=== PATIENT | male | born 1940 | race Caucasian/White ===

== ENCOUNTER 2020-12-03 12:52 | Emergency (ER) | payer MEDICARE, SELFPAY ==
[2020-12-03] VITALS (10 sets, daily range): BP systolic 167–194; BP diastolic 66–89; PULSE 66–81; RESP 16; TEMP 36.7; O2SAT 94–99; BMI 24.4
--- NOTE | 2020-12-03 13:43 | ED.LOWEXIN ---
HPI - Extremity Injury (Lower) General Chief Complaint: Extremity Injury, Lower Stated Complaint: left knee pain Time Seen by Provider: 12/03/20 13:43 Source: patient and family (son) Mode of arrival: Wheelchair Limitations: no limitations History of Present Illness HPI Narrative: This is an 80-year-old male who comes to the emergency department with complaint of left knee pain. Patient states he was skiing yesterday just outside [place], [place]. Patient states that he fell and had pain immediately in the area just below his knee and radiating down. Patient states if he tries to weight bear very uncomfortable from below the knee down towards his ankle. He crawls on his hands and knees that does not cause him pain. Patient has had swelling. He does not have any numbness, tingling or loss of sensation. Patient denies any other injuries, states that he had his helmet on. He denies any headache, back pain, chest pain or shortness of breath. Patient states he takes ibuprofen as needed for pain, otherwise he does not take any medications regularly. His primary care is on [facility] and he lives in [place]. Patient denies any allergies to medications. Related Data Previous Rx's Medication Instructions Recorded hydrocodone-acetaminophen [Fork] 1 tab PO Q6H PRN #14 tab 12/03/20 Review of Systems Review of Systems ROS Unobtainable: All systems reviewed & are unremarkable except as noted in HPI and below Patient History Social History Smoking Status: Never smoker Smoking Status: Never smoker Substance Use Type: does not use Exam Narrative Exam Narrative: GEN: well nourished, well appearing elderly male, alert and oriented x 3, patient appears to be in mild distress. HEENT: Atraumatic, pupils are equal round reactive to light, extraocular movements are intact, nares are clear. No cervical vertebral tenderness, full range of motion. HEART: Regular rate and rhythm without murmur, clicks, rubs. Pulses are equal in upper and lower extremities LUNGS:Lungs clear to auscultation, no wheezes, rales, crackles, chest moves symmetrically ABD:bowel sounds normal, soft, non-tender, no guarding, rebound, rigidity, no masses noted, no hepatosplenomegaly :No CVA tenderness MSCL: Patient has mild to moderate tenderness over the lateral tibia on the left leg, patient does have swelling of the knee and just below in comparison to the right, there is some mild ecchymosis, no hematoma is appreciated. No lacerations or open wounds, no muscle atrophy, patient has 5/5 strength with dorsi and plantar flexion. Normal sensation throughout bilateral lower extremities. 2+ dorsalis pedis and tibial pulse on the left NEURO:CN 2-12 intact, sensation normal SKIN: see above. Initial Vital Signs Initial Vital Signs: Vital Signs Pulse Rate 81 12/03/20 12:55 Respiratory Rate 16 12/03/20 12:55 Blood Pressure 175/72 H 12/03/20 12:55 Pulse Oximetry 96 12/03/20 12:55 Course Orders Ordered: ED Orders 12/03/20 13:43 XR knee LT 1to2V Stat 12/03/20 14:44 CT LE LT wo con Stat 12/03/20 15:47 COVID19 Stat Consultations Consultation #1: Dr. Dunaway, recommends CT imaging and consultation with [facility] orthopedics. Patient may need to followup for surgical intervention with their orthopedic trauma team. Can likely be outpatient. If any difficulties setting up follow up he hasks for call back and they will follow up on Friday morning. Time: 14:48 Consultation #2: spoke with Dr. Jose Godoy with orthopedic surgery. [facility] and plan to follow up on Friday or . Dr. Godoy does not request any additional labs. Recommends knee immobilizer and walker with non-weight bearing. If patient unable to ambulate safely they are happy to have patient transfer tonight. Time: 15:55 Vital Signs Vital signs: Vital Signs - 8 hr 12/03/20 12:55 12/03/20 13:58 12/03/20 14:00 Temperature Pulse Rate 81 67 67 Respiratory Rate 16 Blood Pressure 175/72 H Pulse Oximetry 96 95 94 12/03/20 14:30 12/03/20 14:33 12/03/20 15:09 Temperature Pulse Rate 68 70 72 Respiratory Rate Blood Pressure 194/89 H Pulse Oximetry 95 95 98 12/03/20 15:30 12/03/20 16:00 12/03/20 16:04 Temperature Pulse Rate 69 66 71 Respiratory Rate Blood Pressure 167/66 H Pulse Oximetry 97 95 94 12/03/20 16:30 Temperature 98.0 F Pulse Rate 72 Respiratory Rate 16 Blood Pressure 167/66 H Pulse Oximetry 99 MDM - Extremity Injury (Lower) Lab Data Labs: Lab Results 12/03/20 Range/Units 15:47 SARS-CoV-2 (PCR) Negative (Negative) Imaging Data Extremity x-ray #1: Radiologist's Impression: [address] [id number] ReportSigned Patient: Garrett Torres BMR#: [id number]: 1940Acct:[id number]/Sex: 80 / MDate of Service: 12/03/20Loc: EDAccession Number: [id number] Procedure: XR knee LT 1to2V Ordering Provider: Sri Basurto D.O. PROCEDURE: XR KNEE LT 3V INDICATIONS: fall, ? hyperextended knee TECHNIQUE: 2 views of the knee were acquired. COMPARISON: None. FINDINGS: Bones: There is a displaced and mildly comminuted and depressed tibial plateau fracture of the lateral tibial plateau. This demonstrates approximately 7 mm of lateral displacement. There is up to 13 mm of depression at the greatest aspect. No additional fractures. Heterogeneous sclerotic lesion within the proximal tibia measuring up to 2.6 cm in greatest diameter. Soft tissues: Large dense joint effusion and diffuse soft tissue swelling. IMPRESSION: Comminuted comminuted, displaced, and depressed lateral tibial plateau fracture with large dense effusion. 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 Dictated by: Oswaldo Way D.O. on 12/03/2020 at 13:15 Approved by: Oswaldo Way D.O. on 12/03/2020 at 13:19 [facility] Narrative Medical decision making narrative: This is a pleasant 80-year-old male who has a tibial plateau fracture requiring specialized orthopedic evaluation and treatment that occurred while skiing yesterday. Patient does not have any other complaints and examination does not produce any other injuries. Patient's case was reviewed with Orthopedic surgery locally who referred patient to [facility]. Case was discussed with Dr. Morejon from [facility] and plan have patient follow in the office on Friday this week with plan for surgical fixation on Friday or . Patient and son are both comfortable with plan. Patient was able to ambulate with crutches which he states he prefers and feels more comfortable than with a walker. Placed in knee immobilizer. Given a short-term prescription of Fork although patient states he will likely not take this. Phone numbers from and the son were given to the coordinator at [facility] and they should expect a phone call tomorrow afternoon. Discharge Plan Departure Patient Disposition: Home Clinical Impression: Closed fracture of tibial plateau Instructions: DI for Tibial Plateau Fracture Activity Restrictions/Additional Instructions: Follow-up with Orthopedic surgery at [facility]. They planned to have you seen at clinic on Friday, with plan for surgical repair on Friday or . You should expect a phone call sometime by tomorrow afternoon. If you have not heard back by late afternoon you may call [phone]. You are supposed to be [facility] by [facility]. I spoke with Dr. 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 Take your hard copy of your COVID test today with you. You should be nonweightbearing. You may take pain medication as needed, 1 tablet every 6 hours as needed. This medication has narcotic, do not drive, perform hazardous activities or make any major decisions while taking it. It will also make you constipated so make sure to take a stool softener such as Colace 1-2 times daily until stools are soft and regular. If you prefer you may take Tylenol instead up to a 1000 mg every 8 hours. Your maximum amount of acetaminophen is 3000 mg in 24 hours. Splint Care: Keep splint clean and dry. Elevated affected body part to decrease swelling. OK to use ice pack on the affected body part. Use for 15-20 minutes each time, for 5-6x per day. If you develop worsening pain, numbness, tingling, discoloration of the affected body part, loosen the splint by loosening the CHANTAL wrap, and either see your doctor for an urgent re-assessment, or return to the Emergency Department. Return to the Emergency Department for any new or worsening symptoms. Prescriptions: New hydrocodone-acetaminophen [Fork] 5-325 mg tablet 1 tab PO Q6H PRN (Reason: pain) Qty: 14 RF: 0 Referrals: Anita Mart MD [Primary Care Provider] - Ronaldo Dunaway MD [Physician] -
--- NOTE | 2020-12-03 14:44 | DI.CT.S_ITS ---
PROCEDURE: CT LE LT W CON INDICATIONS: left tibial plateau fracture TECHNIQUE: Noncontrast 1-1.5 mm axial sections acquired from the mid-patella to the proximal tibia, with coronal and sagittal reformats. COMPARISON: [facility], CR, XR KNEE LT 3V, 12/03/2020, 13:44. FINDINGS: Image quality: Excellent. Bones: There is a vertical fracture through the lateral tibial plateau extending to the metaphysis. This demonstrates approximately 7 mm of lateral displacement proximally. There are comminuted fracture fragments with depression of the central portion of the lateral tibial plateau. This demonstrates approximately 1.5 cm of depression at the deepest point. No additional fractures are identified. Mild degenerative changes of the patellofemoral compartment. Mild lateral patellar deviation and tilt. Heterogeneous sclerotic lesion within the proximal tibia with appearance favoring enchondroma. Soft tissues: Enthesophyte is noted at the patella. Mild vascular calcifications within the leg. Large dense effusion. Diffuse soft tissue inflammation. IMPRESSION: Comminuted split and depressed fracture of the lateral tibial plateau (Schatzker 2) with approximately 7 mm of lateral displacement and approximately 1.5 cm of depression at the greatest depth within the mid portion of the tibial plateau. Large joint effusion. Mild degenerative changes of the patellofemoral compartment. Mild lateral patellar deviation and tilt. Dictated by: Oswaldo Way D.O. on 12/03/2020 at 14:24 Approved by: Oswaldo Way D.O. on 12/03/2020 at 14:31
[2020-12-03 16:14] LABS: COVID19 -Nasal RAPID Negative (Negative)
== END 2020-12-03 16:30 | disposition home or self-care (01) ==
PROVIDERS: Emergency Provider Emergency Medicine; Family Provider Family Medicine Geriatric Medicine; PCP Family Medicine Geriatric Medicine
DX: S82.143A Displaced bicondylar fracture of unspecified tibia, initial encounter for closed fracture (principal); V00.321A Fall from snow-skis, initial encounter; Z20.822 Contact with and (suspected) exposure to COVID-19
CPT/HCPCS: 73560; 73700; 87635; 99284; C9803

== ENCOUNTER → 2021-05-16 07:38 | Outpatient (CLI) | payer MEDICARE, SELFPAY ==
--- NOTE | 2021-05-16 | DI.ECHO.S_ITS ---
[facility] +---------+ : : [address] : : : : [id number] : : : : Phone: [phone]+ Echocardiogram Report + + :Name: SREE SANTANA Study Date: 05/16/2021 Height: 71 in : :[facility] ReadingLocation: Weight: 175 lb : : Gender: Male BSA: 2.0 m2 : :: 1940 Age: 81 yrs BP: 165/85 mmHg: :Reason For Study: FATIGUE : :Ordering Physician: MACIEJ, : :IVONNE Performed By: Jacy Garcia : :Referring: IVONNE WING : + + Interpretation Summary The left ventricle is normal in size and wall thickness. Left ventricular systolic function appears normal without focal wall motion abnormalities. The ejection fraction is estimated to be 60-65%. Diastolic parameters suggest probable normal left ventricular diastolic function and normal filling pressures. The right ventricle is normal in size and function. The right ventricular systolic pressure is estimated to be at least 20 mmHg based on an estimated right atrial pressure of 3 mm Hg. The left atrium is mildly dilated. Right atrial size is normal. There is mild mitral regurgitation. There is mild aortic regurgitation. The ascending aorta is mildly enlarged. Procedure: A two-dimensional transthoracic echocardiogram with color flow and Doppler was performed. The study quality was technically adequate. There is no prior echocardiogram noted for this patient. The patient was in sinus rhythm with heart rates between 58-64 bpm during the exam. Left Ventricle: The left ventricle is normal in size and wall thickness. Left ventricular systolic function appears normal without focal wall motion abnormalities. The ejection fraction is estimated to be 60-65%. Diastolic parameters suggest probable normal left ventricular diastolic function and normal filling pressures. Right Ventricle: The right ventricle is normal in size and function. Atria: The left atrium is mildly dilated. Right atrial size is normal. There is no Doppler evidence for an interatrial shunt. Mitral Valve: The mitral valve is normal in structure and function. There is mild mitral regurgitation. Aortic Valve: The aortic valve is trileaflet. The aortic valve opens well. There is no aortic valve stenosis. There is mild aortic regurgitation. Tricuspid Valve: The tricuspid valve is normal in structure and function. The right ventricular systolic pressure is estimated to be at least 20 mmHg based on an estimated right atrial pressure of 3 mm Hg. There is trace tricuspid regurgitation. Pulmonic Valve: The pulmonic valve is not well seen, but is grossly normal. There is mild pulmonic regurgitation. Great Vessels: The aortic root is normal size. The ascending aorta is mildly enlarged. The IVC is of normal diameter and collapses greater than 50% with a sniff. This suggests a low right atrial pressure of 3 mm Hg. Pericardium/ Pleura There is no pericardial effusion. There is no pleural effusion. MMode/2D Measurements & Calculations LVIDd: 5.4 cm LVOT diam: 2.1 cm LVIDs: 3.8 cm Ao root diam: 3.5 cm FS: 29.4 % asc Aorta Diam: 3.5 cm IVSd: 0.86 cm LVPWd: 0.93 cm LV flowers. diameter/BSA (cm/m^2): 2.7 LV sys. diameter/BSA (cm/m^2): 1.9 LA A2 area: 23.2 cm2 RA long axis: 5.3 cm LA A4 area: 19.2 cm2 RA area: 16.5 cm2 LA length (vol): 5.1 cm RA vol: 43.6 ml LA vol: 74.2 ml RA : 21.9 ml/m2 LA vol index: 37.2 ml/m2 IVC diam: 0.76 cm RVD1 (basal): 3.9 cm TAPSE: 2.7 cm Doppler Measurements & Calculations Ao V2 max: 113.3 cm/sec LVOT Max Iam: 102.1 cm/sec Ao V2 mean: 78.2 cm/sec LV V1 max P.2 mmHg Ao max P.1 mmHg LV V1 VTI: 25.2 cm Ao mean P.8 mmHg ALENA(I,D): 3.3 cm2 Ao V2 VTI: 27.4 cm ALENA(V,D): 3.2 cm2 sev ratio: 0.92 ALENA indexed to BSA (cm^2/m^2): 1.6 MV E max iam: 51.1 cm/sec TR max iam: 210.2 cm/sec MV A max iam: 49.8 cm/sec TR max P.7 mmHg MV E/A: 1.0 PA V2 max: 109.8 cm/sec Med Peak E' Iam: 7.7 cm/sec PA V2 mean: 74.9 cm/sec E/E' med: 6.6 PA mean P.5 mmHg Lat Peak E' Iam: 5.8 cm/sec PA pr(Accel): 41.3 mmHg E/E' lat: 8.8 E/e' average: 7.7 MV dec time: 0.27 sec SV(OT): 89.6 ml Reading Physician:06:47 PM
== END ==
PROVIDERS: Family Provider Family Medicine Geriatric Medicine; PCP Physician Assistant; Referring Provider Physician Assistant; Visit Provider Physician Assistant
DX: I08.0 Rheumatic disorders of both mitral and aortic valves (principal); I77.89 Other specified disorders of arteries and arterioles; R53.83 Other fatigue
CPT/HCPCS: 93306

== ENCOUNTER 2023-07-23 08:07 | Emergency (ER) | payer MEDICARE, SELFPAY ==
[2023-07-23] VITALS (19 sets, daily range): BP systolic 152–206; BP diastolic 63–95; PULSE 56–157; RESP 17–27; TEMP 36.8; O2SAT 96–99; BMI 25.1
--- NOTE | 2023-07-23 08:15 | DI.CT.S_ITS ---
PROCEDURE: CT STROKE INDICATIONS: Dysarthria TECHNIQUE: Noncontrast 4.5 mm thick angled axial sections acquired from the foramen magnum to the vertex, with coronal reformats. For radiation dose reduction, the following was used: automated exposure control, adjustment of mA and/or kV according to patient size. COMPARISON: None. FINDINGS: Image quality: Excellent. CSF spaces: Basal cisterns are patent. No extra-axial fluid collections. The ventricles are symmetric in size and shape. Brain: No intracranial bleeds or masses. There is cerebral volume loss for age, with resultant ventricular and sulcal prominence. There are periventricular and deep white matter chronic small vessel ischemic changes more prominent in the left frontal lobe. There is intracranial internal carotid artery atherosclerosis. Skull and face: Calvarium and visualized facial bones appear intact, without suspicious lesions. Sinuses: Visualized sinuses and mastoids are clear. IMPRESSION: 1. No acute intracranial abnormality. 2. Cerebral volume loss and small vessel ischemic changes. This study fulfills neurological imaging criteria for inclusion or exclusion of acute stroke therapies based on available published neurological guidelines. Dictated by: Malachi Penn M.D. on 07/23/2023 at 8:30 Approved by: Malachi Penn M.D. on 07/23/2023 at 8:33
--- NOTE | 2023-07-23 08:16 | DI.CT.S_ITS ---
PROCEDURE: CT ANGIO HEAD AND NECK INDICATIONS: Dysarthria TECHNIQUE: After the administration of intravenous contrast, 1 mm thick sections acquired from the aortic arch through the [place] of [place]. 3-dimensional scnxlcy-luubmldlk-ccfuhebrhk (MIP) and/or volume rendering reformats were acquired of the central intracranial vasculature and neck separately. For radiation dose reduction, the following was used: automated exposure control, adjustment of mA and/or kV according to patient size. COMPARISON: None. FINDINGS: Image quality: Diagnostic. BRAIN: CSF spaces: Ventricles are normal in size and shape. Basal cisterns are patent. No extra-axial fluid collections. Brain: No significant abnormality of the brain can be seen. Skull and face: Calvarium and facial bones appear intact, without suspicious lesions. Orbits appear normal. Sinuses: Sinuses and mastoids are clear. HEAD CT ANGIOGRAPHY: Anterior circulation: Intracranial internal carotid arteries are normal in size and flow. Atherosclerotic vascular calcifications. Tiny inferiorly directed outpouching from the left terminal ICA measuring 1 x 1 mm, favored to represent a small infundibulum. The flow within the paired anterior cerebral arteries is normal and symmetric. The flow within the middle cerebral arteries is normal and symmetric. The anterior communicating artery is seen. No aneurysms are seen. Posterior circulation: Visualized portions of the vertebral arteries demonstrate normal caliber, and join to form a normal appearing basilar artery. Flow within the posterior cerebral arteries is normal and symmetric. No aneurysms are seen. NECK CT ANGIOGRAPHY: Carotid system: The great vessels demonstrate a conventional anatomy as they arise from the aortic arch. Atherosclerotic vascular calcifications are present. Mild narrowing of the bilateral proximal subclavian arteries. The origins of the common carotid arteries appear patent. The common carotid arteries demonstrate normal caliber and courses. Atherosclerotic vascular calcifications at the carotid bifurcations, left greater than right. No hemodynamically significant stenosis of the right proximal ICA. There is severe narrowing of the left proximal ICA with near complete occlusion. Normal caliber and contrast opacification distally. The internal carotid arteries demonstrate normal calibers and courses. Posterior circulation: Moderate narrowing of the right vertebral artery origin. The left vertebral artery origin is widely patent. The more superior extracranial portions of both vertebral arteries also demonstrate normal courses and calibers. They join to form a normal appearing basilar artery. Soft tissues: Visualized neck soft tissues demonstrate no suspicious abnormalities. Bones: No suspicious bony lesions. Degenerative changes of the cervical spine with focal reversal of the normal cervical lordosis at C3-C4. Grade 1 retrolisthesis of C4 on C5. Decreased osseous mineralization. Deformity of the superior aspect of the sternum, may represent prior fracture deformity. IMPRESSION: CT angiography head: 1. No large vessel occlusion or hemodynamically significant stenosis. 2. Tiny 1 mm inferiorly directed outpouching from the left terminal ICA, favored to represent an infundibulum over tiny aneurysm. CT angiography neck: 1. 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 2. Moderate narrowing of the right vertebral artery origin. Any quantitative measurements of stenosis were performed using NASCET criteria. Dictated by: Arsenio Saleh M.D. on 07/23/2023 at 8:41 Approved by: Arsenio Saleh M.D. on 07/23/2023 at 8:56
--- NOTE | 2023-07-23 08:17 | ED_ITS ---
HPI - Neuro Symptoms/Deficit General Chief Complaint: Neuro Symptoms/Deficit Stated Complaint: can't form sentence has thoughts Time Seen by Provider: 07/23/23 08:15 History of Present Illness HPI Narrative: Code stroke called. Last well known 7:15 a.m. today. Patient states he awoke before this and was fine. He was eating breakfast, he lives alone but next door to his son. He felt something was not right that he can form words correctly. He could not focused very well. Denies any weakness. No headache. He walked over to his son's house next door. Son states that he was making nonsensical words. There was no slurred speech or facial droop or limb weakness. He brought patient here directly. Blood sugar 106. Son states that patient is improving with responding to questions. He is answering more appropriately. However at this time unable to get the date correctly. He usually is able to. Patient going to CAT scan and angiogram now. Son states he has no history of heart attack strokes or diabetes. No recent illness. Denies any chest pain. No dyspnea. Triage nurse, Neli, states that he has improved a lot since the waiting room entry. Related Data Previous Rx's Medication Instructions Recorded hydrocodone 5 mg-acetaminophen 325 1 tab PO Q6H PRN pain #14 tabs 12/03/ mg tablet (Goodman) Allergies Allergy/AdvReac Type Severity Reaction Status Date / Time No Known Drug Allergies Allergy Verified 07/23/23 08:46 Review of Systems Review of Systems Narrative: GENERAL: negative chills, fatigue, malaise, fever, sweats. HEENT: negative sinus pain, ear pain, sore throat RESPIRATORY: negative dyspnea, cough CARDIOVASCULAR: negative chest pain, palpitations GASTROINTESTINAL: negative nausea, vomiting, abdominal pain : negative dysuria, frequency, hematuria MUSCULOSKELETAL: negative muscle or bony pain SKIN: negative rash, skin lesions NEUROLOGIC: negative weakness, numbness, positive dysarthria negative headache ROS Unobtainable: All systems reviewed & are unremarkable except as noted in HPI and below Patient History Social History Smoking Status: Never smoker Smoking Status: Never smoker Substance Use Type: does not use Exam Narrative Exam Narrative: GENERAL: in no distress, not toxic not dyspneic HEAD: Normocephalic. EYES: Pupils equal round ENT: Mucous membranes moist. NECK: Trachea midline. CARDIOVASCULAR: Regular rate and rhythm RESPIRATORY: Clear to auscultation. Breath sounds equal bilaterally. No wheezes, rales, or rhonchi. GASTROINTESTINAL: Abdomen soft, non-tender EXTREMITIES: No gross deformities. BACK: No flank tenderness. NEURO: AOx3. Clear speech no facial droop light touch intact bilateral face hands and legs. Negative pronator drift. Tclobf-in-nxsl intact. Patient unable to give me correct day/months/year SKIN: Warm and dry PSYCH: Not anxious, is cooperative Initial Vital Signs Initial Vital Signs: Vital Signs Temperature 98.3 F 07/23/23 08:08 Pulse Rate 68 07/23/23 08:08 Respiratory Rate 17 07/23/23 08:08 Blood Pressure 206/94 H 07/23/23 08:08 Pulse Oximetry 97 07/23/23 08:08 Oxygen Delivery Method Room Air 07/23/23 08:08 Scores NIH Stroke Scale Level of Conciousness: Alert, keenly responsive Ask month/age: Answers both questions correctly. Open/close eyes, close hand: Performs both tasks correctly Best gaze horizontal: Normal Visual cabrera: No visual loss Facial palsy: Normal symetrical movement Left arm drift: No drift for full 10 sec Right arm drift: No drift for full 10 sec Left leg drift: No drift for full 5 sec Right leg drift: No drift for full 5 sec Limb ataxia: Absent Sensory on face/arms/legs: Normal, no sensory loss Best language: No aphasia, normal Dysarthria: Normal Extinction or inattention: No abnormality Total NIH Stroke scale score: 0 Course Orders Ordered: Discontinued Medications Sodium Chloride (Normal Saline 0.9%) 1,000 mls @ 1,000 mls/hr IV BOLUS ONE Stop: 07/23/23 09:14 Last Admin: 07/23/23 08:35 Dose: 1,000 mls/hr Documented By: PAULINA Alteplase, Recombinant (Activase) 7.3 mg in 7.3 mls @ 438 mls/hr 0.09 mg/kg (7.3 mg) IV NOW ONE Stop: 07/23/23 08:55 Last Infusion: 07/23/23 09:20 Dose: 0 mls/hr Documented By: Admin: 07/23/23 09:19 Dose: 438 mls/hr Documented By: PAULINA Alteplase, Recombinant (Activase) 66.1 mg in 66.1 mls @ 66.1 mls/hr 0.81 mg/kg (66.1 mg) IV NOW ONE Stop: 07/23/23 09:53 Last Infusion: 07/23/23 09:58 Dose: 66.1 mls/hr Documented By: Admin: 07/23/23 09:20 Dose: 66.1 mls/hr Documented By: PAULINA Nicardipine HCl 25 mg/ Sodium (Chloride) 250 mls @ 50 mls/hr IV TITRATE JOSÉ MIGUEL; Protocol Last Titration: 07/23/23 09:38 Dose: 2.5 mg/hr, 25 mls/hr Documented By: Titration: 07/23/23 09:29 Dose: 2 mg/hr, 20 mls/hr Documented By: Admin: 07/23/23 09:20 Dose: 5 mg/hr, 50 mls/hr Documented By: PAULINA Labetalol HCl (Labetalol 20 Mg/4 Ml Syringe) 5 mg IV NOW ONE Stop: 07/23/23 08:43 Last Admin: 07/23/23 08:44 Dose: 5 mg Documented By: PAULINA Vital Signs Vital signs: Vital Signs - 8 hr 07/23/23 08:16 07/23/23 08:08 07/23/23 08:44 Temperature 98.3 F Pulse Rate 64 68 60 Respiratory Rate 22 17 Blood Pressure 206/94 H 183/81 H Pulse Oximetry 96 97 Oxygen Delivery Method Room Air MDM - Neuro Symptoms/Deficit Lab Data 07/23/23 08:15 07/23/23 08:15 Labs: Lab Results 07/23/23 07/23/23 07/23/23 Range/Units 08:15 08:15 08:15 WBC 7.0 (4.5-11.0) X10^3/uL RBC 4.63 (4.5-5.9) X10^6/uL Hgb 15.3 (13.5-17.5) g/dL Hct 44.8 (41-53) % MCV 96.7 (80-100) fL MCH 33.1 (26-34) PG MCHC 34.2 (30-36) % RDW 12.6 (11.6-14.8) % Plt Count 233 (150-400) X10^3/uL Neut % (Auto) 67.1 (50-75) % Lymph % (Auto) 21.8 L (25-40) % Jasper % (Auto) 10.0 (3-14) % Eos % (Auto) 0.8 L (2-4) % Baso % (Auto) 0.3 (0-2) % Neut # (Auto) 4700 (8210-3728) /uL Lymph # (Auto) 1500 (4213-2313) /uL Jasper # (Auto) 700 (0-900) /uL Eos # (Auto) 100 (0-450) /uL Baso # (Auto) 0 (0-100) /uL PT 11.9 (10.1-12.7) SECONDS INR 1.0 (0.9-1.3) APTT 29 (26-36) SECONDS Sodium 138 (137-145) mmol/L Potassium 4.2 (3.4-5.1) mmol/L Chloride 105 (98-107) mmol/L Carbon Dioxide 26 (22-32) mmol/L BUN 14 (9-20) mg/dL Creatinine 1.22 (0.66-1.25) mg/dL Estimated GFR 59 L (>60) mL/min BUN/Creatinine Ratio 11.5 (6-22) Glucose 106 (80-110) mg/dL Calcium 9.2 (8.4-10.2) mg/dL Total Bilirubin 0.9 (0.2-1.3) mg/dL AST 23 (17-59) IU/L ALT 18 (<50) IU/L Alkaline Phosphatase 71 (38-126) U/L Total Creatine Kinase 43 L (55-170) U/L Troponin I 0.045 H (0.01-0.034) ng/mL Total Protein 7.3 (6.3-8.2) g/dL Albumin 4.2 (3.5-5.0) g/dL Globulin 3.1 (1.7-4.1) g/dL Albumin/Globulin Ratio 1.4 (1.0-2.8) Point of Care Testing Glucose POC [address] scan - head: Radiologist's Impression: [address] [address] [address] Scan Report Addendum Patient: Garrett Torres MR#: [id number] : 1940 Acct:[id number] Age/Sex: 83 / M Date of Service: 07/23/23 Loc: ED Accession Number: [id number] ?? Procedure: CT Stroke Ordering Provider: Edmond Marie MD ADDENDUMThis report includes an Addendum and supersedes previous reports for this exam. ? ? ? PROCEDURE:? CT STROKE ? INDICATIONS:? Dysarthria ? TECHNIQUE:? Noncontrast 4.5 mm thick angled axial sections acquired from the foramen magnum to the vertex, with coronal reformats.? For radiation dose reduction, the following was used:? automated exposure control, adjustment of mA and/or kV according to patient size.? ? COMPARISON:? None. ? FINDINGS:? Image quality:? Excellent.? ? CSF spaces:? Basal cisterns are patent.? No extra-axial fluid collections.? The ventricles are symmetric in size and shape.? ? Brain:? No intracranial bleeds or masses.? There is cerebral volume loss for age, with resultant ventricular and sulcal prominence.? There are periventricular and deep white matter chronic small vessel ischemic changes more prominent in the left frontal lobe.? There is intracranial internal carotid artery atherosclerosis.? ? Skull and face:? Calvarium and visualized facial bones appear intact, without suspicious lesions.? ? Sinuses:? Visualized sinuses and mastoids are clear.? ? IMPRESSION:? 1. No acute intracranial abnormality. 2. Cerebral volume loss and small vessel ischemic changes.? ? ? This study fulfills neurological imaging criteria for inclusion or exclusion of acute stroke therapies based on available published neurological guidelines.? ? ? Dictated by: Malachi Penn M.D. on 07/23/2023 at 8:30 ? ? Approved by: Malachi Penn M.D. on 07/23/2023 at 8:33 ? ? ? ADDENDUM: ? Findings were discussed with Dr. Marie at the time of dictation 08:33. ? Dictated by: Malachi Penn M.D. on 07/23/2023 at 8:37 ? ? Approved by: Malachi Penn M.D. on 07/23/2023 at 8:38 ? Addendum Dictated By: Malachi Penn MD Addendum Signed By: Addendum Cosigned By: DD/ TD/TT: 07/23/23 PROCEDURE:? CT STROKE ? INDICATIONS:? Dysarthria ? TECHNIQUE:? Noncontrast 4.5 mm thick angled axial sections acquired from the foramen magnum to the vertex, with coronal reformats.? For radiation dose reduction, the following was used:? automated exposure control, adjustment of mA and/or kV according to patient size.? ? COMPARISON:? None. ? FINDINGS:? Image quality:? Excellent.? ? CSF spaces:? Basal cisterns are patent.? No extra-axial fluid collections.? The ventricles are symmetric in size and shape.? ? Brain:? No intracranial bleeds or masses.? There is cerebral volume loss for age, with resultant ventricular and sulcal prominence.? There are periventricular and deep white matter chronic small vessel ischemic changes more prominent in the left frontal lobe.? There is intracranial internal carotid artery atherosclerosis.? ? Skull and face:? Calvarium and visualized facial bones appear intact, without suspicious lesions.? ? Sinuses:? Visualized sinuses and mastoids are clear.? ? IMPRESSION:? 1. No acute intracranial abnormality. 2. Cerebral volume loss and small vessel ischemic changes.? ? ? This study fulfills neurological imaging criteria for inclusion or exclusion of acute stroke therapies based on available published neurological guidelines.? ? ? Dictated by: Malachi Penn M.D. on 07/23/2023 at 8:30 ? ? Approved by: Malachi Penn M.D. on 07/23/2023 at 8:33 ? CTA - brain/neck: Radiologist's Impression: [place] [address] CT Scan Report Signed Patient: Garrett Torres MR#: [id number] : 1940 Acct:[id number] Age/Sex: 83 / M Date of Service: 07/23/23 Loc: ED Accession Number: [id number] ?? Procedure: CT angio head and neck Ordering Provider: Edmond Marie MD PROCEDURE:? CT ANGIO HEAD AND NECK ? INDICATIONS:? Dysarthria ? TECHNIQUE:? After the administration of intravenous contrast, 1 mm thick sections acquired from the aortic arch through the [place] of [place].? 3-dimensional zuxvkjs-hzaexnjrv-lbrsmylzbh (MIP) and/or volume rendering reformats were acquired of the central intracranial vasculature and neck separately. For radiation dose reduction, the following was used:? automated exposure control, adjustment of mA and/or kV according to patient size.? ? COMPARISON:? None. ? FINDINGS:? Image quality:? Diagnostic.? ? BRAIN:? CSF spaces:? Ventricles are normal in size and shape.? Basal cisterns are patent.? No extra-axial fluid collections.? ? Brain:? No significant abnormality of the brain can be seen. ? ? ? Skull and face:? Calvarium and facial bones appear intact, without suspicious lesions.? Orbits appear normal.? ? Sinuses:? Sinuses and mastoids are clear.? ? HEAD CT ANGIOGRAPHY:? Anterior circulation:? Intracranial internal carotid arteries are normal in size and flow.? Atherosclerotic vascular calcifications.? Tiny inferiorly directed outpouching from the left terminal ICA measuring 1 x 1 mm, favored to represent a small infundibulum. ?The flow within the paired anterior cerebral arteries is normal and symmetric.? The flow within the middle cerebral arteries is normal and symmetric.? The anterior communicating artery is seen.? No aneurysms are seen.? ? Posterior circulation:? Visualized portions of the vertebral arteries demons trate normal caliber, and join to form a normal appearing basilar artery.? Flow within the posterior cerebral arteries is normal and symmetric.? No aneurysms are seen.? ? NECK CT ANGIOGRAPHY:? Carotid system:? The great vessels demonstrate a conventional anatomy as they arise from the aortic arch.? Atherosclerotic vascular calcifications are present.? Mild narrowing of the bilateral proximal subclavian arteries.? The origins of the common carotid arteries appear patent.? The common carotid arteries demonstrate normal caliber and courses.? Atherosclerotic vascular calcifications at the carotid bifurcations, left greater than right.? No hemodynamically significant stenosis of the right proximal ICA.? There is severe narrowing of the left proximal ICA with near complete occlusion.? Normal caliber and contrast opacification distally.? The internal carotid arteries demonstrate normal calibers and courses.? ? Posterior circulation:? Moderate narrowing of the right vertebral artery origin.? The left vertebral artery origin is widely patent.? The more superior extracranial portions of both vertebral arteries also demonstrate normal courses and calibers.? They join to form a normal appearing basilar artery.? ? Soft tissues:? Visualized neck soft tissues demonstrate no suspicious abnormali ties.? ? Bones:? No suspicious bony lesions.? Degenerative changes of the cervical spine with focal reversal of the normal cervical lordosis at C3-C4.? Grade 1 retrolisthesis of C4 on C5.? Decreased osseous mineralization.? Deformity of the superior aspect of the sternum, may represent prior fracture deformity.? ? ? IMPRESSION:? ? CT angiography head:? 1. No large vessel occlusion or hemodynamically significant stenosis. 2. Tiny 1 mm inferiorly directed outpouching from the left terminal ICA, favored to represent an infundibulum over tiny aneurysm. ? CT angiography neck: 1. 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 2. Moderate narrowing of the right vertebral artery origin. ? Any quantitative measurements of stenosis were performed using NASCET criteria.? ? ? Dictated by: Arsenio Saleh M.D. on 07/23/2023 at 8:41 ? ? Approved by: Arsenio Saleh M.D. on 07/23/2023 at 8:56 ? [facility] Narrative Medical decision making narrative: Last well known 7:15 a.m. today. Patient states he awoke before this and was fine. He was eating breakfast, he lives alone but next door to his son. He fe lt something was not right that he can form words correctly. He could not focused very well. Denies any weakness. No headache. He walked over to his son's house next door. Son states that he was making nonsensical words. There was no slurred speech or facial droop or limb weakness. He brought patient here directly. Blood sugar 106. Son states that patient is improving with responding to questions. He is answering more appropriately. However at this time unable to get the date correctly. He usually is able to. Patient going to CAT scan and angiogram now. Son states he has no history of heart attack strokes or diabetes. No recent illness. Denies any chest pain. No dyspnea. Triage nurse, Neli, states that he has improved a lot since the waiting room entry. After history and exam CT stroke CT angiogram head and neck EKG troponin CBC CMP normal saline neurology consult [facility] CC: Expressive aphasia Complicating co-morbidities: None Data collected from: Patient and son Medical records reviewed: No recent visit for this complaint Differential considered: Includes but not limited to stroke TIA hypoglycemia UTI Exam documented above, pertinent findings include: Disorientation to date Lab Test results independently reviewed as above. Pertinent findings: WBC 7.0 hemoglobin 15.3 INR 1.0 sodium 138 potassium 4.2 glucose 106 GFR 59 creatinine 1.22 BUN 14, troponin 0.045 likely related to hypertension, patient has no chest pain Independently reviewed EKG normal sinus rhythm rate [address] elevation or depression. Imaging studies independently reviewed: CT head without contrast no acute process CT angiogram head and neck no large vessel occlusion. 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 Moderate narrowing of the right vertebral artery origin. Consultations: 8:32 a.m.. Spoke with radiologist, CT brain without contrast no acute finding 8:40 a.m.. Spoke with tele stroke, neurology, with [facility], he will interview patient through tele video, Dr Blakely 8:50 a.m.. Neurologist has recommended tPA due to moderate expressive aphasia. Patient and son have been given risks and benefits by this neurologist. Patient will be transferred to [facility] Emergency Department, accepted by him 9:[address] a[address] Updated [address] angiogram head and neck results Treatments: Normal saline, tPA Re-evaluations: 8:35 a.m.. Patient still having a few sentences and events of expressive aphasia, no motor sensory deficits. 8:50 a.m.. Patient and son have been interviewed and examined by Neurology, they do understand need for tPA and risks and benefits have been reviewed with them. They do understand. And they also understand need for transfer to [facility] Discussion: Appropriate for tPA as well as transfer. This is protocol for tPA, [facility] helps for transfer and admission to their facility. Blood pressure is controlled. Diagnosis: Stroke Critical Care Time Critical Care Time Attestation: Critical Care Time 35 minutes: Critical care time is separate from other billable procedures. This critical care time includes consultation with family and other consulting doctors, review of records, and interpretation of data from labs, EKGs, imaging, etc. Discharge Plan Departure Patient Disposition: [facility] Clinical Impression: Cerebrovascular accident Prescriptions: No Action hydrocodone-acetaminophen [Goodman] 5-325 mg tablet 1 tab PO Q6H PRN (Reason: pain) Qty: 14 0RF Referrals: Charley Kimble PA-C [Non-Staff] -
[2023-07-23 08:26] LABS: Add Manual Diff / Slide Review NO; Basophils Absolute Auto 0 /uL (0-100); Basophils Percent Auto 0.3 % (0-2); Eosinophils Absolute Auto 100 /uL (0-450); Eosinophils Percent Auto 0.8 % (2-4); Hematocrit 44.8 % (41-53); Hemoglobin 15.3 g/dL (13.5-17.5); Lymphocytes Absolute Auto 1500 /uL (1100-4500); Lymphocytes Percent Auto 21.8 % (25-40); Mean Corpuscular HGB Conc 34.2 % (30-36); Mean Corpuscular Hemoglobin 33.1 PG (26-34); Mean Corpuscular Volume 96.7 fL (80-100); Monocytes Absolute Auto 700 /uL (0-900); Neutrophils Absolute Auto 4700 /uL (1500-7000); Neutrophils Percent Auto 67.1 % (50-75); Platelet Count 233 X10^3/uL (150-400); Red Blood Cell Count 4.63 X10^6/uL (4.5-5.9); Red Cell Distribution Width 12.6 % (11.6-14.8)
[2023-07-23 08:32] LABS: Prothrombin Time 11.9 SECONDS (10.1-12.7)
[2023-07-23 08:35] LABS: PTT Partial Thromboplastin Tim 29 SECONDS (26-36)
[2023-07-23] MEDS: SODIUM CHLORIDE 0.9% 1,000 ML 1000 ML IV (08:35)
[2023-07-23 08:37] LABS: Alanine Aminotransferase 18 IU/L (<50); Albumin 4.2 g/dL (3.5-5.0); Albumin Globulin Ratio 1.4 (1.0-2.8); Alkaline Phosphatase 71 U/L (38-126); Aspartate Aminotransferase 23 IU/L (17-59); BUN Creatinine Ratio 11.5 (6-22); Bilirubin Total 0.9 mg/dL (0.2-1.3); Blood Urea Nitrogen 14 mg/dL (9-20); Calcium 9.2 mg/dL (8.4-10.2); Carbon Dioxide 26 mmol/L (22-32); Chloride 105 mmol/L (98-107); Creatine Kinase 43 U/L (55-170); Estimated Glomerular Filt Rate 59 mL/min (>60); Globulin 3.1 g/dL (1.7-4.1); Glucose 106 mg/dL (80-110); HEMOLYSIS < 15 (0-50); Potassium 4.2 mmol/L (3.4-5.1); Sodium 138 mmol/L (137-145); Total Protein 7.3 g/dL (6.3-8.2)
[2023-07-23] MEDS: LABETALOL 20 MG/4 ML SYRINGE 5 MG IV (08:44)
[2023-07-23 08:48] LABS: Troponin I 0.045 ng/mL (0.01-0.034)
[2023-07-23] MEDS: ALTEPLASE 438 MG IV (09:19)
[2023-07-23] MEDS: NICARDIPINE 25 MG in SODIUM CHLORIDE 0.9% 240 ML 50 MG IV (09:20)
[2023-07-23] MEDS: ALTEPLASE IV (09:20)
--- NOTE | 2023-07-23 09:42 | PC.NURSE ---
Patient displaying some dysarthria and aphasia when talking. NIH stroke scale picture of washing dishes he states he sees a dog.
--- NOTE | 2023-07-23 10:00 | PC.NURSE ---
Ambulance team taking over TPA administration with 12cc left running and nicardipine drip infusing. Patients NIH score increased to [address] Marie was made aware.
== END 2023-07-23 10:01 | disposition short-term general hospital (02) ==
PROVIDERS: Emergency Provider Emergency Medicine; Family Provider Family Medicine Geriatric Medicine
DX: I63.9 Cerebral infarction, unspecified (principal)
CPT/HCPCS: 36415; 70450; 70496; 70498; 80053; 82550; 82962; 84484; 85025; 85610; 85730; 93005; 93010; 96365; 96368; 96375; 99284; 99285; 99291; 99292; J2997; Q9967

== ENCOUNTER → 2023-08-22 10:57 | Outpatient (CLI) | payer MEDICARE, SELFPAY ==
--- NOTE | 2023-08-22 | DI.US.S_ITS ---
PROCEDURE: US CAROTID DOPPLER BI INDICATIONS: Occlusion and stenosis of left carotid artery TECHNIQUE: Color and pulse Doppler interrogation was performed of both carotid systems, with image documentation and velocity measurements. COMPARISON: None. FINDINGS: Stenosis calculations are based on SRU (Society of Radiologists in Ultrasound) criteria. Right side: Brachial blood pressure: 129/69 mm Hg. Common carotid artery peak systolic velocity: 92 cm/sec. Internal carotid artery peak systolic velocity: 128 cm/sec. Internal carotid artery end diastolic velocity: 21 cm/sec. External carotid artery peak systolic velocity: 163 cm/sec. ICA/CCA peak systolic ratio: 1.4 . Silav scale imaging description: Atherosclerotic plaque Percent internal carotid artery stenosis: Approximately 50. Vertebral artery: Flow direction is antegrade. Left side: Brachial blood pressure: 126/65 mm Hg. Common carotid artery peak systolic velocity: 91 cm/sec. Internal carotid artery peak systolic velocity: 97 cm/sec. Internal carotid artery end diastolic velocity: 23 cm/sec. External carotid artery peak systolic velocity: 113 cm/sec. ICA/CCA peak systolic ratio: 1.1 . Silva scale imaging description: Atherosclerotic plaque Percent internal carotid artery stenosis: Less than 50 . Vertebral artery: Flow direction is antegrade. 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 Peak systolic velocities consistent with a 50-69% stenosis. On the left, no hemodynamically significant stenosis noted Approved by: Thierry Cruz M.D. on 08/22/2023 at 15:37
== END ==
PROVIDERS: Family Provider Family Medicine Geriatric Medicine; Referring Provider Physician Assistant Surgical; Visit Provider Physician Assistant Surgical
DX: I65.22 Occlusion and stenosis of left carotid artery (principal); Z98.890 Other specified postprocedural states
CPT/HCPCS: 93880

== ENCOUNTER 2023-10-01 04:57 | Emergency (ER) | payer MEDICARE, SELFPAY ==
--- NOTE | 2023-10-01 05:11 | ED.GENADULT ---
HPI - General Adult General Chief complaint: Urogenital-Male Stated complaint: possible kidney stone, shivering, cant urinate Time Seen by Provider: 10/01/23 05:10 History of Present Illness HPI narrative: 83-year-old gentleman with a history of stroke in July of this year with tPA given an eventual transfer to [facility] and had complete resolution of his symptoms. He currently is on Plavix as well as statin. At 9:00 p.m. last night he began having left lower quadrant/flank pain, it is radiating into his testicles. He is had nausea with 2 episodes of vomiting. Notes that he has not been able to void since 9:00 p.m. last night. He reports no constipation or diarrhea. No fevers. He is never had similar pain. No upper abdominal pain, chest pain, palpitations, headaches. He is quite literally, quivering secondary to pain Related Data Previous Rx's Medication Instructions Recorded hydrocodone 5 mg-acetaminophen 325 1 tab PO Q6H PRN pain #14 tabs 12/03/20 mg tablet (Bluemont) hydrocodone 5 mg-acetaminophen 325 1 tab PO Q6H PRN pain #10 tabs 10/01/23 mg tablet tamsulosin 0.4 mg capsule 0.4 mg PO DAILY #14 caps 10/01/23 Allergies Allergy/AdvReac Type Severity Reaction Status Date / Time No Known Drug Allergies Allergy Verified 07/23/23 08:46 Review of Systems Review of Systems Narrative: Pertinent positive and negative findings as per HPI Patient History Medical History (Updated 10/01/23 @ 06:39 by Cassia Carnes MD) Stroke Social History Smoking Status: Never smoker Smoking Status: Never smoker Substance Use Type: does not use Exam Initial Vital Signs Initial Vital Signs: Vital Signs Temperature 97.9 F 10/01/23 05:16 Pulse Rate 98 H 10/01/23 05:16 Respiratory Rate 24 10/01/23 05:16 Blood Pressure 167/83 H 10/01/23 05:16 Pulse Oximetry 98 10/01/23 05:16 Oxygen Delivery Method Room Air 10/01/23 05:16 General: Healthy appearing, in significant pain but Able to give a complete and coherent history. Well-nourished well-developed HEENT: Moist mucous membranes, normal sclera with reactive pupils, Respiratory: Lungs are clear to auscultation, no wheezing no rales no rhonchi. Full and symmetrical air movement Cardiac: Regular rate and rhythm no murmurs no bruits Abdomen: Soft, minor tenderness in the left lower quadrant, significant left flank pain, no tenderness along the inguinal canal on the left side. No tenderness in the upper abdomen Skin: Warm and dry, no rashes Neurologic: Grossly neurologically intact with no obvious asymmetries or abnormalities Extremities: No trauma, well perfused Psych: Cooperative, appropriate insight and affect Course Orders Ordered: ED Orders 10/01/23 05:10 Complete Blood Count AUTO DIFF Stat Comprehensive Metabolic Panel Stat 10/01/23 05:18 CT kidney ureter bladder (KUB) Stat Urinalysis and Microscopic Stat Hydromorphone HCl (Hydromorphone 0.5 Mg Inj) 0.5 mg IV Q15MIN PRN PRN Reason: Pain, Last Admin: 10/01/23 05:28 Dose: 0.5 mg Documented By: BARB Discontinued Medications Sodium Chloride (Normal Saline 0.9%) 1,000 mls @ 1,000 mls/hr IV BOLUS ONE Stop: 10/01/23 06:16 Last Admin: 10/01/23 05:29 Dose: 1,000 mls/hr Documented By: BARB Ondansetron HCl (Ondansetron 4 Mg/2 Ml Inj) 4 mg IV NOW ONE Stop: 10/01/23 05:18 Last Admin: 10/01/23 05:29 Dose: 4 mg Documented By: BARB Vital Signs Vital signs: Vital Signs - 8 hr 10/01/23 05:16 10/01/23 05:41 Temperature 97.9 F Pulse Rate 98 H 93 H Respiratory Rate 24 Blood Pressure 167/83 H Pulse Oximetry 98 99 Oxygen Delivery Method Room Air Medical Decision Making Lab Data 10/01/23 05:10 10/01/23 05:10 Labs: Lab Results 10/01/23 Range/Units 05:10 WBC 13.6 H (4.5-11.0) X10^3/uL RBC 4.30 L (4.5-5.9) X10^6/uL Hgb 14.0 (13.5-17.5) g/dL Hct 41.3 (41-53) % MCV 96.0 (80-100) fL MCH 32.5 (26-34) PG MCHC 33.8 (30-36) % RDW 13.2 (11.6-14.8) % Plt Count 277 (150-400) X10^3/uL Neut % (Auto) 89.4 H (50-75) % Lymph % (Auto) 4.7 L (25-40) % Lynn % (Auto) 5.8 (3-14) % Eos % (Auto) 0.1 L (2-4) % Baso % (Auto) 0.0 (0-2) % Neut # (Auto) 12772 H (9806-4474) /uL Lymph # (Auto) 600 L (5202-9873) /uL Lynn # (Auto) 800 (0-900) /uL Eos # (Auto) 0 (0-450) /uL Baso # (Auto) 0 (0-100) /uL Sodium 137 (137-145) mmol/L Potassium 4.2 (3.4-5.1) mmol/L Chloride 105 (98-107) mmol/L Carbon Dioxide 16 L (22-32) mmol/L BUN 25 H (9-20) mg/dL Creatinine 1.30 H (0.66-1.25) mg/dL Estimated GFR 55 L (>60) mL/min BUN/Creatinine Ratio 19.2 (6-22) Glucose 169 H (80-110) mg/dL Calcium 9.7 (8.4-10.2) mg/dL Total Bilirubin 1.1 (0.2-1.3) mg/dL AST 30 (17-59) IU/L ALT 24 (<50) IU/L Alkaline Phosphatase 81 (38-126) U/L Total Protein 7.5 (6.3-8.2) g/dL Albumin 4.4 (3.5-5.0) g/dL Globulin 3.1 (1.7-4.1) g/dL Albumin/Globulin Ratio 1.4 (1.0-2.8) MDM Narrative Medical decision making narrative: CC: Acute onset left flank and left lower quadrant pain 9:00 p.m. Complicating co-morbidities: Recent stroke, no residual side effects Data collected from: patient Medical records reviewed: ER notes from his recent stroke with transfer to [facility] are reviewed Differential considered: Kidney stone, pyelonephritis, inguinal hernia, AAA, retroperitoneal bleeding Exam documented above, pertinent findings include: In obvious pain that is still quite cooperative. Left flank and left lower quadrant tenderness. Does not have an acute surgical abdomen. Remainder of exam is benign Lab Test results independently reviewed as above. Pertinent findings: CBC shows leukocytosis at 13.6 with left shift at 89.4. Metabolic panel shows slight dehydration be with BUN at 25 and slight bump to creatinine at 1.3. Liver studies are unremarkable Urine dip shows blood glucose and ketones but does not suggest infection Imaging studies independently reviewed: 4 mm obstructing stone at the left UVJ with renal edema perinephric stranding and mild to moderate hydroureteronephrosis on the left. Treatments: Fluids, Zofran, Dilaudid. Because of his Plavix will hold on Toradol. Bladder scan Re-evaluations: Reviewed CT findings with the patient. Pain is doing much better. Bladder scan only showed will over a little over 225 cc after no void all night long. Likely needs to be drinking a bit more fluid and that may be contributing to why he developed the stone in the 1st place. Pain has been adequately controlled. He still does not feel like he would can void. Would like to confirm the absence of a urinary tract infection given the presence of stone and slight leukocytosis with no alternate explanation. Discussion: Patient is feeling significantly better. Pain is controlled, he has been able to void, he is able to walk around the department without any instability. The go home with his son. We talked about pain control, signs of infection and reasons to return. Prescriptions for Blu[place] and tamsulosin were sent to his pharmacy. Questions were answered and he is safe for discharge Discharge Plan Departure Patient Disposition: Home Clinical Impression: Kidney stone on left side Instructions: DI for Kidney Stones Activity Restrictions/Additional Instructions: Thank you for coming in today You do in fact have a 4 mm kidney stone on the left side that is almost ready to drop into your bladder. We are going to give you a prescription for hydrocodone-acetaminophen to use every 4 hours for pain control. This is a narcotic and will cause constipation. Please make sure you takes stool softener with this. You can also use Tylenol, please remember that each pain pill has the equivalent of 1 Tylenol in it as well. I am also going to give you a short prescription of tamsulosin/Flomax. This can help the ureter relax slightly and encouraged the stone to pass. Once the stone has passed, you do not need to continue this medication Please schedule an appointment with your primary care physician in about a week to follow-up on today's visit and make sure that the stone has passed, you are feeling well and all of your blood work is back to normal. If you find that you are getting worse or develop any new symptoms, please feel free to return to the emergency department for further evaluation. Prescriptions: New hydrocodone-acetaminophen 5-325 mg tablet 1 tab PO Q6H PRN (Reason: pain) Qty: 10 0RF tamsulosin 0.4 mg capsule 0.4 mg PO DAILY Qty: 14 0RF Rx Instructions: one daily until the kidney stone has passed then discontinue No Action hydrocodone-acetaminophen [Blu[place]] 5-325 mg tablet 1 tab PO Q6H PRN (Reason: pain) Qty: 14 0RF Referrals: Miscellaneous,Doctor, [Primary Care Provider] - Stand Alone Forms: Patient Portal/API
[2023-10-01 05:16] VITALS: BP 167/83; PULSE 98; RESP 24; TEMP 36.6; O2SAT 98; BMI 25.8
--- NOTE | 2023-10-01 05:18 | DI.CT.S_ITS ---
PROCEDURE: CT KIDNEY URETER BLADDER (KUB) INDICATIONS: left flank pain TECHNIQUE: Axial sections were acquired from the lung bases to the pubic symphysis. Coronal and sagittal reformats were performed. For radiation dose reduction, the following was used: automated exposure control, adjustment of mA and/or kV according to patient size. COMPARISON: None. FINDINGS: Image quality: Excellent. Evaluation of the visceral organs is limited due to the lack of intravenous contrast. Lung bases: No suspicious pulmonary nodule or consolidation. No basilar effusion. Small hiatal hernia. Heart: No significant findings. URINARY: Right Kidney: No stones or hydronephrosis. Right lower pole exophytic simple cyst. Right Ureter: No hydroureter. Left Kidney: Stone at the left ureterovesical junction measuring 5 x 4 mm (2/69) with upstream moderate hydronephrosis and perinephric fat stranding. Left Ureter: Mild hydroureter. Bladder: Normal wall thickness. No stones. ABDOMEN: Liver: No contour-deforming solid mass. Hypoattenuating lesion in the left hepatic lobe measuring 12 mm with Hounsfield unit of 10 compatible with a simple cyst (2/18). Gallbladder: No stones or wall thickening. No pericholecystic fluid. Query tiny amount of sludge (2/27). Biliary ducts: No biliary dilation. Pancreas: No ductal dilation. Spleen: Size is within normal limits. Adrenal Glands: No adrenal nodules. Stomach and Bowel: Stomach is decompressed and appears grossly normal. Small and large bowel is normal in caliber, without obstruction. Extensive sigmoid and scattered colonic diverticulosis, without diverticulitis. No pneumatosis, pneumoperitoneum or portal venous gas. Peritoneum: No abnormal intraperitoneal fluid. Ventral Wall: No hernia. Abdominal Nodes: No enlarged retroperitoneal or mesenteric lymph nodes. Vessels: Aorta and inferior vena cava are normal in size. Moderate calcification of the abdominal aorta and branch vessels, without aneurysm. PELVIS: Pelvic Organs: Mild prostatomegaly with dystrophic calcifications. Pelvic Nodes: Unremarkable. Miscellaneous: Small right fat containing inguinal hernia. Bones: No acute fracture. No aggressive appearing lytic or blastic osseous lesion. Healed left lateral 6th and 7th rib fractures. IMPRESSION: 1. Obstructing nephrolith at the left ureterovesical junction measuring 5 x 4 mm with upstream [id number] hydroureteronephrosis and fat stranding. 2. No right-sided hydronephrosis or nephrolithiasis. I agree with the preliminary report. Dictated by: Rachel Jacobson M.D. on 10/01/2023 at 8:24 Approved by: Rachel Jacobson M.D. on 10/01/2023 at 8:54
[2023-10-01] MEDS: HYDROMORPHONE 0.5 MG INJ IV (05:28)
[2023-10-01] MEDS: ONDANSETRON 4 MG/2 ML INJ IV (05:29)
[2023-10-01] MEDS: SODIUM CHLORIDE 0.9% 1,000 ML 1000 ML IV (05:29)
[2023-10-01 05:39] LABS: Alanine Aminotransferase 24 IU/L (<50); Albumin 4.4 g/dL (3.5-5.0); Albumin Globulin Ratio 1.4 (1.0-2.8); Alkaline Phosphatase 81 U/L (38-126); Aspartate Aminotransferase 30 IU/L (17-59); BUN Creatinine Ratio 19.2 (6-22); Bilirubin Total 1.1 mg/dL (0.2-1.3); Blood Urea Nitrogen 25 mg/dL (9-20); Calcium 9.7 mg/dL (8.4-10.2); Carbon Dioxide 16 mmol/L (22-32); Chloride 105 mmol/L (98-107); Estimated Glomerular Filt Rate 55 mL/min (>60); Globulin 3.1 g/dL (1.7-4.1); Glucose 169 mg/dL (80-110); HEMOLYSIS < 15 (0-50); Potassium 4.2 mmol/L (3.4-5.1); Sodium 137 mmol/L (137-145); Total Protein 7.5 g/dL (6.3-8.2)
[2023-10-01 05:41] VITALS: PULSE 93; O2SAT 99
[2023-10-01 05:50] LABS: Add Manual Diff / Slide Review NO; Basophils Absolute Auto 0 /uL (0-100); Eosinophils Absolute Auto 0 /uL (0-450); Eosinophils Percent Auto 0.1 % (2-4); Hematocrit 41.3 % (41-53); Lymphocytes Absolute Auto 600 /uL (1100-4500); Lymphocytes Percent Auto 4.7 % (25-40); Mean Corpuscular HGB Conc 33.8 % (30-36); Mean Corpuscular Hemoglobin 32.5 PG (26-34); Monocytes Absolute Auto 800 /uL (0-900); Monocytes Percent Auto 5.8 % (3-14); Neutrophils Absolute Auto 12200 /uL (1500-7000); Neutrophils Percent Auto 89.4 % (50-75); Platelet Count 277 X10^3/uL (150-400); Red Cell Distribution Width 13.2 % (11.6-14.8); White Blood Cell Count 13.6 X10^3/uL (4.5-11.0)
[2023-10-01 06:00] VITALS: BP 185/88; PULSE 99; O2SAT 99
[2023-10-01 06:30] VITALS: BP 166/78; PULSE 99; O2SAT 96
[2023-10-01] MEDS: TAMSULOSIN 0.4 MG CAPSULE PO (06:41)
[2023-10-01] MEDS: ACETAMINOPHEN 325 MG TABLET 650 MG PO (06:42)
[2023-10-01 06:59] LABS: Appearance Urine UA CLEAR; Bilirubin Urine UA NEGATIVE (NEGATIVE); Color Urine UA YELLOW; Glucose Urine UA TRACE g/dL (Negative); Ketones Urine UA 1+ (NEGATIVE); Leukocyte Esterase Urine UA NEGATIVE (NEGATIVE); Nitrite Urine UA NEGATIVE (Negative); Occult Blood Urine UA 2+ (Negative); Protein Urine UA NEGATIVE (Negative); Specific Gravity Urine UA >=1.030 (1.000-1.035); Urobilinogen Urine UA 0.2 E.U./dL (0.2)
[2023-10-01 07:06] LABS: Bacteria Urine None Seen; Culture Indicated Urine Cult Not Indicated; RBC Urine 5-10/HPF (0-5/HPF); Squamous Epithelial Cell Urine None Seen (0-5/HPF); WBC Urine None Seen (0-5/HPF)
[2023-10-01 07:10] VITALS: TEMP 36.6
== END 2023-10-01 07:12 | disposition home or self-care (01) ==
PROVIDERS: Emergency Provider Emergency Medicine; Family Provider Family Medicine Geriatric Medicine
DX: N20.0 Calculus of kidney (principal)
CPT/HCPCS: 36415; 51798; 74176; 80053; 81001; 81003; 85025; 96374; 96375; 99284; J1170; J2405

== ENCOUNTER 2024-08-12 04:55 | Observation (INO) | payer MEDICARE, SELFPAY ==
[2024-08-12] VITALS (20 sets, daily range): BP systolic 95–144; BP diastolic 56–71; PULSE 65–104; RESP 15–26; TEMP 36.3–37.6; O2SAT 93–99; BMI 24.7
--- NOTE | 2024-08-12 05:19 | DI.RAD.S_ITS ---
PROCEDURE: XR CHEST 1V INDICATIONS: WEAKNESS, VOMITING TECHNIQUE: One view of the chest was acquired. COMPARISON: [facility], CT, CT ABDOMEN PELVIS WO CON, 08/12/2024, 8:56. FINDINGS: Surgical changes and devices: None. Lungs and pleura: Lungs are clear. No pleural effusions or pneumothorax. Mediastinum: Mediastinal contours appear normal. Heart size is normal. Bones and chest wall: No suspicious bony lesions. Overlying soft tissues appear unremarkable. IMPRESSION: No acute cardiopulmonary abnormality is seen. Dictated by: Mu Heredia M.D. on 08/12/2024 at 9:05 Approved by: Mu Heredia M.D. on 08/12/2024 at 9:07
--- NOTE | 2024-08-12 05:20 | DI.CT.S_ITS ---
PROCEDURE: CT SOFT TISSUE NECK WO CON INDICATIONS: sudden hoarseness x 4 days TECHNIQUE: Non-contrast 3.0 mm axial sections acquired from the sella to the aortic arch. Additional oblique axial 3.0 mm sections acquired through the pharynx. 3 mm thick coronal and sagittal reformats were generated. For radiation dose reduction, the following was used: automated exposure control. COMPARISON: None. FINDINGS: Image quality: Excellent. Lymph nodes: No enlarged lymph nodes seen throughout the neck. Vessels: Non-opacified vessels appear normal in caliber. Neck spaces: The oropharynx, nasopharynx, and pharynx demonstrate no mucosal lesions. The vocal cords, false vocal cords, pyriform sinuses, epiglottis, vallecula, and tongue base all appear normal. Extramucosal spaces appear unremarkable. Glands: The parotid and submandibular glands appear normal, without stones. Thyroid gland is normal. Bones: No aggressive osseous abnormality. No displaced fractures. Spine degenerative disc disease and facet arthropathy. Miscellaneous: Visualized brain and orbits appear normal. Lung apices appear clear of acute opacities. 3 millimeter nodule in the right lung apex. Superficial soft tissues appear normal. IMPRESSION: No acute disease process. 3 millimeter right upper lobe lung nodule. Consider optional follow-up CT scan in 12 months if clinically indicated based on criteria outlined below. Fleischner Society criteria for SOLID lung nodule followup. Nodule size (mm)Low-risk patientHigh-risk patient<6 (single or multiple)No routine followup.Optional CT at 12 months. 6-8 (single or multiple)CT at 6-12 months, then optional CT at 18-24 mo.CT at 6-12 months, then CT at 18-24 months. >8 (single)CT at 3 months, PET-CT, or biopsy. Same as for low-risk pts. >8 (multiple)CT at 3-6 months, then optional CT at 18-24 mo.CT at 3-6 months, then CT at 18-24 months. Fleischner Society criteria for SUB-SOLID lung nodule followup. Solitary pure ground-glass nodules<6 mm (ground glass or part solid)No followup needed. 6 mm or larger (ground glass)CT at 6-12 months to confirm persistence, then CT every 2 years until 5 years.6 mm or larger (part solid)CT at 3-6 months to confirm persistence, then annual CT until 5 years if unchanged and solid component remains <6 mm. Multiple sub-solid nodules<6 mmCT at 3-6 months, then CT consider at 2 & 4 years for high risk patients. [address] at 3-6 months. Subsequent management based on most suspicious lesions. Recommendations do not apply to lung cancer screening, patients with immunosuppression, or patients with known primary cancer. Dictated by: Liana King MD, PhD on 08/12/2024 at 9:16 Approved by: Liana King MD, PhD on 08/12/2024 at 9:19
--- NOTE | 2024-08-12 05:20 | ED.WEAKNESS ---
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 Patient reports innumerable episodes of watery diarrhea over the last 2 weeks. He states that the stools seem black, denies afua blood in emesis or stool. He states that up until this morning he has been performing his normal ADLs, even mowing the grass, but this morning he woke up and had 3-4 episodes of nonbloody nonbilious emesis and told his son, who brought him in for evaluation. Son at bedside states that this is the 1st time he has heard of his father's symptoms. Related Data Home Medications Medication Instructions Recorded Confirmed amlodipine 10 mg tablet 10 mg PO DAILY 08/12/24 08/12/24 aspirin 81 mg capsule 81 mg PO DAILY 08/12/24 08/12/24 atorvastatin 80 mg tablet 80 mg PO ONCE PM 08/12/24 08/12/24 olmesartan 40 mg tablet 40 mg PO DAILY 08/12/24 08/12/24 Allergies Allergy/AdvReac Type Severity Reaction Status Date / Time No Known Drug Allergies Allergy Verified 07/23/23 08:46 Patient History <Sri Khan MD - Last Filed: 08/12/24 21:19> Medical History Stroke Social History household members: none Smoking Status: Never smoker alcohol intake: current Smoking Status: Never smoker Substance Use Type: does not use Exam <Sri Khan MD - Last Filed: 08/12/24 21:19> Initial Vital Signs Initial Vital Signs: Vital Signs Pulse Rate 104 H 08/12/24 05:12 Blood Pressure 124/68 08/12/24 05:12 Pulse Oximetry 96 08/12/24 05:12 Const: Awake, alert, no acute distress, nontoxic appearing Cardiac: regular rate, regular rhythm RESP: unlabored, clear bilaterally, no wheezing GI: Soft, nontender, nondistended, no rebound, no guarding Rectal: lock technician present, tone intact, no gross blood, no melena MSK: Atraumatic, full range of motion, pulses equal Skin: Warm, Dry, intact, no rashes Neuro: AO x3, CN II-XII grossly intact, moves all extremities <Aydin Gonzalez DO - Last Filed: 08/12/24 09:29> Initial Vital Signs Initial Vital Signs: Vital Signs Pulse Rate 104 H 08/12/24 05:12 Blood Pressure 124/68 08/12/24 05:12 Pulse Oximetry 96 08/12/24 05:12 Course <Sri Khan MD - Last Filed: 08/12/24 21:19> Orders Ordered: Acetaminophen (Acetaminophen 325 Mg Tablet) 650 mg PO Q6H PRN PRN Reason: Fever/Mild Pain (1-3) Last Admin: 08/12/24 13:20 Dose: 650 mg Documented By: BOOKER Enoxaparin Sodium (Enoxaparin 30 Mg/0.3 Ml Syringe) 30 mg SUBCUT DAILY JOSÉ MIGUEL Sodium Chloride (Normal Saline 0.9%) 1,000 mls @ 100 mls/hr IV CONT JOSÉ MIGUEL Last Admin: 08/12/24 11:00 Dose: 100 mls/hr Documented By: BOOKER Naloxone HCl (Naloxone 0.4 Mg/Ml Vial) 0.2 mg IV Q2MIN PRN PRN Reason: Opiate Reversal Oxycodone HCl (Oxycodone Ir 5 Mg Tablet) 5 mg PO Q3H PRN PRN Reason: Pain, Moderate (4-6) Discontinued Medications Enoxaparin Sodium (Enoxaparin 40 Mg/0.4 Ml Syringe) 40 mg SUBCUT DAILY JOSÉ MIGUEL Sodium Chloride (Normal Saline 0.9%) 1,000 mls @ 1,000 mls/hr IV BOLUS ONE Stop: 08/12/24 06:17 Last Infusion: 08/12/24 06:21 Dose: Infused Documented By: Admin: 08/12/24 05:28 Dose: 1,000 mls/hr Documented By: Sodium Chloride (Normal Saline 0.9%) 1,000 mls @ 1,000 mls/hr IV BOLUS ONE Stop: 08/12/24 06:59 Last Infusion: 08/12/24 07:40 Dose: Infused Documented By: Admin: 08/12/24 06:21 Dose: 1,000 mls/hr Documented By: BONNIE Ondansetron HCl (Ondansetron 4 Mg/2 Ml Inj) 4 mg IV NOW ONE Stop: 08/12/24 05:19 Last Admin: 08/12/24 05:29 Dose: 4 mg Documented By: Ondansetron HCl (Ondansetron 4 Mg/2 Ml Inj) 4 mg IV NOW ONE Stop: 08/12/24 08:41 Last Admin: 08/12/24 09:13 Dose: 4 mg Documented By: YONI Vital Signs Vital signs: Vital Signs - 8 hr 08/12/24 05:12 08/12/24 05:12 08/12/24 05:15 Temperature 97.3 F L Pulse Rate 104 H 99 H Respiratory Rate 19 Blood Pressure 124/68 124/68 Pulse Oximetry 96 99 Oxygen Delivery Method Room Air 08/12/24 05:30 08/12/24 05:30 08/12/24 06:00 Temperature Pulse Rate 79 65 Respiratory Rate 23 26 H Blood Pressure 95/56 L Pulse Oximetry 96 98 Oxygen Delivery Method Room Air 08/12/24 06:00 08/12/24 06:30 08/12/24 07:30 Temperature Pulse Rate 66 81 Respiratory Rate 18 21 Blood Pressure 138/60 143/57 H Pulse Oximetry 98 98 Oxygen Delivery Method 08/12/24 07:31 08/12/24 07:31 08/12/24 08:00 Temperature Pulse Rate 85 75 Respiratory Rate 17 22 Blood Pressure 143/57 H Pulse Oximetry 98 98 Oxygen Delivery Method 08/12/24 08:00 Temperature Pulse Rate Respiratory Rate Blood Pressure 138/63 Pulse Oximetry Oxygen Delivery Method <Aydin Gonzalez DO - Last Filed: 08/12/24 09:29> Orders Ordered: Acetaminophen (Acetaminophen 325 Mg Tablet) 650 mg PO Q6H PRN PRN Reason: Fever/Mild Pain (1-3) Last Admin: 08/12/24 13:20 Dose: 650 mg Documented By: BOOKER Enoxaparin Sodium (Enoxaparin 30 Mg/0.3 Ml Syringe) 30 mg SUBCUT DAILY JOSÉ MIGUEL Sodium Chloride (Normal Saline 0.9%) 1,000 mls @ 100 mls/hr IV CONT JOSÉ MIGUEL Last Admin: 08/12/24 11:00 Dose: 100 mls/hr Documented By: BOOKER Naloxone HCl (Naloxone 0.4 Mg/Ml Vial) 0.2 mg IV Q2MIN PRN PRN Reason: Opiate Reversal Oxycodone HCl (Oxycodone Ir 5 Mg Tablet) 5 mg PO Q3H PRN PRN Reason: Pain, Moderate (4-6) Discontinued Medications Enoxaparin Sodium (Enoxaparin 40 Mg/0.4 Ml Syringe) 40 mg SUBCUT DAILY [facility] Sodium Chloride (Normal Saline 0.9%) 1,000 mls @ 1,000 mls/hr IV BOLUS ONE Stop: 08/12/24 06:17 Last Infusion: 08/12/24 06:21 Dose: Infused Documented By: Admin: 08/12/24 05:28 Dose: 1,000 mls/hr Documented By: Sodium Chloride (Normal Saline 0.9%) 1,000 mls @ 1,000 mls/hr IV BOLUS ONE Stop: 08/12/24 06:59 Last Infusion: 08/12/24 07:40 Dose: Infused Documented By: Admin: 08/12/24 06:21 Dose: 1,000 mls/hr Documented By: BONNIE Ondansetron HCl (Ondansetron 4 Mg/2 Ml Inj) 4 mg IV NOW ONE Stop: 08/12/24 05:19 Last Admin: 08/12/24 05:29 Dose: 4 mg Documented By: Ondansetron HCl (Ondansetron 4 Mg/2 Ml Inj) 4 mg IV NOW ONE Stop: 08/12/24 08:41 Last Admin: 08/12/24 09:13 Dose: 4 mg Documented By: YONI Vital Signs Vital signs: Vital Signs - 8 hr 08/12/24 05:12 08/12/24 05:12 08/12/24 05:15 Temperature 97.3 F L Pulse Rate 104 H 99 H Respiratory Rate 19 Blood Pressure 124/68 124/68 Pulse Oximetry 96 99 Oxygen Delivery Method Room Air 08/12/24 05:30 08/12/24 05:30 08/12/24 06:00 Temperature Pulse Rate 79 65 Respiratory Rate 23 26 H Blood Pressure 95/56 L Pulse Oximetry 96 98 Oxygen Delivery Method Room Air 08/12/24 06:00 08/12/24 06:30 08/12/24 07:30 Temperature Pulse Rate 66 81 Respiratory Rate 18 21 Blood Pressure 138/60 143/57 H Pulse Oximetry 98 98 Oxygen Delivery Method 08/12/24 07:31 08/12/24 07:31 08/12/24 08:00 Temperature Pulse Rate 85 75 Respiratory Rate 17 22 Blood Pressure 143/57 H Pulse Oximetry 98 98 Oxygen Delivery Method 08/12/24 08:00 Temperature Pulse Rate Respiratory Rate Blood Pressure 138/63 Pulse Oximetry Oxygen Delivery Method MDM - Weakness <Sri Khan MD - Last Filed: 08/12/24 21:19> Lab Data 08/12/24 05:30 08/12/24 07:45 Labs: Lab Results 08/12/24 08/12/24 08/12/24 Range/Units 05:30 06:10 07:45 WBC 7.1 (4.5-11.0) X10^3/uL RBC 4.39 L (4.5-5.9) X10^6/uL Hgb 14.7 (13.5-17.5) g/dL Hct 42.7 (41-53) % MCV 97.3 (80-100) fL MCH 33.5 (26-34) PG MCHC 34.4 (30-36) % RDW 12.9 (11.6-14.8) % Plt Count 252 (150-400) X10^3/uL Neut % (Auto) 85.5 H (50-75) % Lymph % (Auto) 8.6 L (25-40) % [place] % (Auto) 5.5 (3-14) % Eos % (Auto) 0.0 L (2-4) % Baso % (Auto) 0.4 (0-2) % Neut # (Auto) 6100 (2360-2754) /uL Lymph # (Auto) 600 L (8380-2199) /uL [place] # (Auto) 400 (0-900) /uL Eos # (Auto) 0 (0-450) /uL Baso # (Auto) 0 (0-100) /uL PT 12.7 H (9.4-12.5) SECONDS INR 1.1 (0.9-1.3) VBG pH 7.37 (7.33-7.43) VBG Total CO2 17 L (24-29) mmol/L Sodium 136 L 138 (137-145) mmol/L Potassium 4.0 4.1 (3.4-5.1) mmol/L Chloride 108 H 113 H (98-107) mmol/L Carbon Dioxide 12 L 12 L (22-32) mmol/L BUN 67 H 59 H (9-20) mg/dL Creatinine 2.71 H 2.31 H (0.66-1.25) mg/dL Estimated GFR 22 L 27 L (>60) mL/min BUN/Creatinine Ratio 24.7 H 25.5 H (6-22) Glucose 155 H 123 H (80-110) mg/dL Calcium 9.5 8.6 (8.4-10.2) mg/dL Magnesium 2.3 2.3 (1.6-2.3) mg/dL Total Bilirubin 0.8 (0.2-1.3) mg/dL AST 29 (17-59) IU/L ALT 30 (<50) IU/L Alkaline Phosphatase 88 (38-126) U/L Total Protein 7.3 (6.3-8.2) g/dL Albumin 4.1 (3.5-5.0) g/dL Globulin 3.2 (1.7-4.1) g/dL Albumin/Globulin Ratio 1.3 (1.0-2.8) Lipase 136 (23-300) U/L Chlamy pneumoniae PCR Not detected (Not Detect) Adenovirus (PCR) Not detected (Not Detect) B. pertussis DNA (PCR) Not detected (Not Detect) B.parapertussis DNA PCR Not detected (Not Detecte) Coronavirus OC43 (PCR) Not detected (Not Detect) Coronavirus HKU1 (PCR) Not detected (Not Detect) Coronavirus 229E (PCR) Not detected (Not Detect) SARS-CoV-2 (PCR) Not detected (Not Detecte) Coronavirus NL63 (PCR) Not detected (Not Detect) Human Metapneumovir PCR Not detected (Not Detect) Influenza Type A (PCR) Not detected (Not Detect) Influenza Type B (PCR) Not detected (Not Detect) M. pneumoniae (PCR) Not detected (Not Detect) Parainfluenza 1 (PCR) Not detected (Not Detect) Parainfluenza 2 (PCR) Not detected (Not Detect) Parainfluenza 3 (PCR) Not detected (Not Detect) Parainfluenza 4 (PCR) Not detected (Not Detect) RSV (PCR) Not detected (Not Detect) Entero/Rhino (PCR) Not detected (Not Detect) Urine Dip Bedside Urine Glucose Negative Bedside Urine Bilirubin + 1 Bedside Urine Ketone +/- 5 Urine Specific [place] 1.03 Bedside Urine Occult Blood - Negative Bedside Urine pH 5 Bedside Urine Protein +/- 15 Bedside Urine Urobilinogen - Negative Bedside Urine Nitrite - Negative Bedside Urine Leukocytes - Negative Esterase MDM Narrative Medical decision making narrative: Patient with 2 weeks of diarrhea and 1 day of nausea vomiting. Abdomen is soft, absolutely no reproducible tenderness to light or deep palpation. Vital signs reviewed. Laboratory work ordered. Since patient was also reporting abrupt onset of hoarseness without any URI symptoms a CT will be ordered. Laboratory work reviewed, patient has a marked change in his creatinine compared to 1 year prior. No interval labs since September of 2023. CO2 12. VBG shows no signs of acidosis. Patient was already received a L of IV fluids, and additional L will be ordered. After 2 L of fluids a repeat BMP will be ordered. Patient does still make urine. Care of patient to be signed out to daytime physician at 7:00 a.m. Received sign-out by incoming doctor, Patient is a 84-year-old male history of hypertension CVA without residual deficits presents from home for evaluation of 2 weeks of intermittent diarrhea, has also been complaining of 4 days of hoarseness with nausea vomiting today. He states that he had some concern that it may have been black but Hemoccult negative. Lab work without leukocytosis however patient with mild TISHA, creatinine 2.71 with GFR 22, baseline around 1.2, this is most likely secondary to dehydration given excessive amount of diarrhea nausea vomiting, patient has been given 2 L normal saline and is pending repeat CMP, if improving patient can be sent home with oral hydration otherwise will require admission for TISHA and IV hydration. 0840: Patient was re-evaluated, failed p.o. challenge here in the emergency department, will require additional IV antiemetics, repeat BMP slightly improved creatinine 2.31, however still with significant TISHA and unable to tolerate anything p.o. therefore will require admission to the hospital for TISHA/fluid hydration. 0845: discussed case with Dr. Holland, recommending abd imaging given patients history of obstructing stones in the past, CT abd w/o contrast ordered 927: CT scan without any acute findings The patient's management plan was discussed Dr. Holland, who agrees to admit the patient to their service and assumes care of this patient at this time. Full admission orders will be placed by the primary team. <Aydin Gonzalez, DO - Last Filed: 08/12/24 09:29> Lab Data Labs: Lab Results 08/12/24 08/12/24 08/12/24 Range/Units 05:30 06:10 07:45 WBC 7.1 (4.5-11.0) X10^3/uL RBC 4.39 L (4.5-5.9) X10^6/uL Hgb 14.7 (13.5-17.5) g/dL Hct 42.7 (41-53) % MCV 97.3 (80-100) fL MCH 33.5 (26-34) PG MCHC 34.4 (30-36) % RDW 12.9 (11.6-14.8) % Plt Count 252 (150-400) X10^3/uL Neut % (Auto) 85.5 H (50-75) % Lymph % (Auto) 8.6 L (25-40) % M[place] % (Auto) 5.5 (3-14) % Eos % (Auto) 0.0 L (2-4) % Baso % (Auto) 0.4 (0-2) % Neut # (Auto) 6100 (2057-1867) /uL Lymph # (Auto) 600 L (3323-9667) /uL [place]ingo # (Auto) 400 (0-900) /uL Eos # (Auto) 0 (0-450) /uL Baso # (Auto) 0 (0-100) /uL PT 12.7 H (9.4-12.5) SECONDS INR 1.1 (0.9-1.3) VBG pH 7.37 (7.33-7.43) VBG Total CO2 17 L (24-29) mmol/L Sodium 136 L 138 (137-145) mmol/L Potassium 4.0 4.1 (3.4-5.1) mmol/L Chloride 108 H 113 H (98-107) mmol/L Carbon Dioxide 12 L 12 L (22-32) mmol/L BUN 67 H 59 H (9-20) mg/dL Creatinine 2.71 H 2.31 H (0.66-1.25) mg/dL Estimated GFR 22 L 27 L (>60) mL/min BUN/Creatinine Ratio 24.7 H 25.5 H (6-22) Glucose 155 H 123 H (80-110) mg/dL Calcium 9.5 8.6 (8.4-10.2) mg/dL Magnesium 2.3 2.3 (1.6-2.3) mg/dL Total Bilirubin 0.8 (0.2-1.3) mg/dL AST 29 (17-59) IU/L ALT 30 (<50) IU/L Alkaline Phosphatase 88 (38-126) U/L Total Protein 7.3 (6.3-8.2) g/dL Albumin 4.1 (3.5-5.0) g/dL Globulin 3.2 (1.7-4.1) g/dL Albumin/Globulin Ratio 1.3 (1.0-2.8) Lipase 136 (23-300) U/L Chlamy pneumoniae PCR Not detected (Not Detect) Adenovirus (PCR) Not detected (Not Detect) B. pertussis DNA (PCR) Not detected (Not Detect) B.parapertussis DNA PCR Not detected (Not Detecte) Coronavirus OC43 (PCR) Not detected (Not Detect) Coronavirus HKU1 (PCR) Not detected (Not Detect) Coronavirus 229E (PCR) Not detected (Not Detect) SARS-CoV-2 (PCR) Not detected (Not Detecte) Coronavirus NL63 (PCR) Not detected (Not Detect) Human Metapneumovir PCR Not detected (Not Detect) Influenza Type A (PCR) Not detected (Not Detect) Influenza Type B (PCR) Not detected (Not Detect) M. pneumoniae (PCR) Not detected (Not Detect) Parainfluenza 1 (PCR) Not detected (Not Detect) Parainfluenza 2 (PCR) Not detected (Not Detect) Parainfluenza 3 (PCR) Not detected (Not Detect) Parainfluenza 4 (PCR) Not detected (Not Detect) RSV (PCR) Not detected (Not Detect) Entero/Rhino (PCR) Not detected (Not Detect) Urine Dip Bedside Urine Glucose Negative Bedside Urine Bilirubin + 1 Bedside Urine Ketone +/- 5 Urine Specific [place] 1.03 Bedside Urine Occult Blood - Negative Bedside Urine pH 5 Bedside Urine Protein +/- 15 Bedside Urine Urobilinogen - Negative Bedside Urine Nitrite - Negative Bedside Urine Leukocytes - Negative Esterase Imaging Data Chest x-ray: Radiologist Impression: PROCEDURE: XR CHEST 1V INDICATIONS: WEAKNESS, VOMITING TECHNIQUE: One view of the chest was acquired. COMPARISON: [facility], CT, CT ABDOMEN PELVIS WO CON, 08/12/2024, 8:56. FINDINGS: Surgical changes and devices: None. Lungs and pleura: Lungs are clear. No pleural effusions or pneumothorax. Mediastinum: Mediastinal contours appear normal. Heart size is normal. Bones and chest wall: No suspicious bony lesions. Overlying soft tissues appear unremarkable. IMPRESSION: No acute cardiopulmonary abnormality is seen. CT scan - abdomen/pelvis: Radiologist Impression: PROCEDURE: CT ABDOMEN PELVIS WO CON INDICATIONS: n/v/ abd pain TECHNIQUE: Axial sections were acquired from the lung bases to the pubic symphysis. Coronal and sagittal reformats were performed. For radiation dose reduction, the following was used: automated exposure control, adjustment of mA and/or kV according to patient size. COMPARISON: [facility], CT, CT KIDNEY URETER BLADDER (KUB), 10/01/2023, 5:25. FINDINGS: Image quality: Diagnostic. Lower Chest: No significant findings. URINARY: Right Kidney: No stones or hydronephrosis. Right Ureter: No hydroureter. Left Kidney: No stones or hydronephrosis. Left Ureter: No hydroureter. Bladder: Normal wall thickness. No stones. ABDOMEN: Liver: No contour-deforming solid mass. Gallbladder: Biliary sludge and small gallstones. No gallbladder wall thickening or pericholecystic edema. Biliary ducts: No biliary dilation. Pancreas: No ductal dilation. Spleen: Size is within normal limits. Adrenal Glands: No adrenal nodules. Stomach and Bowel: Small hiatal hernia. Normal colonic caliber, without significant wall thickening. Scattered colonic diverticuli without evidence of diverticulitis. Peritoneum: No abnormal intraperitoneal fluid. No free air. Ventral Wall: No hernia. Abdominal Nodes: No enlarged retroperitoneal or mesenteric lymph nodes. Vessels: Aorta and inferior vena cava are normal in size. PELVIS: Pelvic Organs: Prostate is enlarged. Pelvic Nodes: Unremarkable. Miscellaneous: No inguinal hernias are seen. Bones: Unremarkable. Spine degenerative disc disease and facet arthropathy. IMPRESSION: No obstructing stones or hydronephrosis. No acute disease process. CT soft tissue neck: Radiologist Impression: PROCEDURE: CT SOFT TISSUE NECK WO CON INDICATIONS: sudden hoarseness x 4 days TECHNIQUE: Non-contrast 3.0 mm axial sections acquired from the sella to the aortic arch. Additional oblique axial 3.0 mm sections acquired through the pharynx. 3 mm thick coronal and sagittal reformats were generated. For radiation dose reduction, the following was used: automated exposure control. COMPARISON: None. FINDINGS: Image quality: Excellent. Lymph nodes: No enlarged lymph nodes seen throughout the neck. Vessels: Non-opacified vessels appear normal in caliber. Neck spaces: The oropharynx, nasopharynx, and pharynx demonstrate no mucosal lesions. The vocal cords, false vocal cords, pyriform sinuses, epiglottis, vallecula, and tongue base all appear normal. Extramucosal spaces appear unremarkable. Glands: The parotid and submandibular glands appear normal, without stones. Thyroid gland is normal. Bones: No aggressive osseous abnormality. No displaced fractures. Spine degenerative disc disease and facet arthropathy. Miscellaneous: Visualized brain and orbits appear normal. Lung apices appear clear of acute opacities. 3 millimeter nodule in the right lung apex. Superficial soft tissues appear normal. IMPRESSION: No acute disease process. 3 millimeter right upper lobe lung nodule. Consider optional follow-up CT scan in 12 months if clinically indicated based on criteria outlined below. MDM Narrative Medical decision making narrative: Received sign-out by incoming doctor, Patient is a 84-year-old male history of hypertension CVA without residual deficits presents from home for evaluation of 2 weeks of intermittent diarrhea, has also been complaining of 4 days of hoarseness with nausea vomiting today. He states that he had some concern that it may have been black but Hemoccult negative. Lab work without leukocytosis however patient with mild TISHA, creatinine 2.71 with GFR 22, baseline around 1.2, this is most likely secondary to dehydration given excessive amount of diarrhea nausea vomiting, patient has been given 2 L normal saline and is pending repeat CMP, if improving patient can be sent home with oral hydration otherwise will require admission for TISHA and IV hydration. 0840: Patient was re-evaluated, failed p.o. challenge here in the emergency department, will require additional IV antiemetics, repeat BMP slightly improved creatinine 2.31, however still with significant TISHA and unable to tolerate anything p.o. therefore will require admission to the hospital for TISHA/fluid hydration. 0845: discussed case with Dr. Holland, recommending abd imaging given patients history of obstructing stones in the past, CT abd w/o contrast ordered 927: CT scan without any acute findings The patient's management plan was discussed Dr. Holland, who agrees to admit the patient to their service and assumes care of this patient at this time. Full admission orders will be placed by the primary team. Discharge Plan Departure Patient Disposition: Admitted as Observation Clinical Impression: TISHA (acute kidney injury), Nausea vomiting and diarrhea Admit Date/Time: 08/12/24 09:28 Admit Provider: Aydin Holland
[2024-08-12] MEDS: SODIUM CHLORIDE 0.9% 1,000 ML 1000 ML IV ×3 (05:28→21:55)
[2024-08-12] MEDS: ONDANSETRON 4 MG/2 ML INJ IV ×2 (05:29→09:13)
--- NOTE | 2024-08-12 05:44 | EKG_ITS ---
[facility] [address] [place] [address] Test Date: 2024-08-12 Pat Name: Garrett Torres Department: [facility] Room: Gender: Male [employer]: TRIPP : 1940 Requested By: Order Number: [id number] Reading MD: Michele Hurd MD Measurements Intervals [place] Rate: 67 P: 58 CA: 176 QRS: 20 QRSD: 116 T: -35 QT: 404 QTc: 426 Interpretive Statements Normal sinus rhythm ST & T wave abnormality, consider inferior ischemia Electronically Signed On 08-12-2024 7:58:34 PDT by Michele Hurd MD
[2024-08-12 05:49] LABS: Add Manual Diff / Slide Review NO; Basophils Absolute Auto 0 /uL (0-100); Basophils Percent Auto 0.4 % (0-2); Eosinophils Absolute Auto 0 /uL (0-450); Hematocrit 42.7 % (41-53); Hemoglobin 14.7 g/dL (13.5-17.5); Lymphocytes Absolute Auto 600 /uL (1100-4500); Lymphocytes Percent Auto 8.6 % (25-40); Mean Corpuscular HGB Conc 34.4 % (30-36); Mean Corpuscular Hemoglobin 33.5 PG (26-34); Mean Corpuscular Volume 97.3 fL (80-100); Monocytes Absolute Auto 400 /uL (0-900); Monocytes Percent Auto 5.5 % (3-14); Neutrophils Absolute Auto 6100 /uL (1500-7000); Neutrophils Percent Auto 85.5 % (50-75); Platelet Count 252 X10^3/uL (150-400); Red Blood Cell Count 4.39 X10^6/uL (4.5-5.9); Red Cell Distribution Width 12.9 % (11.6-14.8); White Blood Cell Count 7.1 X10^3/uL (4.5-11.0)
[2024-08-12 05:51] LABS: INR 1.1 (0.9-1.3); Prothrombin Time 12.7 SECONDS (9.4-12.5)
[2024-08-12 05:56] LABS: Alanine Aminotransferase 30 IU/L (<50); Albumin 4.1 g/dL (3.5-5.0); Albumin Globulin Ratio 1.3 (1.0-2.8); Alkaline Phosphatase 88 U/L (38-126); Aspartate Aminotransferase 29 IU/L (17-59); BUN Creatinine Ratio 24.7 (6-22); Bilirubin Total 0.8 mg/dL (0.2-1.3); Blood Urea Nitrogen 67 mg/dL (9-20); Calcium 9.5 mg/dL (8.4-10.2); Carbon Dioxide 12 mmol/L (22-32); Chloride 108 mmol/L (98-107); Estimated Glomerular Filt Rate 22 mL/min (>60); Globulin 3.2 g/dL (1.7-4.1); Glucose 155 mg/dL (80-110); HEMOLYSIS < 15 (0-50); Lipase 136 U/L (23-300); Magnesium 2.3 mg/dL (1.6-2.3); Sodium 136 mmol/L (137-145); Total Protein 7.3 g/dL (6.3-8.2)
[2024-08-12 06:15] LABS: Total CO2 VBG 17 mmol/L (24-29); pH VBG 7.37 (7.33-7.43)
[2024-08-12 06:30] LABS: Adenovirus Not Detected (Not Detect); B. parapertussis Not Detected (Not Detecte); Bordetella pertussis Not Detected (Not Detect); Chlamydophila pneumoniae Not Detected (Not Detect); Coronavirus 229E Not Detected (Not Detect); Coronavirus HKU1 Not Detected (Not Detect); Coronavirus NL 63 Not Detected (Not Detect); Coronavirus OC43 Not Detected (Not Detect); Human Metapneumovirus Not Detected (Not Detect); Human Rhinovirus/Enterovirus Not Detected (Not Detect); Influenza A Not Detected (Not Detect); Influenza B Not Detected (Not Detect); Mycoplasma pneumoniae Not Detected (Not Detect); Parainfluenza Virus 1 Not Detected (Not Detect); Parainfluenza Virus 2 Not Detected (Not Detect); Parainfluenza Virus 3 Not Detected (Not Detect); Parainfluenza Virus 4 Not Detected (Not Detect); Respiratory Syncytial Virus Not Detected (Not Detect); SARS- CoV-2 Not Detected (Not Detecte)
--- NOTE | 2024-08-12 07:21 | PC.NURSE ---
Assumed care of pt at 0700. Pt c/o shivering and shaking. Temp 97.6. A&Ox4. States that he feels awful but denies pain at this time.
[2024-08-12 08:14] LABS: BUN Creatinine Ratio 25.5 (6-22); Blood Urea Nitrogen 59 mg/dL (9-20); Calcium 8.6 mg/dL (8.4-10.2); Carbon Dioxide 12 mmol/L (22-32); Chloride 113 mmol/L (98-107); Estimated Glomerular Filt Rate 27 mL/min (>60); Glucose 123 mg/dL (80-110); HEMOLYSIS < 15 (0-50); Potassium 4.1 mmol/L (3.4-5.1); Sodium 138 mmol/L (137-145)
--- NOTE | 2024-08-12 08:44 | DI.CT.S_ITS ---
PROCEDURE: CT ABDOMEN PELVIS WO CON INDICATIONS: n/v/ abd pain TECHNIQUE: Axial sections were acquired from the lung bases to the pubic symphysis. Coronal and sagittal reformats were performed. For radiation dose reduction, the following was used: automated exposure control, adjustment of mA and/or kV according to patient size. COMPARISON: [facility], CT, CT KIDNEY URETER BLADDER (KUB), 10/01/2023, 5:25. FINDINGS: Image quality: Diagnostic. Lower Chest: No significant findings. URINARY: Right Kidney: No stones or hydronephrosis. Right Ureter: No hydroureter. Left Kidney: No stones or hydronephrosis. Left Ureter: No hydroureter. Bladder: Normal wall thickness. No stones. ABDOMEN: Liver: No contour-deforming solid mass. Gallbladder: Biliary sludge and small gallstones. No gallbladder wall thickening or pericholecystic edema. Biliary ducts: No biliary dilation. Pancreas: No ductal dilation. Spleen: Size is within normal limits. Adrenal Glands: No adrenal nodules. Stomach and Bowel: Small hiatal hernia. Normal colonic caliber, without significant wall thickening. Scattered colonic diverticuli without evidence of diverticulitis. Peritoneum: No abnormal intraperitoneal fluid. No free air. Ventral Wall: No hernia. Abdominal Nodes: No enlarged retroperitoneal or mesenteric lymph nodes. Vessels: Aorta and inferior vena cava are normal in size. PELVIS: Pelvic Organs: Prostate is enlarged. Pelvic Nodes: Unremarkable. Miscellaneous: No inguinal hernias are seen. Bones: Unremarkable. Spine degenerative disc disease and facet arthropathy. IMPRESSION: No obstructing stones or hydronephrosis. No acute disease process. Dictated by: Liana King MD, PhD on 08/12/2024 at 9:19 Approved by: Liana King MD, PhD on 08/12/2024 at 9:23
--- NOTE | 2024-08-12 09:29 | PC.NURSE ---
Pt denies abd pain. C/o nausea. Unable to produce stool sample. Ambulated to bathroom with steady gait. A&Ox4.
[2024-08-12] MEDS: SODIUM CHLORIDE 0.9% 1,000 ML 100 ML IV (11:00)
[2024-08-12 11:43] LABS: Magnesium 2.3 mg/dL (1.6-2.3)
[2024-08-12] MEDS: ACETAMINOPHEN 325 MG TABLET 650 MG PO (13:20)
--- NOTE | 2024-08-12 13:26 | PM.HP.1 ---
History of Present Illness History of Present Illness Date Patient Seen: 08/12/24 Time Patient Seen: 13:27 Chief complaint: raspy voice 4 days, vomiting, weakness Narrative: This is an 84 year old male with PMH of CVA, HTN who presented with 1 week of nausea,vomiting and diarrhea. He reports inability to tolerate much oral intake for the past week, with NBNB emesis. He has had 3-4 loose, clear bowel movements per day approximately as well. He tried eating breakfast yesterday but vomited much if it yesterday afternoon. In the emergency room, vitals were unremarkable. Labs showed marked TISHA with Cr 2.7. He was given fluids, improved Cr to 2.31. Respiratory panel was negative. Blood cultures nor UA obtained. Patient was admitted for TISHA, developed rigors on the floor after arrival. Ordered blood cultures and UA, still pending. No antibiotics have been given to this point. [facility] Medical History Stroke Social History household members: none Smoking Status: Never smoker alcohol intake: current Meds Home Medications and Allergies Home Medications Medication Instructions Recorded Confirmed Type amlodipine 10 mg tablet 10 mg PO DAILY 08/12/24 08/12/24 History aspirin 81 mg capsule 81 mg PO DAILY 08/12/24 08/12/24 History atorvastatin 80 mg tablet 80 mg PO ONCE PM 08/12/24 08/12/24 History olmesartan 40 mg tablet 40 mg PO DAILY 08/12/24 08/12/24 History Allergies Allergy/AdvReac Type Severity Reaction Status Date / Time No Known Drug Allergies Allergy Verified 07/23/23 08:46 Review of Systems Review of Systems Narrative: All other systems reviewed with the patient and are negative unless otherwise stated. Exam Vital Signs (past 8 hours): - 08/12/24 05:30 08/12/24 05:30 08/12/24 06:00 Temperature Pulse Rate 79 65 Respiratory Rate 23 26 H Blood Pressure 95/56 L Pulse Oximetry 96 98 Oxygen Delivery Method Room Air Oxygen Flow Rate 08/12/24 06:00 08/12/24 06:30 08/12/24 07:30 Temperature Pulse Rate 66 81 Respiratory Rate 18 21 Blood Pressure 138/60 143/57 H Pulse Oximetry 98 98 Oxygen Delivery Method Oxygen Flow Rate 08/12/24 07:31 08/12/24 07:31 08/12/24 08:00 Temperature Pulse Rate 85 75 Respiratory Rate 17 22 Blood Pressure 143/57 H Pulse Oximetry 98 98 Oxygen Delivery Method Oxygen Flow Rate 08/12/24 08:00 08/12/24 08:30 08/12/24 08:30 Temperature Pulse Rate 79 Respiratory Rate 24 Blood Pressure 138/63 141/65 H Pulse Oximetry 97 Oxygen Delivery Method Oxygen Flow Rate 08/12/24 09:11 08/12/24 09:13 08/12/24 09:13 Temperature Pulse Rate 91 H 90 Respiratory Rate 18 Blood Pressure 136/71 Pulse Oximetry 97 Oxygen Delivery Method Oxygen Flow Rate 08/12/24 09:30 08/12/24 09:30 08/12/24 10:38 Temperature Pulse Rate 81 Respiratory Rate 22 Blood Pressure 136/64 Pulse Oximetry 93 97 Oxygen Delivery Method Room Air Oxygen Flow Rate 0 08/12/24 13:20 Temperature 99.6 F Pulse Rate Respiratory Rate Blood Pressure Pulse Oximetry Oxygen Delivery Method Oxygen Flow Rate Oxygen Delivery Method Room Air Oxygen Flow Rate 0 Narrative Exam Narrative: General:? Patient is well developed and well nourished, in no distress at this time. Mildly ill appearing and weak HEENT:? Normocephalic, atraumatic, extraocular muscles intact, oral pharynx is clear and mucous membranes are dry Neck: supple and symmetric, trachea is midline, no cervical adenopathy. Negative for JVD Chest:? Normal AP diameter and contour without kyphoscoliosis, no tachypnea, equal chest rise bilaterally. Lungs:? CTA b/l no wheezing rhonchi or rales. Cardio:?RRR no m/r/g. Abdomen: S NT ND. Musculoskeletal:? Muscle strength and tone are equal within normal limits, no deformity. Extremities: No edema or joint effusions. No cyanosis or clubbing. Skin:? Pale,? Warm to touch,dry and intact without rashes, ulcerations or petechiae.? Neuro:? Alert and orientated x3,? sensation to touch intact in all extremities, no gross deficits noted of cranial nerves. Psych:? Patient has a well-kept appearance, appropriate affect, mental status attitude thought context and judgment are appropriate for age. Objective ECG Impression: Normal sinus rhythm, no acute ischemia Labs 08/12/24 05:30 08/12/24 07:45 Labs: Laboratory Results - last 24 hr 08/12/24 08/12/24 08/12/24 05:30 06:10 07:45 WBC 7.1 RBC 4.39 L Hgb 14.7 Hct 42.7 MCV 97.3 MCH 33.5 MCHC 34.4 RDW 12.9 Plt Count 252 Neut % (Auto) 85.5 H Lymph % (Auto) 8.6 L [place] % (Auto) 5.5 Eos % (Auto) 0.0 L Baso % (Auto) 0.4 Neut # (Auto) 6100 Lymph # (Auto) 600 L [place] # (Auto) 400 Eos # (Auto) 0 Baso # (Auto) 0 PT 12.7 H INR 1.1 VBG pH 7.37 VBG Total CO2 17 L Sodium 136 L 138 Potassium 4.0 4.1 Chloride 108 H 113 H Carbon Dioxide 12 L 12 L BUN 67 H 59 H Creatinine 2.71 H 2.31 H Estimated GFR 22 L 27 L BUN/Creatinine Ratio 24.7 H 25.5 H Glucose 155 H 123 H Calcium 9.5 8.6 Magnesium 2.3 2.3 Total Bilirubin 0.8 AST 29 ALT 30 Alkaline Phosphatase 88 Total Protein 7.3 Albumin 4.1 Globulin 3.2 Albumin/Globulin Ratio 1.3 Lipase 136 Chlamy pneumoniae PCR Not detected Adenovirus (PCR) Not detected B. pertussis DNA (PCR) Not detected B.parapertussis DNA PCR Not detected Coronavirus OC43 (PCR) Not detected Coronavirus HKU1 (PCR) Not detected Coronavirus 229E (PCR) Not detected SARS-CoV-2 (PCR) Not detected Coronavirus NL63 (PCR) Not detected Human Metapneumovir PCR Not detected Influenza Type A (PCR) Not detected Influenza Type B (PCR) Not detected M. pneumoniae (PCR) Not detected Parainfluenza 1 (PCR) Not detected Parainfluenza 2 (PCR) Not detected Parainfluenza 3 (PCR) Not detected Parainfluenza 4 (PCR) Not detected RSV (PCR) Not detected Entero/Rhino (PCR) Not detected Assessment & Plan Assessment & Plan narrative: 1. TISHA secondary to #2 2. Dehydration, nausea/vomiting/diarrhea 3. prior CVA 4. HTN Plan - - blood cultures ordered, check UA as well. - CT abdomen unremarkable with no obstruction (recent history of obstructive nephrolithiasis) - GI panel ordered, respiratory panel negative. - continue IV fluids and supportive care with anti-emetics for now. imodium if GI panel negative. - continue home asa and statin therapy, hold amlodipine with dehydration for now. Hold olmesartan as well. - electrolytes are unremarkable except for a metabolic acidosis (non-anion gap). No leukocytosis. Code: Full, surrogate is patient's son Eliud DVT: Lovenox daily I have utilized all available immediate resources to obtain, update, or review the patient's current medications. Dispo: patient admitted under observation status. Possible discharge home tomorrow if improved, or possible longer duration of stay depending on above evaluation. Additional history obtained via discussions with the ER provider. These discussions contributed to the creation of the above assessment and plan. I have reviewed patient's presenting documentation, labs, and imaging personally. Time-Based Coding :: [TOTAL MINUTES] spent with patient and on the chart (including review of chart, obtaining history, exam, reviewing outside data, placing orders, documenting exam and treatment plan, and counseling patient) on [DATE]. Quality VTE Deep Vein Thrombosis/Pulmonary Embolism Present on Admission: No
[2024-08-12 17:13] LABS: Appearance Urine UA CLEAR; Bilirubin Urine UA 1+ (NEGATIVE); Color Urine UA YELLOW; Glucose Urine UA NEGATIVE (Negative); Ketones Urine UA 1+ (NEGATIVE); Leukocyte Esterase Urine UA NEGATIVE (NEGATIVE); Nitrite Urine UA NEGATIVE (Negative); Occult Blood Urine UA NEGATIVE (Negative); Protein Urine UA NEGATIVE (Negative); Specific Gravity Urine UA 1.025 (1.000-1.035); Urobilinogen Urine UA 0.2 E.U./dL (0.2); pH Urine UA 5.5 (4.5-8.0)
[2024-08-12 17:46] LABS: Bacteria Urine Occasional (0-1); Calcium Oxalate Crystals Urine Few; Hyaline Casts Urine 0-1/LPF; RBC Urine 0-1/HPF (0-5/HPF); Squamous Epithelial Cell Urine None Seen (0-5/HPF); Urine Volume 10mL (spun); WBC Urine 0-1/HPF (0-5/HPF)
[2024-08-12 17:47] LABS: Culture Indicated Urine Cult Not Indicated; Other Casts Urine 0-1/LPF
[2024-08-12 17:48] LABS: Ictotest Urine Negative (Negative)
[2024-08-13] VITALS (11 sets, daily range): BP systolic 111–149; BP diastolic 46–68; PULSE 57–78; RESP 18–19; TEMP 36.3–36.6; O2SAT 93–98
[2024-08-13] MEDS: SODIUM CHLORIDE 0.9% 1,000 ML 1000 ML IV (06:05)
[2024-08-13 07:45] LABS: Add Manual Diff / Slide Review NO; Basophils Absolute Auto 0 /uL (0-100); Basophils Percent Auto 0.4 % (0-2); Eosinophils Absolute Auto 0 /uL (0-450); Eosinophils Percent Auto 0.3 % (2-4); Hematocrit 35.4 % (41-53); Hemoglobin 12.2 g/dL (13.5-17.5); Lymphocytes Absolute Auto 1500 /uL (1100-4500); Lymphocytes Percent Auto 20.3 % (25-40); Mean Corpuscular HGB Conc 34.5 % (30-36); Mean Corpuscular Hemoglobin 33.5 PG (26-34); Mean Corpuscular Volume 97.3 fL (80-100); Monocytes Absolute Auto 900 /uL (0-900); Monocytes Percent Auto 11.4 % (3-14); Neutrophils Absolute Auto 5100 /uL (1500-7000); Neutrophils Percent Auto 67.6 % (50-75); Platelet Count 208 X10^3/uL (150-400); Red Blood Cell Count 3.64 X10^6/uL (4.5-5.9); Red Cell Distribution Width 12.8 % (11.6-14.8); White Blood Cell Count 7.5 X10^3/uL (4.5-11.0)
[2024-08-13 07:58] LABS: BUN Creatinine Ratio 27.8 (6-22); Blood Urea Nitrogen 37 mg/dL (9-20); Calcium 8.7 mg/dL (8.4-10.2); Carbon Dioxide 19 mmol/L (22-32); Chloride 117 mmol/L (98-107); Estimated Glomerular Filt Rate 53 mL/min (>60); Glucose 106 mg/dL (80-110); HEMOLYSIS < 15 (0-50); Magnesium 2.2 mg/dL (1.6-2.3); Potassium 3.8 mmol/L (3.4-5.1); Sodium 143 mmol/L (137-145)
[2024-08-13] MEDS: ENOXAPARIN 30 MG/0.3 ML SYRINGE SUBCUT (08:34)
--- NOTE | 2024-08-13 11:14 | CM.DANOTE ---
DCP Assessment Note: Pt is a 84yo male, resident of [place], is admitted for TISHA. Pt lives in a house alone with local son nearby. Pt's Primary Care Provider is Dr. Kenan Viera and insurance is Medicare. Reviewed chart and team rounds for pt's medical status and initial discharge needs. DCP met w/patient at bedside; introduced self and role. Patient was found in bed, alert and oriented, cooperative with assessment. Pt confirmed living situation and good support in son, Thierry, who lives nearby. Pt expressed preference in returning home when medically cleared, pending creatinine results. No discharge needs identified, pt declined any referral to home health or community services. Plan: Anticipating discharge home with son to transport when medically cleared. CM team will follow closely for coordination of discharge plans. MYRNA Hayes Discharge Planning/Care Management CM Discharge Assessment Start: 08/13/24 11:01 Freq: Status: Active Protocol: Document 08/13/24 11:12 MW (Rec: 08/13/24 11:14 MW [id number]) Discharge Planning Assessment Assigned Ranch Manager PRASANNA Turner DPOA/Assigned Designee Name Mark Pina Contact Information [phone] Advance Directives? Yes Advance Directives on File No History Provided By Patient,Medical Record Has Patient been admitted in last 30 No days? Prior Living Arrangements House Household Members none Type of transporation used prior to Drives own vehicle admit Independent with ADL's Yes Is patient alert and oriented? Yes Caregiver for Another No Barriers to Discharge No Discharge Plan Home Whiteboard Updated in Patient Room with Yes name and ext. # of Ranch Manager Comment [phone] Please Provide Date Initial DC 08/13/24 Assessment Was Performed Next Review Type Continued Stay Review
--- NOTE | 2024-08-13 13:23 | PM.DS.1 ---
History of Present Illness History of Present Illness Chief complaint: raspy voice 4 days, vomiting, weakness Narrative: From H&P: This is an 84 year old male with PMH of CVA, HTN who presented with 1 week of nausea,vomiting and diarrhea. He reports inability to tolerate much oral intake for the past week, with NBNB emesis. He has had 3-4 loose, clear bowel movements per day approximately as well. He tried eating breakfast yesterday but vomited much if it yesterday afternoon. In the emergency room, vitals were unremarkable. Labs showed marked TISHA with Cr 2.7. He was given fluids, improved Cr to 2.31. Respiratory panel was negative. Blood cultures nor UA obtained. Patient was admitted for TISHA, developed rigors on the floor after arrival. Ordered blood cultures and UA, still pending. No antibiotics have been given to this point. Discharge Providers Provider Date of admission: 08/12/24 09:28 Primary care physician: Doctor Kari MD Consults: None. Discharge provider: Dillon Hanley MD Summary Hospital Course Discharge Diagnosis: 1. TISHA secondary to #2 2. Dehydration, nausea/vomiting/diarrhea 3. prior CVA 4. HTN Hospital Course: He was admitted with nausea, vomiting, and diarrhea. He also had TISHA and was fluid resuscitated with improvement of renal function. His area a.m. moved and on the day of discharge he had a good appetite no residual nausea. He was felt to be stable for discharge with close follow up. He had no fevers and urine and blood cultures were negative. Status at Discharge Cognitive/behavioral status at discharge: oriented Functional status at discharge: independent ambulation Overall status at discharge: patient is back to baseline Time Spent with Patient Time spent: Greater than 30 minutes Exam Vital Signs (past 8 hours): - 08/13/24 06:00 08/13/24 09:16 08/13/24 10:00 Temperature 97.7 F Pulse Rate 62 Respiratory Rate 19 Blood Pressure 127/64 Pulse Oximetry 98 98 97 Oxygen Delivery Method Room Air Room Air Oxygen Flow Rate 0 0 Oxygen Delivery Method Room Air Oxygen Flow Rate 0 Narrative Exam Narrative: NAD, alert and oriented. Fluent speech. Lungs are clear, normal rate and effort. Heart is regular, no murmur gallop or rub. Abdomen is soft, non distended. Extremities are free of edema. Objective ECG Impression: Normal sinus rhythm ST & T wave abnormality, consider inferior ischemia Labs 08/13/24 06:50 08/13/24 06:50 Labs: Laboratory Results - last 24 hr 08/12/24 08/13/24 14:45 06:50 WBC 7.5 RBC 3.64 L Hgb 12.2 L Hct 35.4 L MCV 97.3 MCH 33.5 MCHC 34.5 RDW 12.8 Plt Count 208 Neut % (Auto) 67.6 Lymph % (Auto) 20.3 L [place] % (Auto) 11.4 Eos % (Auto) 0.3 L Baso % (Auto) 0.4 Neut # (Auto) 5100 Lymph # (Auto) 1500 [place] # (Auto) 900 Eos # (Auto) 0 Baso # (Auto) 0 Sodium 143 Potassium 3.8 Chloride 117 H Carbon Dioxide 19 L BUN 37 H Creatinine 1.33 H Estimated GFR 53 L BUN/Creatinine Ratio 27.8 H Glucose 106 Calcium 8.7 Magnesium 2.2 Urine Color Yellow Urine Appearance Clear Urine pH 5.5 Ur Specific [place] 1.025 Urine Protein Negative Urine Glucose (UA) Negative Urine Ketones 1+ H Urine Occult Blood Negative Urine Nitrate Negative Urine Bilirubin 1+ H Ur Bilirubin Confirm Negative Urine Urobilinogen 0.2 Ur Leukocyte Esterase Negative Urine RBC 0-1/hpf Urine WBC 0-1/hpf Ur Squamous Epith Cells None seen Calcium Oxalate Crystal Few H Urine Bacteria Occasional (0-1) Hyaline Casts 0-1/lpf Other Casts 0-1/lpf Ur Culture Indicated? Cult not indicated Vol Urine Centrifuged 10ml (spun) PFS Medical History Stroke Social History household members: none Smoking Status: Never smoker alcohol intake: current Discharge Plan Discharge Plan Provider Discharge Comment: Stable for discharge home with close follow up with PCP. Discharge orders & Medications Discharge Orders: Discharge (Order); Ordered 08/13/24 Ordered By: Dillon Hanley Prescriptions: Continued atorvastatin 80 mg tablet 80 mg PO ONCE PM amlodipine 10 mg tablet 10 mg PO DAILY olmesartan 40 mg tablet 40 mg PO DAILY aspirin 81 mg Capsule 81 mg PO DAILY Medication counseling provided by Pharmacist: No Follow up/Referrals: Miscellaneous,Doctor, [Primary Care Provider] - Discharge Health Status Multidrug resistant organism: No MDRO Diet/Activity/Treatments Diet: Regular Activity: As tolerated. Visit Report/Discharge Packet Instructions: DI for Diarrhea and Traveler's Diarrhea -- Adult Stand Alone Forms: Patient Portal/API Discharge Data Primary Care Provider: Kari,Doctor Attending Provider: Aydin Holland Admit Date/Time: 08/12/24 09:28 Quality VTE Deep Vein Thrombosis/Pulmonary Embolism Present on Admission: No
[2024-08-13 14:13] LABS: Troponin I 0.024 ng/mL (0.01-0.034)
[2024-08-13 15:11] LABS: Adenovirus F 40/41 Not Detected (Not Detect); Astrovirus Not Detected (Not Detect); Campylobacter Not Detected (Not Detect); Clostridium difficile toxin AB Not Detected (Not Detect); Cryptosporidium Not Detected (Not Detect); Cyclospora cayetanensis Not Detected (Not Detect); Entamoeba histolytica Not Detected (Not Detect); Enteroaggregative E.coli Not Detected (Not Detect); Enteropathogenic E.coli Not Detected (Not Detect); Enterotoxigenic E.coli It/st Not Detected (Not Detect); Giardia lamblia Not Detected (Not Detect); Norovirus GI/GII Not Detected (Not Detect); Plesiomonsa shigelloides Not Detected (Not Detect); Rotavirus A Not Detected (Not Detect); Salmonella Not Detected (Not Detect); Sapovirus Not Detected (Not Detect); Shiga-like toxin-prod E.coli Not Detected (Not Detect); Shigella/Enteroinvasive E.coli Not Detected (Not Detect); Vibrio Not Detected (Not Detect); Vibrio cholerae Not Detected (Not Detect); Yersinia enterocolitica Not Detected (Not Detect)
--- NOTE | 2024-08-13 15:41 | DI.ECHO.S_ITS ---
[facility] : : [id number] : : [place] : : [id number] : : Phone: [phone] Echocardiogram Report + + :Name: SREE SANTANA Study Date: 08/13/2024 Height: 71 in : :[facility] ReadingLocation: Weight: 177 lb : : Gender: Male BSA: 2.0 m2 : :: 1940 Age: 84 yrs BP: 115/56 mmHg: :Reason For Study: EVAL FOR EF : :Ordering Physician: ROLAND, : :JENNIFER Downey Performed By: Charli North : :Referring: JENNIFER WATKINS : + + Interpretation Summary The ejection fraction is estimated to be 60-65%. The right ventricle is mild to moderately dilated. The right ventricular systolic function is normal. There is mild aortic regurgitation. Procedure: A two-dimensional transthoracic echocardiogram with color flow and Doppler was performed in limited views only. The study quality was technically adequate. Comparison is made with the echocardiogram of 05/16/2021. The patient was in normal sinus rhythm during the exam. Left Ventricle: The left ventricle is normal in size and wall thickness. The ejection fraction is estimated to be 60-65%. Right Ventricle: The right ventricle is mild to moderately dilated. The right ventricular systolic function is normal. Mitral Valve: The mitral valve is normal in structure and function. There is trace mitral regurgitation. Aortic Valve: The aortic valve is trileaflet. The aortic valve opens well. There is mild aortic regurgitation. Tricuspid Valve: The tricuspid valve is normal in structure and function. There is mild tricuspid regurgitation. The right ventricular systolic pressure is estimated to be at least 27 mmHg based on an estimated right atrial pressure of 3 mm Hg. Great Vessels: The IVC is of normal diameter and collapses greater than 50% with a sniff. This suggests a low right atrial pressure of 3 mm Hg. MMode/2D Measurements & Calculations LVIDd: 5.2 cm LVIDs: 3.2 cm FS: 38.4 % IVSd: 0.93 cm LVPWd: 0.86 cm LV flowers. diameter/BSA (cm/m^2): 2.6 LV sys. diameter/BSA (cm/m^2): 1.6 Doppler Measurements & Calculations AI P1/2t: 652.3 msec TR max rodriguez: 246.5 cm/sec AI dec slope: 212.2 cm/sec2 TR max P.3 mmHg Reading Physician:05:29 PM
[2024-08-13] MEDS: LOPERAMIDE 2 MG CAPSULE PO (17:11)
--- NOTE | 2024-08-13 17:30 | PM.PN.1 ---
Subjective Subjective Interval history: Summary: This is an 84 year old male with PMH of CVA, HTN who presented with 1 week of nausea,vomiting and diarrhea. He reports inability to tolerate much oral intake for the past week, with NBNB emesis. He has had 3-4 loose, clear bowel movements per day approximately as well. He tried eating breakfast yesterday but vomited much if it yesterday afternoon. In the emergency room, vitals were unremarkable. Labs showed marked TISHA with Cr 2.7. He was given fluids, improved Cr to 2.31. Respiratory panel was negative. Blood cultures nor UA obtained. Patient was admitted for TISHA, developed rigors on the floor after arrival. Ordered blood cultures and UA, still pending. No antibiotics have been given to this point. Subjective: He feels mostly better today but continues to have frequent loose stools. He denies chest pain, or dyspnea. His initial electrocardiogram did have T-wave inversions in the inferior leads. This appears to be different from his previous electrocardiogram. He denies a cardiac history. Exam Vital Signs (past 8 hours): - 08/13/24 10:00 08/13/24 13:56 08/13/24 13:59 Temperature 97.4 F L Pulse Rate 57 L Respiratory Rate 18 Blood Pressure 115/56 L Pulse Oximetry 97 97 97 Oxygen Delivery Method Room Air Room Air Oxygen Flow Rate 0 0 0 Oxygen Delivery Method Room Air Oxygen Flow Rate 0 Narrative Exam Narrative: NAD, alert and oriented. Fluent speech. Lungs are clear, normal rate and effort. Heart is regular, no murmur gallop or rub. Abdomen is soft, non distended. Extremities are free of edema. Objective ECG Impression: NSR with T-wave inversions in inferior leads. Labs 08/13/24 06:50 08/13/24 06:50 Labs: Laboratory Results - last 24 hr 08/12/24 08/13/24 08/13/24 14:45 06:50 13:41 WBC 7.5 RBC 3.64 L Hgb 12.2 L Hct 35.4 L MCV 97.3 MCH 33.5 MCHC 34.5 RDW 12.8 Plt Count 208 Neut % (Auto) 67.6 Lymph % (Auto) 20.3 L [place] % (Auto) 11.4 Eos % (Auto) 0.3 L Baso % (Auto) 0.4 Neut # (Auto) 5100 Lymph # (Auto) 1500 [place] # (Auto) 900 Eos # (Auto) 0 Baso # (Auto) 0 Sodium 143 Potassium 3.8 Chloride 117 H Carbon Dioxide 19 L BUN 37 H Creatinine 1.33 H Estimated GFR 53 L BUN/Creatinine Ratio 27.8 H Glucose 106 Calcium 8.7 Magnesium 2.2 Troponin I 0.024 Urine Color Yellow Urine Appearance Clear Urine pH 5.5 Ur Specific [place] 1.025 Urine Protein Negative Urine Glucose (UA) Negative Urine Ketones 1+ H Urine Occult Blood Negative Urine Nitrate Negative Urine Bilirubin 1+ H Ur Bilirubin Confirm Negative Urine Urobilinogen 0.2 Ur Leukocyte Esterase Negative Urine RBC 0-1/hpf Urine WBC 0-1/hpf Ur Squamous Epith Cells None seen Calcium Oxalate Crystal Few H Urine Bacteria Occasional (0-1) Hyaline Casts 0-1/lpf Other Casts 0-1/lpf Ur Culture Indicated? Cult not indicated Vol Urine Centrifuged 10ml (spun) Stl C. cayetanensis PCR Stool Rotavirus (PCR) Stool Adenovirus (PCR) Stool Astrovirus (PCR) Stool Cryptosporidium PCR Stl E.coli Shiga Tox PCR St Sh/Enteroin Ecoli PCR Stl Enterotoxigenic E PCR Stool EPEC (PCR) Stl E. histolytica PCR Stool Giardia Lamblia PCR Stool Sapovirus (PCR) Stl P. shigelloides PCR St Y.enterocolitica PCR Stool Vibrio (PCR) Stl Vibrio cholerae PCR Stl Enteroaggr Ecoli PCR Stl Norovirus GI/GII PCR Campylobacter (PCR) C. difficile Tox (PCR) Salmonella (PCR) 08/13/24 13:45 WBC RBC Hgb Hct MCV MCH MCHC RDW Plt Count Neut % (Auto) Lymph % (Auto) [place] % (Auto) Eos % (Auto) Baso % (Auto) Neut # (Auto) Lymph # (Auto) [place] # (Auto) Eos # (Auto) Baso # (Auto) Sodium Potassium Chloride Carbon Dioxide BUN Creatinine Estimated GFR BUN/Creatinine Ratio Glucose Calcium Magnesium Troponin I Urine Color Urine Appearance Urine pH Ur Specific [place] Urine Protein Urine Glucose (UA) Urine Ketones Urine Occult Blood Urine Nitrate Urine Bilirubin Ur Bilirubin Confirm Urine Urobilinogen Ur Leukocyte Esterase Urine RBC Urine WBC Ur Squamous Epith Cells Calcium Oxalate Crystal Urine Bacteria Hyaline Casts Other Casts Ur Culture Indicated? Vol Urine Centrifuged Stl C. cayetanensis PCR Not detected Stool Rotavirus (PCR) Not detected Stool Adenovirus (PCR) Not detected Stool Astrovirus (PCR) Not detected Stool Cryptosporidium PCR Not detected Stl E.coli Shiga Tox PCR Not detected St Sh/Enteroin Ecoli PCR Not detected Stl Enterotoxigenic E PCR Not detected Stool EPEC (PCR) Not detected Stl E. histolytica PCR Not detected Stool Giardia Lamblia PCR Not detected Stool Sapovirus (PCR) Not detected Stl P. shigelloides PCR Not detected St Y.enterocolitica PCR Not detected Stool Vibrio (PCR) Not detected Stl Vibrio cholerae PCR Not detected Stl Enteroaggr Ecoli PCR Not detected Stl Norovirus GI/GII PCR Not detected Campylobacter (PCR) Not detected C. difficile Tox (PCR) Not detected Salmonella (PCR) Not detected PFSH Medical History Stroke Social History household members: none Smoking Status: Never smoker alcohol intake: current Assessment & Plan Assessment & Plan narrative: 1. TISHA secondary to #2 2. Dehydration, nausea/vomiting/diarrhea 3. prior CVA 4. HTN Plan -2D echo rule out wall motion abnormalities or evidence of inferior infarct. -loperamide after stool PCR was found to be negative. -stop IV fluids, creatinine has normalized. -continue blood pressure medications. He will require a 2nd midnight of care, anticipate discharge home on August 14 if diarrhea improves. Echo is pending. RADHA: 08/14. Time-Based Coding :: [TOTAL MINUTES] spent with patient and on the chart (including review of chart, obtaining history, exam, reviewing outside data, placing orders, documenting exam and treatment plan, and counseling patient) on [DATE]. Quality VTE Deep Vein Thrombosis/Pulmonary Embolism Present on Admission: No
[2024-08-13] MEDS: SODIUM CHLORIDE 0.9% 1,000 ML 100 ML IV (17:57)
[2024-08-13] MEDS: ONDANSETRON 4 MG/2 ML INJ IV (20:53)
[2024-08-14] MEDS: LOPERAMIDE 2 MG CAPSULE PO ×2 (00:55→08:06)
[2024-08-14 02:00] VITALS: O2SAT 93
[2024-08-14 04:00] VITALS: BP 136/61; PULSE 53; RESP 16; TEMP 36.4; O2SAT 97
[2024-08-14] MEDS: SODIUM CHLORIDE 0.9% 1,000 ML 100 ML IV (04:19)
[2024-08-14 06:00] VITALS: O2SAT 97
[2024-08-14 07:32] LABS: Add Manual Diff / Slide Review NO; Basophils Absolute Auto 0 /uL (0-100); Basophils Percent Auto 0.6 % (0-2); Eosinophils Absolute Auto 300 /uL (0-450); Hematocrit 34.1 % (41-53); Hemoglobin 11.8 g/dL (13.5-17.5); Lymphocytes Absolute Auto 1900 /uL (1100-4500); Lymphocytes Percent Auto 27.2 % (25-40); Mean Corpuscular HGB Conc 34.6 % (30-36); Mean Corpuscular Hemoglobin 33.5 PG (26-34); Monocytes Absolute Auto 700 /uL (0-900); Monocytes Percent Auto 10.5 % (3-14); Neutrophils Absolute Auto 4100 /uL (1500-7000); Neutrophils Percent Auto 57.7 % (50-75); Platelet Count 167 X10^3/uL (150-400); Red Blood Cell Count 3.51 X10^6/uL (4.5-5.9); Red Cell Distribution Width 13.1 % (11.6-14.8)
[2024-08-14 07:56] LABS: BUN Creatinine Ratio 24.5 (6-22); Blood Urea Nitrogen 23 mg/dL (9-20); Calcium 8.2 mg/dL (8.4-10.2); Carbon Dioxide 21 mmol/L (22-32); Chloride 113 mmol/L (98-107); Estimated Glomerular Filt Rate > 60 mL/min (>60); Glucose 94 mg/dL (80-110); HEMOLYSIS < 15 (0-50); Magnesium 1.9 mg/dL (1.6-2.3); Potassium 3.5 mmol/L (3.4-5.1); Sodium 137 mmol/L (137-145)
[2024-08-14 08:00] VITALS: BP 137/66; PULSE 51; RESP 17; TEMP 36.3; O2SAT 97
[2024-08-14 10:00] VITALS: O2SAT 97
[2024-08-14] MEDS: POTASSIUM CHLORIDE 20 MEQ TAB 40 MEQ PO (10:59)
[2024-08-14] MEDS: CALCIUM CARBONATE 500 MG TAB 1000 MG PO (10:59)
--- NOTE | 2024-08-14 12:03 | P.DS_ITS ---
History of Present Illness History of Present Illness Date Patient Seen: 08/14/24 Time Patient Seen: 09:50 Date of Onset of Symptoms: 08/12/24 Chief complaint: raspy voice 4 days, vomiting, weakness Narrative: This is an 84 year old male with PMH of CVA, HTN who presented with 1 week of nausea,vomiting and diarrhea. He reports inability to tolerate much oral intake for the past week, with NBNB emesis. He has had 3-4 loose, clear bowel movements per day approximately as well. He tried eating breakfast yesterday but vomited much if it yesterday afternoon. In the emergency room, vitals were unremarkable. Labs showed marked TISHA with Cr 2.7. He was given fluids, improved Cr to 2.31. Respiratory panel was negative. Blood cultures nor UA obtained. Patient was admitted for TISHA, developed rigors on the floor after arrival. Ordered blood cultures and UA, still pending. No antibiotics have been given to this point. Discharge Providers Provider Date of admission: 08/12/24 09:28 Discharge Date: 08/14/24 Primary care physician: Doctor Kari MD Discharge provider: Héctor Zuñiga MD Summary Hospital Course Discharge Diagnosis: 1. Acute kidney injury secondary to #2, resolved 2. Dehydration, nausea/vomiting/diarrhea 3. History of CVA 4. Hypertension Hospital Course: The patient was hydrated intravenously and administered antiemetics and antidiarrheals with improvement in symptoms over subsequent days, with creatinine improving from a peak of 2.71 mg/dL to 0.94 mg/dL at discharge. he continued to have small amount of diarrhea at the time of discharge that was able to tolerate a general diet and no longer required IV hydration. He was interested in discharge home. Arrangements were made as such. Status at Discharge Cognitive/behavioral status at discharge: oriented Functional status at discharge: independent ambulation Overall status at discharge: patient is back to baseline Time Spent with Patient Time spent: Greater than 30 minutes Exam Vital Signs (past 8 hours): - 08/14/24 06:00 08/14/24 08:00 08/14/24 08:00 Temperature 97.3 F L Pulse Rate 51 L Respiratory Rate 17 Blood Pressure 137/66 Pulse Oximetry 97 97 Oxygen Delivery Method Room Air Room Air Oxygen Delivery Method Room Air Oxygen Flow Rate 0 Narrative Exam Narrative: NAD, alert and oriented. Fluent speech. Lungs are clear, normal rate and effort. Heart is regular, no murmur gallop or rub. Abdomen is soft, non distended. Extremities are free of edema. Objective Labs 08/14/24 07:25 08/14/24 07:25 Labs: Laboratory Results - last 24 hr 08/13/24 08/13/24 08/14/24 13:41 13:45 07:25 WBC 7.0 RBC 3.51 L Hgb 11.8 L Hct 34.1 L MCV 97.0 MCH 33.5 MCHC 34.6 RDW 13.1 Plt Count 167 Neut % (Auto) 57.7 Lymph % (Auto) 27.2 [place] % (Auto) 10.5 Eos % (Auto) 4.0 Baso % (Auto) 0.6 Neut # (Auto) 4100 Lymph # (Auto) 1900 [place] # (Auto) 700 Eos # (Auto) 300 Baso # (Auto) 0 Sodium 137 Potassium 3.5 Chloride 113 H Carbon Dioxide 21 L BUN 23 H Creatinine 0.94 Estimated GFR > 60 BUN/Creatinine Ratio 24.5 H Glucose 94 Calcium 8.2 L Magnesium 1.9 Troponin I 0.024 Stl C. cayetanensis PCR Not detected Stool Rotavirus (PCR) Not detected Stool Adenovirus (PCR) Not detected Stool Astrovirus (PCR) Not detected Stool Cryptosporidium PCR Not detected Stl E.coli Shiga Tox PCR Not detected St Sh/Enteroin Ecoli PCR Not detected Stl Enterotoxigenic E PCR Not detected Stool EPEC (PCR) Not detected Stl E. histolytica PCR Not detected Stool Giardia Lamblia PCR Not detected Stool Sapovirus (PCR) Not detected Stl P. shigelloides PCR Not detected St Y.enterocolitica PCR Not detected Stool Vibrio (PCR) Not detected Stl Vibrio cholerae PCR Not detected Stl Enteroaggr Ecoli PCR Not detected Stl Norovirus GI/GII PCR Not detected Campylobacter (PCR) Not detected C. difficile Tox (PCR) Not detected Salmonella (PCR) Not detected PFSH Medical History Stroke Social History household members: none Smoking Status: Never smoker alcohol intake: current Discharge Plan Discharge Plan Patient Disposition: Home Provider Discharge Comment: Follow up with PCP 1 week Discharge orders & Medications Prescriptions: New loperamide 2 mg Capsule 2 mg PO Q6H PRN (Reason: Diarrhea) Qty: 1 0RF calcium carbonate 200 mg calcium (500 mg) Tablet,Chewable 1,000 mg PO Q4HR PRN (Reason: Dyspepsia) Qty: 1 0RF Continued atorvastatin 80 mg tablet 80 mg PO ONCE PM amlodipine 10 mg tablet 10 mg PO DAILY olmesartan 40 mg tablet 40 mg PO DAILY aspirin 81 mg Capsule 81 mg PO DAILY Medication counseling provided by Pharmacist: No Follow up/Referrals: Doctor Kari, [Primary Care Provider] - Discharge Health Status Multidrug resistant organism: No MDRO Diet/Activity/Treatments Diet: Regular Activity: As tolerated. Visit Report/Discharge Packet Instructions: DI for Diarrhea and Traveler's Diarrhea -- Adult Stand Alone Forms: Patient Portal/API Discharge Data Primary Care Provider: Doctor Kari Attending Provider: Aydin Holland Admit Date/Time: 08/12/24 09:28 Quality VTE Deep Vein Thrombosis/Pulmonary Embolism Present on Admission: No MIPS - Admit I confirm the patient?s Advance Care Plan is present, Code status is documented, Surrogate decision maker is in patient?s record [If Yes, STOP here]: Yes MIPS - Meds 'Current medications' to include all prescriptions, [id number] products, herbals, cannabis/cannabidiol products, and vitamin/mineral/dietary (nutritional) supplements. I have utilized all available resources to obtain, update, or review the patient?s current medications. [If Yes, STOP here]: Yes MIPS - DC The patient has a history of heart transplant or Left Ventricular Assist Device (LVAD). If yes, STOP here.: No The patient has current or prior documentation of left ventricular ejection fraction (LVEF) less than or equal to 40%, or moderate or severely depressed left ventricular systolic function.: No A. The patient was prescribed or already taking an Angiotensin-Converting Enzyme (CHANTAL) Inhibitor, or Angiotensin Receptor Emily (ARB).: Yes B. The patient was prescribed or already taking a beta-emily. [If Yes to Both A & B, STOP here]: No Patient not prescribed/taking CHANTAL or ARB, no reason given.: No Patient not prescribed/taking beta-emily, no reason given.: No PROFEE Charge Codes Discharge inpatient/observation: [id number]
--- NOTE | 2024-08-14 12:57 | PC.NURSE ---
Pt discharged home at 1255, escorted off floor in wheelchair accompanied by friend and hospital staff. IV removed, discharge teaching completed including new medications, follow up appointments, and worsening symptoms. Patient left the floor with all belongings.
== END 2024-08-14 12:59 | disposition home or self-care (01) ==
LOC: ED 06:56 → AC 09:28
PROVIDERS: Emergency Medicine; Hospitalist; Admitting Provider Internal Medicine; Emergency Provider Student in an Organized Health Care Education/Training Program; Family Provider Family Medicine Geriatric Medicine; Referring Provider Student in an Organized Health Care Education/Training Program; Visit Provider Internal Medicine
DX: R11.2 Nausea with vomiting, unspecified (principal); R19.7 Diarrhea, unspecified; E86.0 Dehydration; I10 Essential (primary) hypertension; Z86.73 Personal history of transient ischemic attack (TIA), and cerebral infarction without residual deficits; Z11.52 Encounter for screening for COVID-19
CPT/HCPCS: 36415; 70490; 71045; 74176; 80048; 80053; 81001; 81003; 82805; 83690; 83735; 84484; 85025; 85610; 87040; 87507; 87633; 93005; 93010; 93306; 93307; 96361; 96372; 96374; 96376; 99284; G0378; J1650; J2405

== ENCOUNTER 2024-08-19 14:07 | Inpatient (IN) | payer MEDICARE, SELFPAY ==
[2024-08-12 09:36] VITALS: BMI 24.7
[2024-08-19] VITALS (8 sets, daily range): BP systolic 88–126; BP diastolic 53–72; PULSE 66–84; RESP 14–24; TEMP 36.2; O2SAT 96–100; BMI 21.8; BMI 23.1
[2024-08-19 14:44] LABS: Add Manual Diff / Slide Review NO; Basophils Absolute Auto 0 /uL (0-100); Basophils Percent Auto 0.2 % (0-2); Eosinophils Absolute Auto 0 /uL (0-450); Eosinophils Percent Auto 0.3 % (2-4); Hematocrit 46.3 % (41-53); Hemoglobin 15.3 g/dL (13.5-17.5); Lymphocytes Absolute Auto 1400 /uL (1100-4500); Lymphocytes Percent Auto 12.7 % (25-40); Mean Corpuscular Hemoglobin 32.8 PG (26-34); Mean Corpuscular Volume 99.5 fL (80-100); Monocytes Absolute Auto 1500 /uL (0-900); Monocytes Percent Auto 13.4 % (3-14); Neutrophils Absolute Auto 8000 /uL (1500-7000); Neutrophils Percent Auto 73.4 % (50-75); Platelet Count 292 X10^3/uL (150-400); Red Blood Cell Count 4.65 X10^6/uL (4.5-5.9); Red Cell Distribution Width 12.8 % (11.6-14.8); White Blood Cell Count 10.9 X10^3/uL (4.5-11.0)
--- NOTE | 2024-08-19 14:47 | EKG_ITS ---
[address] [address] Test Date: 2024-08-19 Pat Name: Garrett Torres Department: Room: Gender: Male Platform Supervisor: RAQUEL : 1940 Requested By: Order Number: [id number] Reading MD: Michele Hurd MD Measurements Intervals [place] Rate: 79 P: 47 MA: 154 QRS: 23 QRSD: 108 T: -13 QT: 384 QTc: 440 Interpretive Statements Normal sinus rhythm Possible Inferior infarct , age undetermined Electronically Signed On 08-20-2024 7:31:54 PDT by Michele Hurd MD
--- NOTE | 2024-08-19 14:50 | PC.NURSE ---
PT REPORTS RECENT ADMISSION FOR VOMITING/DIARRHEA. PT STATES HE WAS GIVEN IMMODIUM PRIOR TO DISCHARGE WITH TEMPORARY RELIEF. PT FAMILY STATES THEY RAN EVERY TEST AND IT WAS ALL NEGATIVE. PT PRESCRIBED STRONG ANTIBIOTIC BY PCP TO KILL EVERYTHING YESTERDAY BUT STARTED HAVING VOMITING TODAY. PT STOOL SAMPLE NEGATIVE FOR BLOOD. PT FAMILY STATES HE DRANK A RED SMOOTHIE EARLIER; STOOL SAMPLE APPEARED TO LOOK LIKE UNDIGESTED RED SMOOTHIE. PT STATES HE IS VERY WEAK AND SOB W/ EXERTION OR TALKING. PT ABLE TO STAND W/O ASSISTANCE BUT DOES SEEM TO TIRE EASILY W/ CONVERSATION. PT STATES HE HAS BEEN UNABLE TO CONTROL HIS DIARRHEA.
[2024-08-19 14:57] LABS: Alanine Aminotransferase 47 IU/L (<50); Albumin 4.5 g/dL (3.5-5.0); Albumin Globulin Ratio 1.5 (1.0-2.8); Alkaline Phosphatase 86 U/L (38-126); Aspartate Aminotransferase 36 IU/L (17-59); BUN Creatinine Ratio 8.3 (6-22); Bilirubin Total 0.8 mg/dL (0.2-1.3); Blood Urea Nitrogen 31 mg/dL (9-20); Calcium 9.7 mg/dL (8.4-10.2); Carbon Dioxide 13 mmol/L (22-32); Chloride 107 mmol/L (98-107); Estimated Glomerular Filt Rate 15 mL/min (>60); Globulin 3.1 g/dL (1.7-4.1); Glucose 120 mg/dL (80-110); HEMOLYSIS < 15 (0-50); Lipase 108 U/L (23-300); Potassium 3.8 mmol/L (3.4-5.1); Sodium 137 mmol/L (137-145); Total Protein 7.6 g/dL (6.3-8.2)
[2024-08-19] MEDS: SODIUM CHLORIDE 0.9% 1,000 ML 1000 ML IV ×2 (15:13→17:26)
--- NOTE | 2024-08-19 15:14 | PC.NURSE ---
notified of pts kidney labs, and low bp (100 sys --> 80 sys). Verbal order for 1L NS. Pt used bedside commode w/ minimal assistance.
--- NOTE | 2024-08-19 15:29 | ED.NAVMDI ---
HPI - Nausea/Vomiting/Diarrhea General Chief complaint: Nausea/Vomiting/Diarrhea Stated complaint: diarrhea, vomiting Time Seen by Provider: 08/19/24 14:25 Source: patient and family Mode of arrival: Wheelchair History of Present Illness HPI Narrative: 84-year-old male with ongoing diarrhea for the last 3 weeks, was hospitalized here last week with the same problem, no specific diagnosis recalled by patient, he recalls having IV fluids, at discharge he was still having diarrhea, saw his regular provider at [facility] Dr. Viera yesterday and was started on oral levofloxacin antibiotic for empiric treatment apparently for ongoing diarrheal symptoms. He has not had a rash or intolerance to the medication. He is having ongoing diarrhea that is clear, smoothie like consistency, no black or red color. He does not feel feverish. He has not having shaking chills. He has not having particular abdominal discomfort. I have painful urination or frequency of urination. Related Data Home Medications Medication Instructions Recorded Confirmed amlodipine 10 mg tablet 10 mg PO DAILY 08/12/24 08/19/24 aspirin 81 mg capsule 81 mg PO DAILY 08/12/24 08/19/24 atorvastatin 80 mg tablet 80 mg PO ONCE PM 08/12/24 08/19/24 olmesartan 40 mg tablet 40 mg PO DAILY 08/12/24 08/19/24 Previous Rx's Medication Instructions Recorded calcium carbonate 1,000 mg (5 x 200 mg calcium (500 08/14/24 mg)) PO Q4HR PRN Dyspepsia #1 tab loperamide 2 mg capsule 2 mg PO Q6H PRN Diarrhea #1 cap 08/14/24 Allergies Allergy/AdvReac Type Severity Reaction Status Date / Time No Known Drug Allergies Allergy Verified 07/23/23 08:46 Review of Systems Review of Systems Narrative: See HPI Patient History Medical History Stroke Social History household members: none Smoking Status: Never smoker alcohol intake: current Smoking Status: Never smoker alcohol intake frequency: holidays/special occasions only Substance Use Type: does not use Exam Narrative Exam Narrative: GENERAL: Well-developed patient, in mild distress. HEAD: Atraumatic. Normocephalic. EYES: Pupils equal round and reactive. Extraocular motions intact. No scleral icterus. No injection or drainage. ENT: Nose without bleeding, purulent drainage. Throat without erythema, tonsillar hypertrophy or exudate. Airway patent. NECK: Trachea midline. Non tender CARDIOVASCULAR: Regular rate and rhythm without murmurs, gallops, or rubs. RESPIRATORY: Clear to auscultation. Breath sounds equal bilaterally. No wheezes, rales, or rhonchi. GASTROINTESTINAL: Abdomen soft, non-tender, nondistended. EXTREMITIES: No edema or joint tenderness. BACK: Nontender without deformity or crepitance. No flank tenderness. NEURO: AOx3. Motor functions grossly nonfocal SKIN: No rash or erythema of visible areas Initial Vital Signs Initial Vital Signs: Vital Signs Pulse Rate 84 08/19/24 14:10 Respiratory Rate 16 08/19/24 14:10 Blood Pressure 100/56 L 08/19/24 14:10 Pulse Oximetry 98 08/19/24 14:10 Oxygen Delivery Method Room Air 08/19/24 14:10 Course Orders Ordered: ED Orders 08/19/24 14:27 GI Panel (Film Array) Stat 08/19/24 14:35 Complete Blood Count AUTO DIFF Stat Comprehensive Metabolic Panel Stat Lactate (Lactic Acid) Stat Lipase Stat Procalcitonin Stat 08/19/24 14:47 EKG-12 Lead Routine 08/19/24 16:51 CT abdomen pelvis wo con Stat 08/19/24 17:23 BMP [Basic Metabolic Panel] Stat 08/19/24 17:47 Blood Culture Stat Acetaminophen (Acetaminophen 325 Mg Tablet) 650 mg PO Q6H PRN PRN Reason: Fever/Mild Pain (1-3) Al Hydrox/Mg Hydrox/Simethicone (Mag Hydrox/Alum/Simeth 30 Ml Udc) 30 ml PO Q6HR PRN PRN Reason: Dyspepsia Heparin Sodium (Porcine) (Heparin 5,000 Unit/Ml Vial) 5,000 unit SUBCUT BID [facility] Last Admin: 08/19/24 20:13 Dose: 5,000 unit Documented By: Sodium Chloride (Normal Saline 0.45%) 1,000 mls @ 100 mls/hr IV CONT JOSÉ MIGUEL Last Admin: 08/19/24 20:17 Dose: 100 mls/hr Documented By: Loperamide HCl (Loperamide 2 Mg Capsule) 2 mg PO QID PRN PRN Reason: Diarrhea Last Admin: 08/19/24 20:13 Dose: 2 mg Documented By: RAZ Naloxone HCl (Naloxone 0.4 Mg/Ml Vial) 0.2 mg IV Q2MIN PRN PRN Reason: Opiate Reversal Ondansetron HCl (Ondansetron 4 Mg/2 Ml Inj) 4 mg IV Q8HR PRN PRN Reason: Nausea And Vomiting Last Admin: 08/19/24 20:21 Dose: 4 mg Documented By: RAZ Discontinued Medications Sodium Chloride (Normal Saline 0.9%) 1,000 mls @ 1,000 mls/hr IV BOLUS ONE Stop: 08/19/24 16:11 Last Infusion: 08/19/24 16:05 Dose: Infused Documented By: Admin: 08/19/24 15:13 Dose: 1,000 mls/hr Documented By: PATRICK Sodium Chloride (Normal Saline 0.9%) 1,000 mls @ 1,000 mls/hr IV BOLUS ONE Stop: 08/19/24 18:25 Last Infusion: 08/19/24 18:28 Dose: Infused Documented By: Admin: 08/19/24 17:26 Dose: 1,000 mls/hr Documented By: PATRICK Vital Signs Vital signs: Vital Signs - 8 hr 08/19/24 14:10 08/19/24 15:00 08/19/24 15:30 Pulse Rate 84 75 66 Respiratory Rate 16 18 16 Blood Pressure 100/56 L 88/53 L 108/57 L Pulse Oximetry 98 98 100 Oxygen Delivery Method Room Air Room Air 08/19/24 16:30 08/19/24 17:00 08/19/24 17:30 Pulse Rate 67 71 71 Respiratory Rate 20 20 Blood Pressure 103/54 L 108/58 L 100/72 Pulse Oximetry 96 100 Oxygen Delivery Method Room Air MDM - Nausea/Vomiting/Diarrhea Lab Data Attestation: I reviewed the patient's lab results. Lab results narrative: White blood cell count 67186, hemoglobin 15, platelets adequate. BUN 31 elevated, with creatinine 3.74 elevated, serum CO2 13 decreased. Electrolytes unremarkable. Potassium 3.8 noted, glucose 120 noted. Liver functions normal, lipase normal. 08/19/24 14:35 08/19/24 17:23 Labs: Lab Results 08/19/24 08/19/24 08/19/24 Range/Units 14:27 14:35 17:23 WBC 10.9 (4.5-11.0) X10^3/uL RBC 4.65 (4.5-5.9) X10^6/uL Hgb 15.3 (13.5-17.5) g/dL Hct 46.3 (41-53) % MCV 99.5 (80-100) fL MCH 32.8 (26-34) PG MCHC 33.0 (30-36) % RDW 12.8 (11.6-14.8) % Plt Count 292 (150-400) X10^3/uL Neut % (Auto) 73.4 (50-75) % Lymph % (Auto) 12.7 L (25-40) % [place] % (Auto) 13.4 (3-14) % Eos % (Auto) 0.3 L (2-4) % Baso % (Auto) 0.2 (0-2) % Neut # (Auto) 8000 H (4446-9313) /uL Lymph # (Auto) 1400 (6440-1413) /uL [place] # (Auto) 1500 H (0-900) /uL Eos # (Auto) 0 (0-450) /uL Baso # (Auto) 0 (0-100) /uL Sodium 137 137 (137-145) mmol/L Potassium 3.8 3.9 (3.4-5.1) mmol/L Chloride 107 110 H (98-107) mmol/L Carbon Dioxide 13 L 13 L (22-32) mmol/L BUN 31 H 32 H (9-20) mg/dL Creatinine 3.74 H 3.24 H (0.66-1.25) mg/dL Estimated GFR 15 L 18 L (>60) mL/min BUN/Creatinine Ratio 8.3 9.9 (6-22) Glucose 120 H 104 (80-110) mg/dL Lactate 2.9 H (0.7-2.1) mmol/L Calcium 9.7 9.0 (8.4-10.2) mg/dL Total Bilirubin 0.8 (0.2-1.3) mg/dL AST 36 (17-59) IU/L ALT 47 (<50) IU/L Alkaline Phosphatase 86 (38-126) U/L Total Protein 7.6 (6.3-8.2) g/dL Albumin 4.5 (3.5-5.0) g/dL Globulin 3.1 (1.7-4.1) g/dL Albumin/Globulin Ratio 1.5 (1.0-2.8) Lipase 108 (23-300) U/L Procalcitonin 0.475 (<0.5) ng/mL Stl C. cayetanensis PCR Not detected (Not Detect) Stool Rotavirus (PCR) Not detected (Not Detect) Stool Adenovirus (PCR) Not detected (Not Detect) Stool Astrovirus (PCR) Not detected (Not Detect) Stool Cryptosporidium PCR Not detected (Not Detect) Stl E.coli Shiga Tox PCR Not detected (Not Detect) St Sh/Enteroin Ecoli PCR Not detected (Not Detect) Stl Enterotoxigenic E PCR Not detected (Not Detect) Stool EPEC (PCR) Not detected (Not Detect) Stl E. histolytica PCR Not detected (Not Detect) Stool Giardia Lamblia PCR Not detected (Not Detect) Stool Sapovirus (PCR) Not detected (Not Detect) Stl P. shigelloides PCR Not detected (Not Detect) St Y.enterocolitica PCR Not detected (Not Detect) Stool Vibrio (PCR) Not detected (Not Detect) Stl Vibrio cholerae PCR Not detected (Not Detect) Stl Enteroaggr Ecoli PCR Not detected (Not Detect) Stl Norovirus GI/GII PCR Not detected (Not Detect) Campylobacter (PCR) Not detected (Not Detect) C. difficile Tox (PCR) Not detected (Not Detect) Salmonella (PCR) Not detected (Not Detect) 08/19/24 Range/Units 17:47 WBC (4.5-11.0) X10^3/uL RBC (4.5-5.9) X10^6/uL Hgb (13.5-17.5) g/dL Hct (41-53) % MCV (80-100) fL MCH (26-34) PG MCHC (30-36) % RDW (11.6-14.8) % Plt Count (150-400) X10^3/uL Neut % (Auto) (50-75) % Lymph % (Auto) (25-40) % [place] % (Auto) (3-14) % Eos % (Auto) (2-4) % Baso % (Auto) (0-2) % Neut # (Auto) (6885-1092) /uL Lymph # (Auto) (5342-9685) /uL [place] # (Auto) (0-900) /uL Eos # (Auto) (0-450) /uL Baso # (Auto) (0-100) /uL Sodium (137-145) mmol/L Potassium (3.4-5.1) mmol/L Chloride (98-107) mmol/L Carbon Dioxide (22-32) mmol/L BUN (9-20) mg/dL Creatinine (0.66-1.25) mg/dL Estimated GFR (>60) mL/min BUN/Creatinine Ratio (6-22) Glucose (80-110) mg/dL Lactate 1.6 (0.7-2.1) mmol/L Calcium (8.4-10.2) mg/dL Total Bilirubin (0.2-1.3) mg/dL AST (17-59) IU/L ALT (<50) IU/L Alkaline Phosphatase (38-126) U/L Total Protein (6.3-8.2) g/dL Albumin (3.5-5.0) g/dL Globulin (1.7-4.1) g/dL Albumin/Globulin Ratio (1.0-2.8) Lipase (23-300) U/L Procalcitonin (<0.5) ng/mL Stl C. cayetanensis PCR (Not Detect) Stool Rotavirus (PCR) (Not Detect) Stool Adenovirus (PCR) (Not Detect) Stool Astrovirus (PCR) (Not Detect) Stool Cryptosporidium PCR (Not Detect) Stl E.coli Shiga Tox PCR (Not Detect) St Sh/Enteroin Ecoli PCR (Not Detect) Stl Enterotoxigenic E PCR (Not Detect) Stool EPEC (PCR) (Not Detect) Stl E. histolytica PCR (Not Detect) Stool Giardia Lamblia PCR (Not Detect) Stool Sapovirus (PCR) (Not Detect) Stl P. shigelloides PCR (Not Detect) St Y.enterocolitica PCR (Not Detect) Stool Vibrio (PCR) (Not Detect) Stl Vibrio cholerae PCR (Not Detect) Stl Enteroaggr Ecoli PCR (Not Detect) Stl Norovirus GI/GII PCR (Not Detect) Campylobacter (PCR) (Not Detect) C. difficile Tox (PCR) (Not Detect) Salmonella (PCR) (Not Detect) Point of Care Testing Stool Occult Blood Negative Glucose POC 111 ECG Data Attestation: I personally reviewed and interpreted this ECG as follows: Interpretation: Normal sinus rhythm with rate of 79, no obvious ST segment elevation or depression changes. AR 154, QRS 108, QTC 440 noted. MDM Narrative Medical decision making narrative: 84-year-old male with ongoing diarrhea of unclear cause, recent admission here for the same problem and was discharge, now day 2 of oral levofloxacin prescribed by his PCP at [facility], still having diarrhea. Afebrile, sirs screen negative. Labs pending. Consider C diff colitis, or other enteropathic cause, stool specimen requested including C diff toxin study. Lactate 2.9, procalcitonin not elevated, blood cultures were requested, IV fluids started. Stool specimen was sent to lab. Stool enteric pathogen panel negative including C diff study. Creatinine elevated compared to recent study, likely prerenal, IV fluid bolus. We will do noncontrast CT abdomen and pelvis imaging. CT abdomen and pelvis shows liquid stool colonic, no obstruction, no diverticulitis or colitis changes, no perforation or abscess formation. See radiology report. Repeat BNP shows creatinine 3.2, improved decreasing from 3.7 initial, still needs considerable hydration, will query hospitalist regarding admission. 1800, case discussed with hospitalist Dr. Munguia, accepts patient for admission to inpatient Discharge Plan Departure Patient Disposition: Admitted As Inpatient Clinical Impression: TISHA (acute kidney injury), Dehydration, Diarrhea Admit Date/Time: 08/19/24 18:17 Admit Provider: Dillon Hanley
[2024-08-19 16:03] LABS: Lactate (Lactic Acid) 2.9 mmol/L (0.7-2.1)
[2024-08-19 16:16] LABS: Adenovirus F 40/41 Not Detected (Not Detect); Astrovirus Not Detected (Not Detect); Campylobacter Not Detected (Not Detect); Clostridium difficile toxin AB Not Detected (Not Detect); Cryptosporidium Not Detected (Not Detect); Cyclospora cayetanensis Not Detected (Not Detect); Entamoeba histolytica Not Detected (Not Detect); Enteroaggregative E.coli Not Detected (Not Detect); Enteropathogenic E.coli Not Detected (Not Detect); Enterotoxigenic E.coli It/st Not Detected (Not Detect); Giardia lamblia Not Detected (Not Detect); Norovirus GI/GII Not Detected (Not Detect); Plesiomonsa shigelloides Not Detected (Not Detect); Rotavirus A Not Detected (Not Detect); Salmonella Not Detected (Not Detect); Sapovirus Not Detected (Not Detect); Shiga-like toxin-prod E.coli Not Detected (Not Detect); Shigella/Enteroinvasive E.coli Not Detected (Not Detect); Vibrio Not Detected (Not Detect); Vibrio cholerae Not Detected (Not Detect); Yersinia enterocolitica Not Detected (Not Detect)
[2024-08-19 16:39] LABS: Procalcitonin 0.475 ng/mL (<0.5)
--- NOTE | 2024-08-19 16:51 | DI.CT.S_ITS ---
PROCEDURE: CT ABDOMEN PELVIS WO CON INDICATIONS: abd pain, diarrhea, creat 3.7 TECHNIQUE: Axial sections were acquired from the lung bases to the pubic symphysis. Coronal and sagittal reformats were performed. For radiation dose reduction, the following was used: automated exposure control, adjustment of mA and/or kV according to patient size. COMPARISON: [facility], CT, CT ABDOMEN PELVIS WO CON, 08/12/2024, 8:56. FINDINGS: Image quality: Diagnostic. Lower Chest: Senescent fibrosis. Moderate hiatal hernia. URINARY: Right Kidney: No stones or hydronephrosis. Right Ureter: No hydroureter. Left Kidney: No stones or hydronephrosis. Left Ureter: No hydroureter. Bladder: Normal wall thickness. No stones. ABDOMEN: Liver: No contour-deforming solid mass. Scattered subcentimeter hypoattenuating lesions, too small to characterize by CT but probably small cysts. Gallbladder: Cholelithiasis without wall thickening or adjacent fat stranding to suggest acute cholecystitis. Biliary ducts: No biliary dilation. Pancreas: No ductal dilation. Spleen: Size is within normal limits. Adrenal Glands: No adrenal nodules. Stomach and Bowel: Liquid debris within the entire large bowel. Colonic diverticulosis without evidence of diverticulitis. No abnormal bowel wall thickening period Peritoneum: No abnormal intraperitoneal fluid. No free air. Ventral Wall: No hernia. Abdominal Nodes: No enlarged retroperitoneal or mesenteric lymph nodes. Vessels: Aorta and inferior vena cava are normal in size. PELVIS: Pelvic Organs: Unremarkable. Pelvic Nodes: Unremarkable. Miscellaneous: No inguinal hernias are seen. Bones: Mild anterior wedge compression the T12 vertebral body, without endplate retropulsion; this is chronic. Osteoporosis by Hounsfield units criteria. Degenerative disc disease of the lumbar spine. IMPRESSION: Liquid stool within the large bowel, consistent with diarrheal illness. No CT evidence of enterocolitis. Colonic diverticulosis without evidence of diverticulitis. Other chronic findings as above. Dictated by: Kehinde Murray M.D. on 08/19/2024 at 17:05 Approved by: Kehinde Murray M.D. on 08/19/2024 at 17:12
[2024-08-19 17:30] LABS: Reflexed Lactate in 2 Hours Y
[2024-08-19 17:53] LABS: BUN Creatinine Ratio 9.9 (6-22); Blood Urea Nitrogen 32 mg/dL (9-20); Carbon Dioxide 13 mmol/L (22-32); Chloride 110 mmol/L (98-107); Estimated Glomerular Filt Rate 18 mL/min (>60); Glucose 104 mg/dL (80-110); HEMOLYSIS 16 (0-50); Potassium 3.9 mmol/L (3.4-5.1); Sodium 137 mmol/L (137-145)
[2024-08-19 18:08] LABS: Lactate 2HR (Lactic Acid Rflx) 1.6 mmol/L (0.7-2.1)
--- NOTE | 2024-08-19 18:39 | CM.DANOTE ---
DCP Assessment Note: Pt is a 84yo male, resident of [place], is admitted for TISHA, dehydration, diarrhea. Pt lives in a house alone. Pt's Primary Care Provider is Dr. Kenan Viera and insurance is Medicare. Reviewed chart and team rounds for pt's medical status and initial discharge needs. DCP met w/patient at bedside; introduced self and role. Patient was found in bed, alert and oriented, cooperative with assessment. Pt confirmed living situation and good support in son, Thierry, who lives nearby. Pt expressed preference in returning home when medically cleared. No discharge needs identified, pt declined any referral to home health or community services at this time. Plan: Anticipating discharge home with son to transport when medically cleared. CM team will follow closely for coordination of discharge plans. MYRNA Hayes Discharge Planning/Care Management CM Discharge Assessment Start: 08/19/24 18:38 Freq: Status: Active Protocol: Document 08/19/24 18:38 MW (Rec: 08/19/24 18:39 MW [id number]) Discharge Planning Assessment Assigned Housekeeper/Custodian/Laundry Worker PRASANNA Turner DPOA/Assigned Designee Name Mark Pina Contact Information [phone] Advance Directives? No Advance Directives on File No History Provided By Patient,Medical Record Has Patient been admitted in last 30 Yes days? Comment Patient was admitted on 08/12- 08/14. Prior Living Arrangements House Household Members none Type of transporation used prior to Drives own vehicle admit Independent with ADL's Yes Is patient alert and oriented? Yes Caregiver for Another No Discharge Plan Home Review Status In Process Please Provide Date Initial DC 08/19/24 Assessment Was Performed Next Review Type Continued Stay Review
[2024-08-19] MEDS: HEPARIN 5,000 UNIT/ML VIAL 5000 UNIT SUBCUT (20:13)
[2024-08-19] MEDS: LOPERAMIDE 2 MG CAPSULE PO (20:13)
[2024-08-19] MEDS: SODIUM CHLORIDE 0.45% 1,000 ML 100 ML IV (20:17)
[2024-08-19] MEDS: ONDANSETRON 4 MG/2 ML INJ IV (20:21)
--- NOTE | 2024-08-19 22:57 | PM.HP.1 ---
History of Present Illness History of Present Illness Chief complaint: diarhea, vomiting Narrative: 84-year-old male with past medical history of hypertension and hyperlipidemia presents with ongoing nausea, vomiting, and diarrhea. Per the patient report, the patient has been having ongoing non bloody diarrhea for the last three weeks. The patient was hospitalized due to severe dehydration and TISHA and was discharged a week ago.? The patient was hydrated with IV fluid and sent home after improve some improvement of his diarrhea. The patient denies any blood in his stool but admit to have nausea and nonbloody vomiting. Patient denies any recent travels or sick contact. The patient was seen by his PCP doctor yesterday was started on oral levofloxacin as an empiric treatment. Otherwise the patient denies any abdominal pain, fever, chills, chest pain, or shortness of breath. In our emergency room, the patient was hemodynamically stable. Lab shows a Cr of 3.7 and lactate of 2.9. The patient otherwise was not septic with normal WBC.? IV fluid was given the patient lactate normalize as well as Cr improved to 3.2. [facility] Medical History Stroke Social History household members: none Smoking Status: Never smoker alcohol intake: current Meds Home Medications and Allergies Home Medications Medication Instructions Recorded Confirmed Type amlodipine 10 mg tablet 10 mg PO DAILY 08/12/24 08/19/24 History aspirin 81 mg capsule 81 mg PO DAILY 08/12/24 08/19/24 History atorvastatin 80 mg tablet 80 mg PO ONCE PM 08/12/24 08/19/24 History olmesartan 40 mg tablet 40 mg PO DAILY 08/12/24 08/19/24 History calcium carbonate 1,000 mg (5 x 200 mg calcium (500 08/14/24 08/19/24 Rx mg)) PO Q4HR PRN Dyspepsia #1 tab loperamide 2 mg capsule 2 mg PO Q6H PRN Diarrhea #1 cap 08/14/24 08/19/24 Rx Allergies Allergy/AdvReac Type Severity Reaction Status Date / Time No Known Drug Allergies Allergy Verified 07/23/23 08:46 Review of Systems Review of Systems ROS: Yes All systems reviewed with the patient and are negative except as otherwise documented Exam Vital Signs (past 8 hours): - 08/19/24 15:00 08/19/24 15:30 08/19/24 16:30 Temperature Pulse Rate 75 66 67 Respiratory Rate 18 16 20 Blood Pressure 88/53 L 108/57 L 103/54 L Pulse Oximetry 98 100 96 Oxygen Delivery Method Room Air Room Air Oxygen Flow Rate 08/19/24 17:00 08/19/24 17:30 08/19/24 18:30 Temperature Pulse Rate 71 71 74 Respiratory Rate 20 24 Blood Pressure 108/58 L 100/72 126/59 L Pulse Oximetry 100 99 Oxygen Delivery Method Room Air Oxygen Flow Rate 08/19/24 20:00 Temperature 97.1 F L Pulse Rate 77 Respiratory Rate 14 Blood Pressure 123/67 Pulse Oximetry 99 Oxygen Delivery Method Oxygen Flow Rate 0 Oxygen Delivery Method Room Air Oxygen Flow Rate 0 Narrative Exam Narrative: GENERAL: The patient is not in any acute distressed. Awake and alert. HEENT: Nonicteric sclerae, PERRLA, EOMI. Oropharynx clear. Moist mucous membranes. Conjunctivae appear well perfused. HEART: Regular rate and rhythm without murmurs. No lower extremities edema. LUNGS: Clear to auscultation bilaterally. No wheezing, crackles or rhonchi ABDOMEN: Soft, positive bowel sounds, nontender. SKIN: No rash, no excessive bruising, petechiae, or purpura. NEUROLOGIC: AxO x 3. Cranial nerves II-XII intact without motor/sensory deficit. Objective Labs 08/19/24 14:35 08/19/24 17:23 Labs: Laboratory Results - last 24 hr 08/19/24 08/19/24 08/19/24 14:27 14:35 17:23 WBC 10.9 RBC 4.65 Hgb 15.3 Hct 46.3 MCV 99.5 MCH 32.8 MCHC 33.0 RDW 12.8 Plt Count 292 Neut % (Auto) 73.4 Lymph % (Auto) 12.7 L [place] % (Auto) 13.4 Eos % (Auto) 0.3 L Baso % (Auto) 0.2 Neut # (Auto) 8000 H Lymph # (Auto) 1400 [place] # (Auto) 1500 H Eos # (Auto) 0 Baso # (Auto) 0 Sodium 137 137 Potassium 3.8 3.9 Chloride 107 110 H Carbon Dioxide 13 L 13 L BUN 31 H 32 H Creatinine 3.74 H 3.24 H Estimated GFR 15 L 18 L BUN/Creatinine Ratio 8.3 9.9 Glucose 120 H 104 Lactate 2.9 H Calcium 9.7 9.0 Total Bilirubin 0.8 AST 36 ALT 47 Alkaline Phosphatase 86 Total Protein 7.6 Albumin 4.5 Globulin 3.1 Albumin/Globulin Ratio 1.5 Lipase 108 Procalcitonin 0.475 Stl C. cayetanensis PCR Not detected Stool Rotavirus (PCR) Not detected Stool Adenovirus (PCR) Not detected Stool Astrovirus (PCR) Not detected Stool Cryptosporidium PCR Not detected Stl E.coli Shiga Tox PCR Not detected St Sh/Enteroin Ecoli PCR Not detected Stl Enterotoxigenic E PCR Not detected Stool EPEC (PCR) Not detected Stl E. histolytica PCR Not detected Stool Giardia Lamblia PCR Not detected Stool Sapovirus (PCR) Not detected Stl P. shigelloides PCR Not detected St Y.enterocolitica PCR Not detected Stool Vibrio (PCR) Not detected Stl Vibrio cholerae PCR Not detected Stl Enteroaggr Ecoli PCR Not detected Stl Norovirus GI/GII PCR Not detected Campylobacter (PCR) Not detected C. difficile Tox (PCR) Not detected Salmonella (PCR) Not detected 08/19/24 17:47 WBC RBC Hgb Hct MCV MCH MCHC RDW Plt Count Neut % (Auto) Lymph % (Auto) [place] % (Auto) Eos % (Auto) Baso % (Auto) Neut # (Auto) Lymph # (Auto) [place] # (Auto) Eos # (Auto) Baso # (Auto) Sodium Potassium Chloride Carbon Dioxide BUN Creatinine Estimated GFR BUN/Creatinine Ratio Glucose Lactate 1.6 Calcium Total Bilirubin AST ALT Alkaline Phosphatase Total Protein Albumin Globulin Albumin/Globulin Ratio Lipase Procalcitonin Stl C. cayetanensis PCR Stool Rotavirus (PCR) Stool Adenovirus (PCR) Stool Astrovirus (PCR) Stool Cryptosporidium PCR Stl E.coli Shiga Tox PCR St Sh/Enteroin Ecoli PCR Stl Enterotoxigenic E PCR Stool EPEC (PCR) Stl E. histolytica PCR Stool Giardia Lamblia PCR Stool Sapovirus (PCR) Stl P. shigelloides PCR St Y.enterocolitica PCR Stool Vibrio (PCR) Stl Vibrio cholerae PCR Stl Enteroaggr Ecoli PCR Stl Norovirus GI/GII PCR Campylobacter (PCR) C. difficile Tox (PCR) Salmonella (PCR) Assessment & Plan Assessment & Plan narrative: TISHA.? Admit the patient to medical floor as inpatient. Patients Cr at baseline is .9 but today 3.7 in our ER. After IV fluid the patient improved to 3.2. Continue IV fluid as underlying cause is likely dehydration from severe vomiting and diarrhea.? Continue to monitor renal function. Nausea, vomiting, and diarrhea. Could be from viral gasrroenteritis. Stool studies were negative, including CDif.? Will hold any antibiotic at this time as patient has no signs of sepsis and studies are negative. Imodium prn and IV fluid with IV antiemetics. Hypertension. Monitor blood pressure and resume home medication accordingly. Hyperlipidemia. Resume home statin DVT prophylaxis? Heparin. Code Status full code Disposition likely in two days. Time-Based Coding :: [TOTAL MINUTES] spent with patient and on the chart (including review of chart, obtaining history, exam, reviewing outside data, placing orders, documenting exam and treatment plan, and counseling patient) on [DATE]. Quality VTE Deep Vein Thrombosis/Pulmonary Embolism Present on Admission: No
[2024-08-20] VITALS (7 sets, daily range): BP systolic 102–150; BP diastolic 53–77; PULSE 64–83; RESP 15–18; TEMP 36.2–36.7; O2SAT 96–98
[2024-08-20 05:58] LABS: BUN Creatinine Ratio 10.6 (6-22); Blood Urea Nitrogen 32 mg/dL (9-20); Carbon Dioxide 15 mmol/L (22-32); Chloride 113 mmol/L (98-107); Estimated Glomerular Filt Rate 20 mL/min (>60); Glucose 101 mg/dL (80-110); HEMOLYSIS < 15 (0-50); Potassium 3.8 mmol/L (3.4-5.1); Sodium 138 mmol/L (137-145)
[2024-08-20 06:03] LABS: Add Manual Diff / Slide Review NO; Basophils Absolute Auto 0 /uL (0-100); Basophils Percent Auto 0.3 % (0-2); Eosinophils Absolute Auto 100 /uL (0-450); Eosinophils Percent Auto 0.9 % (2-4); Hematocrit 37.6 % (41-53); Hemoglobin 12.8 g/dL (13.5-17.5); Lymphocytes Absolute Auto 1700 /uL (1100-4500); Lymphocytes Percent Auto 20.2 % (25-40); Mean Corpuscular HGB Conc 34.2 % (30-36); Mean Corpuscular Hemoglobin 33.4 PG (26-34); Mean Corpuscular Volume 97.9 fL (80-100); Monocytes Absolute Auto 1400 /uL (0-900); Monocytes Percent Auto 17.4 % (3-14); Neutrophils Absolute Auto 5100 /uL (1500-7000); Neutrophils Percent Auto 61.2 % (50-75); Platelet Count 248 X10^3/uL (150-400); Red Blood Cell Count 3.84 X10^6/uL (4.5-5.9); Red Cell Distribution Width 12.9 % (11.6-14.8); White Blood Cell Count 8.3 X10^3/uL (4.5-11.0)
[2024-08-20] MEDS: SODIUM CHLORIDE 0.45% 1,000 ML 100 ML IV ×2 (06:19→16:24)
[2024-08-20] MEDS: LOPERAMIDE 2 MG CAPSULE PO ×3 (06:36→16:21)
--- NOTE | 2024-08-20 07:48 | PM.PN.1 ---
Subjective Subjective Interval history: From night doctor: 84-year-old male with past medical history of hypertension and hyperlipidemia presents with ongoing nausea, vomiting, and diarrhea. Per the patient report, the patient has been having ongoing non bloody diarrhea for the last three weeks. The patient was hospitalized due to severe dehydration and TISHA and was discharged a week ago.? The patient was hydrated with IV fluid and sent home after improve some improvement of his diarrhea. The patient denies any blood in his stool but admit to have nausea and nonbloody vomiting. Patient denies any recent travels or sick contact. The patient was seen by his PCP doctor yesterday was started on oral levofloxacin as an empiric treatment. Otherwise the patient denies any abdominal pain, fever, chills, chest pain, or shortness of breath. In our emergency room, the patient was hemodynamically stable. Lab shows a Cr of 3.7 and lactate of 2.9. The patient otherwise was not septic with normal WBC.? IV fluid was given the patient lactate normalize as well as Cr improved to 3.2. S: He feels little bit better. He did have 2 diarrheal stools this morning. He was taking loperamide twice a day at home. He did keep his breakfast down which is an improvement. No abdominal pain. His stool PCR was negative. Exam Vital Signs (past 8 hours): - 08/20/24 00:00 08/20/24 04:00 Temperature 97.3 F L 97.2 F L Pulse Rate 73 64 Respiratory Rate 16 16 Blood Pressure 124/62 102/53 L Pulse Oximetry 98 98 Oxygen Flow Rate 0 0 Oxygen Delivery Method Room Air Oxygen Flow Rate 0 Narrative Exam Narrative: NAD, alert and oriented. Fluent speech. Lungs are clear, normal rate and effort. Heart is regular, no murmur gallop or rub. Abdomen is soft, non distended. Abdomen is nontender. Extremities are free of edema. Objective Imaging CT scan - abdomen: Radiologist's impression: Liquid stool within the large bowel, consistent with diarrheal illness. No CT evidence of enterocolitis. Colonic diverticulosis without evidence of diverticulitis. Other chronic findings as above. Labs 08/20/24 04:25 08/20/24 04:25 Labs: Laboratory Results - last 24 hr 08/19/24 08/19/24 08/19/24 14:27 14:35 17:23 WBC 10.9 RBC 4.65 Hgb 15.3 Hct 46.3 MCV 99.5 MCH 32.8 MCHC 33.0 RDW 12.8 Plt Count 292 Neut % (Auto) 73.4 Lymph % (Auto) 12.7 L [place] % (Auto) 13.4 Eos % (Auto) 0.3 L Baso % (Auto) 0.2 Neut # (Auto) 8000 H Lymph # (Auto) 1400 [place] # (Auto) 1500 H Eos # (Auto) 0 Baso # (Auto) 0 Sodium 137 137 Potassium 3.8 3.9 Chloride 107 110 H Carbon Dioxide 13 L 13 L BUN 31 H 32 H Creatinine 3.74 H 3.24 H Estimated GFR 15 L 18 L BUN/Creatinine Ratio 8.3 9.9 Glucose 120 H 104 Lactate 2.9 H Calcium 9.7 9.0 Total Bilirubin 0.8 AST 36 ALT 47 Alkaline Phosphatase 86 Total Protein 7.6 Albumin 4.5 Globulin 3.1 Albumin/Globulin Ratio 1.5 Lipase 108 Procalcitonin 0.475 Stl C. cayetanensis PCR Not detected Stool Rotavirus (PCR) Not detected Stool Adenovirus (PCR) Not detected Stool Astrovirus (PCR) Not detected Stool Cryptosporidium PCR Not detected Stl E.coli Shiga Tox PCR Not detected St Sh/Enteroin Ecoli PCR Not detected Stl Enterotoxigenic E PCR Not detected Stool EPEC (PCR) Not detected Stl E. histolytica PCR Not detected Stool Giardia Lamblia PCR Not detected Stool Sapovirus (PCR) Not detected Stl P. shigelloides PCR Not detected St Y.enterocolitica PCR Not detected Stool Vibrio (PCR) Not detected Stl Vibrio cholerae PCR Not detected Stl Enteroaggr Ecoli PCR Not detected Stl Norovirus GI/GII PCR Not detected Campylobacter (PCR) Not detected C. difficile Tox (PCR) Not detected Salmonella (PCR) Not detected 08/19/24 08/20/24 17:47 04:25 WBC 8.3 RBC 3.84 L Hgb 12.8 L Hct 37.6 L MCV 97.9 MCH 33.4 MCHC 34.2 RDW 12.9 Plt Count 248 Neut % (Auto) 61.2 Lymph % (Auto) 20.2 L [place] % (Auto) 17.4 H Eos % (Auto) 0.9 L Baso % (Auto) 0.3 Neut # (Auto) 5100 Lymph # (Auto) 1700 [place] # (Auto) 1400 H Eos # (Auto) 100 Baso # (Auto) 0 Sodium 138 Potassium 3.8 Chloride 113 H Carbon Dioxide 15 L BUN 32 H Creatinine 3.01 H Estimated GFR 20 L BUN/Creatinine Ratio 10.6 Glucose 101 Lactate 1.6 Calcium 9.0 Total Bilirubin AST ALT Alkaline Phosphatase Total Protein Albumin Globulin Albumin/Globulin Ratio Lipase Procalcitonin Stl C. cayetanensis PCR Stool Rotavirus (PCR) Stool Adenovirus (PCR) Stool Astrovirus (PCR) Stool Cryptosporidium PCR Stl E.coli Shiga Tox PCR St Sh/Enteroin Ecoli PCR Stl Enterotoxigenic E PCR Stool EPEC (PCR) Stl E. histolytica PCR Stool Giardia Lamblia PCR Stool Sapovirus (PCR) Stl P. shigelloides PCR St Y.enterocolitica PCR Stool Vibrio (PCR) Stl Vibrio cholerae PCR Stl Enteroaggr Ecoli PCR Stl Norovirus GI/GII PCR Campylobacter (PCR) C. difficile Tox (PCR) Salmonella (PCR) [facility] Medical History Stroke Social History household members: none Smoking Status: Never smoker alcohol intake: current Assessment & Plan Assessment & Plan narrative: 1. TISHA.? Present on admission and active. 2. Nausea, vomiting, and diarrhea. Present on admission and active. 3. Hypertension. Stable. 4. Hyperlipidemia. Stable. PLAN: Continue IV fluids and monitor renal function. Loperamide scheduled for diarrhea control. Continue diet and follow up progress. DVT prophylaxis? Heparin. Code Status full code Inpatient status, anticipate 2 midnight stay. RADHA is August 22. Time-Based Coding :: [TOTAL MINUTES] spent with patient and on the chart (including review of chart, obtaining history, exam, reviewing outside data, placing orders, documenting exam and treatment plan, and counseling patient) on [DATE]. Quality VTE Deep Vein Thrombosis/Pulmonary Embolism Present on Admission: No
[2024-08-20] MEDS: HEPARIN 5,000 UNIT/ML VIAL 5000 UNIT SUBCUT ×2 (09:02→21:08)
--- NOTE | 2024-08-20 10:57 | DIET.CONS ---
Dietary Consultation Note Admission Date: 08/19/2024 18:17 Assessment: 84 y M admitted for diarrhea, nausea, vomiting and TISHA. Nutrition screened for low MNA. Met w/ pt at bedside. Reports improvement today, was able to eat breakfast. Before admission, reports last 3 weeks was unable to keep any food down, besides for a short period of time after he was d/c from hospital last week. Lost 15 lb in 3 weeks. Nutrition focused physical exam: -Moderate muscle loss temporalis, deltoid -Moderate subcutaneous fat loss buccal and orbital fat pads Open to having peach and cream smoothies that he had last admission as needed. Ht: 177.8 cm Wt: 73 kg BMI: 23.1 UBW: 80.286 kg on 08/12/24 (9% weight loss within 1 month, severe) Last BM: 08/20/24 (08/20/24 08:35) MNA: 8 Maximilian Score: 23 Diet: 08/20/24 Breakfast General (Regular) Diet Diet Modifications: Labs: RBC 3.84 X10^6/uL (4.5-5.9) L 08/20/24 04:25 Hgb 12.8 g/dL (13.5-17.5) L 08/20/24 04:25 Hct 37.6 % (41-53) L 08/20/24 04:25 Creatinine 3.01 mg/dL (0.66-1.25) H 08/20/24 04:25 Lactate 1.6 mmol/L (0.7-2.1) 08/19/24 17:47 Nutrition Diagnosis: Severe acute protein calorie malnutrition r/t nausea, vomiting, and diarrhea as evidenced by 9% weight loss within 1 month (severe), <50% estimated energy needs for 3 weeks per diet recall (severe), moderate muscle mass loss (temporalis, deltoid), moderate subcutaneous fat loss (buccal and orbital fat pads) Interventions: -Monitor po intakes - protein smoothie daily as needed to meet protein needs EER: 4920-5928 kcals (25 kcals/kg per BMI), 75 g protein (1 g/kg w/ TISHA; as kidney function improves -1.25-1.5 g/kg per PCM) Monitoring/Evaluations: po intakes Electronically Signed by: Anahi Hinson 08/20/24 10:[address] [id number]
--- NOTE | 2024-08-20 13:00 | CM.DPC ---
DCP Continued: Reviewed EMR and team rounds for pt?s medical status. No new discharge needs identified at this time. Plan: Anticipating discharge home with son to transport on 08/22 or when medically stable. CM Team will continue to follow for coordination of discharge plans. MYRNA Hayes
[2024-08-21] MEDS: LOPERAMIDE 2 MG CAPSULE PO ×4 (00:23→19:57)
[2024-08-21] MEDS: SODIUM CHLORIDE 0.45% 1,000 ML 100 ML IV ×3 (02:06→21:09)
[2024-08-21 06:34] LABS: Add Manual Diff / Slide Review NO; Basophils Absolute Auto 0 /uL (0-100); Basophils Percent Auto 0.4 % (0-2); Eosinophils Absolute Auto 200 /uL (0-450); Eosinophils Percent Auto 2.7 % (2-4); Hematocrit 37.1 % (41-53); Hemoglobin 12.6 g/dL (13.5-17.5); Lymphocytes Absolute Auto 1900 /uL (1100-4500); Lymphocytes Percent Auto 23.1 % (25-40); Mean Corpuscular HGB Conc 33.9 % (30-36); Mean Corpuscular Hemoglobin 33.2 PG (26-34); Monocytes Absolute Auto 1300 /uL (0-900); Monocytes Percent Auto 16.3 % (3-14); Neutrophils Absolute Auto 4700 /uL (1500-7000); Neutrophils Percent Auto 57.5 % (50-75); Platelet Count 262 X10^3/uL (150-400); Red Blood Cell Count 3.79 X10^6/uL (4.5-5.9); Red Cell Distribution Width 13.2 % (11.6-14.8); White Blood Cell Count 8.1 X10^3/uL (4.5-11.0)
[2024-08-21 06:42] LABS: BUN Creatinine Ratio 14.1 (6-22); Blood Urea Nitrogen 26 mg/dL (9-20); Calcium 9.2 mg/dL (8.4-10.2); Carbon Dioxide 14 mmol/L (22-32); Chloride 118 mmol/L (98-107); Estimated Glomerular Filt Rate 35 mL/min (>60); Glucose 101 mg/dL (80-110); HEMOLYSIS < 15 (0-50); Potassium 3.9 mmol/L (3.4-5.1); Sodium 140 mmol/L (137-145)
[2024-08-21 08:00] VITALS: BP 131/62; PULSE 63; RESP 17; TEMP 36.4; O2SAT 98
[2024-08-21] MEDS: HEPARIN 5,000 UNIT/ML VIAL 5000 UNIT SUBCUT ×2 (10:06→20:01)
--- NOTE | 2024-08-21 10:37 | PC.NURSE ---
Day shift: Pt reports stool still on softer/loose side but not having to go to bathroom as often. Also reports that he is feeling a little better today.
[2024-08-21 12:00] VITALS: BP 129/72; PULSE 63; RESP 14; TEMP 36.3; O2SAT 98
[2024-08-21] MEDS: FLORASTOR 2 EACH PO ×2 (15:18→20:01)
--- NOTE | 2024-08-21 15:47 | P.PN_ITS ---
Subjective Subjective Interval history: 84 yo male w/HTN and HLD admitted w/TISHA and Cr of 3.7 d/t nausea/vomiting/diarrhea. Creatinine down to 3.01 yesterday.? BL 0.74.? Pt ate 25% of one meal yesterday.? Multiple BMs yesterday. Bowel movements are improved today and he is having 1 diarrheal stool hourly. He denies any abdominal pain. No shortness of breath. Reports he is taking adequate fluids. He did have apple juice and applesauce earlier today which did not sit well in stomach. He was able to eat a fairly normal male yesterday. Exam Vital Signs (past 8 hours): - 08/21/24 08:00 08/21/24 12:00 Temperature 97.5 F L 97.3 F L Pulse Rate 63 63 Respiratory Rate 17 14 Blood Pressure 131/62 129/72 Pulse Oximetry 98 98 Oxygen Delivery Method Room Air Oxygen Flow Rate 0 Narrative Exam Narrative: GEN: Elderly male, Alert and oriented x 3, NAD HEENT:NC, Face symmetric CHEST: Respiratory excursions symmetric, CTAB, mildly dyspneic upon initial awakening, but then resolved CV: RRR, no M/R/G ABD: Soft, NT/ND, BT present in all 4 quadrants, no organomegaly or masses EXTR: warm, well perfused, no C/C/E SKIN: warm and dry, no rash NEURO: Alert and oriented x 3, nonfocal Objective Labs 08/21/24 05:15 08/21/24 05:15 Labs: Laboratory Results - last 24 hr 08/21/24 05:15 WBC 8.1 RBC 3.79 L Hgb 12.6 L Hct 37.1 L MCV 98.0 MCH 33.2 MCHC 33.9 RDW 13.2 Plt Count 262 Neut % (Auto) 57.5 Lymph % (Auto) 23.1 L [place] % (Auto) 16.3 H Eos % (Auto) 2.7 Baso % (Auto) 0.4 Neut # (Auto) 4700 Lymph # (Auto) 1900 [place] # (Auto) 1300 H Eos # (Auto) 200 Baso # (Auto) 0 Sodium 140 Potassium 3.9 Chloride 118 H Carbon Dioxide 14 L BUN 26 H Creatinine 1.85 H Estimated GFR 35 L BUN/Creatinine Ratio 14.1 Glucose 101 Calcium 9.2 [facility] Medical History Stroke Social History household members: none Smoking Status: Never smoker alcohol intake: current Assessment & Plan Assessment & Plan narrative: 1. Gastroenteritis Persistent. Will add Florastor twice daily. We will also add Lomotil to the Imodium. Encouraged him to avoid dairy products as this will likely exacerbate his diarrhea. Also encouraged him to eat a low residue diet for now. He reports his stools are mostly liquid and brown. No black or tarry stools. 2. TISHA Improving. Creatinine is down from a peak of 3.74 and 3.01 yesterday to 1.85 today. Will continue IV fluids for now. 3. Low CO2 Due to GI losses. Anticipate this will correct with decreased diarrhea 4. Anemia Hemoglobin is stable at 12.6. 5. Hypertension Blood pressure is normotensive. Continue amlodipine and losartan. 6. Hyperlipidemia Restart atorvastatin Code status Full Prophylaxis On heparin Disposition Discharge home once GI symptoms are better controlled Time-Based Coding :: [TOTAL MINUTES] spent with patient and on the chart (including review of chart, obtaining history, exam, reviewing outside data, placing orders, documenting exam and treatment plan, and counseling patient) on [DATE]. Quality VTE Deep Vein Thrombosis/Pulmonary Embolism Present on Admission: No
[2024-08-21] MEDS: DIPHENOXYLATE/ATROP 2.5/0.025 TABLET 1 EACH PO ×3 (15:53→18:02)
[2024-08-21 16:00] VITALS: BP 131/71; PULSE 65; RESP 16; TEMP 36.4; O2SAT 98
[2024-08-21 20:00] VITALS: BP 158/73; PULSE 73; RESP 18; TEMP 36.3; O2SAT 99
[2024-08-21] MEDS: ATORVASTATIN 20 MG TABLET 80 MG PO (20:03)
[2024-08-22] VITALS (7 sets, daily range): BP systolic 115–145; BP diastolic 65–81; PULSE 60–66; RESP 15–18; TEMP 36.2–37; O2SAT 97–100
[2024-08-22] MEDS: DIPHENOXYLATE/ATROP 2.5/0.025 TABLET 1 EACH PO ×5 (01:14→20:58)
[2024-08-22 06:22] LABS: Add Manual Diff / Slide Review NO; Basophils Absolute Auto 0 /uL (0-100); Basophils Percent Auto 0.4 % (0-2); Eosinophils Absolute Auto 200 /uL (0-450); Eosinophils Percent Auto 2.8 % (2-4); Hematocrit 33.4 % (41-53); Hemoglobin 11.3 g/dL (13.5-17.5); Lymphocytes Absolute Auto 1800 /uL (1100-4500); Lymphocytes Percent Auto 25.3 % (25-40); Mean Corpuscular Hemoglobin 33.1 PG (26-34); Mean Corpuscular Volume 97.5 fL (80-100); Monocytes Absolute Auto 900 /uL (0-900); Monocytes Percent Auto 12.4 % (3-14); Neutrophils Absolute Auto 4100 /uL (1500-7000); Neutrophils Percent Auto 59.1 % (50-75); Platelet Count 227 X10^3/uL (150-400); Red Blood Cell Count 3.43 X10^6/uL (4.5-5.9); Red Cell Distribution Width 13.1 % (11.6-14.8)
[2024-08-22 06:34] LABS: Phosphorous 2.7 mg/dL (2.3-3.7)
[2024-08-22 06:37] LABS: BUN Creatinine Ratio 16.3 (6-22); Blood Urea Nitrogen 20 mg/dL (9-20); Calcium 8.5 mg/dL (8.4-10.2); Carbon Dioxide 11 mmol/L (22-32); Chloride 116 mmol/L (98-107); Estimated Glomerular Filt Rate 58 mL/min (>60); Glucose 91 mg/dL (80-110); HEMOLYSIS < 15 (0-50); Potassium 3.4 mmol/L (3.4-5.1); Sodium 135 mmol/L (137-145)
[2024-08-22] MEDS: SODIUM CHLORIDE 0.45% 1,000 ML 100 ML IV (06:39)
[2024-08-22] MEDS: ASPIRIN EC 81 MG TABLET PO (08:39)
[2024-08-22] MEDS: HEPARIN 5,000 UNIT/ML VIAL 5000 UNIT SUBCUT ×2 (08:39→20:57)
[2024-08-22] MEDS: FLORASTOR 2 EACH PO ×2 (08:40→20:57)
[2024-08-22] MEDS: LOPERAMIDE 2 MG CAPSULE PO ×4 (08:40→20:58)
[2024-08-22] MEDS: AMLODIPINE 5 MG TABLET 10 MG PO (08:40)
[2024-08-22] MEDS: LOSARTAN 50 MG TABLET 100 MG PO (08:40)
[2024-08-22] MEDS: POTASSIUM CHLORIDE 20 MEQ TAB 40 MEQ PO (08:40)
--- NOTE | 2024-08-22 11:20 | CM.DPNOTE ---
DCP Note GAS ATTENDANT reviewed EMR. GAS ATTENDANT met with pt in room, gave copy of IMM. Pt reports he does not plan on going home today. Home with son when stable. Denies CM needs Per provider in rounds, continues to have diarrhea. will likely need OP colonoscopy at some point in future. Plan: Anticipating discharge home with son to transport when medically cleared. CM team will follow closely for coordination of discharge plans. PRASANNA Lanza
[2024-08-22] MEDS: LACTATED RINGERS 1,000 ML 100 ML IV ×2 (11:22→20:58)
--- NOTE | 2024-08-22 14:10 | PM.PN.1 ---
Subjective Subjective Interval history: 84 yo male w/HTN and HLD admitted w/TISHA and Cr of 3.7 d/t nausea/vomiting/diarrhea. Yesterday, patient was having improvement overall in his bowel movements but they were still happening hourly. He was taking adequate fluids. Was having some abdominal discomfort with intake of apple juice and applesauce. His creatinine had improved down to 1.85 from 3.01 the prior day. Lomotil and Florastor were added yesterday. This morning, he reports he is feeling dramatically improved. He is tolerating his diet. He did have some diarrhea at about 1:00 a.m. this morning. He went until about 8:00 a.m. before he had more diarrhea. He states he subsequently had some diarrhea at around 10:30 a.m.. He is having less discomfort overall. Exam Vital Signs (past 8 hours): - 08/22/24 08:00 08/22/24 08:40 08/22/24 12:00 Temperature 97.1 F L 97.4 F L Pulse Rate 65 62 66 Respiratory Rate 16 16 Blood Pressure 142/81 H 138/70 145/79 H Pulse Oximetry 97 97 Oxygen Flow Rate 0 Oxygen Delivery Method Room Air Oxygen Flow Rate 0 Narrative Exam Narrative: GEN: Elderly male, Alert and oriented x 3, NAD HEENT:NC, Face symmetric CHEST: Respiratory excursions symmetric, CTAB CV: RRR, no M/R/G ABD: Soft, NT/ND, BT present in all 4 quadrants, no organomegaly or masses EXTR: warm, well perfused, no C/C/E SKIN: warm and dry, no rash NEURO: Alert and oriented x 3, nonfocal Objective Labs 08/22/24 05:15 08/22/24 05:15 Labs: Laboratory Results - last 24 hr 08/22/24 05:15 WBC 7.0 RBC 3.43 L Hgb 11.3 L Hct 33.4 L MCV 97.5 MCH 33.1 MCHC 34.0 RDW 13.1 Plt Count 227 Neut % (Auto) 59.1 Lymph % (Auto) 25.3 [place] % (Auto) 12.4 Eos % (Auto) 2.8 Baso % (Auto) 0.4 Neut # (Auto) 4100 Lymph # (Auto) 1800 [place] # (Auto) 900 Eos # (Auto) 200 Baso # (Auto) 0 Sodium 135 L Potassium 3.4 Chloride 116 H Carbon Dioxide 11 L BUN 20 Creatinine 1.23 Estimated GFR 58 L BUN/Creatinine Ratio 16.3 Glucose 91 Calcium 8.5 Phosphorus 2.7 PFSH Medical History Stroke Social History household members: none Smoking Status: Never smoker alcohol intake: current Assessment & Plan Assessment & Plan narrative: 1. Gastroenteritis Improving today after adding Florastor twice daily and Lomotil. Will schedule Imodium q.i.d. as he has been receiving it 4 times daily but it is ordered as needed. I want to ensure he continues to receive it on a scheduled basis for now. Encouraged him to continue avoiding dairy products as this will likely exacerbate his diarrhea. Also encouraged him to continue to eat a low residue diet for now. He has not had any black or tarry stools. Advised he, his daughter and son-in-law who are visiting at bedside that it will likely be weeks before his stools returned to normal frequency and consistency. I did advise that he can discharge home when he is having 3-4 stools a day, he is able to maintain his hydration orally, and the electrolytes have normalized. 2. TISHA Creatinine is down from a peak of 3.74 and 1.85 yesterday to 1.23 today. 3. Metabolic acidosis secondary to GI losses Unfortunately, his bicarb continues to drop and is 11 today. Will switch his fluids from normal saline to LR to help support stabilization of his serum bicarb level. 4. Anemia Hemoglobin is down from 12 0.6-11.3 which is likely somewhat hemodilutional. 5. Hypertension Blood pressure is normotensive. Continue amlodipine and losartan. 6. Hyperlipidemia Continue atorvastatin Code status Full Prophylaxis On heparin Disposition Discharge home once GI symptoms are better controlled Time-Based Coding :: [TOTAL MINUTES] spent with patient and on the chart (including review of chart, obtaining history, exam, reviewing outside data, placing orders, documenting exam and treatment plan, and counseling patient) on [DATE]. Quality VTE Deep Vein Thrombosis/Pulmonary Embolism Present on Admission: No
[2024-08-22] MEDS: ATORVASTATIN 20 MG TABLET 80 MG PO (20:57)
[2024-08-23] MEDS: DIPHENOXYLATE/ATROP 2.5/0.025 TABLET 1 EACH PO ×2 (00:42→15:19)
[2024-08-23 04:00] VITALS: BP 117/67; PULSE 66; RESP 18; TEMP 36.3; O2SAT 98
[2024-08-23 05:37] LABS: Add Manual Diff / Slide Review NO; Basophils Absolute Auto 0 /uL (0-100); Basophils Percent Auto 0.3 % (0-2); Eosinophils Absolute Auto 100 /uL (0-450); Hematocrit 33.5 % (41-53); Hemoglobin 11.5 g/dL (13.5-17.5); Lymphocytes Absolute Auto 1400 /uL (1100-4500); Lymphocytes Percent Auto 21.3 % (25-40); Mean Corpuscular HGB Conc 34.4 % (30-36); Mean Corpuscular Hemoglobin 33.6 PG (26-34); Mean Corpuscular Volume 97.7 fL (80-100); Monocytes Absolute Auto 900 /uL (0-900); Monocytes Percent Auto 14.2 % (3-14); Neutrophils Absolute Auto 4100 /uL (1500-7000); Neutrophils Percent Auto 62.2 % (50-75); Platelet Count 223 X10^3/uL (150-400); Red Blood Cell Count 3.43 X10^6/uL (4.5-5.9); White Blood Cell Count 6.7 X10^3/uL (4.5-11.0)
[2024-08-23 05:49] LABS: BUN Creatinine Ratio 13.8 (6-22); Blood Urea Nitrogen 19 mg/dL (9-20); Calcium 8.7 mg/dL (8.4-10.2); Carbon Dioxide 12 mmol/L (22-32); Chloride 121 mmol/L (98-107); Estimated Glomerular Filt Rate 50 mL/min (>60); Glucose 89 mg/dL (80-110); HEMOLYSIS < 15 (0-50); Magnesium 1.7 mg/dL (1.6-2.3); Phosphorous 2.5 mg/dL (2.3-3.7); Potassium 3.6 mmol/L (3.4-5.1); Sodium 139 mmol/L (137-145)
[2024-08-23 08:00] VITALS: BP 128/75; PULSE 59; RESP 16; TEMP 36.4; O2SAT 97
[2024-08-23] MEDS: LACTATED RINGERS 1,000 ML 100 ML IV (08:00)
[2024-08-23] MEDS: FLORASTOR 2 EACH PO ×2 (09:04→21:08)
[2024-08-23 09:05] VITALS: BP 128/75; PULSE 59
[2024-08-23] MEDS: LOSARTAN 50 MG TABLET 100 MG PO (09:05)
[2024-08-23] MEDS: AMLODIPINE 5 MG TABLET 10 MG PO (09:05)
[2024-08-23] MEDS: HEPARIN 5,000 UNIT/ML VIAL 5000 UNIT SUBCUT ×2 (09:05→21:08)
[2024-08-23] MEDS: LOPERAMIDE 2 MG CAPSULE PO ×4 (09:05→21:08)
[2024-08-23] MEDS: ASPIRIN EC 81 MG TABLET PO (09:05)
--- NOTE | 2024-08-23 10:13 | DIET.PN1 ---
Dietary Progress Note Assessment: Met w/ pt at bedside. Reports improvement in appetite and bowel movements. Reports that doctor suggested and reviewed a low residue diet with him. Encouraged adequate intake as tolerated on diet as continues to improve. Pt had no further nutrition questions/concerns. Ht: 177.8 cm Wt: 73 kg BMI: 23.1 UBW: 80.286 kg on 08/12/24 (9% weight loss within 1 month, severe) Last BM: 08/23/24 (08/23/24 06:45) MNA: 8 Maximilian Score: 21 Diet: 08/20/24 Breakfast General (Regular) Diet Diet Modifications: Nutrition Percent Meal Consumed 75% 08/22/24 17:37 Percent Meal Consumed 25% 08/22/24 08:00 Percent Meal Consumed 50% 08/21/24 17:02 Percent Meal Consumed 50% 08/21/24 12:45 Labs: RBC 3.43 X10^6/uL (4.5-5.9) L 08/23/24 05:00 Hgb 11.5 g/dL (13.5-17.5) L 08/23/24 05:00 Hct 33.5 % (41-53) L 08/23/24 05:00 Creatinine 1.38 mg/dL (0.66-1.25) H 08/23/24 05:00 Lactate 1.6 mmol/L (0.7-2.1) 08/19/24 17:47 Electronically Signed by: Anahi Hinson 08/23/24 10:13 Clinical Dietitian [address] [id number]
[2024-08-23 12:00] VITALS: BP 124/56; PULSE 61; RESP 16; TEMP 36.4; O2SAT 98
[2024-08-23] MEDS: ACETAMINOPHEN 325 MG TABLET 650 MG PO ×2 (13:55→21:08)
--- NOTE | 2024-08-23 15:11 | P.PN_ITS ---
Subjective Subjective Interval history: 84 yo male w/HTN and HLD admitted w/TISHA and Cr of 3.7 d/t nausea/vomiting/diarrhea. Yesterday, patient was having improvement overall in his bowel movements but they were still happening hourly. He was taking adequate fluids. Cr is improved still and he is tolerating a diet. Feels reserved about going home at this time due to frequent diarrhea still. Exam Vital Signs (past 8 hours): - 08/23/24 08:00 08/23/24 09:05 08/23/24 12:00 Temperature 97.5 F L 97.5 F L Pulse Rate 59 L 59 L 61 Respiratory Rate 16 16 Blood Pressure 128/75 128/75 124/56 L Pulse Oximetry 97 98 Oxygen Flow Rate 0 Oxygen Delivery Method Room Air Oxygen Flow Rate 0 Narrative Exam Narrative: GEN: Elderly male, Alert and oriented x 3, NAD HEENT:NC, Face symmetric CHEST: Respiratory excursions symmetric, CTAB CV: RRR, no M/R/G ABD: Soft, NT/ND, BT present in all 4 quadrants, no organomegaly or masses EXTR: warm, well perfused, no C/C/E SKIN: warm and dry, no rash NEURO: Alert and oriented x 3, nonfocal Objective Labs 08/23/24 05:00 08/23/24 05:00 Labs: Laboratory Results - last 24 hr 08/23/24 05:00 WBC 6.7 RBC 3.43 L Hgb 11.5 L Hct 33.5 L MCV 97.7 MCH 33.6 MCHC 34.4 RDW 13.0 Plt Count 223 Neut % (Auto) 62.2 Lymph % (Auto) 21.3 L [place] % (Auto) 14.2 H Eos % (Auto) 2.0 Baso % (Auto) 0.3 Neut # (Auto) 4100 Lymph # (Auto) 1400 [place] # (Auto) 900 Eos # (Auto) 100 Baso # (Auto) 0 Sodium 139 Potassium 3.6 Chloride 121 H Carbon Dioxide 12 L BUN 19 Creatinine 1.38 H Estimated GFR 50 L BUN/Creatinine Ratio 13.8 Glucose 89 Calcium 8.7 Phosphorus 2.5 Magnesium 1.7 PFSH Medical History Stroke Social History household members: none Smoking Status: Never smoker alcohol intake: current Assessment & Plan Assessment & Plan narrative: 1. Gastroenteritis Improving today after adding Florastor twice daily and Lomotil. Continue scheduled Imodium q.i.d. as he has been receiving it 4 times daily but it is ordered as needed. I want to ensure he continues to receive it on a scheduled basis for now. if continued improvement in decreased bowel frequency (still happened hourly overnight) can discharge home. 2. TISHA Creatinine is down from a peak of 3.74, slightly up at 1.38 today. Will continue to monitor, stop IV fluids today. Baseline cr is not known but likely 0.9-1.2 based on prior labs. 3. Metabolic acidosis secondary to GI losses Stop IV fluids for now, continue to follow. Bicarb 12 today. Due to GI losses likely and fluid repletion. 4. Anemia Hemoglobin is stable, no further evaluation warranted unless signs or symptoms of bleeding. 5. Hypertension Blood pressure is normotensive. Continue amlodipine and losartan. 6. Hyperlipidemia Continue atorvastatin Code status Full Prophylaxis On heparin Disposition Discharge home once GI symptoms are better controlled, likely tomorrow. Time-Based Coding :: [TOTAL MINUTES] spent with patient and on the chart (including review of chart, obtaining history, exam, reviewing outside data, placing orders, documenting exam and treatment plan, and counseling patient) on [DATE]. Quality VTE Deep Vein Thrombosis/Pulmonary Embolism Present on Admission: No
[2024-08-23 16:00] VITALS: BP 123/72; PULSE 59; RESP 15; TEMP 36.3; O2SAT 98
[2024-08-23 20:00] VITALS: BP 137/74; PULSE 62; RESP 24; TEMP 36.4; O2SAT 99
[2024-08-23] MEDS: ATORVASTATIN 20 MG TABLET 80 MG PO (21:08)
[2024-08-24 04:00] VITALS: BP 140/77; PULSE 57; RESP 16; TEMP 36.4; O2SAT 98
[2024-08-24 07:07] LABS: BUN Creatinine Ratio 10.9 (6-22); Blood Urea Nitrogen 16 mg/dL (9-20); Calcium 8.9 mg/dL (8.4-10.2); Carbon Dioxide 13 mmol/L (22-32); Chloride 119 mmol/L (98-107); Estimated Glomerular Filt Rate 47 mL/min (>60); Glucose 99 mg/dL (80-110); HEMOLYSIS < 15 (0-50); Magnesium 1.7 mg/dL (1.6-2.3); Potassium 3.7 mmol/L (3.4-5.1); Sodium 141 mmol/L (137-145)
[2024-08-24 08:00] VITALS: BP 133/73; PULSE 56; RESP 16; TEMP 35.9; O2SAT 98
[2024-08-24 08:12] VITALS: BP 133/73
[2024-08-24] MEDS: ASPIRIN EC 81 MG TABLET PO (08:12)
[2024-08-24] MEDS: FLORASTOR 2 EACH PO (08:12)
[2024-08-24] MEDS: LOPERAMIDE 2 MG CAPSULE PO (08:12)
[2024-08-24] MEDS: AMLODIPINE 5 MG TABLET 10 MG PO (08:12)
[2024-08-24] MEDS: LOSARTAN 50 MG TABLET 100 MG PO (08:12)
[2024-08-24] MEDS: HEPARIN 5,000 UNIT/ML VIAL 5000 UNIT SUBCUT (08:13)
--- NOTE | 2024-08-24 10:47 | PM.DS.1 ---
History of Present Illness History of Present Illness Date Patient Seen: 08/24/24 Time Patient Seen: 10:47 Chief complaint: diarhea, vomiting Narrative: Per admitting provider, 84-year-old male with past medical history of hypertension and hyperlipidemia presents with ongoing nausea, vomiting, and diarrhea. Per the patient report, the patient has been having ongoing non bloody diarrhea for the last three weeks. The patient was hospitalized due to severe dehydration and TISHA and was discharged a week ago.? The patient was hydrated with IV fluid and sent home after improve some improvement of his diarrhea. The patient denies any blood in his stool but admit to have nausea and nonbloody vomiting. Patient denies any recent travels or sick contact. The patient was seen by his PCP doctor yesterday was started on oral levofloxacin as an empiric treatment. Otherwise the patient denies any abdominal pain, fever, chills, chest pain, or shortness of breath. In our emergency room, the patient was hemodynamically stable. Lab shows a Cr of 3.7 and lactate of 2.9. The patient otherwise was not septic with normal WBC.? IV fluid was given the patient lactate normalize as well as Cr improved to 3.2. Discharge Providers Provider Date of admission: 08/19/24 18:17 Discharge Date: 08/24/24 Primary care physician: Doctor Kari MD Discharge provider: Aydin Holland DO Summary Hospital Course Discharge Diagnosis: 1. Gastroenteritis 2. TISHA 3. Metabolic acidosis secondary to GI losses 4. Anemia 5. Hypertension 6. Hyperlipidemia Hospital Course: This is an 84-year-old male with a past medical history of hypertension and hyperlipidemia who was admitted with recurrence of diarrhea and TISHA after recent admission for the same. He was given IV hydration with improvement in his renal function, and with scheduled loperamide he was able to stay well hydrated and had improvement in his diarrhea to only a couple of times over the course of 24 hours. His creatinine on the day of discharge was slightly elevated at 1.47, though clinically he felt much improved and felt well enough to go home. Given the total duration of his ongoing diarrhea nearing 3 weeks at this time, I do recommend follow-up with a GI provider as an outpatient for possible endoscopy if symptoms do not resolve in the next week or so, or consider endoscopy should patient require readmission in the near future. Time Spent with Patient Time spent: Greater than 30 minutes Exam Vital Signs (past 8 hours): - 08/24/24 04:00 08/24/24 08:00 08/24/24 08:12 Temperature 97.6 F 96.7 F L Pulse Rate 57 L 56 L Respiratory Rate 16 16 Blood Pressure 140/77 133/73 133/73 Pulse Oximetry 98 98 Oxygen Flow Rate 0 Oxygen Delivery Method Room Air Oxygen Flow Rate 0 Narrative Exam Narrative: GEN: Elderly male, Alert and oriented x 3, NAD HEENT:NC, Face symmetric CHEST: Respiratory excursions symmetric, CTAB CV: RRR, no M/R/G ABD: Soft, NT/ND, BT present in all 4 quadrants, no organomegaly or masses EXTR: warm, well perfused, no C/C/E SKIN: warm and dry, no rash NEURO: Alert and oriented x 3, nonfocal Objective Labs 08/23/24 05:00 08/24/24 06:00 Labs: Laboratory Results - last 24 hr 08/24/24 06:00 Sodium 141 Potassium 3.7 Chloride 119 H Carbon Dioxide 13 L BUN 16 Creatinine 1.47 H Estimated GFR 47 L BUN/Creatinine Ratio 10.9 Glucose 99 Calcium 8.9 Magnesium 1.7 PFSH Medical History Stroke Social History household members: none Smoking Status: Never smoker alcohol intake: current Discharge Plan Discharge Plan Patient Disposition: Home Provider Discharge Comment: You were admitted to the hospital with dehydration and acute kidney injury, improved with fluids. Continue imodium at home as needed. Discharge orders & Medications Prescriptions: Continued atorvastatin 80 mg tablet 80 mg PO ONCE PM amlodipine 10 mg tablet 10 mg PO DAILY olmesartan 40 mg tablet 40 mg PO DAILY aspirin 81 mg Capsule 81 mg PO DAILY loperamide 2 mg Capsule 2 mg PO Q6H PRN (Reason: Diarrhea) Qty: 1 0RF calcium carbonate 200 mg calcium (500 mg) Tablet,Chewable 1,000 mg PO Q4HR PRN (Reason: Dyspepsia) Qty: 1 0RF Follow up/Referrals: Miscellaneous,Doctor, [Primary Care Provider] - Diet/Activity/Treatments Diet: Diet as Tolerated and Regular Activity: As tolerated, no restrictions. Visit Report/Discharge Packet Instructions: Diarrhea (Alternative Therapy), Acute Kidney Injury, Loperamide (By mouth) Stand Alone Forms: Patient Portal/API, Stroke Signs & Symptoms Discharge Data Primary Care Provider: Miscellaneous,Doctor Quality VTE Deep Vein Thrombosis/Pulmonary Embolism Present on Admission: No
== END 2024-08-24 12:17 | disposition home or self-care (01) | DRG 683 ==
LOC: ED 18:09 → AC 18:19
PROVIDERS: Family Medicine; Internal Medicine; Admitting Provider Hospitalist; Emergency Provider Emergency Medicine; Family Provider Family Medicine Geriatric Medicine; Referring Provider Emergency Medicine; Visit Provider Hospitalist
DX: N17.9 Acute kidney failure, unspecified (principal); E87.20 Acidosis, unspecified; K52.9 Noninfective gastroenteritis and colitis, unspecified; E86.0 Dehydration; I10 Essential (primary) hypertension; E78.5 Hyperlipidemia, unspecified; D64.9 Anemia, unspecified
CPT/HCPCS: 36415; 74176; 80048; 80053; 82272; 82962; 83605; 83690; 83735; 84100; 84145; 85025; 87040; 87507; 93005; 93010; 96360; 96361; 99284; 99285; J1644; J2405; J7050

== ENCOUNTER 2024-08-26 05:45 | Inpatient (IN) | payer MEDICARE, SELFPAY ==
[2024-08-19 18:43] VITALS: BMI 23.1
[2024-08-26] VITALS (22 sets, daily range): BP systolic 89–137; BP diastolic 48–79; PULSE 62–83; RESP 16–20; TEMP 35.9–36.6; O2SAT 95–99; BMI 22.0
--- NOTE | 2024-08-26 06:05 | ED.RECABL ---
HPI - Recheck/Abnormal Lab/Rx <Krystian Perez DO - Last Filed: 08/29/24 17:57> General Chief Complaint: Recheck/Abnormal Lab/Rx Stated Complaint: v/d Time Seen by Provider: 08/26/24 05:46 Source: patient and family Mode of arrival: Wheelchair History of Present Illness HPI narrative: Patient is an 84-year-old male. Has been dealing with issues diarrhea for the past 3 weeks. He was initially seen in the emergency department. Admitted to the hospital for an acute kidney injury. Was given fluids and antidiarrheal medicines. His creatinine improved in his symptoms improve and was eventually discharged home. He followed up with his primary doctor. Was placed on Levaquin. After a couple days and Levaquin return to the emergency department because of continued diarrhea. Once again was found to be dehydrated and in acute kidney injury. Was once again admitted to the hospital. Symptoms improved with treatment. He was taken off the antibiotics. Had stool samples obtained which showed no bacterial etiology. Head CT scans performed which showed no acute surgical pathology. Again was discharged home with instructions to follow up with primary doctor. He returns to the emergency department today because he continues to have profuse watery diarrhea despite the antidiarrheal medications. He now states he was having some vomiting. He also reports feeling like he needs to urinate but is unable to do so. No prior abdominal surgeries. No fevers. No blood in the stool. No recent travel. Related Data Home Medications Medication Instructions Recorded Confirmed amlodipine 10 mg tablet 10 mg PO DAILY 08/12/24 08/26/24 aspirin 81 mg capsule 81 mg PO DAILY 08/12/24 08/26/24 atorvastatin 80 mg tablet 80 mg PO ONCE PM 08/12/24 08/26/24 olmesartan 40 mg tablet 40 mg PO DAILY 08/12/24 08/26/24 Previous Rx's Medication Instructions Recorded calcium carbonate 1,000 mg (5 x 200 mg calcium (500 08/14/24 mg)) PO Q4HR PRN Dyspepsia #1 tab loperamide 2 mg capsule 2 mg PO Q6H PRN Diarrhea #1 cap 08/14/24 Allergies Allergy/AdvReac Type Severity Reaction Status Date / Time No Known Drug Allergies Allergy Verified 08/27/24 11:49 Review of Systems <DO Anel Rojas Last Filed: 08/29/24 17:57> Review of Systems ROS Unobtainable: All systems reviewed & are unremarkable except as noted in HPI and below Patient History <Krytsian Perez DO - Last Filed: 08/29/24 17:57> Medical History Stroke Social History household members: none Smoking Status: Never smoker alcohol intake: current Smoking Status: Never smoker alcohol intake frequency: holidays/special occasions only Substance Use Type: does not use Exam <Krystian Perez DO - Last Filed: 08/29/24 17:57> Initial Vital Signs Initial Vital Signs: Vital Signs Temperature 98 F 08/26/24 05:56 Pulse Rate 83 08/26/24 05:56 Respiratory Rate 17 08/26/24 05:56 Blood Pressure 107/59 L 08/26/24 05:56 Pulse Oximetry 95 08/26/24 05:56 Oxygen Delivery Method Room Air 08/26/24 05:56 Const General: cooperative, comfortable and No ill appearing HENIN Head: normal to inspection Mouth: No moist mucous membranes (Dry mucous membranes) Resp Effort & Inspection: normal respiratory effort Auscultation: clear to auscultation bilaterally Cardio Rate: regular rate Rhythm: regular rhythm GI Inspection: normal to inspection and non-distended Palpation: soft, No firm, No guarding and tender (Mild diffuse tenderness) Skin General: no rashes or lesions noted Neuro General: patient alert, patient awake and moves all extremities Extrem General: capillary refill normal <Cassia Carnes MD - Last Filed: 08/26/24 11:05> Initial Vital Signs Initial Vital Signs: Vital Signs Temperature 98 F 08/26/24 05:56 Pulse Rate 83 08/26/24 05:56 Respiratory Rate 17 08/26/24 05:56 Blood Pressure 107/59 L 08/26/24 05:56 Pulse Oximetry 95 08/26/24 05:56 Oxygen Delivery Method Room Air 08/26/24 05:56 Course <Krystian Perez DO - Last Filed: 08/29/24 17:57> Orders Ordered: Acetaminophen (Acetaminophen 325 Mg Tablet) 650 mg PO Q6H PRN PRN Reason: Fever/Mild Pain (1-3) Amlodipine Besylate (Amlodipine 5 Mg Tablet) 10 mg PO DAILY [facility] Last Admin: 08/29/24 08:17 Dose: Not Given Documented By: Admin: 08/28/24 08:29 Dose: 10 mg Documented By: Admin: 08/27/24 09:00 Dose: Not Given Documented By: BOOKER Atorvastatin Calcium (Atorvastatin 20 Mg Tablet) 80 mg PO BEDTIME [facility] Last Admin: 08/28/24 20:01 Dose: 80 mg Documented By: Admin: 08/27/24 21:32 Dose: 80 mg Documented By: Admin: 08/26/24 20:39 Dose: 80 mg Documented By: SR Calcium Carbonate (Calcium Carbonate 500 Mg Tab) 1,000 mg PO Q4HR PRN PRN Reason: Dyspepsia Last Admin: 08/28/24 18:03 Dose: 1,000 mg Documented By: Admin: 08/28/24 11:39 Dose: 1,000 mg Documented By: Admin: 08/27/24 18:04 Dose: 1,000 mg Documented By: BOOKER Loperamide HCl (Loperamide 2 Mg Capsule) 2 mg PO QID PRN PRN Reason: Diarrhea Losartan Potassium (Losartan 50 Mg Tablet) 100 mg PO DAILY [facility] Last Admin: 08/29/24 08:17 Dose: Not Given Documented By: Admin: 08/28/24 08:30 Dose: 100 mg Documented By: Admin: 08/27/24 09:00 Dose: Not Given Documented By: BOOKER Naloxone HCl (Naloxone 0.4 Mg/Ml Vial) 0.2 mg IV Q2MIN PRN PRN Reason: Opiate Reversal Ondansetron HCl (Ondansetron 4 Mg/2 Ml Inj) 4 mg IV Q4HR PRN PRN Reason: Nausea And Vomiting Last Admin: 08/26/24 18:53 Dose: 4 mg Documented By: Admin: 08/26/24 14:16 Dose: 4 mg Documented By: KATHIE Discontinued Medications Sodium Chloride (Normal Saline 0.9%) 1,000 mls @ 1,000 mls/hr IV BOLUS ONE Stop: 08/26/24 07:10 Last Infusion: 08/26/24 08:39 Dose: Infused Documented By: Admin: 08/26/24 06:19 Dose: 1,000 mls/hr Documented By: Dextrose/Sodium Chloride (Dextrose 5%-0.45% Ns) 1,000 mls @ 100 mls/hr IV CONT JOSÉ MIGUEL Last Infusion: 08/28/24 17:13 Dose: 0 mls/hr Documented By: Admin: 08/28/24 11:36 Dose: 100 mls/hr Documented By: Infusion: 08/28/24 10:51 Dose: Infused Documented By: Admin: 08/28/24 00:51 Dose: 100 mls/hr Documented By: Infusion: 08/27/24 19:07 Dose: Infused Documented By: Admin: 08/27/24 09:07 Dose: 100 mls/hr Documented By: Infusion: 08/27/24 08:35 Dose: Infused Documented By: Admin: 08/26/24 22:35 Dose: 100 mls/hr Documented By: Infusion: 08/26/24 22:26 Dose: Infused Documented By: Admin: 08/26/24 12:26 Dose: 100 mls/hr Documented By: BETOK Loperamide HCl (Loperamide 2 Mg Capsule) 4 mg PO Q4HR [facility] Last Admin: 08/29/24 08:18 Dose: 4 mg Documented By: Admin: 08/29/24 05:12 Dose: 4 mg Documented By: Admin: 08/29/24 01:20 Dose: 4 mg Documented By: Admin: 08/28/24 20:01 Dose: 4 mg Documented By: Admin: 08/28/24 17:09 Dose: Not Given Documented By: Admin: 08/28/24 14:07 Dose: 4 mg Documented By: Admin: 08/28/24 08:29 Dose: 4 mg Documented By: Admin: 08/28/24 05:11 Dose: 4 mg Documented By: Admin: 08/28/24 00:51 Dose: 4 mg Documented By: Admin: 08/27/24 21:32 Dose: 4 mg Documented By: Admin: 08/27/24 17:22 Dose: 4 mg Documented By: Admin: 08/27/24 13:00 Dose: Not Given Documented By: Admin: 08/27/24 07:59 Dose: Not Given Documented By: Admin: 08/27/24 05:58 Dose: Not Given Documented By: Admin: 08/27/24 00:42 Dose: 4 mg Documented By: Admin: 08/26/24 20:39 Dose: 4 mg Documented By: Admin: 08/26/24 14:00 Dose: Not Given Documented By: Admin: 08/26/24 13:32 Dose: Not Given Documented By: Admin: 08/26/24 09:51 Dose: Not Given Documented By: Admin: 08/26/24 08:45 Dose: 4 mg Documented By: RB Magnesium Chloride (Magnesium Chloride 64 Mg Tablet) 128 mg PO NOW ONE Stop: 08/27/24 08:18 Last Admin: 08/27/24 10:18 Dose: 128 mg Documented By: BOOKER Polyethylene Glycol/Electrolytes ([id number]/Sod Sulf,Bicarb,Cl/Kcl 4,000 Ml Solution) 2,000 ml PO NOW ONE Stop: 08/26/24 11:16 Last Admin: 08/26/24 17:50 Dose: 2,000 ml Documented By: KATHIE Potassium Chloride (Potassium Chloride 20 Meq Tab) 40 meq PO Q6H JOSÉ MIGUEL Stop: 08/27/24 13:16 Last Admin: 08/27/24 14:32 Dose: 40 meq Documented By: Admin: 08/27/24 07:54 Dose: 40 meq Documented By: BOOKER Potassium Chloride (Potassium Chloride 20 Meq Tab) 40 meq PO Q6H JOSÉ MIGUEL Stop: 08/28/24 14:31 Last Admin: 08/28/24 15:13 Dose: 40 meq Documented By: Admin: 08/28/24 09:27 Dose: 40 meq Documented By: Vital Signs Vital signs: Vital Signs - 8 hr 08/26/24 05:56 08/26/24 05:58 08/26/24 06:00 Temperature 98 F Pulse Rate 83 83 Respiratory Rate 17 Blood Pressure 107/59 L 106/59 L Pulse Oximetry 95 97 Oxygen Delivery Method Room Air 08/26/24 06:00 08/26/24 06:30 08/26/24 06:30 Temperature Pulse Rate 82 71 Respiratory Rate Blood Pressure 89/52 L Pulse Oximetry 97 99 Oxygen Delivery Method 08/26/24 06:32 08/26/24 06:32 08/26/24 06:33 Temperature Pulse Rate 72 Respiratory Rate Blood Pressure 89/53 L 104/58 L Pulse Oximetry 99 Oxygen Delivery Method 08/26/24 06:33 08/26/24 06:58 08/26/24 06:58 Temperature Pulse Rate 70 72 Respiratory Rate 18 Blood Pressure 126/60 Pulse Oximetry 99 98 Oxygen Delivery Method 08/26/24 07:00 08/26/24 07:00 08/26/24 07:30 Temperature Pulse Rate 70 75 Respiratory Rate Blood Pressure 98/55 L Pulse Oximetry 98 95 Oxygen Delivery Method 08/26/24 07:30 08/26/24 08:00 08/26/24 08:00 Temperature Pulse Rate 73 Respiratory Rate Blood Pressure 94/53 L 93/55 L Pulse Oximetry 98 Oxygen Delivery Method 08/26/24 08:30 08/26/24 08:30 08/26/24 08:47 Temperature Pulse Rate 70 Respiratory Rate Blood Pressure 92/53 L 102/55 L Pulse Oximetry 96 Oxygen Delivery Method 08/26/24 08:47 08/26/24 09:00 08/26/24 09:00 Temperature Pulse Rate 78 71 Respiratory Rate Blood Pressure 110/68 Pulse Oximetry 98 99 Oxygen Delivery Method 08/26/24 09:30 08/26/24 09:30 Temperature Pulse Rate 67 Respiratory Rate Blood Pressure 113/54 L Pulse Oximetry 99 Oxygen Delivery Method <Cassia Carnes MD - Last Filed: 08/26/24 11:05> Orders Ordered: Acetaminophen (Acetaminophen 325 Mg Tablet) 650 mg PO Q6H PRN PRN Reason: Fever/Mild Pain (1-3) Amlodipine Besylate (Amlodipine 5 Mg Tablet) 10 mg PO DAILY [facility] Last Admin: 08/29/24 08:17 Dose: Not Given Documented By: Admin: 08/28/24 08:29 Dose: 10 mg Documented By: Admin: 08/27/24 09:00 Dose: Not Given Documented By: BOOKER Atorvastatin Calcium (Atorvastatin 20 Mg Tablet) 80 mg PO BEDTIME [facility] Last Admin: 08/28/24 20:01 Dose: 80 mg Documented By: Admin: 08/27/24 21:32 Dose: 80 mg Documented By: Admin: 08/26/24 20:39 Dose: 80 mg Documented By: SR Calcium Carbonate (Calcium Carbonate 500 Mg Tab) 1,000 mg PO Q4HR PRN PRN Reason: Dyspepsia Last Admin: 08/28/24 18:03 Dose: 1,000 mg Documented By: Admin: 08/28/24 11:39 Dose: 1,000 mg Documented By: Admin: 08/27/24 18:04 Dose: 1,000 mg Documented By: BOOKER Loperamide HCl (Loperamide 2 Mg Capsule) 2 mg PO QID PRN PRN Reason: Diarrhea Losartan Potassium (Losartan 50 Mg Tablet) 100 mg PO DAILY [facility] Last Admin: 08/29/24 08:17 Dose: Not Given Documented By: Admin: 08/28/24 08:30 Dose: 100 mg Documented By: Admin: 08/27/24 09:00 Dose: Not Given Documented By: BOOKER Naloxone HCl (Naloxone 0.4 Mg/Ml Vial) 0.2 mg IV Q2MIN PRN PRN Reason: Opiate Reversal Ondansetron HCl (Ondansetron 4 Mg/2 Ml Inj) 4 mg IV Q4HR PRN PRN Reason: Nausea And Vomiting Last Admin: 08/26/24 18:53 Dose: 4 mg Documented By: Admin: 08/26/24 14:16 Dose: 4 mg Documented By: KATHIE Discontinued Medications Sodium Chloride (Normal Saline 0.9%) 1,000 mls @ 1,000 mls/hr IV BOLUS ONE Stop: 08/26/24 07:10 Last Infusion: 08/26/24 08:39 Dose: Infused Documented By: Admin: 08/26/24 06:19 Dose: 1,000 mls/hr Documented By: Dextrose/Sodium Chloride (Dextrose 5%-0.45% Ns) 1,000 mls @ 100 mls/hr IV CONT [facility] Last Infusion: 08/28/24 17:13 Dose: 0 mls/hr Documented By: Admin: 08/28/24 11:36 Dose: 100 mls/hr Documented By: Infusion: 08/28/24 10:51 Dose: Infused Documented By: Admin: 08/28/24 00:51 Dose: 100 mls/hr Documented By: Infusion: 08/27/24 19:07 Dose: Infused Documented By: Admin: 08/27/24 09:07 Dose: 100 mls/hr Documented By: Infusion: 08/27/24 08:35 Dose: Infused Documented By: Admin: 08/26/24 22:35 Dose: 100 mls/hr Documented By: Infusion: 08/26/24 22:26 Dose: Infused Documented By: Admin: 08/26/24 12:26 Dose: 100 mls/hr Documented By: KDK Loperamide HCl (Loperamide 2 Mg Capsule) 4 mg PO Q4HR JOSÉ MIGUEL Last Admin: 08/29/24 08:18 Dose: 4 mg Documented By: Admin: 08/29/24 05:12 Dose: 4 mg Documented By: Admin: 08/29/24 01:20 Dose: 4 mg Documented By: Admin: 08/28/24 20:01 Dose: 4 mg Documented By: Admin: 08/28/24 17:09 Dose: Not Given Documented By: Admin: 08/28/24 14:07 Dose: 4 mg Documented By: Admin: 08/28/24 08:29 Dose: 4 mg Documented By: Admin: 08/28/24 05:11 Dose: 4 mg Documented By: Admin: 08/28/24 00:51 Dose: 4 mg Documented By: Admin: 08/27/24 21:32 Dose: 4 mg Documented By: Admin: 08/27/24 17:22 Dose: 4 mg Documented By: Admin: 08/27/24 13:00 Dose: Not Given Documented By: Admin: 08/27/24 07:59 Dose: Not Given Documented By: Admin: 08/27/24 05:58 Dose: Not Given Documented By: Admin: 08/27/24 00:42 Dose: 4 mg Documented By: Admin: 08/26/24 20:39 Dose: 4 mg Documented By: Admin: 08/26/24 14:00 Dose: Not Given Documented By: Admin: 08/26/24 13:32 Dose: Not Given Documented By: Admin: 08/26/24 09:51 Dose: Not Given Documented By: Admin: 08/26/24 08:45 Dose: 4 mg Documented By: RB Magnesium Chloride (Magnesium Chloride 64 Mg Tablet) 128 mg PO NOW ONE Stop: 08/27/24 08:18 Last Admin: 08/27/24 10:18 Dose: 128 mg Documented By: BOOKER Polyethylene Glycol/Electrolytes ([id number]/Sod Sulf,Bicarb,Cl/Kcl 4,000 Ml Solution) 2,000 ml PO NOW ONE Stop: 08/26/24 11:16 Last Admin: 08/26/24 17:50 Dose: 2,000 ml Documented By: KATHIE Potassium Chloride (Potassium Chloride 20 Meq Tab) 40 meq PO Q6H JOSÉ MIGUEL Stop: 08/27/24 13:16 Last Admin: 08/27/24 14:32 Dose: 40 meq Documented By: Admin: 08/27/24 07:54 Dose: 40 meq Documented By: EJ Potassium Chloride (Potassium Chloride 20 Meq Tab) 40 meq PO Q6H JOSÉ MIGUEL Stop: 08/28/24 14:31 Last Admin: 08/28/24 15:13 Dose: 40 meq Documented By: Admin: 08/28/24 09:27 Dose: 40 meq Documented By: MS Vital Signs Vital signs: Vital Signs - 8 hr 08/26/24 05:56 08/26/24 05:58 08/26/24 06:00 Temperature 98 F Pulse Rate 83 83 Respiratory Rate 17 Blood Pressure 107/59 L 106/59 L Pulse Oximetry 95 97 Oxygen Delivery Method Room Air 08/26/24 06:00 08/26/24 06:30 08/26/24 06:30 Temperature Pulse Rate 82 71 Respiratory Rate Blood Pressure 89/52 L Pulse Oximetry 97 99 Oxygen Delivery Method 08/26/24 06:32 08/26/24 06:32 08/26/24 06:33 Temperature Pulse Rate 72 Respiratory Rate Blood Pressure 89/53 L 104/58 L Pulse Oximetry 99 Oxygen Delivery Method 08/26/24 06:33 08/26/24 06:58 08/26/24 06:58 Temperature Pulse Rate 70 72 Respiratory Rate 18 Blood Pressure 126/60 Pulse Oximetry 99 98 Oxygen Delivery Method 08/26/24 07:00 08/26/24 07:00 08/26/24 07:30 Temperature Pulse Rate 70 75 Respiratory Rate Blood Pressure 98/55 L Pulse Oximetry 98 95 Oxygen Delivery Method 08/26/24 07:30 08/26/24 08:00 08/26/24 08:00 Temperature Pulse Rate 73 Respiratory Rate Blood Pressure 94/53 L 93/55 L Pulse Oximetry 98 Oxygen Delivery Method 08/26/24 08:30 08/26/24 08:30 08/26/24 08:47 Temperature Pulse Rate 70 Respiratory Rate Blood Pressure 92/53 L 102/55 L Pulse Oximetry 96 Oxygen Delivery Method 08/26/24 08:47 08/26/24 09:00 08/26/24 09:00 Temperature Pulse Rate 78 71 Respiratory Rate Blood Pressure 110/68 Pulse Oximetry 98 99 Oxygen Delivery Method 08/26/24 09:30 08/26/24 09:30 Temperature Pulse Rate 67 Respiratory Rate Blood Pressure 113/54 L Pulse Oximetry 99 Oxygen Delivery Method MDM - Recheck/Abnormal Lab/Rx <Krystian Perez DO - Last Filed: 08/29/24 17:57> Medical Records Attestation: I reviewed the patient's medical records. Lab Data 08/28/24 03:26 08/29/24 03:56 Labs: Lab Results 08/26/24 Range/Units 06:10 WBC 5.6 (4.5-11.0) X10^3/uL RBC 4.17 L (4.5-5.9) X10^6/uL Hgb 13.8 (13.5-17.5) g/dL Hct 40.7 L (41-53) % MCV 97.4 (80-100) fL MCH 33.0 (26-34) PG MCHC 33.9 (30-36) % RDW 13.2 (11.6-14.8) % Plt Count 286 (150-400) X10^3/uL Neut % (Auto) 63.0 (50-75) % Lymph % (Auto) 21.7 L (25-40) % Ceiba % (Auto) 13.2 (3-14) % Eos % (Auto) 1.7 L (2-4) % Baso % (Auto) 0.4 (0-2) % Neut # (Auto) 3600 (3963-2465) /uL Lymph # (Auto) 1200 (3266-8016) /uL Ceiba # (Auto) 700 (0-900) /uL Eos # (Auto) 100 (0-450) /uL Baso # (Auto) 0 (0-100) /uL Sodium 139 (137-145) mmol/L Potassium 3.7 (3.4-5.1) mmol/L Chloride 113 H (98-107) mmol/L Carbon Dioxide 10 L (22-32) mmol/L BUN 32 H (9-20) mg/dL Creatinine 3.62 H (0.66-1.25) mg/dL Estimated GFR 16 L (>60) mL/min BUN/Creatinine Ratio 8.8 (6-22) Glucose 111 H (80-110) mg/dL Calcium 9.3 (8.4-10.2) mg/dL Total Bilirubin 0.8 (0.2-1.3) mg/dL AST 53 (17-59) IU/L ALT 44 (<50) IU/L Alkaline Phosphatase 77 (38-126) U/L Total Protein 6.7 (6.3-8.2) g/dL Albumin 3.6 (3.5-5.0) g/dL Globulin 3.1 (1.7-4.1) g/dL Albumin/Globulin Ratio 1.2 (1.0-2.8) Lipase 75 (23-300) U/L MDM Narrative Medical decision making narrative: Several weeks of persistent watery nonbloody diarrhea without a specific etiology. Has had CT scans without an acute etiology noted. Had stool studies that showed no infectious process. Facet persistent diarrhea despite his antidiarrheal medicines at home. He arrives clinically dehydrated with dry mucous membranes. Creatinine is now back above 3 when the last time he was here in the hospital it was normal upon discharge. Patient feels like he needs to urinate but is unable to do so. Bladder scan shows just over 100 cc of urine. Awaiting x-ray results and urine results. Patient was getting fluids. Care turned over to day provider to follow-up and disposition. <Cassia Carnes MD - Last Filed: 08/26/24 11:05> Lab Data Labs: Lab Results 08/26/24 Range/Units 06:10 WBC 5.6 (4.5-11.0) X10^3/uL RBC 4.17 L (4.5-5.9) X10^6/uL Hgb 13.8 (13.5-17.5) g/dL Hct 40.7 L (41-53) % MCV 97.4 (80-100) fL MCH 33.0 (26-34) PG MCHC 33.9 (30-36) % RDW 13.2 (11.6-14.8) % Plt Count 286 (150-400) X10^3/uL Neut % (Auto) 63.0 (50-75) % Lymph % (Auto) 21.7 L (25-40) % Ceiba % (Auto) 13.2 (3-14) % Eos % (Auto) 1.7 L (2-4) % Baso % (Auto) 0.4 (0-2) % Neut # (Auto) 3600 (8927-7944) /uL Lymph # (Auto) 1200 (4614-7561) /uL Ceiba # (Auto) 700 (0-900) /uL Eos # (Auto) 100 (0-450) /uL Baso # (Auto) 0 (0-100) /uL Sodium 139 (137-145) mmol/L Potassium 3.7 (3.4-5.1) mmol/L Chloride 113 H (98-107) mmol/L Carbon Dioxide 10 L (22-32) mmol/L BUN 32 H (9-20) mg/dL Creatinine 3.62 H (0.66-1.25) mg/dL Estimated GFR 16 L (>60) mL/min BUN/Creatinine Ratio 8.8 (6-22) Glucose 111 H (80-110) mg/dL Calcium 9.3 (8.4-10.2) mg/dL Total Bilirubin 0.8 (0.2-1.3) mg/dL AST 53 (17-59) IU/L ALT 44 (<50) IU/L Alkaline Phosphatase 77 (38-126) U/L Total Protein 6.7 (6.3-8.2) g/dL Albumin 3.6 (3.5-5.0) g/dL Globulin 3.1 (1.7-4.1) g/dL Albumin/Globulin Ratio 1.2 (1.0-2.8) Lipase 75 (23-300) U/L [facility] Narrative Medical decision making narrative: Several weeks of persistent watery nonbloody diarrhea without a specific etiology. Has had CT scans without an acute etiology noted. Had stool studies that showed no infectious process. Facet persistent diarrhea despite his antidiarrheal medicines at home. He arrives clinically dehydrated with dry mucous membranes. Creatinine is now back above 3 when the last time he was here in the hospital it was normal upon discharge. Patient feels like he needs to urinate but is unable to do so. Bladder scan shows just over 100 cc of urine. Awaiting x-ray results and urine results. Patient was getting fluids. Care turned over to day provider to follow-up and disposition. 08/[address] Carnes 84-year-old gentleman now presents for his 3rd visit of acute kidney injury secondary to volume loss from severe presumably secretory diarrhea. He was admitted with initial presentations and improved with fluids. Profuse watery diarrhea continues. Workup to date has included: Stool studies 08/19 negative PCR panel including Clostridium difficile CT scan of the abdomen with no sign of entero colitis, no other reports of abdominal or pelvic tissue masses or abnormalities Blood cultures have been negative Labs have shown no white cell elevation and no significant change to H&H Chemistries show recurrent episodes of acute kidney injury with response to fluids As an outpatient he was given a brief course of levofloxacin with no change to symptoms, this has been discontinued Patient is continue to use 6 Imodium daily and is still having enough diarrhea to again cause acute renal failure At this time, with 3rd visit since August 12 with recurrent episodes of acute volume loss renal failure, will discuss with Gastroenterology with consideration of transfer for GI consultation as an inpatient [facility] has no beds but will review care with Gi for further recommendations Dr Hill, GI at [facility], has recommended surgical consultation for colonoscopy to be facilitated here at [facility] if possible. Recommended biopsies and believes he may have microscopic colitis. Care is discussed with Dr. Olmedo who is willing to proceed with colonoscopy. Patient will be admitted to the hospitalist service with continued fluid resuscitation for his acute kidney failure. Dr. Olmedo has recommended half a GoLYTELY bowel prep given his already significant diarrhea. Colonoscopy will likely be in the morning. Care is reviewed with Dr. Zuñiga who will admit the patient. Findings reviewed with the patient who is agreeable to plan Discharge Plan Departure Patient Disposition: Admitted As Inpatient Clinical Impression: TISHA (acute kidney injury), Dehydration Diarrhea Qualifiers: Diarrhea type: unspecified type Qualified Code(s): R19.7 - Diarrhea, unspecified Admit Date/Time: 08/26/24 10:48 Admit Provider: Héctor Zuñiga V
[2024-08-26] MEDS: SODIUM CHLORIDE 0.9% 1,000 ML 1000 ML IV (06:19)
[2024-08-26 06:23] LABS: Add Manual Diff / Slide Review NO; Basophils Absolute Auto 0 /uL (0-100); Basophils Percent Auto 0.4 % (0-2); Eosinophils Absolute Auto 100 /uL (0-450); Eosinophils Percent Auto 1.7 % (2-4); Hematocrit 40.7 % (41-53); Hemoglobin 13.8 g/dL (13.5-17.5); Lymphocytes Absolute Auto 1200 /uL (1100-4500); Lymphocytes Percent Auto 21.7 % (25-40); Mean Corpuscular HGB Conc 33.9 % (30-36); Mean Corpuscular Volume 97.4 fL (80-100); Monocytes Absolute Auto 700 /uL (0-900); Monocytes Percent Auto 13.2 % (3-14); Neutrophils Absolute Auto 3600 /uL (1500-7000); Platelet Count 286 X10^3/uL (150-400); Red Blood Cell Count 4.17 X10^6/uL (4.5-5.9); Red Cell Distribution Width 13.2 % (11.6-14.8); White Blood Cell Count 5.6 X10^3/uL (4.5-11.0)
--- NOTE | 2024-08-26 06:30 | DI.RAD.S_ITS ---
PROCEDURE: XR ABDOMEN 1V INDICATIONS: Persistent diarrhea and abdominal pain TECHNIQUE: One view of the abdomen acquired. COMPARISON: None. FINDINGS: Surgical changes and devices: None. Bowel: Bowel gas pattern is nonobstructive. No gross free air. Mild fecal stasis in the colon. Soft tissues: No suspicious abdominal calcifications. Visualized solid organ contours appear normal in size. Bones: No suspicious bony lesions. IMPRESSION: No evidence of bowel obstruction or gross free air. No significant fecal load. Dictated by: Bran Duran M.D. on 08/26/2024 at 8:14 Approved by: Bran Duran M.D. on 08/26/2024 at 8:15
[2024-08-26 06:33] LABS: Alanine Aminotransferase 44 IU/L (<50); Albumin 3.6 g/dL (3.5-5.0); Albumin Globulin Ratio 1.2 (1.0-2.8); Alkaline Phosphatase 77 U/L (38-126); Aspartate Aminotransferase 53 IU/L (17-59); BUN Creatinine Ratio 8.8 (6-22); Bilirubin Total 0.8 mg/dL (0.2-1.3); Blood Urea Nitrogen 32 mg/dL (9-20); Calcium 9.3 mg/dL (8.4-10.2); Carbon Dioxide 10 mmol/L (22-32); Chloride 113 mmol/L (98-107); Estimated Glomerular Filt Rate 16 mL/min (>60); Globulin 3.1 g/dL (1.7-4.1); Glucose 111 mg/dL (80-110); HEMOLYSIS 21 (0-50); Lipase 75 U/L (23-300); Potassium 3.7 mmol/L (3.4-5.1); Sodium 139 mmol/L (137-145); Total Protein 6.7 g/dL (6.3-8.2)
[2024-08-26] MEDS: LOPERAMIDE 2 MG CAPSULE 4 MG PO ×2 (08:45→20:39)
[2024-08-26] MEDS: DEXTROSE 5%-0.45% NS 1,000 ML 100 ML IV ×2 (12:26→22:35)
[2024-08-26] MEDS: ONDANSETRON 4 MG/2 ML INJ IV ×2 (14:16→18:53)
--- NOTE | 2024-08-26 16:13 | PM.HP.1 ---
History of Present Illness History of Present Illness Date Patient Seen: 08/26/24 Time Patient Seen: 13:30 Chief complaint: v/d Narrative: 84-year-old man with history of onset of vomiting and diarrhea starting in late July presents for his 3rd hospital admission with recurrent vomiting and diarrhea. He was hospitalized at this hospital 08/12 2024 through 08/14/2024 and again through with extensive negative evaluation is negative stool viral and bacterial panel, Clostridium difficile testing, abdomen and pelvic CT scans on 2 occasions, resolving with antiemetics, hydration, and Imodium, only to recur soon after discharge. He states he had 1 good day following his recent hospitalization before suddenly experiencing nausea, simultaneous liquid diarrhea and pelvic pressure. He is admitted for further management and evaluation. [facility] Medical History Stroke Social History household members: none Smoking Status: Never smoker alcohol intake: current Meds Home Medications and Allergies Home Medications Medication Instructions Recorded Confirmed Type amlodipine 10 mg tablet 10 mg PO DAILY 08/12/24 08/26/24 History aspirin 81 mg capsule 81 mg PO DAILY 08/12/24 08/26/24 History atorvastatin 80 mg tablet 80 mg PO ONCE PM 08/12/24 08/26/24 History olmesartan 40 mg tablet 40 mg PO DAILY 08/12/24 08/26/24 History calcium carbonate 1,000 mg (5 x 200 mg calcium (500 08/14/24 08/26/24 Rx mg)) PO Q4HR PRN Dyspepsia #1 tab loperamide 2 mg capsule 2 mg PO Q6H PRN Diarrhea #1 cap 08/14/24 08/26/24 Rx Allergies Allergy/AdvReac Type Severity Reaction Status Date / Time No Known Drug Allergies Allergy Verified 07/23/23 08:46 Review of Systems Review of Systems ROS: Yes All systems reviewed with the patient and are negative except as otherwise documented Exam Vital Signs (past 8 hours): - 08/26/24 08:30 08/26/24 08:30 08/26/24 08:47 Temperature Pulse Rate 70 Respiratory Rate Blood Pressure 92/53 L 102/55 L Pulse Oximetry 96 08/26/24 08:47 08/26/24 09:00 08/26/24 09:00 Temperature Pulse Rate 78 71 Respiratory Rate Blood Pressure 110/68 Pulse Oximetry 98 99 08/26/24 09:30 08/26/24 09:30 08/26/24 10:00 Temperature Pulse Rate 67 73 Respiratory Rate Blood Pressure 113/54 L Pulse Oximetry 99 99 08/26/24 10:00 08/26/24 10:21 08/26/24 10:21 Temperature Pulse Rate 81 Respiratory Rate Blood Pressure 105/55 L 98/54 L Pulse Oximetry 98 08/26/24 10:30 08/26/24 10:30 08/26/24 11:00 Temperature Pulse Rate 78 Respiratory Rate Blood Pressure 100/51 L 124/60 Pulse Oximetry 98 08/26/24 11:00 08/26/24 11:15 Temperature 97 F L Pulse Rate 79 81 Respiratory Rate 16 Blood Pressure 137/62 Pulse Oximetry 96 97 Oxygen Delivery Method Room Air Narrative Exam Narrative: GENERAL: This is a well-nourished, well-developed patient, in no apparent distress. HEAD: Atraumatic. Normocephalic. No temporal or scalp tenderness. EYES: Pupils equal round and reactive. Extraocular motions intact. No scleral icterus. No injection or drainage. ENT: Mucous membranes pink and moist. NECK: Trachea midline. No JVD, bruits or lymphadenopathy. Supple, nontender, no meningeal signs. CARDIOVASCULAR: Regular rate and rhythm without murmurs, gallops, or rubs. RESPIRATORY: Clear to auscultation. GASTROINTESTINAL: Abdomen soft, non-tender, nondistended. EXTREMITIES: No clubbing, cyanosis, or edema. BACK: Nontender without deformity or crepitance. No flank tenderness. NEUROLOGIC: Alert, oriented, speech fluent, full upper and lower motor strength, no focal deficits evident. DERMATOLOGIC: No rashes or skin lesions. Objective Imaging Abdominal x-ray: Radiologist's impression: No evidence of bowel obstruction or gross free air. No significant fecal load. Labs 08/26/24 06:10 08/26/24 06:10 Labs: Laboratory Results - last 24 hr 08/26/24 06:10 WBC 5.6 RBC 4.17 L Hgb 13.8 Hct 40.7 L MCV 97.4 MCH 33.0 MCHC 33.9 RDW 13.2 Plt Count 286 Neut % (Auto) 63.0 Lymph % (Auto) 21.7 L [place] % (Auto) 13.2 Eos % (Auto) 1.7 L Baso % (Auto) 0.4 Neut # (Auto) 3600 Lymph # (Auto) 1200 [place] # (Auto) 700 Eos # (Auto) 100 Baso # (Auto) 0 Sodium 139 Potassium 3.7 Chloride 113 H Carbon Dioxide 10 L BUN 32 H Creatinine 3.62 H Estimated GFR 16 L BUN/Creatinine Ratio 8.8 Glucose 111 H Calcium 9.3 Total Bilirubin 0.8 AST 53 ALT 44 Alkaline Phosphatase 77 Total Protein 6.7 Albumin 3.6 Globulin 3.1 Albumin/Globulin Ratio 1.2 Lipase 75 Assessment & Plan Assessment & Plan narrative: 1. Acute kidney injury secondary to #1, recurrent. 2. Dehydration, nausea/vomiting/diarrhea 3. History of CVA 4. Hypertension Plan: -admit as inpatient -IV hydration -monitor renal function -diagnostic colonoscopy with biopsies, rule out microscopic colitis Time-Based Coding :: [TOTAL MINUTES] spent with patient and on the chart (including review of chart, obtaining history, exam, reviewing outside data, placing orders, documenting exam and treatment plan, and counseling patient) on [DATE]. Quality VTE Deep Vein Thrombosis/Pulmonary Embolism Present on Admission: No MIPS - Admit I confirm the patient?s Advance Care Plan is present, Code status is documented, Surrogate decision maker is in patient?s record [If Yes, STOP here]: Yes MIPS - Meds 'Current medications' to include all prescriptions, [id number] products, herbals, cannabis/cannabidiol products, and vitamin/mineral/dietary (nutritional) supplements. I have utilized all available resources to obtain, update, or review the patient?s current medications. [If Yes, STOP here]: Yes PROFEE Charge Codes Initial inpatient/observation care: 36636
--- NOTE | 2024-08-26 16:16 | PM.CALLCOV.1 ---
Call Coverage Note Note Date of Patient Contact: 08/26/24 Narrative of Care Provided: Bowel prep today and diagnostic colonoscopy Friday
[2024-08-26] MEDS: PEG3350/SOD SULF,BICARB,CL/KCL 4,000 ML SOLUTION 2000 ML PO (17:50)
[2024-08-26] MEDS: ATORVASTATIN 20 MG TABLET 80 MG PO (20:39)
[2024-08-27] VITALS (10 sets, daily range): BP systolic 68–125; BP diastolic 41–62; PULSE 55–60; RESP 6–18; TEMP 36.1–36.3; O2SAT 94–98
--- NOTE | 2024-08-27 | PATH_ITS ---
[facility] Accession Number: [id number] No. of containers..07 Tissue . 01 Material submitted: . PART A: ileum - TERMINAL ILEUM PART B: colon - RIGHT COLON PART C: colon - TRANSVERSE PART D: colon - DESCENDING PART E: sigmoid colon - SIGMOID PART F: rectum - RECTAL BIOPSY PART G: rectum - RECTAL POLYP . 01 Diagnosis: A. Terminal ileum, biopsy: - Benign small intestinal mucosa, negative for chronic or active inflammation. - Negative for granuloma, dysplasia or malignancy. -- B. Colon, right, biopsy: - Most consistent with microscopic lymphocytic colitis. - Negative for dysplasia or malignancy. -- C. Colon, transverse, biopsy: - Most consistent with microscopic lymphocytic colitis. - Negative for dysplasia or malignancy. -- D. Colon, descending, biopsy: - Most consistent with microscopic lymphocytic colitis. - Negative for dysplasia or malignancy. -- E. Colon, sigmoid, biopsy: - Patchy increased intraepithelial lymphocytes favor microscopic lymphocytic colitis. - Negative for dysplasia or malignancy. -- F. Colon, rectum, biopsy: - Patchy increased intraepithelial lymphocytes favor microscopic lymphocytic colitis. - Negative for dysplasia or malignancy. -- G. Colon, rectal polyp, biopsy: - Tubulovillous adenoma. . TXN 09/01/2024 1152 Local . 01 Electronically signed: . Tawfeq MD Michelle, Pathologist NPI- [id number] . 01 Gross description: . Part A: TERMINAL ILEUM: Received in formalin are 2 fragment(s) of p[place], soft tissue measuring 0.1 x 0.1 x 0.1 cm to 0.4 x 0.3 x 0.2 cm submitted entirely in 1 cassette(s) Part B: RIGHT COLON: Received in formalin are 3 fragment(s) of [place], soft tissue measuring 0.2 x 0.2 x 0.1 cm to 0.3 x 0.3 x 0.3 cm submitted entirely in 1 cassette(s) Part C: TRANSVERSE: Received in formalin are 2 fragment(s) of [place], soft tissue measuring 0.1 x 0.1 x 0.1 cm to 0.4 x 0.3 x 0.2 cm submitted entirely in 1 cassette(s) Part D: DESCENDING: Received in formalin are 2 fragment(s) of [place], soft tissue measuring 0.2 x 0.2 x 0.2 cm to 0.3 x 0.3 x 0.2 cm submitted entirely in 1 cassette(s) Part E: SIGMOID: Received in formalin are 2 fragment(s) of [place], soft tissue measuring 0.2 x 0.2 x 0.2 cm to 0.8 x 0.2 x 0.2 cm submitted entirely in 1 cassette(s) Part F: RECTAL BIOPSY: Received in formalin are 2 fragment(s) of [place], soft tissue measuring 0.3 x 0.2 x 0.2 cm to 0.6 x 0.2 x 0.2 cm submitted entirely in 1 cassette(s) Part G: RECTAL POLYP: Received in formalin is 1 fragment(s) of p[place], soft tissue measuring 0.9 x 0.8 x 0.8 cm submitted entirely in 1 cassette(s) /NIMA 08/30/2024 1850 Local . 01 Pathologist provided ICD-10: K52.832, D12.6 . 01 CPT . 238053, 779018, 370260, 092633, 185217, 590519, 100917 Specimen Comment: A courtesy copy of this report has been sent to [phone] Performed at: [address] [id number] MD Harris Baker MD Phone: [phone]
[2024-08-27] MEDS: LOPERAMIDE 2 MG CAPSULE 4 MG PO ×3 (00:42→21:32)
[2024-08-27 05:07] LABS: Add Manual Diff / Slide Review NO; Basophils Absolute Auto 0 /uL (0-100); Basophils Percent Auto 0.2 % (0-2); Eosinophils Absolute Auto 200 /uL (0-450); Eosinophils Percent Auto 3.4 % (2-4); Hematocrit 29.3 % (41-53); Hemoglobin 10.3 g/dL (13.5-17.5); Lymphocytes Absolute Auto 1600 /uL (1100-4500); Mean Corpuscular HGB Conc 35.1 % (30-36); Mean Corpuscular Hemoglobin 33.8 PG (26-34); Mean Corpuscular Volume 96.4 fL (80-100); Monocytes Absolute Auto 900 /uL (0-900); Monocytes Percent Auto 14.8 % (3-14); Neutrophils Absolute Auto 3200 /uL (1500-7000); Neutrophils Percent Auto 54.6 % (50-75); Platelet Count 208 X10^3/uL (150-400); Red Blood Cell Count 3.04 X10^6/uL (4.5-5.9); White Blood Cell Count 5.8 X10^3/uL (4.5-11.0)
[2024-08-27 05:29] LABS: BUN Creatinine Ratio 14.2 (6-22); Blood Urea Nitrogen 22 mg/dL (9-20); Calcium 8.1 mg/dL (8.4-10.2); Carbon Dioxide 16 mmol/L (22-32); Chloride 117 mmol/L (98-107); Estimated Glomerular Filt Rate 44 mL/min (>60); Glucose 119 mg/dL (80-110); HEMOLYSIS < 15 (0-50); Potassium 2.9 mmol/L (3.4-5.1); Sodium 138 mmol/L (137-145)
[2024-08-27 07:46] LABS: Magnesium 1.7 mg/dL (1.6-2.3)
--- NOTE | 2024-08-27 07:51 | PM.PN.1 ---
Subjective Subjective Date Patient Seen: 08/27/24 Time Patient Seen: 08:30 Interval history: 84-year-old man with history of onset of vomiting and diarrhea starting in late July presents for his 3rd hospital admission with recurrent vomiting and diarrhea. He was hospitalized at this hospital 08/12 2024 through 08/14/2024 and again through with extensive negative evaluation is negative stool viral and bacterial panel, Clostridium difficile testing, abdomen and pelvic CT scans on 2 occasions, resolving with antiemetics, hydration, and Imodium, only to recur soon after discharge. He states he had 1 good day following his recent hospitalization before suddenly experiencing nausea, simultaneous liquid diarrhea and pelvic pressure. He is admitted for further management and evaluation. Interval history: The patient reports feeling better with improved hydration, though continued to have for liquid brown stools overnight. Colonoscopy today reported normal colon and terminal ileum. Random biopsies were obtained and pending. Exam Vital Signs (past 8 hours): Oxygen Delivery Method Room Air Oxygen Flow Rate 0 Narrative Exam Narrative: GENERAL: This is a well-nourished, well-developed patient, in no apparent distress. EYES: Pupils equal round and reactive. Extraocular motions intact. No scleral icterus. No injection or drainage. ENT: Mucous membranes pink and moist. NECK: Trachea midline. No JVD, bruits or lymphadenopathy. Supple, nontender, no meningeal signs. CARDIOVASCULAR: Regular rate and rhythm without murmurs, gallops, or rubs. RESPIRATORY: Clear to auscultation. GASTROINTESTINAL: Abdomen soft, non-tender, nondistended. EXTREMITIES: No clubbing, cyanosis, or edema. NEUROLOGIC: Alert, oriented, speech fluent, full upper and lower motor strength, no focal deficits evident. DERMATOLOGIC: No rashes or skin lesions. Objective Labs 08/27/24 04:04 08/27/24 04:04 Labs: Laboratory Results - last 24 hr 08/27/24 04:04 WBC 5.8 RBC 3.04 L Hgb 10.3 L Hct 29.3 L MCV 96.4 MCH 33.8 MCHC 35.1 RDW 13.0 Plt Count 208 Neut % (Auto) 54.6 Lymph % (Auto) 27.0 [place] % (Auto) 14.8 H Eos % (Auto) 3.4 Baso % (Auto) 0.2 Neut # (Auto) 3200 Lymph # (Auto) 1600 [place] # (Auto) 900 Eos # (Auto) 200 Baso # (Auto) 0 Sodium 138 Potassium 2.9 L Chloride 117 H Carbon Dioxide 16 L BUN 22 H Creatinine 1.55 H Estimated GFR 44 L BUN/Creatinine Ratio 14.2 Glucose 119 H Calcium 8.1 L Magnesium 1.7 PFSH Medical History Stroke Social History household members: none Smoking Status: Never smoker alcohol intake: current Assessment & Plan Assessment & Plan narrative: 1. Acute kidney injury secondary to #1, recurrent. 2. Dehydration, nausea/vomiting/diarrhea. Rule out microscopic colitis (colonoscopy pathology pending), rule out carcinoid syndrome (24 hour urine collection for 5-HIAA). 3. History of CVA 4. Hypertension Plan: -admit as inpatient -IV hydration -5 HIAA 24 urine collection -follow pathology -monitor renal function Quality VTE Deep Vein Thrombosis/Pulmonary Embolism Present on Admission: No PROFEE Charge codes Subsequent inpatient/observation care: 15319
[2024-08-27] MEDS: POTASSIUM CHLORIDE 20 MEQ TAB 40 MEQ PO ×2 (07:54→14:32)
[2024-08-27] MEDS: DEXTROSE 5%-0.45% NS 1,000 ML 100 ML IV (09:07)
[2024-08-27] MEDS: MAGNESIUM CHLORIDE 64 MG TABLET 128 MG PO (10:18)
--- NOTE | 2024-08-27 11:38 | PC.NURSE ---
Patient transported to pre op area via gurney. He is A&OX4, VSS, afebrile. Held a.m. BP medications.Report given to Adithya.
--- NOTE | 2024-08-27 13:03 | P.CONS_ITS ---
History of Present Illness Consult details Date Patient Seen: 08/27/24 Time Patient Seen: 13:03 Chief complaint: v/d Narrative: Garrett is an 84-year-old man with chronic diarrhea for the past month. He gets quite dehydrated and comes to the ER. No bleeding. Occasional vomiting Meds Home Medications and Allergies Home Medications Medication Instructions Recorded Confirmed Type amlodipine 10 mg tablet 10 mg PO DAILY 08/12/24 08/26/24 History aspirin 81 mg capsule 81 mg PO DAILY 08/12/24 08/26/24 History atorvastatin 80 mg tablet 80 mg PO ONCE PM 08/12/24 08/26/24 History olmesartan 40 mg tablet 40 mg PO DAILY 08/12/24 08/26/24 History calcium carbonate 1,000 mg (5 x 200 mg calcium (500 08/14/24 08/26/24 Rx mg)) PO Q4HR PRN Dyspepsia #1 tab loperamide 2 mg capsule 2 mg PO Q6H PRN Diarrhea #1 cap 08/14/24 08/26/24 Rx Allergies Allergy/AdvReac Type Severity Reaction Status Date / Time No Known Drug Allergies Allergy Verified 08/27/24 11:49 Exam Vital Signs (past 8 hours): - 08/27/24 07:00 08/27/24 11:44 Temperature 97.4 F L 97.3 F L Pulse Rate 56 L 55 L Respiratory Rate 15 6 L Blood Pressure 96/54 L 120/62 Pulse Oximetry 97 98 Oxygen Delivery Method Room Air Oxygen Flow Rate 0 Oxygen Delivery Method Room Air Oxygen Flow Rate 0 Const General: healthy appearing Resp Effort & Inspection: normal respiratory effort Objective Labs 08/27/24 04:04 08/27/24 04:04 Labs: Laboratory Results - last 24 hr 08/27/24 04:04 WBC 5.8 RBC 3.04 L Hgb 10.3 L Hct 29.3 L MCV 96.4 MCH 33.8 MCHC 35.1 RDW 13.0 Plt Count 208 Neut % (Auto) 54.6 Lymph % (Auto) 27.0 [place] % (Auto) 14.8 H Eos % (Auto) 3.4 Baso % (Auto) 0.2 Neut # (Auto) 3200 Lymph # (Auto) 1600 [place] # (Auto) 900 Eos # (Auto) 200 Baso # (Auto) 0 Sodium 138 Potassium 2.9 L Chloride 117 H Carbon Dioxide 16 L BUN 22 H Creatinine 1.55 H Estimated GFR 44 L BUN/Creatinine Ratio 14.2 Glucose 119 H Calcium 8.1 L Magnesium 1.7 [facility] Medical History Stroke Social History household members: none Tobacco & Substance Use Smoking Status: Never smoker alcohol intake: current Assessment & Plan Assessment and plan (1) Diarrhea: Qualifiers: Diarrhea type: unspecified type Qualified Code(s): R19.7 - Diarrhea, unspecified Status: Acute Plan Colonoscopy with biopsies Time-Based Coding :: [TOTAL MINUTES] spent with patient and on the chart (including review of chart, obtaining history, exam, reviewing outside data, placing orders, documenting exam and treatment plan, and counseling patient) on [DATE].
--- NOTE | 2024-08-27 13:06 | CM.DANOTE ---
DCP Assessment Note: Pt is a 84yo male, resident of [place], is admitted for TISHA, dehydration. Pt lives in a house alone, has a local son. Pt's Primary Care Provider is Dr. Kenan Viera and insurance is Medicare. Reviewed chart and team rounds for pt's medical status and initial discharge needs. Per rounds, pt to obtain a diagnostic colonoscopy with biopsies today. DCP met w/patient at bedside; introduced self and role. Patient was found in bed, alert and oriented, cooperative with assessment. Pt confirmed living situation and good support in son, Thierry, who lives nearby. Pt expressed preference in returning home when medically cleared. No discharge needs identified, pt declined any referral to home health or community services at this time. Plan: Anticipating discharge home with son to transport when microscopic colitis ruled out. CM team will follow closely for coordination of discharge plans. MYRNA Hayes Discharge Planning/Care Management CM Discharge Assessment Start: 08/27/24 13:04 Freq: Status: Active Protocol: Document 08/27/24 13:04 (Rec: 08/27/24 13:06 [id number]) Discharge Planning Assessment Assigned Non Destructive Testing Inspector PRASANNA Turner DPOA/Assigned Designee Name Mark Guadarrama Contact Information [phone] Advance Directives? Yes Advance Directives on File No History Provided By Patient,Family Member,Medical Record Prior Living Arrangements House Household Members none Independent with ADL's Yes Is patient alert and oriented? Yes Discharge Plan Home Whiteboard Updated in Patient Room with Yes name and ext. # of Non Destructive Testing Inspector Comment [phone] Please Provide Date Initial DC 08/27/24 Assessment Was Performed Next Review Type Continued Stay Review
--- NOTE | 2024-08-27 13:28 | PM.OP.COLON ---
Operative Date/Time/Diagnoses Date of procedure: 08/27/24 Time of procedure: 13:28 Pre-op diagnosis: Diarrhea Post-op diagnosis: same Procedure & Clinicians Study performed: Colonoscopy Same procedure as scheduled: Yes Surgeon: Kevin Duval Procedure Notes Procedure in detail: Surgeon: Kevin Duval MD Anesthesia: Trish Washington CRNA Procedure: The patient was brought to the endoscopy suite, placed in left lateral decubitus position. The patient was connected to monitoring devices. A time-out was performed. Sedation was administered. Once the patient was adequately sedated, a digital rectal exam was performed and was normal. The scope was then inserted and advanced to the cecum where the appendiceal orifice was identified and photographed. The terminal ileum was intubated and the mucosa appeared normal. Random biopsies taken with Jumbo forceps from the terminal ileal mucosa. The scope was slowly withdrawn and no abnormalities were identified. Random biopsies were taken with Jumbo forceps from the right colon, transverse colon, descending colon, sigmoid colon and rectum. The scope was retroflexed in the rectum. 9 mm sessile polyp was noted in the distal rectum and was removed with a cold snare. The scope was straightened and removed. The patient was awakened and brought to recovery. Scope withdrawal time: 14 minutes Sedation time: 20 minutes EBL: 5 mL Findings: Normal colon and terminal ileum Post-procedure Disposition: PACU
--- NOTE | 2024-08-27 14:03 | DIET.CONS ---
Dietary Consultation Note Admission Date: 08/26/2024 10:48 Assessment: 84 y M admitted for vomiting/diarrhea and TISHA. RD screened for low MNA and previously dx with severe malnutrition. Pt getting colonoscopy, EMR reviewed. Average recorded po intakes from 08/20/24-08/23/24 were 51%. The previous 3 weeks he was unable to keep any food down. Per H&P: Pt had 1 good day since d/c from recent admission before onset of nausea and diarrhea again. Estimate pt has avg <50% estimated energy intakes within last month. Nutrition focused physical exam performed 08/20 showing moderate loss. See previous consult. Ht: 177 cm Wt: 69 kg BMI: 22.0 UBW: 80.286 kg (-14% weight loss within a month, severe) Last BM: 08/26/24 (08/26/24 21:00) MNA: 8 Maximilian Score: 21 Diet: 08/26/24 Lunch Clear Liquid Diet Diet Modifications: Labs: RBC 3.04 X10^6/uL (4.5-5.9) L 08/27/24 04:04 Hgb 10.3 g/dL (13.5-17.5) L 08/27/24 04:04 Hct 29.3 % (41-53) L 08/27/24 04:04 Creatinine 1.55 mg/dL (0.66-1.25) H 08/27/24 04:04 Nutrition Diagnosis: Severe acute protein calorie malnutrition r/t nausea, vomiting, and diarrhea as evidenced by 14% weight loss within 1 month (severe), <50% estimated energy needs for 4 weeks per diet recall and recorded po intakes (severe), moderate muscle mass loss (temporalis, deltoid), moderate subcutaneous fat loss (buccal and orbital fat pads) Interventions: 1. Clear Ensure TID while on clears EER: 1850 kcals (27 kcals/kg), 70 g protein (1 g/kg w/ TISHA; as kidney function improves -80-100 g protein (1.25-1.5 g/kg per PCM) Monitoring/Evaluations: diet advancement Electronically Signed by: Anahi Hinson 08/27/24 14:03 Clinical Dietitian [address] [address]
--- NOTE | 2024-08-27 17:24 | PC.NURSE ---
Patient returned from PACU- colonoscopy procedure at 1400. He denies n/v able to ambulate. 24 hour urine collection started.
[2024-08-27] MEDS: CALCIUM CARBONATE 500 MG TAB 1000 MG PO (18:04)
[2024-08-27] MEDS: ATORVASTATIN 20 MG TABLET 80 MG PO (21:32)
[2024-08-28] VITALS (7 sets, daily range): BP systolic 97–146; BP diastolic 54–94; PULSE 55–69; RESP 16; TEMP 36.2–36.8; O2SAT 97–99
[2024-08-28] MEDS: DEXTROSE 5%-0.45% NS 1,000 ML 100 ML IV ×2 (00:51→11:36)
[2024-08-28] MEDS: LOPERAMIDE 2 MG CAPSULE 4 MG PO ×5 (00:51→20:01)
[2024-08-28 04:58] LABS: Add Manual Diff / Slide Review NO; Basophils Absolute Auto 0 /uL (0-100); Basophils Percent Auto 0.2 % (0-2); Eosinophils Absolute Auto 200 /uL (0-450); Eosinophils Percent Auto 3.4 % (2-4); Hematocrit 28.9 % (41-53); Lymphocytes Absolute Auto 1400 /uL (1100-4500); Lymphocytes Percent Auto 20.4 % (25-40); Mean Corpuscular HGB Conc 34.7 % (30-36); Mean Corpuscular Hemoglobin 33.5 PG (26-34); Mean Corpuscular Volume 96.6 fL (80-100); Monocytes Absolute Auto 800 /uL (0-900); Monocytes Percent Auto 11.4 % (3-14); Neutrophils Absolute Auto 4400 /uL (1500-7000); Neutrophils Percent Auto 64.6 % (50-75); Platelet Count 203 X10^3/uL (150-400); Red Blood Cell Count 2.99 X10^6/uL (4.5-5.9); Red Cell Distribution Width 13.2 % (11.6-14.8); White Blood Cell Count 6.9 X10^3/uL (4.5-11.0)
[2024-08-28 05:15] LABS: BUN Creatinine Ratio 13.5 (6-22); Blood Urea Nitrogen 14 mg/dL (9-20); Calcium 8.1 mg/dL (8.4-10.2); Carbon Dioxide 17 mmol/L (22-32); Chloride 117 mmol/L (98-107); Estimated Glomerular Filt Rate > 60 mL/min (>60); Glucose 109 mg/dL (80-110); HEMOLYSIS < 15 (0-50); Potassium 3.3 mmol/L (3.4-5.1); Sodium 137 mmol/L (137-145)
[2024-08-28] MEDS: AMLODIPINE 5 MG TABLET 10 MG PO (08:29)
[2024-08-28] MEDS: LOSARTAN 50 MG TABLET 100 MG PO (08:30)
[2024-08-28] MEDS: POTASSIUM CHLORIDE 20 MEQ TAB 40 MEQ PO ×2 (09:27→15:13)
[2024-08-28] MEDS: CALCIUM CARBONATE 500 MG TAB 1000 MG PO ×2 (11:39→18:03)
--- NOTE | 2024-08-28 15:14 | PM.PN.1 ---
Subjective Subjective Date Patient Seen: 08/28/24 Time Patient Seen: 08:20 Interval history: 84-year-old man with history of onset of vomiting and diarrhea starting in late July presents for his 3rd hospital admission with recurrent vomiting and diarrhea. He was hospitalized at this hospital 08/12 2024 through 08/14/2024 and again through with extensive negative evaluation is negative stool viral and bacterial panel, Clostridium difficile testing, abdomen and pelvic CT scans on 2 occasions, resolving with antiemetics, hydration, and Imodium, only to recur soon after discharge. He states he had 1 good day following his recent hospitalization before suddenly experiencing nausea, simultaneous liquid diarrhea and pelvic pressure. He is admitted for further management and evaluation. Interval history: The patient reports 2 episodes of diarrhea. Colonoscopy yesterday reported normal colon and terminal ileum. Random biopsies were obtained and pending. 24 hour urine collection pending for 5 HIAA. Exam Vital Signs (past 8 hours): - 08/28/24 07:32 08/28/24 08:30 08/28/24 11:00 Temperature 97.1 F L 97.5 F L Pulse Rate 55 L 63 62 Respiratory Rate 16 16 Blood Pressure 117/56 L 137/62 102/54 L Pulse Oximetry 99 99 Oxygen Flow Rate 0 0 Oxygen Delivery Method Room Air Oxygen Flow Rate 0 Narrative Exam Narrative: GENERAL: This is a well-nourished, well-developed patient, in no apparent distress. EYES: Pupils equal round and reactive. Extraocular motions intact. No scleral icterus. No injection or drainage. ENT: Mucous membranes pink and moist. NECK: Supple, nontender, no meningeal signs. CARDIOVASCULAR: Regular rate and rhythm without murmurs, gallops, or rubs. RESPIRATORY: Clear to auscultation. GASTROINTESTINAL: Abdomen soft, non-tender, nondistended. EXTREMITIES: No clubbing, cyanosis, or edema. NEUROLOGIC: Alert, oriented, speech fluent, full upper and lower motor strength, no focal deficits evident. DERMATOLOGIC: No rashes or skin lesions. Objective Labs 08/28/24 03:26 08/28/24 03:26 Labs: Laboratory Results - last 24 hr 08/28/24 03:26 WBC 6.9 RBC 2.99 L Hgb 10.0 L Hct 28.9 L MCV 96.6 MCH 33.5 MCHC 34.7 RDW 13.2 Plt Count 203 Neut % (Auto) 64.6 Lymph % (Auto) 20.4 L [place] % (Auto) 11.4 Eos % (Auto) 3.4 Baso % (Auto) 0.2 Neut # (Auto) 4400 Lymph # (Auto) 1400 [place] # (Auto) 800 Eos # (Auto) 200 Baso # (Auto) 0 Sodium 137 Potassium 3.3 L Chloride 117 H Carbon Dioxide 17 L BUN 14 Creatinine 1.04 Estimated GFR > 60 BUN/Creatinine Ratio 13.5 Glucose 109 Calcium 8.1 L [facility] Medical History Stroke Social History household members: none Smoking Status: Never smoker alcohol intake: current Assessment & Plan Assessment & Plan narrative: 1. Acute kidney injury secondary to #1, recurrent. Resolved with hydration. Stop at this point and monitor. 2. Dehydration, nausea/vomiting/diarrhea. Rule out microscopic colitis (colonoscopy pathology pending), rule out carcinoid syndrome (24 hour urine collection for 5-HIAA). Monitor off IV fluids. 3. History of CVA 4. Hypertension Plan: -admit as inpatient -discontinue IV hydration -5 HIAA 24 urine collection -follow pathology Time-Based Coding :: [TOTAL MINUTES] spent with patient and on the chart (including review of chart, obtaining history, exam, reviewing outside data, placing orders, documenting exam and treatment plan, and counseling patient) on [DATE]. Quality VTE Deep Vein Thrombosis/Pulmonary Embolism Present on Admission: No PROFEE Charge codes Subsequent inpatient/observation care: [id number]
[2024-08-28] MEDS: ATORVASTATIN 20 MG TABLET 80 MG PO (20:01)
[2024-08-29] VITALS (7 sets, daily range): BP systolic 104–133; BP diastolic 51–81; PULSE 54–70; RESP 15–16; TEMP 35.9–36.7; O2SAT 95–98
[2024-08-29] MEDS: LOPERAMIDE 2 MG CAPSULE 4 MG PO ×3 (01:20→08:18)
[2024-08-29 05:16] LABS: BUN Creatinine Ratio 6.6 (6-22); Blood Urea Nitrogen 6 mg/dL (9-20); Calcium 8.3 mg/dL (8.4-10.2); Carbon Dioxide 20 mmol/L (22-32); Chloride 114 mmol/L (98-107); Estimated Glomerular Filt Rate > 60 mL/min (>60); Glucose 90 mg/dL (80-110); HEMOLYSIS < 15 (0-50); Potassium 3.9 mmol/L (3.4-5.1); Sodium 136 mmol/L (137-145)
--- NOTE | 2024-08-29 09:24 | P.PN_ITS ---
Subjective Subjective Date Patient Seen: 08/29/24 Time Patient Seen: 09:05 Interval history: 84-year-old man with history of onset of vomiting and diarrhea starting in late July presents for his 3rd hospital admission with recurrent vomiting and diarrhea. He was hospitalized at this hospital 08/12 2024 through 08/14/2024 and again through with extensive negative evaluation is negative stool viral and bacterial panel, Clostridium difficile testing, abdomen and pelvic CT scans on 2 occasions, resolving with antiemetics, hydration, and Imodium, only to recur soon after discharge. He states he had 1 good day following his recent hospitalization before suddenly experiencing nausea, simultaneous liquid diarrhea and pelvic pressure. He is admitted for further management and evaluation. Interval history: The patient reports no further episodes of diarrhea. He had an episode of nausea last night that he attributes to drinking too much due to quickly. Colonoscopy 08/27/2024 reported normal colon and terminal ileum. Random biopsies were obtained and pending. 24 hour urine collection pending for 5 HIAA. Exam Vital Signs (past 8 hours): - 08/29/24 05:30 08/29/24 08:17 08/29/24 09:00 Temperature 97.3 F L 97.0 F L Pulse Rate 55 L 54 L Respiratory Rate 16 16 Blood Pressure 116/57 L 104/57 L 117/61 Pulse Oximetry 97 97 Oxygen Flow Rate 0 Oxygen Delivery Method Room Air Oxygen Flow Rate 0 Narrative Exam Narrative: GENERAL: This is a well-nourished, well-developed patient, in no apparent distress. EYES: Pupils equal round and reactive. Extraocular motions intact. No scleral icterus. No injection or drainage. ENT: Mucous membranes pink and moist. NECK: Supple, nontender, no meningeal signs. CARDIOVASCULAR: Regular rate and rhythm without murmurs, gallops, or rubs. RESPIRATORY: Clear to auscultation. GASTROINTESTINAL: Abdomen soft, non-tender, nondistended. EXTREMITIES: No clubbing, cyanosis, or edema. NEUROLOGIC: Alert, oriented, speech fluent, full upper and lower motor strength, no focal deficits evident. DERMATOLOGIC: No rashes or skin lesions. Objective Labs 08/28/24 03:26 08/29/24 03:56 Labs: Laboratory Results - last 24 hr 08/29/24 03:56 Sodium 136 L Potassium 3.9 Chloride 114 H Carbon Dioxide 20 L BUN 6 L Creatinine 0.91 Estimated GFR > 60 BUN/Creatinine Ratio 6.6 Glucose 90 Calcium 8.3 L [facility] Medical History Stroke Social History household members: none Smoking Status: Never smoker alcohol intake: current Assessment & Plan Assessment & Plan narrative: 1. Acute kidney injury secondary to #1, recurrent. Resolved with hydration. 2. Dehydration, nausea/vomiting/diarrhea. Etiology unclear though asymptomatic presently. Rule out microscopic colitis (colonoscopy pathology pending), rule out carcinoid syndrome (24 hour urine collection for 5-HIAA). Monitor off Imodium at this point. 3. History of CVA 4. Hypertension Plan: -admit as inpatient -discontinue scheduled Imodium, continue as needed -5 HIAA 24 urine collection -follow pathology -possible discharge in 1-2 days, though note that this is his 3rd admission for the same symptoms, with rapid return of symptoms after each of the previous 2 discharges when he appeared stable and resolved Time-Based Coding :: [TOTAL MINUTES] spent with patient and on the chart (including review of chart, obtaining history, exam, reviewing outside data, placing orders, documenting exam and treatment plan, and counseling patient) on [DATE]. Quality VTE Deep Vein Thrombosis/Pulmonary Embolism Present on Admission: No IH PROFEE Charge codes Subsequent inpatient/observation care: 50298
[2024-08-29] MEDS: ATORVASTATIN 20 MG TABLET 80 MG PO (20:12)
[2024-08-29] MEDS: LOPERAMIDE 2 MG CAPSULE PO (20:13)
[2024-08-29] MEDS: CALCIUM CARBONATE 500 MG TAB 1000 MG PO (23:06)
[2024-08-30] VITALS (7 sets, daily range): BP systolic 92–138; BP diastolic 47–56; PULSE 58–64; RESP 13–18; TEMP 35.9–36.8; O2SAT 94–98
[2024-08-30] MEDS: AMLODIPINE 5 MG TABLET 10 MG PO (08:48)
[2024-08-30] MEDS: LOSARTAN 50 MG TABLET 100 MG PO (08:48)
--- NOTE | 2024-08-30 09:17 | PM.PN.1 ---
Subjective Subjective Interval history: Summary: 84-year-old man with history of onset of vomiting and diarrhea starting in late July presents for his 3rd hospital admission with recurrent vomiting and diarrhea. He was hospitalized at this hospital 08/12 2024 through 08/14/2024 and again through with extensive negative evaluation is negative stool viral and bacterial panel, Clostridium difficile testing, abdomen and pelvic CT scans on 2 occasions, resolving with antiemetics, hydration, and Imodium, only to recur soon after discharge. He states he had 1 good day following his recent hospitalization before suddenly experiencing nausea, simultaneous liquid diarrhea and pelvic pressure. He is admitted for further management and evaluation. Interval history: The patient reports no further episodes of diarrhea. He had an episode of nausea last night that he attributes to drinking too much due to quickly. Colonoscopy 08/27/2024 reported normal colon and terminal ileum. Random biopsies were obtained and pending. 24 hour urine collection pending for 5 HIAA. S: He has improved but ongoing loose stools. His nausea is well-controlled with antiemetic tablets before eating and a PPI. Biopsies from colonoscopy are pending. Exam Vital Signs (past 8 hours): - 08/30/24 04:15 08/30/24 08:00 08/30/24 08:48 Temperature 98.2 F 96.7 F L Pulse Rate 63 64 Respiratory Rate 15 13 Blood Pressure 110/56 L 138/53 L 138/53 L Pulse Oximetry 96 98 Oxygen Flow Rate 0 0 Oxygen Delivery Method Room Air Oxygen Flow Rate 0 Narrative Exam Narrative: NAD, alert and oriented. Fluent speech. Lungs are clear, normal rate and effort. Heart is regular, no murmur gallop or rub. Abdomen is soft, non distended. Hyperactive bowel tones. Extremities are free of edema. Objective Labs 08/28/24 03:26 08/29/24 03:56 [facility] Medical History Stroke Social History household members: none Smoking Status: Never smoker alcohol intake: current Assessment & Plan Assessment & Plan narrative: 1. Acute kidney injury secondary to #1, recurrent. Resolved with hydration. 2. Dehydration, nausea/vomiting/diarrhea. Etiology unclear though asymptomatic presently. Rule out microscopic colitis (colonoscopy pathology pending), rule out carcinoid syndrome (24 hour urine collection for 5-HIAA). Monitor off Imodium at this point. 3. History of CVA, stable. 4. Hypertension, stable. Plan: -discontinue scheduled Imodium, increase to QID -5 HIAA 24 urine collection -follow pathology Not stable enough to be discharged with ongoing volume loss of diarrhea. Time-Based Coding :: [TOTAL MINUTES] spent with patient and on the chart (including review of chart, obtaining history, exam, reviewing outside data, placing orders, documenting exam and treatment plan, and counseling patient) on [DATE]. Quality VTE Deep Vein Thrombosis/Pulmonary Embolism Present on Admission: No
[2024-08-30] MEDS: CALCIUM CARBONATE 500 MG TAB 1000 MG PO ×3 (13:50→21:32)
[2024-08-30] MEDS: LOPERAMIDE 2 MG CAPSULE PO (20:35)
[2024-08-30] MEDS: ATORVASTATIN 20 MG TABLET 80 MG PO (20:35)
[2024-08-31] VITALS: BP 108/51; PULSE 59; RESP 17; TEMP 35.7; O2SAT 95
[2024-08-31 04:00] VITALS: BP 106/51; PULSE 60; RESP 17; TEMP 35.7; O2SAT 98
[2024-08-31 05:33] LABS: Hemoglobin 10.3 g/dL (13.5-17.5); Mean Corpuscular HGB Conc 35.4 % (30-36); Mean Corpuscular Hemoglobin 34.1 PG (26-34); Mean Corpuscular Volume 96.2 fL (80-100); Platelet Count 204 X10^3/uL (150-400); Red Blood Cell Count 3.01 X10^6/uL (4.5-5.9); Red Cell Distribution Width 13.3 % (11.6-14.8); White Blood Cell Count 7.1 X10^3/uL (4.5-11.0)
[2024-08-31 06:09] LABS: BUN Creatinine Ratio 12.2 (6-22); Blood Urea Nitrogen 12 mg/dL (9-20); Calcium 8.2 mg/dL (8.4-10.2); Carbon Dioxide 24 mmol/L (22-32); Chloride 108 mmol/L (98-107); Estimated Glomerular Filt Rate > 60 mL/min (>60); Glucose 90 mg/dL (80-110); HEMOLYSIS < 15 (0-50); Magnesium 1.5 mg/dL (1.6-2.3); Potassium 3.6 mmol/L (3.4-5.1); Sodium 135 mmol/L (137-145)
[2024-08-31 08:15] VITALS: BP 103/56; PULSE 61; RESP 16; TEMP 36.4; O2SAT 98
[2024-08-31] MEDS: MAGNESIUM CHLORIDE 64 MG TABLET 128 MG PO (10:00)
[2024-08-31 13:16] VITALS: BP 119/56; PULSE 66; RESP 15; TEMP 36.4; O2SAT 99
[2024-08-31] MEDS: CALCIUM CARBONATE 500 MG TAB 1000 MG PO ×2 (13:16→20:02)
--- NOTE | 2024-08-31 14:16 | PM.DS.1 ---
History of Present Illness History of Present Illness Chief complaint: v/d Discharge Providers Provider Date of admission: 08/26/24 10:48 Primary care physician: Doctor Kari MD Consults: 08/26/24 12:09 Consult to General Surgery Routine Comment: Consulting Provider: Lorena Olmedo Reason for consultation: diarrhea/colonoscopy Has provider been notified: Yes Discharge provider: Dillon Hanley MD Exam Vital Signs (past 8 hours): - 08/31/24 08:00 08/31/24 08:15 08/31/24 13:16 Temperature 97.6 F 97.5 F L Pulse Rate 61 66 Respiratory Rate 16 15 Blood Pressure 103/56 L 119/56 L Pulse Oximetry 98 99 Oxygen Delivery Method Room Air Oxygen Flow Rate 0 0 Oxygen Delivery Method Room Air Oxygen Flow Rate 0 Objective Labs 08/31/24 04:00 08/31/24 04:00 Labs: Laboratory Results - last 24 hr 08/31/24 04:00 WBC 7.1 RBC 3.01 L Hgb 10.3 L Hct 29.0 L MCV 96.2 MCH 34.1 H MCHC 35.4 RDW 13.3 Plt Count 204 Sodium 135 L Potassium 3.6 Chloride 108 H Carbon Dioxide 24 BUN 12 Creatinine 0.98 Estimated GFR > 60 BUN/Creatinine Ratio 12.2 Glucose 90 Calcium 8.2 L Magnesium 1.5 L PFSH Medical History Stroke Social History household members: none Smoking Status: Never smoker alcohol intake: current Discharge Plan Discharge orders & Medications Prescriptions: No Action atorvastatin 80 mg tablet 80 mg PO ONCE PM amlodipine 10 mg tablet 10 mg PO DAILY olmesartan 40 mg tablet 40 mg PO DAILY aspirin 81 mg Capsule 81 mg PO DAILY loperamide 2 mg Capsule 2 mg PO Q6H PRN (Reason: Diarrhea) Qty: 1 0RF calcium carbonate 200 mg calcium (500 mg) Tablet,Chewable 1,000 mg PO Q4HR PRN (Reason: Dyspepsia) Qty: 1 0RF Follow up/Referrals: Doctor Pierce MD [Primary Care Provider] - Discharge Data Primary Care Provider: Doctor Kari Quality VTE Deep Vein Thrombosis/Pulmonary Embolism Present on Admission: No
--- NOTE | 2024-08-31 16:49 | PM.PN.1 ---
Subjective Subjective Interval history: S: He was having improvement of his bowels and they are more solid today. He was still having some nausea. He was able to tolerate some of his diet. Minimal abdominal pain. Exam Vital Signs (past 8 hours): - 08/31/24 13:16 Temperature 97.5 F L Pulse Rate 66 Respiratory Rate 15 Blood Pressure 119/56 L Pulse Oximetry 99 Oxygen Flow Rate 0 Oxygen Delivery Method Room Air Oxygen Flow Rate 0 Narrative Exam Narrative: NAD, alert and oriented. Fluent speech. Lungs are clear, normal rate and effort. Heart is regular, no murmur gallop or rub. Abdomen is soft, non distended. Extremities are free of edema. Objective Labs 08/31/24 04:00 08/31/24 04:00 Labs: Laboratory Results - last 24 hr 08/31/24 04:00 WBC 7.1 RBC 3.01 L Hgb 10.3 L Hct 29.0 L MCV 96.2 MCH 34.1 H MCHC 35.4 RDW 13.3 Plt Count 204 Sodium 135 L Potassium 3.6 Chloride 108 H Carbon Dioxide 24 BUN 12 Creatinine 0.98 Estimated GFR > 60 BUN/Creatinine Ratio 12.2 Glucose 90 Calcium 8.2 L Magnesium 1.5 L PFSH Medical History Stroke Social History household members: none Smoking Status: Never smoker alcohol intake: current Assessment & Plan Assessment & Plan narrative: 1. Acute kidney injury secondary to #1, recurrent. Resolved with hydration. 2. Dehydration, nausea/vomiting/diarrhea. Rule out microscopic colitis (colonoscopy pathology pending), rule out carcinoid syndrome (24 hour urine collection for 5-HIAA). 3. History of CVA, stable. 4. Hypertension, stable. Plan: -discontinue scheduled Imodium, increased to QID -5 HIAA 24 urine collection -follow pathology (pending) RADHA: 09/01 if improved, Time-Based Coding :: [TOTAL MINUTES] spent with patient and on the chart (including review of chart, obtaining history, exam, reviewing outside data, placing orders, documenting exam and treatment plan, and counseling patient) on [DATE]. Quality VTE Deep Vein Thrombosis/Pulmonary Embolism Present on Admission: No
[2024-08-31 17:00] VITALS: BP 111/53; PULSE 62; RESP 15; TEMP 36.5; O2SAT 97
--- NOTE | 2024-08-31 17:14 | DIET.PN1 ---
Dietary Progress Note Assessment: Met w/ pt at bedside, reports improved PO intakes. He is ordering an ONS BID. Will continue to provide to meet needs. Per hospitalist note, TISHA resolved with hydration. Ht: 177 cm Wt: 72 kg BMI: 22.0 Last BM: 08/31/24 (08/31/24 09:23) MNA: 8 Maximilian Score: 21 Diet: 08/29/24 Dinner General (Regular) Diet Diet Modifications: Food Texture: Level 7 - Regular Liquid Consistency: Level 0 - Thin Nutrition Percent Meal Consumed 75% 08/31/24 13:16 Percent Meal Consumed 100% 08/31/24 09:23 Percent Meal Consumed 75% 08/30/24 17:52 Percent Meal Consumed 50% 08/29/24 18:00 Percent Meal Consumed 50 08/29/24 17:51 Labs: RBC 3.01 X10^6/uL (4.5-5.9) L 08/31/24 04:00 Hgb 10.3 g/dL (13.5-17.5) L 08/31/24 04:00 Hct 29.0 % (41-53) L 08/31/24 04:00 Creatinine 0.98 mg/dL (0.66-1.25) 08/31/24 04:00 Electronically Signed by: Anahi Hinson 08/31/24 17:14 Clinical Dietitian [address] [address]
[2024-08-31] MEDS: LOPERAMIDE 2 MG CAPSULE PO (20:02)
[2024-08-31] MEDS: ATORVASTATIN 20 MG TABLET 80 MG PO (20:02)
[2024-08-31 20:27] VITALS: BP 127/61; PULSE 62; RESP 17; TEMP 36.2; O2SAT 95
[2024-09-01 04:00] VITALS: BP 103/45; PULSE 62; RESP 17; TEMP 36.6; O2SAT 96
[2024-09-01 04:53] LABS: Hematocrit 29.4 % (41-53); Hemoglobin 10.2 g/dL (13.5-17.5); Mean Corpuscular HGB Conc 34.6 % (30-36); Mean Corpuscular Hemoglobin 33.4 PG (26-34); Mean Corpuscular Volume 96.6 fL (80-100); Platelet Count 223 X10^3/uL (150-400); Red Blood Cell Count 3.05 X10^6/uL (4.5-5.9); White Blood Cell Count 7.6 X10^3/uL (4.5-11.0)
[2024-09-01 05:13] LABS: BUN Creatinine Ratio 12.5 (6-22); Blood Urea Nitrogen 12 mg/dL (9-20); Calcium 8.1 mg/dL (8.4-10.2); Carbon Dioxide 25 mmol/L (22-32); Chloride 107 mmol/L (98-107); Estimated Glomerular Filt Rate > 60 mL/min (>60); Glucose 108 mg/dL (80-110); HEMOLYSIS < 15 (0-50); Potassium 3.6 mmol/L (3.4-5.1); Sodium 134 mmol/L (137-145)
[2024-09-01 05:37] LABS: Magnesium 1.5 mg/dL (1.6-2.3)
[2024-09-01 08:00] VITALS: BP 96/49; PULSE 58; RESP 16; TEMP 36.1; O2SAT 97
[2024-09-01] MEDS: MAGNESIUM SULFATE 2 GM/50 ML PIGGYBACK IV (09:11)
--- NOTE | 2024-09-01 10:48 | PM.PN.1 ---
Subjective Subjective Interval history: S: more formed stool. Less nausea. No abdomen pain. Exam Vital Signs (past 8 hours): - 09/01/24 04:00 09/01/24 08:00 Temperature 97.9 F 97.0 F L Pulse Rate 62 58 L Respiratory Rate 17 16 Blood Pressure 103/45 L 96/49 L Pulse Oximetry 96 97 Oxygen Flow Rate 0 Oxygen Delivery Method Room Air Oxygen Flow Rate 0 Narrative Exam Narrative: NAD, alert and oriented. Fluent speech. Lungs are clear, normal rate and effort. Heart is regular, no murmur gallop or rub. Abdomen is soft, non distended. Extremities are free of edema. Objective Labs 09/01/24 04:35 09/01/24 04:35 Labs: Laboratory Results - last 24 hr 09/01/24 04:35 WBC 7.6 RBC 3.05 L Hgb 10.2 L Hct 29.4 L MCV 96.6 MCH 33.4 MCHC 34.6 RDW 13.0 Plt Count 223 Sodium 134 L Potassium 3.6 Chloride 107 Carbon Dioxide 25 BUN 12 Creatinine 0.96 Estimated GFR > 60 BUN/Creatinine Ratio 12.5 Glucose 108 Calcium 8.1 L Magnesium 1.5 L PFSH Medical History Stroke Social History household members: none Smoking Status: Never smoker alcohol intake: current Comment: 1. Acute kidney injury secondary to #1, recurrent. Resolved with hydration. 2. Dehydration, nausea/vomiting/diarrhea. Rule out microscopic colitis (colonoscopy pathology pending), rule out carcinoid syndrome (24 hour urine collection for 5-HIAA). 3. History of CVA, stable. 4. Hypertension, stable. Plan: -Continue Imodium, increased to QID -5 HIAA 24 urine collection -he was improving. We will watch him an additional night and likely discharge tomorrow morning, September 02. The patient has had multiple readmit for severe acute kidney injury related to his diarrhea. We will going to be sure that he is not going to have recurrent diarrhea or issues with recurrent TISHA. Assessment & Plan Time-Based Coding :: [TOTAL MINUTES] spent with patient and on the chart (including review of chart, obtaining history, exam, reviewing outside data, placing orders, documenting exam and treatment plan, and counseling patient) on [DATE]. Quality VTE Deep Vein Thrombosis/Pulmonary Embolism Present on Admission: No
[2024-09-01] MEDS: MAGNESIUM CHLORIDE 64 MG TABLET 128 MG PO (11:27)
--- NOTE | 2024-09-01 11:59 | CM.DPC ---
DCP Cont. Reviewed EMR and team rounds for status updates. Pt will need 1-more night in order to continue more immodium and monitoring him hemodynamically before he will be cleared for d/c. D/c anticipated for 09/02. No CM needs are anticipated at this time.
[2024-09-01 12:00] VITALS: BP 107/48; PULSE 55; RESP 16; TEMP 36.2; O2SAT 98
[2024-09-01 15:00] VITALS: BP 145/50; PULSE 58; RESP 16; TEMP 36.6; O2SAT 97
[2024-09-01] MEDS: LOPERAMIDE 2 MG CAPSULE PO ×2 (17:47→20:53)
[2024-09-01] MEDS: CALCIUM CARBONATE 500 MG TAB 1000 MG PO (19:01)
[2024-09-01 20:00] VITALS: BP 111/58; PULSE 64; RESP 22; TEMP 36.7; O2SAT 99
[2024-09-01] MEDS: ATORVASTATIN 20 MG TABLET 80 MG PO (20:53)
[2024-09-01 21:00] VITALS: BP 137/65; PULSE 68; RESP 16; TEMP 36.4; O2SAT 100
[2024-09-02] VITALS: BP 109/56; PULSE 73; RESP 22; TEMP 36.7; O2SAT 96
[2024-09-02 04:00] VITALS: BP 127/55; PULSE 71; RESP 22; TEMP 36.4; O2SAT 95
[2024-09-02 05:05] LABS: Add Manual Diff / Slide Review NO; Basophils Absolute Auto 100 /uL (0-100); Basophils Percent Auto 1.1 % (0-2); Eosinophils Absolute Auto 200 /uL (0-450); Hematocrit 31.3 % (41-53); Hemoglobin 10.9 g/dL (13.5-17.5); Lymphocytes Absolute Auto 1300 /uL (1100-4500); Lymphocytes Percent Auto 15.4 % (25-40); Mean Corpuscular HGB Conc 34.9 % (30-36); Mean Corpuscular Hemoglobin 33.6 PG (26-34); Mean Corpuscular Volume 96.2 fL (80-100); Monocytes Absolute Auto 1000 /uL (0-900); Monocytes Percent Auto 11.5 % (3-14); Neutrophils Absolute Auto 5800 /uL (1500-7000); Platelet Count 239 X10^3/uL (150-400); Red Blood Cell Count 3.26 X10^6/uL (4.5-5.9); White Blood Cell Count 8.3 X10^3/uL (4.5-11.0)
[2024-09-02 05:23] LABS: BUN Creatinine Ratio 13.3 (6-22); Blood Urea Nitrogen 11 mg/dL (9-20); Calcium 8.4 mg/dL (8.4-10.2); Carbon Dioxide 25 mmol/L (22-32); Chloride 105 mmol/L (98-107); Estimated Glomerular Filt Rate > 60 mL/min (>60); Glucose 104 mg/dL (80-110); HEMOLYSIS 20 (0-50); Magnesium 1.6 mg/dL (1.6-2.3); Potassium 3.6 mmol/L (3.4-5.1); Sodium 133 mmol/L (137-145)
[2024-09-02] MEDS: MAGNESIUM CHLORIDE 64 MG TABLET 128 MG PO (07:42)
[2024-09-02 08:00] VITALS: BP 110/51; PULSE 61; RESP 16; TEMP 36.1; O2SAT 98
[2024-09-02] MEDS: LOPERAMIDE 2 MG CAPSULE PO (09:26)
[2024-09-02 09:31] VITALS: BP 110/51; PULSE 61
[2024-09-02] MEDS: AMLODIPINE 5 MG TABLET 10 MG PO (09:31)
[2024-09-02] MEDS: LOSARTAN 50 MG TABLET 100 MG PO (09:31)
--- NOTE | 2024-09-02 09:31 | P.DS_ITS ---
History of Present Illness History of Present Illness Chief complaint: v/d Narrative: 84-year-old man with history of onset of vomiting and diarrhea starting in late July presents for his 3rd hospital admission with recurrent vomiting and diarrhea. He was hospitalized at this hospital 08/12 2024 through 08/14/2024 and again through with extensive negative evaluation is negative stool viral and bacterial panel, Clostridium difficile testing, abdomen and pelvic CT scans on 2 occasions, resolving with antiemetics, hydration, and Imodium, only to recur soon after discharge. He states he had 1 good day following his recent hospitalization before suddenly experiencing nausea, simultaneous liquid diarrhea and pelvic pressure. He is admitted for further management and evaluation. Discharge Providers Provider Date of admission: 08/26/24 10:48 Discharge Date: 09/02/24 Primary care physician: Doctor Kari MD Consults: 08/26/24 12:09 Consult to General Surgery Routine Comment: Consulting Provider: Lorena Olmedo Reason for consultation: diarrhea/colonoscopy Has provider been notified: Yes Discharge provider: Dillon Hanley MD Summary Hospital Course Discharge Diagnosis: 1. Acute kidney injury secondary to #1, recurrent. Resolved with hydration. 2. Dehydration, nausea/vomiting/diarrhea. Rule out microscopic colitis (colonoscopy pathology pending), rule out carcinoid syndrome (24 hour urine collection for 5-HIAA). 3. History of CVA, stable. 4. Hypertension, stable. 5. Diarrhea with pathology evidence of lymphocytic colitis. Hospital Course: He was had multiple hospital admissions for volume depletion from diarrhea and nausea with vomiting. These of each caused acute kidney injury. He presented with the same. He improved with Imodium, and fluid resuscitation. Colonoscopy was performed with a biopsy. The biopsy revealed normal tissue in the terminal in the ileum, as well as evidence of microscopic lymphocytic colitis. He will use loperamide over the weekend and sees his primary care on Friday, Dr. Viera. I have message Dr. Viera and requested an expedite a GI referral to [facility]. Status at Discharge Cognitive/behavioral status at discharge: oriented Functional status at discharge: independent ambulation Overall status at discharge: patient is back to baseline Time Spent with Patient Time spent: Greater than 30 minutes Exam Vital Signs (past 8 hours): - 09/02/24 04:00 Temperature 97.5 F L Pulse Rate 71 Respiratory Rate 22 Blood Pressure 127/55 L Pulse Oximetry 95 Oxygen Flow Rate 0 Oxygen Delivery Method Room Air Oxygen Flow Rate 0 Narrative Exam Narrative: NAD, alert and oriented. Fluent speech. Lungs are clear, normal rate and effort. Heart is regular, no murmur gallop or rub. Abdomen is soft, non distended. Extremities are free of edema. Objective Labs 09/02/24 04:34 09/02/24 04:34 Labs: Laboratory Results - last 24 hr 09/02/24 04:34 WBC 8.3 RBC 3.26 L Hgb 10.9 L Hct 31.3 L MCV 96.2 MCH 33.6 MCHC 34.9 RDW 13.0 Plt Count 239 Neut % (Auto) 69.0 Lymph % (Auto) 15.4 L [place] % (Auto) 11.5 Eos % (Auto) 3.0 Baso % (Auto) 1.1 Neut # (Auto) 5800 Lymph # (Auto) 1300 [place] # (Auto) 1000 H Eos # (Auto) 200 Baso # (Auto) 100 Sodium 133 L Potassium 3.6 Chloride 105 Carbon Dioxide 25 BUN 11 Creatinine 0.83 Estimated GFR > 60 BUN/Creatinine Ratio 13.3 Glucose 104 Calcium 8.4 Magnesium 1.6 [facility] Medical History Stroke Social History household members: none Smoking Status: Never smoker alcohol intake: current Discharge Assessment & Plan Assessment and Plan Assessment: 1. Acute kidney injury secondary to #1, recurrent. Resolved with hydration. 2. Dehydration, nausea/vomiting/diarrhea. Rule out microscopic colitis (colonoscopy pathology pending), rule out carcinoid syndrome (24 hour urine collection for 5-HIAA). 3. History of CVA, stable. 4. Hypertension, stable. 5. Diarrhea with pathology evidence of lymphocytic colitis. Plan of Treatment: Discharge home with q.i.d. loperamide, copious fluid intake, and a trial of budesonide. Close follow up with PCP as scheduled for 4 days following the date of discharge. I have message PCP to request a GI referral. Discharge Plan Discharge Plan Patient Disposition: Home Provider Discharge Comment: Stable for discharge home with close follow up with Dr. Dixon. We will recommend gastroenterology referral at [facility]. Discharge orders & Medications Prescriptions: New budesonide 4 mg capsule,delayed release(DR/EC) 8 mg PO DAILY 14 Days Qty: 30 0RF Continued atorvastatin 80 mg tablet 80 mg PO ONCE PM amlodipine 10 mg tablet 10 mg PO DAILY olmesartan 40 mg tablet 40 mg PO DAILY aspirin 81 mg Capsule 81 mg PO DAILY loperamide 2 mg Capsule 2 mg PO Q6H PRN (Reason: Diarrhea) Qty: 1 0RF calcium carbonate 200 mg calcium (500 mg) Tablet,Chewable 1,000 mg PO Q4HR PRN (Reason: Dyspepsia) Qty: 1 0RF Follow up/Referrals: Miscellaneous,Doctor, [Primary Care Provider] - Discharge Health Status Multidrug resistant organism: No MDRO Diet/Activity/Treatments Diet: Diet as Tolerated Visit Report/Discharge Packet Instructions: High-Fiber Diet, DI for Diarrhea and Traveler's Diarrhea -- Adult Stand Alone Forms: Patient Portal/API Discharge Data Primary Care Provider: Kari,Doctor Quality VTE Deep Vein Thrombosis/Pulmonary Embolism Present on Admission: No
--- NOTE | 2024-09-02 11:12 | PC.NURSE ---
Patient A&OX4, VSS, afebrile on RA. He denies n/v. He reports having some bouts of diarrhea overnight. He is cleared for discharge today with medications. MD at bedside discussing biopsies and follow up with enterology. Patient verbalizes understanding and agreement with medications and follow up plan. He is escorted via w/ch by [employer] to private vehicle with son this a.m. for discharge home at approximately 11:15 a.m.
[2024-09-04 06:36] LABS: Creatinine Urine 147.1 mg/dL (Not Estab.)
== END 2024-09-02 11:14 | disposition home or self-care (01) | DRG 392 ==
LOC: ED 10:07 → AC 10:48
PROVIDERS: Emergency Medicine; Hospitalist; Internal Medicine; Surgery; Admitting Provider Internal Medicine; Emergency Provider Emergency Medicine; Family Provider Family Medicine Geriatric Medicine; Referring Provider Emergency Medicine; Visit Provider Internal Medicine
PROC: 0DJD8ZZ Inspection of Lower Intestinal Tract, Via Natural or Artificial Opening Endoscopic (ICD-10-PCS; CPT 45378; principal; 2024-08-27 12:45)
DX: K52.832 Lymphocytic colitis (principal); N17.9 Acute kidney failure, unspecified; E86.0 Dehydration; I10 Essential (primary) hypertension; K62.1 Rectal polyp; R11.2 Nausea with vomiting, unspecified; Z86.73 Personal history of transient ischemic attack (TIA), and cerebral infarction without residual deficits
CPT/HCPCS: 36415; 51798; 74018; 80048; 80053; 82570; 83497; 83690; 83735; 85025; 85027; 99284; J2405; J2704; J3475

== ENCOUNTER 2024-09-03 10:23 | Observation (INO) | payer MEDICARE, SELFPAY ==
[2024-08-26 11:40] VITALS: BMI 22.0
[2024-09-03] VITALS (13 sets, daily range): BP systolic 82–137; BP diastolic 42–63; PULSE 76–113; RESP 12–44; TEMP 36.3–37.1; O2SAT 96–99; BMI 22.9
[2024-09-03 10:48] LABS: Add Manual Diff / Slide Review NO; Basophils Absolute Auto 0 /uL (0-100); Basophils Percent Auto 0.2 % (0-2); Eosinophils Absolute Auto 100 /uL (0-450); Eosinophils Percent Auto 0.9 % (2-4); Hematocrit 39.5 % (41-53); Hemoglobin 13.3 g/dL (13.5-17.5); Lymphocytes Absolute Auto 700 /uL (1100-4500); Lymphocytes Percent Auto 5.2 % (25-40); Mean Corpuscular HGB Conc 33.6 % (30-36); Mean Corpuscular Hemoglobin 32.8 PG (26-34); Mean Corpuscular Volume 97.7 fL (80-100); Monocytes Absolute Auto 1000 /uL (0-900); Monocytes Percent Auto 8.1 % (3-14); Neutrophils Absolute Auto 10700 /uL (1500-7000); Neutrophils Percent Auto 85.6 % (50-75); Platelet Count 319 X10^3/uL (150-400); Red Blood Cell Count 4.04 X10^6/uL (4.5-5.9); Red Cell Distribution Width 13.3 % (11.6-14.8); White Blood Cell Count 12.5 X10^3/uL (4.5-11.0)
--- NOTE | 2024-09-03 10:50 | ED_ITS ---
HPI - Nausea/Vomiting/Diarrhea General Chief complaint: Nausea/Vomiting/Diarrhea Stated complaint: D/V Time Seen by Provider: 09/03/24 10:34 History of Present Illness HPI Narrative: Patient brought in by ambulance from home. Blood sugar 127. Patient discharged from this hospital yesterday for intractable vomiting diarrhea. Patient states he was doing well last night no diarrhea. However this morning had admits amount of nonbloody emesis. Patient is short of breath because he is anxious and nervous he states. The ambulance ride made him nervous. Denies any chest pain or abdominal pain. Vital signs noted. Patient in no distress. Was able to walk self to bathroom and back. Has felt dehydrated and dizzy. Patient did have colonoscopy August 27, [address] [address] Discharge Summary Patient: Garrett Torres MR#: [id number] : 1940 Acct:[id number] Age/Sex: 84 / M Admit Date: 08/26/24 Provider: Dillon Hanley MD History of Present Illness History of Present Illness Chief complaint: v/d Narrative: 84-year-old man with history of onset of vomiting and diarrhea starting in late July presents for his 3rd hospital admission with recurrent vomiting and diarrhea. He was hospitalized at this hospital 08/12 2024 through 08/14/2024 and again through with extensive negative evaluation is negative stool viral and bacterial panel, Clostridium difficile testing, abdomen and pelvic CT scans on 2 occasions, resolving with antiemetics, hydration, and Imodium, only to recur soon after discharge. He states he had 1 good day following his recent hospitalization before suddenly experiencing nausea, simultaneous liquid diarrhea and pelvic pressure. He is admitted for further management and evaluation. Summary Hospital Course Discharge Diagnosis: 1. Acute kidney injury secondary to #1, recurrent. Resolved with hydration. 2. Dehydration, nausea/vomiting/diarrhea. Rule out microscopic colitis (colonoscopy pathology pending), rule out carcinoid syndrome (24 hour urine collection for 5-HIAA). 3. History of CVA, stable. 4. Hypertension, stable. 5. Diarrhea with pathology evidence of lymphocytic colitis. Hospital Course: He was had multiple hospital admissions for volume depletion from diarrhea and nausea with vomiting. These of each caused acute kidney injury. He presented with the same. He improved with Imodium, and fluid resuscitation. Colonoscopy was performed with a biopsy. The biopsy revealed normal tissue in the terminal in the ileum, as well as evidence of microscopic lymphocytic colitis. He will use loperamide over the weekend and sees his primary care on Friday, Dr. Viera. I have message Dr. Viera and requested an expedite a GI referral to [facility]. Status at Discharge Cognitive/behavioral status at discharge: oriented Functional status at discharge: independent ambulation Overall status at discharge: patient is back to baseline Related Data Home Medications Medication Instructions Recorded Confirmed aspirin 81 mg capsule 81 mg PO DAILY 08/12/24 09/03/24 atorvastatin 80 mg tablet 80 mg PO ONCE PM 08/12/24 09/03/24 Previous Rx's Medication Instructions Recorded calcium carbonate 1,000 mg (5 x 200 mg calcium (500 08/14/24 mg)) PO Q4HR PRN Dyspepsia #1 tab loperamide 2 mg capsule 2 mg PO Q6H PRN Diarrhea #1 cap 08/14/24 budesonide 3 mg 3 mg PO BID #30 ea 09/05/24 capsule,delayed,extended release Allergies Allergy/AdvReac Type Severity Reaction Status Date / Time No Known Drug Allergies Allergy Verified 08/27/24 11:49 Review of Systems Review of Systems Narrative: GENERAL: negative chills, fatigue, malaise, fever, sweats. HEENT: negative sinus pain, ear pain, sore throat RESPIRATORY: negative dyspnea, cough CARDIOVASCULAR: negative chest pain, palpitations GASTROINTESTINAL: Positive nausea, vomiting, diarrhea, abdominal pain : negative dysuria, frequency, hematuria MUSCULOSKELETAL: negative muscle or bony pain SKIN: negative rash, skin lesions NEUROLOGIC: negative weakness, numbness ROS Unobtainable: All systems reviewed & are unremarkable except as noted in HPI and below Patient History Medical History Stroke Social History household members: none Smoking Status: Never smoker alcohol intake: current Smoking Status: Never smoker alcohol intake frequency: holidays/special occasions only Substance Use Type: does not use Exam Narrative Exam Narrative: GENERAL: in no distress, not toxic not dyspneic HEAD: Normocephalic. EYES: Pupils equal round ENT: Mucous membranes moist. NECK: Trachea midline. CARDIOVASCULAR: Regular rate and rhythm, tachycardic RESPIRATORY: Clear to auscultation. Breath sounds equal bilaterally. No wheezes, rales, or rhonchi. GASTROINTESTINAL: Abdomen soft, non-tender EXTREMITIES: No gross deformities. BACK: No flank tenderness. NEURO: AOx4. Clear speech SKIN: Warm and dry PSYCH: Not anxious, is cooperative Initial Vital Signs Initial Vital Signs: Vital Signs Pulse Rate 113 H 09/03/24 10:30 Respiratory Rate 23 09/03/24 10:30 Pulse Oximetry 99 09/03/24 10:30 Course Orders Ordered: Discontinued Medications Acetaminophen (Acetaminophen 325 Mg Tablet) 650 mg PO Q6H PRN PRN Reason: Fever/Mild Pain (1-3) Aspirin (Aspirin Ec 81 Mg Tablet) 81 mg PO DAILY [facility] Last Admin: 09/05/24 08:55 Dose: 81 mg Documented By: Admin: 09/04/24 09:15 Dose: 81 mg Documented By: FRANCISCO Atorvastatin Calcium (Atorvastatin 20 Mg Tablet) 80 mg PO BEDTIME [facility] Last Admin: 09/04/24 20:53 Dose: 80 mg Documented By: Admin: 09/03/24 21:12 Dose: 80 mg Documented By: Budesonide (Budesonide 3 Mg Cap) 3 mg PO BID [facility] Last Admin: 09/05/24 08:55 Dose: 3 mg Documented By: Admin: 09/04/24 20:53 Dose: 3 mg Documented By: Admin: 09/04/24 09:15 Dose: 3 mg Documented By: Admin: 09/03/24 21:12 Dose: 3 mg Documented By: Admin: 09/03/24 15:45 Dose: 3 mg Documented By: BOOKER Heparin Sodium (Porcine) (Heparin 5,000 Unit/Ml Vial) 5,000 unit SUBCUT BID [facility] Last Admin: 09/05/24 08:55 Dose: 5,000 unit Documented By: Admin: 09/04/24 20:53 Dose: 5,000 unit Documented By: Admin: 09/04/24 09:15 Dose: 5,000 unit Documented By: Admin: 09/03/24 21:12 Dose: 5,000 unit Documented By: Sodium Chloride (Normal Saline 0.9%) 1,000 mls @ 1,000 mls/hr IV BOLUS ONE Stop: 09/03/24 11:38 Last Infusion: 09/03/24 12:21 Dose: Infused Documented By: Admin: 09/03/24 10:53 Dose: 1,000 mls/hr Documented By: LOLI Sodium Chloride (Normal Saline 0.9%) 1,000 mls @ 100 mls/hr IV CONT JOSÉ MIGUEL Last Infusion: 09/04/24 11:18 Dose: 0 mls/hr Documented By: Admin: 09/04/24 04:53 Dose: 100 mls/hr Documented By: Infusion: 09/04/24 01:51 Dose: Infused Documented By: Admin: 09/03/24 15:51 Dose: 100 mls/hr Documented By: BOOKER Sodium Chloride (Normal Saline 0.9%) 1,000 mls @ 1,000 mls/hr IV BOLUS ONE Stop: 09/03/24 19:41 Last Admin: 09/03/24 18:50 Dose: 1,000 mls/hr Documented By: BOOKER Dextrose (D10w) 100 mls @ 999 mls/hr IV PRN PRN PRN Reason: Hypoglycemia Insulin Human Lispro (Insulin Lispro 100 Unit/Ml 3ml Vial) 0 unit SUBCUT ACHS [facility]; Protocol Loperamide HCl (Loperamide 2 Mg Capsule) 2 mg PO QID PRN PRN Reason: Diarrhea Last Admin: 09/05/24 08:54 Dose: 2 mg Documented By: Admin: 09/05/24 03:12 Dose: 2 mg Documented By: Admin: 09/04/24 20:53 Dose: 2 mg Documented By: Admin: 09/04/24 14:54 Dose: 2 mg Documented By: Admin: 09/04/24 09:15 Dose: 2 mg Documented By: Admin: 09/03/24 21:12 Dose: 2 mg Documented By: Admin: 09/03/24 14:19 Dose: 2 mg Documented By: BOOKER Naloxone HCl (Naloxone 0.4 Mg/Ml Vial) 0.2 mg IV Q2MIN PRN PRN Reason: Opiate Reversal Ondansetron HCl (Ondansetron 4 Mg/2 Ml Inj) 4 mg IV NOW ONE Stop: 09/03/24 10:41 Last Admin: 09/03/24 10:53 Dose: 4 mg Documented By: LOLI Ondansetron HCl (Ondansetron 4 Mg/2 Ml Inj) 4 mg IV Q8HR PRN PRN Reason: Nausea And Vomiting Potassium Chloride (Potassium Chloride 20 Meq Tab) 20 meq PO BIDWM [facility] Last Admin: 09/05/24 08:55 Dose: 20 meq Documented By: Admin: 09/04/24 16:08 Dose: 20 meq Documented By: Admin: 09/04/24 09:15 Dose: 20 meq Documented By: Admin: 09/03/24 16:03 Dose: 20 meq Documented By: BOOKER Vital Signs Vital signs: Vital Signs - 8 hr 09/03/24 10:30 09/03/24 10:32 09/03/24 10:32 Temperature Pulse Rate 113 H 100 H Respiratory Rate 23 19 Blood Pressure 98/52 L Pulse Oximetry 99 99 Oxygen Delivery Method 09/03/24 10:47 09/03/24 10:47 09/03/24 10:53 Temperature 98.7 F Pulse Rate 109 H 100 H Respiratory Rate 44 H 26 H Blood Pressure 82/43 L 82/43 L Pulse Oximetry 97 Oxygen Delivery Method Room Air 09/03/24 11:00 09/03/24 11:00 09/03/24 11:29 Temperature Pulse Rate 95 H Respiratory Rate 35 H Blood Pressure 137/60 98/55 L Pulse Oximetry 97 Oxygen Delivery Method 09/03/24 11:29 09/03/24 11:30 09/03/24 11:30 Temperature Pulse Rate 85 86 Respiratory Rate Blood Pressure 87/50 L Pulse Oximetry 98 98 Oxygen Delivery Method Room Air 09/03/24 12:00 09/03/24 12:00 Temperature Pulse Rate 81 Respiratory Rate 27 H Blood Pressure 106/51 L Pulse Oximetry 99 Oxygen Delivery Method MDM - Nausea/Vomiting/Diarrhea Lab Data 09/04/24 04:38 09/05/24 05:00 Labs: Lab Results 09/03/24 Range/Units 10:34 WBC 12.5 H D (4.5-11.0) X10^3/uL RBC 4.04 L (4.5-5.9) X10^6/uL Hgb 13.3 L (13.5-17.5) g/dL Hct 39.5 L (41-53) % MCV 97.7 (80-100) fL MCH 32.8 (26-34) PG MCHC 33.6 (30-36) % RDW 13.3 (11.6-14.8) % Plt Count 319 (150-400) X10^3/uL Neut % (Auto) 85.6 H (50-75) % Lymph % (Auto) 5.2 L (25-40) % Casey % (Auto) 8.1 (3-14) % Eos % (Auto) 0.9 L (2-4) % Baso % (Auto) 0.2 (0-2) % Neut # (Auto) 59032 H (3472-9881) /uL Lymph # (Auto) 700 L (5897-3417) /uL Casey # (Auto) 1000 H (0-900) /uL Eos # (Auto) 100 (0-450) /uL Baso # (Auto) 0 (0-100) /uL Sodium 140 (137-145) mmol/L Potassium 3.3 L (3.4-5.1) mmol/L Chloride 103 (98-107) mmol/L Carbon Dioxide 20 L (22-32) mmol/L BUN 9 (9-20) mg/dL Creatinine 1.44 H (0.66-1.25) mg/dL Estimated GFR 48 L (>60) mL/min BUN/Creatinine Ratio 6.3 (6-22) Glucose 111 H (80-110) mg/dL Lactate 7.6 H* (0.7-2.1) mmol/L Calcium 9.4 (8.4-10.2) mg/dL Total Bilirubin 0.9 (0.2-1.3) mg/dL AST 61 H (17-59) IU/L ALT 75 H (<50) IU/L Alkaline Phosphatase 125 (38-126) U/L Total Protein 6.9 (6.3-8.2) g/dL Albumin 3.9 (3.5-5.0) g/dL Globulin 3.0 (1.7-4.1) g/dL Albumin/Globulin Ratio 1.3 (1.0-2.8) Lipase 137 D (23-300) U/L Procalcitonin 0.425 (<0.5) ng/mL Chlamy pneumoniae PCR Not detected (Not Detect) Adenovirus (PCR) Not detected (Not Detect) B. pertussis DNA (PCR) Not detected (Not Detect) B.parapertussis DNA PCR Not detected (Not Detecte) Coronavirus OC43 (PCR) Not detected (Not Detect) Coronavirus HKU1 (PCR) Not detected (Not Detect) Coronavirus 229E (PCR) Not detected (Not Detect) SARS-CoV-2 (PCR) Not detected (Not Detecte) Coronavirus NL63 (PCR) Not detected (Not Detect) Human Metapneumovir PCR Not detected (Not Detect) Influenza Type A (PCR) Not detected (Not Detect) Influenza Type B (PCR) Not detected (Not Detect) M. pneumoniae (PCR) Not detected (Not Detect) Parainfluenza 1 (PCR) Not detected (Not Detect) Parainfluenza 2 (PCR) Not detected (Not Detect) Parainfluenza 3 (PCR) Not detected (Not Detect) Parainfluenza 4 (PCR) Not detected (Not Detect) RSV (PCR) Not detected (Not Detect) Entero/Rhino (PCR) Not detected (Not Detect) Point of Care Testing Glucose POC [address] chest abdomen pelvis: Radiologist's Impression: [place] [id number] CT Scan Report Signed Patient: Garrett Torres MR#: [id number] : 1940 Acct:[id number] Age/Sex: 84 / M Date of Service: 09/03/24 Loc: ED Accession Number: [id number] Procedure: CT chest abd pel wo con Ordering Provider: Edmond Marie MD PROCEDURE: CT CHEST ABD PEL WO CON INDICATIONS: sepsis TECHNIQUE: After the administration of oral contrast, 5 mm thick sections acquired from the lung apices to the symphysis pubis. 5 mm thick coronal and sagittal reformats acquired, with additional 7 mm coronal MIP reformats through the lungs. For radiation dose reduction, the following was used: automated exposure control, adjustment of mA and/or kV according to patient size. COMPARISON: None. FINDINGS: Image quality: Diagnostic. CHEST: Lower Neck: No enlarged lymph nodes. Thyroid: No thyroid nodules which require sonographic follow up, per consensus guidelines. Axillae: No enlarged lymph nodes. Chest Wall: Unremarkable. Bones: Unremarkable. Lungs and Pleura: No pneumothorax or pleural effusions. 0.6 cm subsolid pulmonary nodule, right upper lobe, image 92 of series 5. Heart: Heart size is normal. No pericardial effusion. Thoracic Vessels: The aorta and pulmonary arteries demonstrate normal size. Mediastinum and Maureen: No enlarged lymph nodes. Esophagus: No wall thickening. [id number] hiatal hernia. ABDOMEN: Liver: No solid mass. Gallbladder: No radiopaque gallstones or wall thickening. Biliary ducts: No biliary dilation. Pancreas: No ductal dilation. Spleen: Size is within normal limits. Adrenal Glands: No adrenal nodules. Kidneys and Ureters: No hydronephrosis. No solid mass. No complex renal cystic lesion which requires follow up. Stomach and Bowel: Normal colonic caliber, without significant wall thickening. Jcoy-wh-oalbqdou sigmoid diverticulosis without evidence of acute diverticulitis. Predominantly liquid colonic contents suggest possible gastroenteritis. Peritoneum: No abnormal intraperitoneal fluid. No free air. Ventral Wall: No hernia. Abdominal Nodes: No retroperitoneal or mesenteric adenopathy by size criteria. Vessels: Aorta and inferior vena cava are normal in size. PELVIS: Pelvic Organs: Unremarkable. Bladder: Unremarkable. Pelvic Nodes: No enlarged lymph nodes. Miscellaneous: No inguinal hernias are seen. Bones: No aggressive osseous abnormality. Old mild compressions of T4, T12, and L4. IMPRESSION: 1. Question gastroenteritis. 2. No acute pulmonary findings. 3. Note made of a 6 mm subsolid pulmonary nodule, right upper lobe. 4. No other potentially acute findings in the abdomen and pelvis. 5. Diverticulosis without evidence of acute diverticulitis. 6. 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 Comment: Consider potential six-month follow-up CT chest for the 6 mm subsolid pulmonary nodule. Dictated by: Travis Crane M.D. on 09/03/2024 at 11:33 Approved by: Travis Craen M.D. on 09/03/2024 at 11:40 [facility] Narrative Medical decision making narrative: Patient brought in by ambulance from home. Blood sugar 127. Patient discharged from this hospital yesterday for intractable vomiting diarrhea. Patient states he was doing well last night no diarrhea. However this morning had admits amount of nonbloody emesis. Patient is short of breath because he is anxious and nervous he states. The ambulance ride made him nervous. Denies any chest pain or abdominal pain. Vital signs noted. Patient in no distress. Was able to walk self to bathroom and back. Has felt dehydrated and dizzy. After history and exam CBC CMP lactic acid procalcitonin Zofran normal saline EKG respiratory panel [facility] Medical records reviewed: Discharge summary from yesterday Differential considered: Includes but not limited to respiratory infection colitis gastroenteritis Lab Test results independently reviewed as above. Pertinent findings: WBC 12.5 hemoglobin 13.3 sodium 140 potassium 3.3 bicarb 20 creatinine 1.44 GFR 48 glucose 111 lactic acid 7.6 AST 61 ALT 75 lipase 137 procalcitonin 0.425 Independently reviewed EKG normal sinus rhythm rate [address] elevation or depression Imaging studies independently reviewed: CT chest abdomen pelvis no acute finding Consultations: 12:[address] Hanley, hospitalist, who will admit for observation Treatments: Normal saline, Zofran Re-evaluations: 12:30 p.m.. Patient agrees for admission. Vital signs improving blood pressure improved heart rate improved. Reviewed results with him. He does agree for admission Discussion: Appropriate for admission for IV hydration Diagnosis: Dehydration, gastroenteritis Discharge Plan Departure Patient Disposition: Admitted as Observation Clinical Impression: Dehydration Admit Date/Time: 09/03/24 12:38 Admit Provider: Dillon Hanley
[2024-09-03] MEDS: SODIUM CHLORIDE 0.9% 1,000 ML 1000 ML IV ×2 (10:53→18:50)
[2024-09-03] MEDS: ONDANSETRON 4 MG/2 ML INJ IV (10:53)
--- NOTE | 2024-09-03 10:57 | PC.NURSE ---
Arrives with [facility], SOB, tachy 100-110, BP 82/43, shuffling gait to BR. denies And pain however having NVD. was here yesterday for colitis and given steroids. took first dose of steroids this morning and got sick.
[2024-09-03 10:59] LABS: Albumin 3.9 g/dL (3.5-5.0); Albumin Globulin Ratio 1.3 (1.0-2.8); Alkaline Phosphatase 125 U/L (38-126); Aspartate Aminotransferase 61 IU/L (17-59); BUN Creatinine Ratio 6.3 (6-22); Bilirubin Total 0.9 mg/dL (0.2-1.3); Blood Urea Nitrogen 9 mg/dL (9-20); Calcium 9.4 mg/dL (8.4-10.2); Carbon Dioxide 20 mmol/L (22-32); Chloride 103 mmol/L (98-107); Estimated Glomerular Filt Rate 48 mL/min (>60); Glucose 111 mg/dL (80-110); Lipase 137 U/L (23-300); Potassium 3.3 mmol/L (3.4-5.1); Sodium 140 mmol/L (137-145); Total Protein 6.9 g/dL (6.3-8.2)
[2024-09-03 11:02] LABS: Lactate (Lactic Acid) 7.6 mmol/L (0.7-2.1)
[2024-09-03 11:08] LABS: Alanine Aminotransferase 75 IU/L (<50); HEMOLYSIS 28 (0-50)
--- NOTE | 2024-09-03 11:13 | DI.CT.S_ITS ---
PROCEDURE: CT CHEST ABD PEL WO CON INDICATIONS: sepsis TECHNIQUE: After the administration of oral contrast, 5 mm thick sections acquired from the lung apices to the symphysis pubis. 5 mm thick coronal and sagittal reformats acquired, with additional 7 mm coronal MIP reformats through the lungs. For radiation dose reduction, the following was used: automated exposure control, adjustment of mA and/or kV according to patient size. COMPARISON: None. FINDINGS: Image quality: Diagnostic. CHEST: Lower Neck: No enlarged lymph nodes. Thyroid: No thyroid nodules which require sonographic follow up, per consensus guidelines. Axillae: No enlarged lymph nodes. Chest Wall: Unremarkable. Bones: Unremarkable. Lungs and Pleura: No pneumothorax or pleural effusions. 0.6 cm subsolid pulmonary nodule, right upper lobe, image 92 of series 5. Heart: Heart size is normal. No pericardial effusion. Thoracic Vessels: The aorta and pulmonary arteries demonstrate normal size. Mediastinum and Maureen: No enlarged lymph nodes. Esophagus: No wall thickening. Smia-gq-nlnmpwdt hiatal hernia. ABDOMEN: Liver: No solid mass. Gallbladder: No radiopaque gallstones or wall thickening. Biliary ducts: No biliary dilation. Pancreas: No ductal dilation. Spleen: Size is within normal limits. Adrenal Glands: No adrenal nodules. Kidneys and Ureters: No hydronephrosis. No solid mass. No complex renal cystic lesion which requires follow up. Stomach and Bowel: Normal colonic caliber, without significant wall thickening. Epvy-cv-ydtdqlda sigmoid diverticulosis without evidence of acute diverticulitis. Predominantly liquid colonic contents suggest possible gastroenteritis. Peritoneum: No abnormal intraperitoneal fluid. No free air. Ventral Wall: No hernia. Abdominal Nodes: No retroperitoneal or mesenteric adenopathy by size criteria. Vessels: Aorta and inferior vena cava are normal in size. PELVIS: Pelvic Organs: Unremarkable. Bladder: Unremarkable. Pelvic Nodes: No enlarged lymph nodes. Miscellaneous: No inguinal hernias are seen. Bones: No aggressive osseous abnormality. Old mild compressions of T4, T12, and L4. IMPRESSION: 1. Question gastroenteritis. 2. No acute pulmonary findings. 3. Note made of a 6 mm subsolid pulmonary nodule, right upper lobe. 4. No other potentially acute findings in the abdomen and pelvis. 5. Diverticulosis without evidence of acute diverticulitis. 6. 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 Comment: Consider potential six-month follow-up CT chest for the 6 mm subsolid pulmonary nodule. Dictated by: Travis Crane M.D. on 09/03/2024 at 11:33 Approved by: Travis Crane M.D. on 09/03/2024 at 11:40
[2024-09-03 11:16] LABS: Procalcitonin 0.425 ng/mL (<0.5)
--- NOTE | 2024-09-03 11:42 | EKG_ITS ---
[place] [id number] [address] [place] [id number] Test Date: 2024-09-03 Pat Name: Garrett Torres Department: Room: Gender: Male [employer]ck[employer]: CELI : 1940 Requested By: Order Number: [id number] Reading MD: Dillon Hanley Measurements Intervals [place] Rate: 82 P: 37 FL: 174 QRS: 7 QRSD: 104 T: -11 QT: 398 QTc: 464 Interpretive Statements Normal sinus rhythm Nonspecific ST abnormality Electronically Signed On 09-03-2024 13:26:47 PDT by Dillon Hanley
[2024-09-03 11:52] LABS: Adenovirus Not Detected (Not Detect); B. parapertussis Not Detected (Not Detecte); Bordetella pertussis Not Detected (Not Detect); Chlamydophila pneumoniae Not Detected (Not Detect); Coronavirus 229E Not Detected (Not Detect); Coronavirus HKU1 Not Detected (Not Detect); Coronavirus NL 63 Not Detected (Not Detect); Coronavirus OC43 Not Detected (Not Detect); Human Metapneumovirus Not Detected (Not Detect); Human Rhinovirus/Enterovirus Not Detected (Not Detect); Influenza A Not Detected (Not Detect); Influenza B Not Detected (Not Detect); Mycoplasma pneumoniae Not Detected (Not Detect); Parainfluenza Virus 1 Not Detected (Not Detect); Parainfluenza Virus 2 Not Detected (Not Detect); Parainfluenza Virus 3 Not Detected (Not Detect); Parainfluenza Virus 4 Not Detected (Not Detect); Respiratory Syncytial Virus Not Detected (Not Detect); SARS- CoV-2 Not Detected (Not Detecte)
[2024-09-03 12:20] LABS: Reflexed Lactate in 2 Hours Y
[2024-09-03 13:07] LABS: Lactate 2HR (Lactic Acid Rflx) 4.6 mmol/L (0.7-2.1)
--- NOTE | 2024-09-03 14:17 | PM.HP.1 ---
History of Present Illness History of Present Illness Date Patient Seen: 09/03/24 Time Patient Seen: 14:18 Chief complaint: D/V Narrative: The patient was a pleasant 84-year-old male with multiple admissions for persistent diarrhea and recurrent TISHA. He was discharged yesterday after having good control with Imodium of his diarrhea. He underwent a colonoscopy on this last admission with biopsies consistent with lymphocytic colitis. He was started on budesonide this morning, 6 mg daily. He had no diarrhea this morning, ate breakfast and then took his pill. About an hour later he became nauseated and vomiting. Upon arrival to the ER he was anxious, he had a lactic acid of over 6. He was renal function was nearly normal. He believes that this pill did incite his vomiting. He denies any diarrhea there was no hematemesis. Wants to try taking 3 mg twice a day Cr 1.44, K 3.3, Lactate 7.6, 4.6, WBC 12.5. [facility] Medical History Stroke Social History household members: none Smoking Status: Never smoker alcohol intake: current Meds Home Medications and Allergies Home Medications Medication Instructions Recorded Confirmed Type amlodipine 10 mg tablet 10 mg PO DAILY 08/12/24 08/26/24 History aspirin 81 mg capsule 81 mg PO DAILY 08/12/24 08/26/24 History atorvastatin 80 mg tablet 80 mg PO ONCE PM 08/12/24 08/26/24 History olmesartan 40 mg tablet 40 mg PO DAILY 08/12/24 08/26/24 History calcium carbonate 1,000 mg (5 x 200 mg calcium (500 08/14/24 08/26/24 Rx mg)) PO Q4HR PRN Dyspepsia #1 tab loperamide 2 mg capsule 2 mg PO Q6H PRN Diarrhea #1 cap 08/14/24 08/26/24 Rx budesonide 4 mg capsule,delayed 8 mg (2 x 4 mg) PO DAILY 2 weeks 09/02/24 Rx release #30 caps Allergies Allergy/AdvReac Type Severity Reaction Status Date / Time No Known Drug Allergies Allergy Verified 08/27/24 11:49 Review of Systems Review of Systems Narrative: He did well last night without diarrhea. He ate dinner. All else reviewed and otherwise unremarkable. Exam Vital Signs (past 8 hours): - 09/03/24 10:30 09/03/24 10:32 09/03/24 10:32 Temperature Pulse Rate 113 H 100 H Respiratory Rate 23 19 Blood Pressure 98/52 L Pulse Oximetry 99 99 Oxygen Delivery Method 09/03/24 10:47 09/03/24 10:47 09/03/24 10:53 Temperature 98.7 F Pulse Rate 109 H 100 H Respiratory Rate 44 H 26 H Blood Pressure 82/43 L 82/43 L Pulse Oximetry 97 Oxygen Delivery Method Room Air 09/03/24 11:00 09/03/24 11:00 09/03/24 11:29 Temperature Pulse Rate 95 H Respiratory Rate 35 H Blood Pressure 137/60 98/55 L Pulse Oximetry 97 Oxygen Delivery Method 09/03/24 11:29 09/03/24 11:30 09/03/24 11:30 Temperature Pulse Rate 85 86 Respiratory Rate Blood Pressure 87/50 L Pulse Oximetry 98 98 Oxygen Delivery Method Room Air 09/03/24 12:00 09/03/24 12:00 09/03/24 12:46 Temperature Pulse Rate 81 81 Respiratory Rate 27 H 28 H Blood Pressure 106/51 L 113/53 L Pulse Oximetry 99 98 Oxygen Delivery Method Room Air Oxygen Delivery Method Room Air Narrative Exam Narrative: NAD, alert and oriented, fluent speech, calm. Normocephalic skull, EOMI, anicteric sclera, symmetric pupils. Oropharynx unremarkable, no droop. Neck supple, midline trachea, no adenopathy. Lungs clear, normal rate and effort. Heart regular, no murmur gallop or rub. Abdomen is soft, non distended and non tender. Extremities are free of edema. Skin is free of rash or lesions. Joints are not swollen or deformed. Judgment appears to be normal. Objective Imaging CT scan - abdomen: Radiologist's impression: 1. Question gastroenteritis. 2. No acute pulmonary findings. 3. Note made of a 6 mm subsolid pulmonary nodule, right upper lobe. 4. No other potentially acute findings in the abdomen and pelvis. 5. Diverticulosis without evidence of acute diverticulitis. 6. 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 Comment: Consider potential six-month follow-up CT chest for the 6 mm subsolid pulmonary nodule. Labs 09/03/24 10:34 09/03/24 10:34 Labs: Laboratory Results - last 24 hr 09/03/24 09/03/24 10:34 12:40 WBC 12.5 H D RBC 4.04 L Hgb 13.3 L Hct 39.5 L MCV 97.7 MCH 32.8 MCHC 33.6 RDW 13.3 Plt Count 319 Neut % (Auto) 85.6 H Lymph % (Auto) 5.2 L [place] % (Auto) 8.1 Eos % (Auto) 0.9 L Baso % (Auto) 0.2 Neut # (Auto) 47908 H Lymph # (Auto) 700 L [place] # (Auto) 1000 H Eos # (Auto) 100 Baso # (Auto) 0 Sodium 140 Potassium 3.3 L Chloride 103 Carbon Dioxide 20 L BUN 9 Creatinine 1.44 H Estimated GFR 48 L BUN/Creatinine Ratio 6.3 Glucose 111 H Lactate 7.6 H* 4.6 H* Calcium 9.4 Total Bilirubin 0.9 AST 61 H ALT 75 H Alkaline Phosphatase 125 Total Protein 6.9 Albumin 3.9 Globulin 3.0 Albumin/Globulin Ratio 1.3 Lipase 137 D Procalcitonin 0.425 Chlamy pneumoniae PCR Not detected Adenovirus (PCR) Not detected B. pertussis DNA (PCR) Not detected B.parapertussis DNA PCR Not detected Coronavirus OC43 (PCR) Not detected Coronavirus HKU1 (PCR) Not detected Coronavirus 229E (PCR) Not detected SARS-CoV-2 (PCR) Not detected Coronavirus NL63 (PCR) Not detected Human Metapneumovir PCR Not detected Influenza Type A (PCR) Not detected Influenza Type B (PCR) Not detected M. pneumoniae (PCR) Not detected Parainfluenza 1 (PCR) Not detected Parainfluenza 2 (PCR) Not detected Parainfluenza 3 (PCR) Not detected Parainfluenza 4 (PCR) Not detected RSV (PCR) Not detected Entero/Rhino (PCR) Not detected Assessment & Plan Assessment & Plan narrative: 1. Vomiting possibly related to budesonide, present on admission and improved. 2. Recurrent hypokalemia, present on admission and active. 3. Lactic acidosis, present on admission and active. 4. Leukocytosis possibly related to budesonide and vomiting, present on admission and active. 5. Lymphocytic colitis, with prolonged diarrhea, present on admission and improving. Plan: -budesonide 3 mg b.i.d. -replete potassium -IV fluids and trend lactic acid Observation status, anticipate 1 midnight stay. Full resuscitation RADHA is 09/04. Time-Based Coding :: 35 min spent with patient and on the chart (including review of chart, obtaining history, exam, reviewing outside data, placing orders, documenting exam and treatment plan, and counseling patient) on 09/03. Quality MIPS - Admit I confirm the patient?s Advance Care Plan is present, Code status is documented, Surrogate decision maker is in patient?s record [If Yes, STOP here]: Yes MIPS - Meds 'Current medications' to include all prescriptions, [id number] products, herbals, cannabis/cannabidiol products, and vitamin/mineral/dietary (nutritional) supplements. I have utilized all available resources to obtain, update, or review the patient?s current medications. [If Yes, STOP here]: Yes
[2024-09-03] MEDS: LOPERAMIDE 2 MG CAPSULE PO ×2 (14:19→21:12)
[2024-09-03] MEDS: BUDESONIDE 3 MG CAP PO ×2 (15:45→21:12)
[2024-09-03] MEDS: SODIUM CHLORIDE 0.9% 1,000 ML 100 ML IV (15:51)
[2024-09-03] MEDS: POTASSIUM CHLORIDE 20 MEQ TAB PO (16:03)
--- NOTE | 2024-09-03 16:41 | PC.NURSE ---
Patient arrived from ED at 1345 this afternoon. He reports vomitting and diarrhea earlier and in ED. He is A&OX4 VSS, afebrile. He denies pain or nausea. He is able to tolerate po loperamide and budesonide. IVF NS at 100ml/hr, call light and belongings in reach, oriented to room/unit routines. He declined SCD machine. He is independent in his room and calls appropriately for needs.
[2024-09-03 18:38] LABS: Lactate (Lactic Acid) 1.2 mmol/L (0.7-2.1)
[2024-09-03] MEDS: ATORVASTATIN 20 MG TABLET 80 MG PO (21:12)
[2024-09-03] MEDS: HEPARIN 5,000 UNIT/ML VIAL 5000 UNIT SUBCUT (21:12)
[2024-09-04] MEDS: SODIUM CHLORIDE 0.9% 1,000 ML 100 ML IV (04:53)
[2024-09-04 05:03] LABS: Add Manual Diff / Slide Review NO; Basophils Absolute Auto 0 /uL (0-100); Basophils Percent Auto 0.2 % (0-2); Eosinophils Absolute Auto 0 /uL (0-450); Hematocrit 26.2 % (41-53); Hemoglobin 9.1 g/dL (13.5-17.5); Lymphocytes Absolute Auto 900 /uL (1100-4500); Lymphocytes Percent Auto 17.9 % (25-40); Mean Corpuscular HGB Conc 34.6 % (30-36); Mean Corpuscular Hemoglobin 33.7 PG (26-34); Mean Corpuscular Volume 97.3 fL (80-100); Monocytes Absolute Auto 700 /uL (0-900); Monocytes Percent Auto 14.8 % (3-14); Neutrophils Absolute Auto 3200 /uL (1500-7000); Neutrophils Percent Auto 66.1 % (50-75); Platelet Count 210 X10^3/uL (150-400); Red Cell Distribution Width 13.2 % (11.6-14.8); White Blood Cell Count 4.8 X10^3/uL (4.5-11.0)
[2024-09-04 05:15] LABS: BUN Creatinine Ratio 13.8 (6-22); Blood Urea Nitrogen 17 mg/dL (9-20); Calcium 7.6 mg/dL (8.4-10.2); Carbon Dioxide 21 mmol/L (22-32); Chloride 112 mmol/L (98-107); Estimated Glomerular Filt Rate 58 mL/min (>60); Glucose 106 mg/dL (80-110); HEMOLYSIS < 15 (0-50); Potassium 3.7 mmol/L (3.4-5.1); Sodium 136 mmol/L (137-145)
[2024-09-04 06:35] VITALS: BP 112/42; PULSE 62; RESP 18; TEMP 36.3; O2SAT 96
[2024-09-04 07:32] VITALS: O2SAT 96
[2024-09-04] MEDS: ASPIRIN EC 81 MG TABLET PO (09:15)
[2024-09-04] MEDS: BUDESONIDE 3 MG CAP PO ×2 (09:15→20:53)
[2024-09-04] MEDS: POTASSIUM CHLORIDE 20 MEQ TAB PO ×2 (09:15→16:08)
[2024-09-04] MEDS: HEPARIN 5,000 UNIT/ML VIAL 5000 UNIT SUBCUT ×2 (09:15→20:53)
[2024-09-04] MEDS: LOPERAMIDE 2 MG CAPSULE PO ×3 (09:15→20:53)
[2024-09-04 11:17] VITALS: BP 117/52; PULSE 58; RESP 17; TEMP 36.4; O2SAT 98
--- NOTE | 2024-09-04 14:30 | CM.DANOTE ---
DCP Assessment note pt is a 84yo M here with n/v, persistent diarrhea and recurrent TISHA. 3 admissions in the past month to this acute care floor, 08-12-24 to 08-14-24, 08-19-24 to 08-24-24, and 08-26-24 to 09-02-24. PCP Dr[address] Kenan Viera Payer Medicare and self pay [employer] reviewed EMR. [place] lives [place] but has local son support nearby. Pt has discharged home no needs from this CM team each admission. Per chart/RN report, pt was discharged home on new medication that he believes caused vomiting. Per RN, likely here another night to monitor lactic acid. P: home with son support when stable. Anticipate that being 09-05? Anticipate no CM needs at this time. CM team will continue to follow as needed PRASANNA Lanza Discharge Planning/Care Management CM Discharge Assessment Start: 09/04/24 14:27 Freq: Status: Active Protocol: Document 09/04/24 14:27 (Rec: 09/04/24 14:30 [id number]) Discharge Planning Assessment Assigned Water Treatment Plant Engineer PRASANNA Uribe DPOA/Assigned Designee Name jasbir Guadarrama Contact Information [phone] Advance Directives? Yes Advance Directives on File No History Provided By Patient,Family Member,Medical Record Has Patient been admitted in last 30 Yes days? Comment admitted 08-12-24 to 08-14-24, 08-19-24 to 08-24-24, 08-26-24 to 09-02-24, and this current admission Prior Living Arrangements House Household Members none Comment local son Thierry Type of transporation used prior to Drives own vehicle admit Independent with ADL's Yes Is patient alert and oriented? Yes Caregiver for Another No Barriers to Discharge No Discharge Plan Home Referrals Initiated None needed Whiteboard Updated in Patient Room with No name and ext. # of Water Treatment Plant Engineer Review Status In Process Please Provide Date Initial DC 09/04/24 Assessment Was Performed Next Review Type Continued Stay Review
--- NOTE | 2024-09-04 16:46 | P.PN_ITS ---
Subjective Subjective Interval history: His nausea is improved. He tolerated a diet this morning. He is stilll quite fearful of returning home given frequent re-admits. Cr improved slightly today. Exam Vital Signs (past 8 hours): - 09/04/24 11:17 Temperature 97.6 F Pulse Rate 58 L Respiratory Rate 17 Blood Pressure 117/52 L Pulse Oximetry 98 Oxygen Delivery Method Room Air Oxygen Flow Rate 0 Narrative Exam Narrative: NAD, alert and oriented, fluent speech, calm. Normocephalic skull, EOMI, anicteric sclera, symmetric pupils. Oropharynx unremarkable, no droop. Neck supple, midline trachea, no adenopathy. Lungs clear, normal rate and effort. Heart regular, no murmur gallop or rub. Abdomen is soft, non distended and non tender. Extremities are free of edema. Skin is free of rash or lesions. Joints are not swollen or deformed. Judgment appears to be normal. Objective Labs 09/04/24 04:38 09/04/24 04:38 Labs: Laboratory Results - last 24 hr 09/03/24 09/04/24 18:13 04:38 WBC 4.8 D RBC 2.70 L Hgb 9.1 L Hct 26.2 L MCV 97.3 MCH 33.7 MCHC 34.6 RDW 13.2 Plt Count 210 Neut % (Auto) 66.1 Lymph % (Auto) 17.9 L [place] % (Auto) 14.8 H Eos % (Auto) 1.0 L Baso % (Auto) 0.2 Neut # (Auto) 3200 Lymph # (Auto) 900 L [place] # (Auto) 700 Eos # (Auto) 0 Baso # (Auto) 0 Sodium 136 L Potassium 3.7 Chloride 112 H Carbon Dioxide 21 L BUN 17 Creatinine 1.23 Estimated GFR 58 L BUN/Creatinine Ratio 13.8 Glucose 106 Lactate 1.2 Calcium 7.6 L [facility] Medical History Stroke Social History household members: none Smoking Status: Never smoker alcohol intake: current Assessment & Plan Assessment & Plan narrative: 1. Vomiting possibly related to budesonide, present on admission and improved. 2. Recurrent hypokalemia, present on admission and active. 3. Lactic acidosis, present on admission and active. 4. Leukocytosis possibly related to budesonide and vomiting, present on admission and active. 5. Lymphocytic colitis, with prolonged diarrhea, present on admission and improving. Plan: -budesonide 3 mg b.i.d. has helped. -replete potassium -stop IV fluids given shortage, encourage rehydration. Discussed and can watch off IV fluids today, continue oral rehydation and if continued improvement in symptoms and creatinine will discharge home tomorrow. Observation status, anticipate discharge tomorrow as noted above Full resuscitation RADHA is 09/05. Time-Based Coding :: [TOTAL MINUTES] spent with patient and on the chart (including review of chart, obtaining history, exam, reviewing outside data, placing orders, documenting exam and treatment plan, and counseling patient) on [DATE]. Quality VTE Deep Vein Thrombosis/Pulmonary Embolism Present on Admission: No
[2024-09-04 18:00] VITALS: BP 127/52; PULSE 60; RESP 17; TEMP 36.7; O2SAT 96
[2024-09-04 20:00] VITALS: BP 111/54; PULSE 62; RESP 18; TEMP 36.4; O2SAT 97
[2024-09-04] MEDS: ATORVASTATIN 20 MG TABLET 80 MG PO (20:53)
[2024-09-05] VITALS: BP 139/59; PULSE 67; RESP 18; TEMP 36.1; O2SAT 96
[2024-09-05] MEDS: LOPERAMIDE 2 MG CAPSULE PO ×2 (03:12→08:54)
[2024-09-05 05:33] LABS: BUN Creatinine Ratio 16.7 (6-22); Blood Urea Nitrogen 15 mg/dL (9-20); Calcium 8.1 mg/dL (8.4-10.2); Carbon Dioxide 23 mmol/L (22-32); Chloride 110 mmol/L (98-107); Estimated Glomerular Filt Rate > 60 mL/min (>60); Glucose 107 mg/dL (80-110); HEMOLYSIS < 15 (0-50); Potassium 3.8 mmol/L (3.4-5.1); Sodium 135 mmol/L (137-145)
[2024-09-05 06:00] VITALS: BP 113/50; PULSE 58; RESP 18; TEMP 35.9; O2SAT 95
[2024-09-05 07:00] VITALS: O2SAT 96
[2024-09-05 08:29] VITALS: BP 110/55; PULSE 55; RESP 16; TEMP 36.4; O2SAT 96
--- NOTE | 2024-09-05 08:48 | PM.DS.1 ---
History of Present Illness History of Present Illness Date Patient Seen: 09/05/24 Time Patient Seen: 08:48 Chief complaint: D/V Narrative: Per admit provider, The patient was a pleasant 84-year-old male with multiple admissions for persistent diarrhea and recurrent TISHA. He was discharged yesterday after having good control with Imodium of his diarrhea. He underwent a colonoscopy on this last admission with biopsies consistent with lymphocytic colitis. He was started on budesonide this morning, 6 mg daily. He had no diarrhea this morning, ate breakfast and then took his pill. About an hour later he became nauseated and vomiting. Upon arrival to the ER he was anxious, he had a lactic acid of over 6. He was renal function was nearly normal. He believes that this pill did incite his vomiting. He denies any diarrhea there was no hematemesis. Wants to try taking 3 mg twice a day Cr 1.44, K 3.3, Lactate 7.6, 4.6, WBC 12.5. Discharge Providers Provider Date of admission: 09/03/24 12:38 Discharge Date: 09/05/24 Primary care physician: Doctor Kari MD Consults: 09/03/24 16:35 Consult to Dietitian, Adult Routine Comment: Reason For Exam: weight loss 20 # in 3 months Discharge provider: Aydin Holland DO Summary Hospital Course Discharge Diagnosis: 1. Vomiting possibly related to budesonide, present on admission and improved. 2. Recurrent hypokalemia, present on admission and active. 3. Lactic acidosis, present on admission and active. 4. Leukocytosis possibly related to budesonide and vomiting, present on admission and active. 5. Lymphocytic colitis, with prolonged diarrhea, present on admission and improving. 6. TISHA, present on admission, resolved Hospital Course: This is an 84 year old male with frequent readmissions for TISHA and dehydration related to recent diagnosis of lymphocytic colitis. He was admitted with nausea after starting oral steroids. This admission his steroids were changed to BID dosing with resolution of nausea. He was tolerating a diet, with tolerable diarrhea from his colitis. He was discharged home. Cr was 1.44 on admission, continued to improve without IV fluids from HD#1 to HD#2 (day of discharge). Time Spent with Patient Time spent: Less than 30 minutes Exam Vital Signs (past 8 hours): - 09/05/24 06:00 09/05/24 08:29 Temperature 96.6 F L 97.5 F L Pulse Rate 58 L 55 L Respiratory Rate 18 16 Blood Pressure 113/50 L 110/55 L Pulse Oximetry 95 96 Oxygen Flow Rate 0 0 Oxygen Delivery Method Room Air Oxygen Flow Rate 0 Narrative Exam Narrative: NAD, alert and oriented, fluent speech, calm. Normocephalic skull, EOMI, anicteric sclera, symmetric pupils. Oropharynx unremarkable, no droop. Neck supple, midline trachea, no adenopathy. Lungs clear, normal rate and effort. Heart regular, no murmur gallop or rub. Abdomen is soft, non distended and non tender. Extremities are free of edema. Skin is free of rash or lesions. Joints are not swollen or deformed. Judgment appears to be normal. Objective Labs 09/04/24 04:38 09/05/24 05:00 Labs: Laboratory Results - last 24 hr 09/05/24 05:00 Sodium 135 L Potassium 3.8 Chloride 110 H Carbon Dioxide 23 BUN 15 Creatinine 0.90 Estimated GFR > 60 BUN/Creatinine Ratio 16.7 Glucose 107 Calcium 8.1 L PFSH Medical History Stroke Social History household members: none Smoking Status: Never smoker alcohol intake: current Discharge Plan Discharge Plan Patient Disposition: Home Provider Discharge Comment: You were admitted to the hospital with nausea, TISHA. This may be a reaction to the steroid that was started, but is improved with changing it to twice daily. Continue imodium at home as needed per bottle instructions. At this time I also recommend stopping your home BP medications. Please monitor your BP at home and if the top number is consistently above 140 you can resume your amlodipine. Please follow up with your PCP in the next 1-2 weeks to check on your ongoing symptoms and for a blood pressure recheck. Discharge orders & Medications Prescriptions: Continued atorvastatin 80 mg tablet 80 mg PO ONCE PM aspirin 81 mg Capsule 81 mg PO DAILY loperamide 2 mg Capsule 2 mg PO Q6H PRN (Reason: Diarrhea) Qty: 1 0RF calcium carbonate 200 mg calcium (500 mg) Tablet,Chewable 1,000 mg PO Q4HR PRN (Reason: Dyspepsia) Qty: 1 0RF Changed budesonide 3 mg Capsule,Delayed,Extend.Release 3 mg PO BID Qty: 30 0RF Discontinued amlodipine 10 mg tablet 10 mg PO DAILY olmesartan 40 mg tablet 40 mg PO DAILY Follow up/Referrals: Kari,MD Zak [Primary Care Provider] - Diet/Activity/Treatments Diet: Diet as Tolerated and Regular Activity: As tolerated Visit Report/Discharge Packet Stand Alone Forms: Patient Portal/API, Stroke Signs & Symptoms Discharge Data Primary Care Provider: Doctor Kari Attending Provider: Dillon Hanley Admit Date/Time: 09/03/24 12:38 Quality VTE Deep Vein Thrombosis/Pulmonary Embolism Present on Admission: No
[2024-09-05] MEDS: HEPARIN 5,000 UNIT/ML VIAL 5000 UNIT SUBCUT (08:55)
[2024-09-05] MEDS: ASPIRIN EC 81 MG TABLET PO (08:55)
[2024-09-05] MEDS: BUDESONIDE 3 MG CAP PO (08:55)
[2024-09-05] MEDS: POTASSIUM CHLORIDE 20 MEQ TAB PO (08:55)
[2024-09-05 09:47] LABS: TSH w/ Reflex to FT4 1.66 uIU/mL (0.47-4.68)
--- NOTE | 2024-09-15 10:04 | PC.NURSE ---
Late Entry: 09/03/2024 Normal Saline Bolus completed at 1950.
== END 2024-09-05 10:20 | disposition home or self-care (01) ==
LOC: ED 12:32 → AC 12:38
PROVIDERS: Internal Medicine; Admitting Provider Hospitalist; Emergency Provider Emergency Medicine; Family Provider Family Medicine Geriatric Medicine; Referring Provider Emergency Medicine; Visit Provider Hospitalist
DX: R11.11 Vomiting without nausea (principal); E86.0 Dehydration; R19.7 Diarrhea, unspecified; E87.6 Hypokalemia; E87.20 Acidosis, unspecified; D72.829 Elevated white blood cell count, unspecified; K52.832 Lymphocytic colitis; I10 Essential (primary) hypertension; Z11.52 Encounter for screening for COVID-19
CPT/HCPCS: 36415; 71250; 74176; 80048; 80053; 81003; 83605; 83690; 84145; 84443; 85025; 87633; 93005; 96361; 96372; 96374; 99284; G0378; J1644; J2405

== ENCOUNTER 2025-01-04 14:53 | Emergency (ER) | payer MEDICARE, SELFPAY ==
[2024-09-03 16:30] VITALS: BMI 22.9
[2025-01-04 15:18] VITALS: BP 181/86; PULSE 85; RESP 18; TEMP 36.3; O2SAT 97; BMI 24.3
--- NOTE | 2025-01-04 15:44 | ED.NAVMDI ---
HPI - Nausea/Vomiting/Diarrhea General Chief complaint: Nausea/Vomiting/Diarrhea Stated complaint: diarrhea and vomiting Time Seen by Provider: 01/04/25 15:43 Related Data Home Medications Medication Instructions Recorded Confirmed aspirin 81 mg capsule 81 mg PO DAILY 08/12/24 09/03/24 atorvastatin 80 mg tablet 80 mg PO ONCE PM 08/12/24 09/03/24 Previous Rx's Medication Instructions Recorded calcium carbonate 1,000 mg (5 x 200 mg calcium (500 08/14/24 mg)) PO Q4HR PRN Dyspepsia #1 tab loperamide 2 mg capsule 2 mg PO Q6H PRN Diarrhea #1 cap 08/14/24 budesonide 3 mg 3 mg PO BID #30 ea 09/05/24 capsule,delayed,extended release azithromycin 250 mg tablet See Rx Instructions PO .COMPLEX #6 01/04/25 (Zithromax Z-Giancarlo) tabs ondansetron 4 mg disintegrating 4 mg PO Q8H PRN nausea and 01/04/25 tablet vomiting #20 tabs Allergies Allergy/AdvReac Type Severity Reaction Status Date / Time No Known Drug Allergies Allergy Verified 08/27/24 11:49 Patient History Medical History Stroke Social History household members: none Smoking Status: Never smoker alcohol intake: current Smoking Status: Never smoker alcohol intake frequency: holidays/special occasions only Exam Initial Vital Signs Initial Vital Signs: Vital Signs Temperature 97.3 F L 01/04/25 15:18 Pulse Rate 85 01/04/25 15:18 Respiratory Rate 18 01/04/25 15:18 Blood Pressure 181/86 H 01/04/25 15:18 Pulse Oximetry 97 01/04/25 15:18 Oxygen Delivery Method Room Air 01/04/25 15:18 Course Orders Ordered: ED Orders 01/04/25 15:49 CMP [Comprehensive Metabolic Panel] Stat Complete Blood Count AUTO DIFF Stat Lactate (Lactic Acid) Stat Lipase Stat PT [Prothrombin Time INR] Stat PTT Partial Thromboplastin Constantino Stat 01/04/25 17:00 CT abdomen pelvis w con Stat 01/04/25 18:00 Urine Microscopic Stat 01/04/25 18:06 Urine Culture Stat 01/04/25 18:36 Blood Culture Stat Discontinued Medications Sodium Chloride (Normal Saline 0.9%) 1,000 mls @ 1,000 mls/hr IV BOLUS ONE Stop: 01/04/25 17:13 Last Infusion: 01/04/25 18:02 Dose: Infused Documented By: Admin: 01/04/25 16:22 Dose: 1,000 mls/hr Documented By: KAREY Ondansetron HCl (Ondansetron 4 Mg/2 Ml Inj) 4 mg IV NOW ONE Stop: 01/04/25 16:15 Last Admin: 01/04/25 16:22 Dose: 4 mg Documented By: RL Vital Signs Vital signs: Vital Signs - 8 hr 01/04/25 15:18 01/04/25 17:56 Temperature 97.3 F L 98.4 F Pulse Rate 85 Respiratory Rate 18 Blood Pressure 181/86 H Pulse Oximetry 97 Oxygen Delivery Method Room Air MDM - Nausea/Vomiting/Diarrhea Lab Data 01/04/25 15:49 01/04/25 15:49 Labs: Lab Results 01/04/25 01/04/25 Range/Units 15:49 18:00 WBC 10.0 (4.5-11.0) X10^3/uL RBC 4.73 (4.5-5.9) X10^6/uL Hgb 15.3 (13.5-17.5) g/dL Hct 45.1 (41-53) % MCV 95.3 (80-100) fL MCH 32.3 (26-34) PG MCHC 33.9 (30-36) % RDW 13.9 (11.6-14.8) % Plt Count 304 (150-400) X10^3/uL Neut % (Auto) 80.5 H (50-75) % Lymph % (Auto) 9.8 L (25-40) % [place] % (Auto) 8.9 (3-14) % Eos % (Auto) 0.5 L (2-4) % Baso % (Auto) 0.3 (0-2) % Neut # (Auto) 8000 H (3200-8070) /uL Lymph # (Auto) 1000 L (8850-0610) /uL [place] # (Auto) 900 (0-900) /uL Eos # (Auto) 100 (0-450) /uL Baso # (Auto) 0 (0-100) /uL PT 10.5 (9.4-12.5) SECONDS INR 0.9 (0.9-1.3) APTT 28 (25.1-36.5) SECONDS Sodium 139 (137-145) mmol/L Potassium 4.3 (3.4-5.1) mmol/L Chloride 106 (98-107) mmol/L Carbon Dioxide 19 L (22-32) mmol/L BUN 20 (9-20) mg/dL Creatinine 1.26 H (0.66-1.25) mg/dL Estimated GFR 56 L (>60) mL/min BUN/Creatinine Ratio 15.9 (6-22) Glucose 159 H (80-110) mg/dL Lactate 2.0 (0.7-2.1) mmol/L Calcium 9.4 (8.4-10.2) mg/dL Total Bilirubin 0.5 (0.2-1.3) mg/dL AST 45 (17-59) IU/L ALT 44 (<50) IU/L Alkaline Phosphatase 90 (38-126) U/L Total Protein 7.3 (6.3-8.2) g/dL Albumin 4.0 (3.5-5.0) g/dL Globulin 3.3 (1.7-4.1) g/dL Albumin/Globulin Ratio 1.2 (1.0-2.8) Lipase 56 (23-300) U/L Urine RBC 1-5/hpf (0-5/HPF) Urine WBC 0-1/hpf (0-5/HPF) Ur Squamous Epith Cells 00 (0-5/HPF) Urine Bacteria Occasional (0-1) (None) Urine Mucus 1+ H (Negative) Ur Culture Indicated? Cult not indicated Vol Urine Centrifuged 10ml (spun) Urine Dip Bedside Urine Glucose Negative Bedside Urine Bilirubin - Negative Bedside Urine Ketone +++ 80 Urine Specific [place] 1.015 Bedside Urine Occult Blood ++ Bedside Urine pH 5.0 Bedside Urine Protein +/- 15 Bedside Urine Urobilinogen - Negative Bedside Urine Nitrite - Negative Bedside Urine Leukocytes - Negative Esterase Discharge Plan Departure Activity Restrictions/Additional Instructions: You were evaluated in the ED today for nausea, vomiting, diarrhea. Your labs show a small decline in kidney function. Your CT scan shows enteritis which is most often due to food poisoning. There were some stones in your bladder, however those are unlikely to cause symptoms. You are being prescribed Zofran to control nausea as needed. You are being prescribed antibiotics. Please also take Imodium which is available [id number] to control the diarrhea. A BRAT diet consisting of bananas, rice, apples, toast is recommended to control diarrhea as well. It is imperative that you increase your water intake to prevent further dehydration. Please follow-up with your PCP as soon as possible. Return to the ED if you have worsening symptoms. Prescriptions: New azithromycin [Zithromax Z-Giancarlo] 250 mg tablet See Rx Instructions .ROUTE .COMPLEX Qty: 6 0RF Rx Instructions: For 250 mg dose pack: take 500 mg today (day 1), then 250 mg for 4 days (days 2-5) ondansetron 4 mg tablet,disintegrating 4 mg PO Q8H PRN (Reason: nausea and vomiting) Qty: 20 0RF No Action budesonide 3 mg Capsule,Delayed,Extend.Release 3 mg PO BID Qty: 30 0RF atorvastatin 80 mg tablet 80 mg PO ONCE PM aspirin 81 mg Capsule 81 mg PO DAILY loperamide 2 mg Capsule 2 mg PO Q6H PRN (Reason: Diarrhea) Qty: 1 0RF calcium carbonate 200 mg calcium (500 mg) Tablet,Chewable 1,000 mg PO Q4HR PRN (Reason: Dyspepsia) Qty: 1 0RF Referrals: Miscellaneous,Doctor, MD [Primary Care Provider] -
[2025-01-04 16:06] LABS: Add Manual Diff / Slide Review NO; Basophils Absolute Auto 0 /uL (0-100); Basophils Percent Auto 0.3 % (0-2); Eosinophils Absolute Auto 100 /uL (0-450); Eosinophils Percent Auto 0.5 % (2-4); Hematocrit 45.1 % (41-53); Hemoglobin 15.3 g/dL (13.5-17.5); Lymphocytes Absolute Auto 1000 /uL (1100-4500); Lymphocytes Percent Auto 9.8 % (25-40); Mean Corpuscular HGB Conc 33.9 % (30-36); Mean Corpuscular Hemoglobin 32.3 PG (26-34); Mean Corpuscular Volume 95.3 fL (80-100); Monocytes Absolute Auto 900 /uL (0-900); Monocytes Percent Auto 8.9 % (3-14); Neutrophils Absolute Auto 8000 /uL (1500-7000); Neutrophils Percent Auto 80.5 % (50-75); Platelet Count 304 X10^3/uL (150-400); Red Blood Cell Count 4.73 X10^6/uL (4.5-5.9); Red Cell Distribution Width 13.9 % (11.6-14.8)
[2025-01-04 16:09] LABS: Alanine Aminotransferase 44 IU/L (<50); Albumin Globulin Ratio 1.2 (1.0-2.8); Alkaline Phosphatase 90 U/L (38-126); Aspartate Aminotransferase 45 IU/L (17-59); BUN Creatinine Ratio 15.9 (6-22); Bilirubin Total 0.5 mg/dL (0.2-1.3); Blood Urea Nitrogen 20 mg/dL (9-20); Calcium 9.4 mg/dL (8.4-10.2); Carbon Dioxide 19 mmol/L (22-32); Chloride 106 mmol/L (98-107); Estimated Glomerular Filt Rate 56 mL/min (>60); Globulin 3.3 g/dL (1.7-4.1); Glucose 159 mg/dL (80-110); HEMOLYSIS < 15 (0-50); Potassium 4.3 mmol/L (3.4-5.1); Sodium 139 mmol/L (137-145); Total Protein 7.3 g/dL (6.3-8.2)
[2025-01-04] MEDS: SODIUM CHLORIDE 0.9% 1,000 ML 1000 ML IV (16:22)
[2025-01-04] MEDS: ONDANSETRON 4 MG/2 ML INJ IV (16:22)
[2025-01-04 16:55] LABS: INR 0.9 (0.9-1.3); Prothrombin Time 10.5 SECONDS (9.4-12.5)
[2025-01-04 16:58] LABS: Lipase 56 U/L (23-300); PTT Partial Thromboplastin Tim 28 SECONDS (25.1-36.5)
--- NOTE | 2025-01-04 17:00 | DI.CT.S_ITS ---
PROCEDURE: CT ABDOMEN PELVIS W CON INDICATIONS: N/V/D TECHNIQUE: After the administration of intravenous contrast, axial sections acquired from the lung bases to the pubic symphysis. Coronal and sagittal reformats were performed. For radiation dose reduction, the following was used: automated exposure control, adjustment of mA and/or kV according to patient size. COMPARISON: None. FINDINGS: Image quality: Diagnostic. Lower Chest: Patulous esophagus. Senescent changes in the lung bases. Cardiomegaly. ABDOMEN: Liver: Segment 2 hepatic cyst. Additional subcentimeter hypoattenuating lesions, too small to characterize by CT. Gallbladder: Cholelithiasis without wall thickening or adjacent fat stranding to suggest acute cholecystitis. Biliary ducts: No biliary dilation. Pancreas: No ductal dilation. Spleen: Size is within normal limits. Adrenal Glands: No adrenal nodules. Kidneys and Ureters: No hydronephrosis. No solid mass. No complex renal cystic lesion which requires follow up. Stomach and Bowel: Mild distension of the small bowel, with associated prominent folds. Colonic diverticulosis without evidence of diverticulitis. Peritoneum: No abnormal intraperitoneal fluid. No free air. Ventral Wall: No significant ventral hernia. Abdominal Nodes: No retroperitoneal or mesenteric adenopathy by size criteria. Vessels: Aorta and inferior vena cava are normal in size. PELVIS: Pelvic Organs: Unremarkable. Bladder: No bladder wall thickening, accounting for underdistention. Punctate layering stones within the urinary bladder. Pelvic Nodes: No enlarged lymph nodes. Miscellaneous: No inguinal hernias are seen. Bones: No aggressive osseous abnormality. Osteoporosis. Chronic compression deformity of the T12 and L4 vertebral bodies. IMPRESSION: Suspected enteritis. Colonic diverticulosis without evidence of diverticulitis. A few punctate layering stones in the urinary bladder. Dictated by: Kehinde Murray M.D. on 01/04/2025 at 17:39 Approved by: Kehinde Murray M.D. on 01/04/2025 at 17:42
--- NOTE | 2025-01-04 17:20 | ED_ITS ---
<Statement entered by Aydin Gonzalez DO - 01/04/25 21:06> Dr. Gonzalez: I was immediately available in the department for consultation. I did not actually see the patient. HPI - Nausea/Vomiting/Diarrhea General Chief complaint: Nausea/Vomiting/Diarrhea Stated complaint: diarrhea and vomiting Time Seen by Provider: 01/04/25 15:43 History of Present Illness HPI Narrative: 84-year-old male with past medical history TISHA, CVA, hypertension, lymphocytic colitis presents to the ED with 2 days of nausea, vomiting, diarrhea. Patient's symptoms started 2 days ago with watery diarrhea, patient started vomiting yesterday. Patient states he is unable to keep down any p.o.. Patient has also been unable to take any of his medications as a result. Patient was put on budesonide and loperamide in August when he was hospitalized for the same symptoms and diagnosed with a lymphocytic colitis. He has been stable and well since then. patient complains of chills and shaking. No fever, chest pain, shortness of breath, abdominal pain, dysuria, flank pain, lightheadedness, dizziness, syncope. Related Data Home Medications Medication Instructions Recorded Confirmed aspirin 81 mg capsule 81 mg PO DAILY 08/12/24 09/03/24 atorvastatin 80 mg tablet 80 mg PO ONCE PM 08/12/24 09/03/24 Previous Rx's Medication Instructions Recorded calcium carbonate 1,000 mg (5 x 200 mg calcium (500 08/14/24 mg)) PO Q4HR PRN Dyspepsia #1 tab loperamide 2 mg capsule 2 mg PO Q6H PRN Diarrhea #1 cap 08/14/24 budesonide 3 mg 3 mg PO BID #30 ea 09/05/24 capsule,delayed,extended release azithromycin 250 mg tablet See Rx Instructions PO .COMPLEX #6 01/04/25 (Zithromax Z-Giancarlo) tabs ondansetron 4 mg disintegrating 4 mg PO Q8H PRN nausea and 01/04/25 tablet vomiting #20 tabs Allergies Allergy/AdvReac Type Severity Reaction Status Date / Time No Known Drug Allergies Allergy Verified 08/27/24 11:49 Review of Systems Constitutional Constitutional: Reports chills, Denies fatigue, Denies fever(s), Denies frequent falls, Denies lethargy and Denies weakness Eyes Eyes: Denies change in vision, Denies eye discharge, Denies irritation and Denies loss of vision ENT Ears, Nose, Mouth, and Throat: Denies change in voice, Denies dizziness, Denies neck pain, Denies sore throat and Denies throat swelling Cardiovascular Cardiovascular: Denies chest pain, Denies irregular heart rhythm, Denies lightheadedness, Denies palpitations, Denies dyspnea, Denies dyspnea on exertion and Denies orthopnea Respiratory Respiratory: Denies cough, Denies dyspnea, Denies dyspnea on exertion and Denies wheezing Gastrointestinal Gastrointestinal: Denies abdominal pain, Denies change in bowel habits, Reports diarrhea, Reports nausea and Reports vomiting Musculoskeletal Musculoskeletal: Denies neck pain and Denies numbness Integumentary/Breasts Skin/Breast: Denies pruritus, Denies erythema, Denies rash and Denies wounds Neurologic Neurologic: Denies behavioral changes, Denies confusion, Denies dizziness, Denies frequent falls, Denies loss of vision, Denies numbness and Denies weakness Psychiatric Psychiatric: Denies anxiety, Denies behavioral changes, Denies confusion, Denies depression, Denies homicidal ideation and Denies suicidal ideation Endocrine Endocrine: Denies fatigue, Denies flushing and Denies palpitations Hematologic/Lymphatic Hematologic/Lymphatic: Denies easy bruising Allergic/Immunologic Allergic/Immunologic: Denies urticaria, Denies throat swelling and Denies wheezing Patient History Medical History Stroke Social History household members: none Smoking Status: Never smoker alcohol intake: current Smoking Status: Never smoker alcohol intake frequency: holidays/special occasions only Exam Narrative Exam Narrative: Const General:?cooperative, appears to be rigoring and unwel\ [facility] Head:?normal to inspection Ears:?hearing grossly normal bilaterally Nose:?external nose normal Face and sinus:?normal facial exam and sinuses nontender Mouth:?oral mucosae normal Throat:?posterior oropharynx normal Eyes General:?appearance normal, both eyes and all related structures Neck Neck:?normal visual inspection and no lymphadenopathy noted Resp Effort & Inspection:?normal respiratory effort Auscultation:?clear to auscultation bilaterally Cardio Rate:?regular rate Rhythm:?regular rhythm GI Abdomen is soft, nondistended, nontender to palpation Neuro General:?patient alert, patient awake and patient oriented x3 Initial Vital Signs Initial Vital Signs: Vital Signs Temperature 97.3 F L 01/04/25 15:18 Pulse Rate 85 01/04/25 15:18 Respiratory Rate 18 01/04/25 15:18 Blood Pressure 181/86 H 01/04/25 15:18 Pulse Oximetry 97 01/04/25 15:18 Oxygen Delivery Method Room Air 01/04/25 15:18 Course Orders Ordered: ED Orders 01/04/25 15:49 CMP [Comprehensive Metabolic Panel] Stat Complete Blood Count AUTO DIFF Stat Lactate (Lactic Acid) Stat Lipase Stat PT [Prothrombin Time INR] Stat PTT Partial Thromboplastin Constantino Stat 01/04/25 17:00 CT abdomen pelvis w con Stat 01/04/25 18:00 Urine Microscopic Stat 01/04/25 18:06 Urine Culture Stat 01/04/25 18:36 Blood Culture Stat Discontinued Medications Sodium Chloride (Normal Saline 0.9%) 1,000 mls @ 1,000 mls/hr IV BOLUS ONE Stop: 01/04/25 17:13 Last Admin: 01/04/25 16:22 Dose: 1,000 mls/hr Documented By: KAREY Ondansetron HCl (Ondansetron 4 Mg/2 Ml Inj) 4 mg IV NOW ONE Stop: 01/04/25 16:15 Last Admin: 01/04/25 16:22 Dose: 4 mg Documented By: KAREY Vital Signs Vital signs: Vital Signs - 8 hr 01/04/25 15:18 01/04/25 17:56 Temperature 97.3 F L 98.4 F Pulse Rate 85 Respiratory Rate 18 Blood Pressure 181/86 H Pulse Oximetry 97 Oxygen Delivery Method Room Air MDM - Nausea/Vomiting/Diarrhea Lab Data 01/04/25 15:49 01/04/25 15:49 Labs: Lab Results 01/04/25 01/04/25 Range/Units 15:49 18:00 WBC 10.0 (4.5-11.0) X10^3/uL RBC 4.73 (4.5-5.9) X10^6/uL Hgb 15.3 (13.5-17.5) g/dL Hct 45.1 (41-53) % MCV 95.3 (80-100) fL MCH 32.3 (26-34) PG MCHC 33.9 (30-36) % RDW 13.9 (11.6-14.8) % Plt Count 304 (150-400) X10^3/uL Neut % (Auto) 80.5 H (50-75) % Lymph % (Auto) 9.8 L (25-40) % [place] % (Auto) 8.9 (3-14) % Eos % (Auto) 0.5 L (2-4) % Baso % (Auto) 0.3 (0-2) % Neut # (Auto) 8000 H (6832-0529) /uL Lymph # (Auto) 1000 L (5539-3189) /uL [place] # (Auto) 900 (0-900) /uL Eos # (Auto) 100 (0-450) /uL Baso # (Auto) 0 (0-100) /uL PT 10.5 (9.4-12.5) SECONDS INR 0.9 (0.9-1.3) APTT 28 (25.1-36.5) SECONDS Sodium 139 (137-145) mmol/L Potassium 4.3 (3.4-5.1) mmol/L Chloride 106 (98-107) mmol/L Carbon Dioxide 19 L (22-32) mmol/L BUN 20 (9-20) mg/dL Creatinine 1.26 H (0.66-1.25) mg/dL Estimated GFR 56 L (>60) mL/min BUN/Creatinine Ratio 15.9 (6-22) Glucose 159 H (80-110) mg/dL Lactate 2.0 (0.7-2.1) mmol/L Calcium 9.4 (8.4-10.2) mg/dL Total Bilirubin 0.5 (0.2-1.3) mg/dL AST 45 (17-59) IU/L ALT 44 (<50) IU/L Alkaline Phosphatase 90 (38-126) U/L Total Protein 7.3 (6.3-8.2) g/dL Albumin 4.0 (3.5-5.0) g/dL Globulin 3.3 (1.7-4.1) g/dL Albumin/Globulin Ratio 1.2 (1.0-2.8) Lipase 56 (23-300) U/L Urine RBC 1-5/hpf (0-5/HPF) Urine WBC 0-1/hpf (0-5/HPF) Ur Squamous Epith Cells 00 (0-5/HPF) Urine Bacteria Occasional (0-1) (None) Urine Mucus 1+ H (Negative) Ur Culture Indicated? Cult not indicated Vol Urine Centrifuged 10ml (spun) Urine Dip Bedside Urine Glucose Negative Bedside Urine Bilirubin - Negative Bedside Urine Ketone +++ 80 Urine Specific [place] 1.015 Bedside Urine Occult Blood ++ Bedside Urine pH 5.0 Bedside Urine Protein +/- 15 Bedside Urine Urobilinogen - Negative Bedside Urine Nitrite - Negative Bedside Urine Leukocytes - Negative Esterase MDM Narrative Medical decision making narrative: 84-year-old male with past medical history TISHA, CVA, hypertension, lymphocytic colitis presents to the ED with 2 days of nausea, vomiting, diarrhea. Concern for a relapse of the lymphocytic colitis versus diverticulitis versus gastroenteritis versus nephrolithiasis versus UTI versusother intra-abdominal pathology. will obtain labs, UA, CT abdomen pelvis. Will give fluids, Zofran. Will reassess. Patient's symptoms improved with Zofran and IV fluids. Patient stopped rigoring and feels better. Labs significant for a mild TISHA with creatinine at 1.26, GFR 56. Labs otherwise unremarkable. UA without UTI. CT abdomen pelvis shows suspected enteritis. Also shows a few punctate layering stones in the urinary bladder. Discussed findings with patient. Prescribed antibiotics, Zofran. Recommend Imodium. BRAT diet. recommend pushing hydration. Recommend follow-up with PCP. ED return precautions discussed with patient patient's son. They verbalized understanding. Medical records reviewed: Yes Discharge Plan Departure Activity Restrictions/Additional Instructions: You were evaluated in the ED today for nausea, vomiting, diarrhea. Your labs show a small decline in kidney function. Your CT scan shows enteritis which is most often due to food poisoning. There were some stones in your bladder, however those are unlikely to cause symptoms. You are being prescribed Zofran to control nausea as needed. You are being prescribed antibiotics. Please also take Imodium which is available [id number] to control the diarrhea. A BRAT diet consisting of bananas, rice, apples, toast is recommended to control diarrhea as well. It is imperative that you increase your water intake to prevent further dehydration. Please follow-up with your PCP as soon as possible. Return to the ED if you have worsening symptoms. Prescriptions: New azithromycin [Zithromax Z-Giancarlo] 250 mg tablet See Rx Instructions .ROUTE .COMPLEX Qty: 6 0RF Rx Instructions: For 250 mg dose pack: take 500 mg today (day 1), then 250 mg for 4 days (days 2-5) ondansetron 4 mg tablet,disintegrating 4 mg PO Q8H PRN (Reason: nausea and vomiting) Qty: 20 0RF No Action budesonide 3 mg Capsule,Delayed,Extend.Release 3 mg PO BID Qty: 30 0RF atorvastatin 80 mg tablet 80 mg PO ONCE PM aspirin 81 mg Capsule 81 mg PO DAILY loperamide 2 mg Capsule 2 mg PO Q6H PRN (Reason: Diarrhea) Qty: 1 0RF calcium carbonate 200 mg calcium (500 mg) Tablet,Chewable 1,000 mg PO Q4HR PRN (Reason: Dyspepsia) Qty: 1 0RF Referrals: Miscellaneous,Doctor, MD [Primary Care Provider] -
[2025-01-04 17:56] VITALS: TEMP 36.9
[2025-01-04 18:21] LABS: Bacteria Urine Occasional (0-1); Culture Indicated Urine Cult Not Indicated; Mucus Urine 1+ (Negative); RBC Urine 1-5/HPF (0-5/HPF); Urine Volume 10mL (spun); WBC Urine 0-1/HPF (0-5/HPF)
[2025-01-04 19:18] VITALS: BP 185/86; PULSE 94; RESP 17; O2SAT 98
== END 2025-01-04 19:18 | disposition home or self-care (01) ==
PROVIDERS: Emergency Provider Student in an Organized Health Care Education/Training Program; Family Provider Family Medicine Geriatric Medicine
DX: R11.2 Nausea with vomiting, unspecified (principal); R19.7 Diarrhea, unspecified
CPT/HCPCS: 36415; 74177; 80053; 81003; 81015; 83605; 83690; 85025; 85610; 85730; 87040; 96361; 96374; 99284; J2405; Q9967

== ENCOUNTER 2025-01-23 08:42 | Inpatient (IN) | payer MEDICARE, SELFPAY ==
[2024-09-03 16:30] VITALS: BMI 22.9
[2025-01-23] VITALS (166 sets, daily range): BP systolic 73–150; BP diastolic 39–85; PULSE 63–117; RESP 9–35; TEMP 36.2–37.1; O2SAT 87–100; BMI 22.2
--- NOTE | 2025-01-23 08:53 | ED_ITS ---
HPI - General Adult General Chief complaint: Shortness of Breath/Dyspnea Stated complaint: Diarrhea/dizzy/shortness of breath Time Seen by Provider: 01/23/25 08:52 History of Present Illness HPI narrative: 84-year-old gentleman with a history of chronic kidney disease, prior stroke, hypertension, lymphocytic colitis with significant diarrhea for the last 2 weeks. Was initially felt to be full warn and was treated with a brief course of antibiotics that did not change his diarrhea. He reports liquid stool almost every 30 minutes. No blood, no nausea or vomiting no fevers. He has not complaining of significant abdominal pain. He is increasingly weak, dyspneic and dizzy. He has not noticing headache, palpitations or chest pain. Comes in for further evaluation. Related Data Home Medications Medication Instructions Recorded Confirmed aspirin 81 mg capsule 81 mg PO DAILY 08/12/24 09/03/24 atorvastatin 80 mg tablet 80 mg PO ONCE PM 08/12/24 09/03/24 Previous Rx's Medication Instructions Recorded calcium carbonate 1,000 mg (5 x 200 mg calcium (500 08/14/24 mg)) PO Q4HR PRN Dyspepsia #1 tab loperamide 2 mg capsule 2 mg PO Q6H PRN Diarrhea #1 cap 08/14/24 budesonide 3 mg 3 mg PO BID #30 ea 09/05/24 capsule,delayed,extended release azithromycin 250 mg tablet See Rx Instructions PO .COMPLEX #6 01/04/25 (Zithromax Z-Giancarlo) tabs ondansetron 4 mg disintegrating 4 mg PO Q8H PRN nausea and 01/04/25 tablet vomiting #20 tabs Allergies Allergy/AdvReac Type Severity Reaction Status Date / Time No Known Drug Allergies Allergy Verified 08/27/24 11:49 Review of Systems Review of Systems Narrative: Pertinent positive and negative findings as per HPI Patient History Medical History (Updated 01/23/25 @ 14:10 by Cassia Carnes MD) Hyperlipidemia Chronic kidney disease Stroke Social History household members: none Smoking Status: Never smoker alcohol intake: current Smoking Status: Never smoker alcohol intake frequency: holidays/special occasions only Exam Initial Vital Signs Initial Vital Signs: Vital Signs Temperature 97.2 F L 01/23/25 08:53 Pulse Rate 77 01/23/25 08:53 Respiratory Rate 22 01/23/25 08:53 Blood Pressure 103/51 L 01/23/25 08:53 Pulse Oximetry 97 01/23/25 08:53 Oxygen Delivery Method Room Air 01/23/25 08:53 General: Older-appearing gentleman, globally weak, very dry mucous membranes, poor skin turgor, his son provides the majority of history HEENT: Dry mucous membranes, normal sclera with reactive pupils, Respiratory: Lungs with rhonchi in the right base. No wheezing and no crackles Cardiac: Regular rate and rhythm no murmurs no bruits Abdomen: Soft, nontender, no rebound or guarding, no flank pain Skin: Pale, decreased peripheral perfusion per capillary refill Neurologic: Globally weak but otherwise Grossly neurologically intact with no obvious asymmetries or abnormalities Extremities: No trauma, no lower extremity edema Psych: Cooperative, appropriate insight and affect Course Orders Ordered: ED Orders 01/23/25 08:55 Complete Blood Count AUTO DIFF Stat Comprehensive Metabolic Panel Stat Lactate (Lactic Acid) Stat Lipase Stat Magnesium Stat Procalcitonin Stat Troponin I Stat 01/23/25 09:04 XR chest 1V Stat Urinalysis and Microscopic Stat 01/23/25 09:25 Blood Culture Stat 01/23/25 10:40 GI Panel (Film Array) Stat Sodium Chloride (Normal Saline 0.9%) 1,000 mls @ 1,000 mls/hr IV BOLUS ONE Stop: 01/23/25 14:48 Discontinued Medications Sodium Chloride (Normal Saline 0.9%) 1,000 mls @ 1,000 mls/hr IV BOLUS ONE Stop: 01/23/25 10:02 Last Infusion: 01/23/25 09:35 Dose: Infused Documented By: Admin: 01/23/25 09:10 Dose: 1,000 mls/hr Documented By: MINI Sodium Chloride (Normal Saline 0.9%) 1,000 mls @ 1,000 mls/hr IV BOLUS ONE Stop: 01/23/25 10:03 Last Infusion: 01/23/25 11:19 Dose: Infused Documented By: Admin: 01/23/25 09:36 Dose: 1,000 mls/hr Documented By: RB POTASSIUM CHLORIDE IN WATER (Potassium Cl 10 Meq/100 Ml Sarahi) 10 meq in 100 mls @ 100 mls/hr IV Q1H JOSÉ MIGUEL Stop: 01/23/25 13:29 Last Admin: 01/23/25 11:46 Dose: 50 mls/hr Documented By: Infusion: 01/23/25 11:45 Dose: Infused Documented By: Admin: 01/23/25 10:44 Dose: 100 mls/hr Documented By: Infusion: 01/23/25 10:39 Dose: Infused Documented By: Admin: 01/23/25 09:39 Dose: 100 mls/hr Documented By: RB Sodium Chloride (Normal Saline 0.9%) 1,000 mls @ 1,000 mls/hr IV BOLUS ONE Stop: 01/23/25 12:14 Last Infusion: 01/23/25 12:47 Dose: Infused Documented By: Admin: 01/23/25 11:19 Dose: 1,000 mls/hr Documented By: PEPITO Sodium Chloride (Normal Saline 0.9%) 500 mls @ 1,000 mls/hr IV BOLUS ONE Stop: 01/23/25 13:16 Last Admin: 01/23/25 12:52 Dose: 1,000 mls/hr Documented By: AB Lidocaine HCl (Lidocaine 2% (Glydo) 6 Ml Gel) 6 ml TOP NOW ONE Stop: 01/23/25 13:45 Potassium Chloride (Potassium Chloride 20 Meq Tab) 40 meq PO NOW ONE Stop: 01/23/25 09:31 Last Admin: 01/23/25 09:39 Dose: 40 meq Documented By: PEPITO Vital Signs Vital signs: Vital Signs - 8 hr 01/23/25 08:53 01/23/25 08:57 01/23/25 08:58 Temperature 97.2 F L Pulse Rate 77 80 77 Respiratory Rate 22 Blood Pressure 103/51 L Pulse Oximetry 97 98 97 Oxygen Delivery Method Room Air 01/23/25 09:00 01/23/25 09:00 01/23/25 09:02 Temperature Pulse Rate 78 Respiratory Rate Blood Pressure 75/48 L 73/39 L Pulse Oximetry 97 Oxygen Delivery Method 01/23/25 09:02 01/23/25 09:04 01/23/25 09:04 Temperature Pulse Rate 75 72 Respiratory Rate Blood Pressure 82/49 L Pulse Oximetry 97 98 Oxygen Delivery Method 01/23/25 09:06 01/23/25 09:08 01/23/25 09:08 Temperature Pulse Rate 70 73 Respiratory Rate Blood Pressure 111/55 L Pulse Oximetry 98 98 Oxygen Delivery Method 01/23/25 09:10 01/23/25 09:10 01/23/25 09:12 Temperature Pulse Rate 72 Respiratory Rate Blood Pressure 102/55 L 106/59 L Pulse Oximetry 98 Oxygen Delivery Method 01/23/25 09:12 01/23/25 09:14 01/23/25 09:14 Temperature Pulse Rate 69 68 Respiratory Rate Blood Pressure 103/55 L Pulse Oximetry 98 99 Oxygen Delivery Method 01/23/25 09:16 01/23/25 09:16 01/23/25 09:18 Temperature Pulse Rate 67 67 Respiratory Rate Blood Pressure 105/53 L Pulse Oximetry 99 99 Oxygen Delivery Method 01/23/25 09:18 01/23/25 09:20 01/23/25 09:20 Temperature Pulse Rate 67 Respiratory Rate Blood Pressure 106/59 L 111/53 L Pulse Oximetry 99 Oxygen Delivery Method 01/23/25 09:22 01/23/25 09:22 01/23/25 09:24 Temperature Pulse Rate 70 Respiratory Rate Blood Pressure 116/54 L 104/48 L Pulse Oximetry 99 Oxygen Delivery Method 01/23/25 09:24 01/23/25 09:26 01/23/25 09:26 Temperature Pulse Rate 67 69 Respiratory Rate Blood Pressure 109/49 L Pulse Oximetry 99 99 Oxygen Delivery Method 01/23/25 09:28 01/23/25 09:28 01/23/25 09:30 Temperature Pulse Rate 68 69 Respiratory Rate Blood Pressure 109/56 L Pulse Oximetry 99 99 Oxygen Delivery Method 01/23/25 09:31 01/23/25 09:31 01/23/25 09:32 Temperature Pulse Rate 69 Respiratory Rate Blood Pressure 130/57 L 120/60 Pulse Oximetry 100 Oxygen Delivery Method 01/23/25 09:32 01/23/25 09:34 01/23/25 09:36 Temperature Pulse Rate 71 69 69 Respiratory Rate Blood Pressure Pulse Oximetry 100 99 100 Oxygen Delivery Method 01/23/25 09:38 01/23/25 09:40 01/23/25 09:40 Temperature Pulse Rate 70 69 Respiratory Rate 28 H 22 Blood Pressure 129/62 Pulse Oximetry 99 99 Oxygen Delivery Method 01/23/25 09:42 01/23/25 09:42 01/23/25 09:44 Temperature Pulse Rate 69 Respiratory Rate 28 H Blood Pressure 120/58 L 123/56 L Pulse Oximetry 100 Oxygen Delivery Method 01/23/25 09:44 01/23/25 09:46 01/23/25 09:46 Temperature Pulse Rate 73 80 Respiratory Rate 22 27 H Blood Pressure 130/58 L Pulse Oximetry 99 98 Oxygen Delivery Method 01/23/25 09:48 01/23/25 09:48 01/23/25 09:50 Temperature Pulse Rate 73 Respiratory Rate 26 H Blood Pressure 146/63 H 122/60 Pulse Oximetry 98 Oxygen Delivery Method 01/23/25 09:50 01/23/25 09:52 01/23/25 09:52 Temperature Pulse Rate 70 68 Respiratory Rate 27 H 24 Blood Pressure 120/57 L Pulse Oximetry 98 98 Oxygen Delivery Method 01/23/25 09:54 01/23/25 09:54 01/23/25 09:56 Temperature Pulse Rate 69 Respiratory Rate 22 Blood Pressure 120/58 L 118/56 L Pulse Oximetry 98 Oxygen Delivery Method 01/23/25 09:56 01/23/25 09:58 01/23/25 09:58 Temperature Pulse Rate 70 70 Respiratory Rate 18 22 Blood Pressure 113/56 L Pulse Oximetry 99 98 Oxygen Delivery Method 01/23/25 10:00 01/23/25 10:00 01/23/25 10:02 Temperature Pulse Rate 69 Respiratory Rate 22 Blood Pressure 119/58 L 112/56 L Pulse Oximetry 98 Oxygen Delivery Method 01/23/25 10:02 01/23/25 10:04 01/23/25 10:04 Temperature Pulse Rate 69 69 Respiratory Rate 21 25 H Blood Pressure 120/59 L Pulse Oximetry 98 98 Oxygen Delivery Method 01/23/25 10:06 01/23/25 10:06 01/23/25 10:08 Temperature Pulse Rate 69 69 Respiratory Rate 26 H 21 Blood Pressure 124/57 L Pulse Oximetry 98 98 Oxygen Delivery Method 01/23/25 10:10 01/23/25 10:10 01/23/25 10:12 Temperature Pulse Rate 68 69 Respiratory Rate 27 H 21 Blood Pressure 121/58 L Pulse Oximetry 99 97 Oxygen Delivery Method 01/23/25 10:14 01/23/25 10:15 01/23/25 10:15 Temperature Pulse Rate 69 69 Respiratory Rate 17 19 Blood Pressure 123/61 Pulse Oximetry 97 96 Oxygen Delivery Method 01/23/25 10:16 01/23/25 10:18 01/23/25 10:20 Temperature Pulse Rate 69 69 Respiratory Rate 17 26 H Blood Pressure 129/58 L Pulse Oximetry 96 98 Oxygen Delivery Method 01/23/25 10:20 01/23/25 10:22 01/23/25 10:24 Temperature Pulse Rate 70 74 76 Respiratory Rate 24 30 H 23 Blood Pressure Pulse Oximetry 98 98 98 Oxygen Delivery Method 01/23/25 10:25 01/23/25 10:25 01/23/25 10:26 Temperature Pulse Rate 75 76 Respiratory Rate 24 18 Blood Pressure 133/59 L Pulse Oximetry 98 96 Oxygen Delivery Method 01/23/25 10:28 01/23/25 10:40 01/23/25 10:40 Temperature Pulse Rate 75 78 Respiratory Rate 27 H Blood Pressure 136/62 Pulse Oximetry 98 93 Oxygen Delivery Method 01/23/25 10:42 01/23/25 10:44 01/23/25 10:46 Temperature Pulse Rate 75 73 Respiratory Rate 19 26 H Blood Pressure 115/57 L Pulse Oximetry 97 98 Oxygen Delivery Method 01/23/25 10:46 01/23/25 10:48 01/23/25 10:50 Temperature Pulse Rate 72 73 84 Respiratory Rate 30 H 31 H Blood Pressure Pulse Oximetry 97 99 99 Oxygen Delivery Method 01/23/25 10:52 01/23/25 10:54 01/23/25 11:00 Temperature Pulse Rate 117 H 87 83 Respiratory Rate 35 H 32 H Blood Pressure Pulse Oximetry 98 97 97 Oxygen Delivery Method 01/23/25 11:00 01/23/25 11:02 01/23/25 11:04 Temperature Pulse Rate 82 74 Respiratory Rate 19 20 Blood Pressure 119/58 L Pulse Oximetry 96 98 Oxygen Delivery Method 01/23/25 11:05 01/23/25 11:05 01/23/25 11:06 Temperature Pulse Rate 77 76 Respiratory Rate 29 H 24 Blood Pressure 115/54 L Pulse Oximetry 98 98 Oxygen Delivery Method 01/23/25 11:08 01/23/25 11:10 01/23/25 11:10 Temperature Pulse Rate 72 66 Respiratory Rate 29 H 29 H Blood Pressure 83/44 L Pulse Oximetry 98 98 Oxygen Delivery Method 01/23/25 11:11 01/23/25 11:11 01/23/25 11:12 Temperature Pulse Rate 72 72 Respiratory Rate 22 22 Blood Pressure 103/52 L Pulse Oximetry 98 98 Oxygen Delivery Method 01/23/25 11:25 01/23/25 11:26 01/23/25 11:28 Temperature Pulse Rate 68 67 66 Respiratory Rate Blood Pressure 109/85 Pulse Oximetry 99 99 98 Oxygen Delivery Method 01/23/25 11:30 01/23/25 11:30 01/23/25 11:32 Temperature Pulse Rate 66 65 Respiratory Rate 11 L 11 L Blood Pressure 107/54 L Pulse Oximetry 98 98 Oxygen Delivery Method 01/23/25 11:34 01/23/25 11:35 01/23/25 11:35 Temperature Pulse Rate 65 65 Respiratory Rate 22 19 Blood Pressure 113/56 L Pulse Oximetry 95 97 Oxygen Delivery Method 01/23/25 11:36 01/23/25 11:38 01/23/25 11:40 Temperature Pulse Rate 66 69 Respiratory Rate 20 Blood Pressure 114/56 L Pulse Oximetry 95 87 L Oxygen Delivery Method 01/23/25 11:40 01/23/25 11:42 01/23/25 11:44 Temperature Pulse Rate 65 67 72 Respiratory Rate 20 Blood Pressure Pulse Oximetry 96 93 98 Oxygen Delivery Method 01/23/25 11:45 01/23/25 11:45 01/23/25 11:46 Temperature Pulse Rate 72 72 Respiratory Rate 28 H Blood Pressure 119/59 L Pulse Oximetry 98 98 Oxygen Delivery Method 01/23/25 11:48 01/23/25 11:50 01/23/25 11:50 Temperature Pulse Rate 71 69 Respiratory Rate 20 22 Blood Pressure 115/57 L Pulse Oximetry 98 96 Oxygen Delivery Method 01/23/25 11:52 01/23/25 12:06 01/23/25 12:08 Temperature Pulse Rate 72 76 Respiratory Rate Blood Pressure 127/74 Pulse Oximetry 97 Oxygen Delivery Method 01/23/25 12:08 01/23/25 12:10 01/23/25 12:12 Temperature Pulse Rate 74 72 79 Respiratory Rate 9 L 11 L 16 Blood Pressure Pulse Oximetry 97 97 97 Oxygen Delivery Method 01/23/25 12:14 01/23/25 12:16 01/23/25 12:18 Temperature Pulse Rate 80 77 67 Respiratory Rate 17 25 H 19 Blood Pressure Pulse Oximetry 97 97 99 Oxygen Delivery Method 01/23/25 12:20 01/23/25 12:22 01/23/25 12:24 Temperature Pulse Rate 67 66 69 Respiratory Rate 21 15 23 Blood Pressure Pulse Oximetry 99 99 99 Oxygen Delivery Method 01/23/25 12:26 01/23/25 12:28 01/23/25 12:30 Temperature Pulse Rate 67 80 Respiratory Rate 18 23 23 Blood Pressure Pulse Oximetry 99 99 98 Oxygen Delivery Method 01/23/25 12:31 01/23/25 12:31 01/23/25 12:32 Temperature Pulse Rate 70 70 Respiratory Rate 19 Blood Pressure 109/55 L Pulse Oximetry 98 98 Oxygen Delivery Method 01/23/25 12:34 01/23/25 12:36 01/23/25 12:38 Temperature Pulse Rate 67 68 66 Respiratory Rate 17 19 22 Blood Pressure Pulse Oximetry 100 99 99 Oxygen Delivery Method 01/23/25 12:40 01/23/25 12:42 01/23/25 12:44 Temperature Pulse Rate 70 69 69 Respiratory Rate 19 Blood Pressure Pulse Oximetry 98 99 98 Oxygen Delivery Method 01/23/25 12:45 01/23/25 12:45 01/23/25 12:46 Temperature Pulse Rate 66 66 Respiratory Rate 22 19 Blood Pressure 114/55 L Pulse Oximetry 98 98 Oxygen Delivery Method 01/23/25 12:48 01/23/25 12:50 01/23/25 12:52 Temperature Pulse Rate 66 65 63 Respiratory Rate 20 30 H 20 Blood Pressure Pulse Oximetry 98 99 97 Oxygen Delivery Method 01/23/25 12:54 01/23/25 12:56 01/23/25 13:07 Temperature Pulse Rate 66 72 76 Respiratory Rate 20 34 H Blood Pressure Pulse Oximetry 93 89 L 90 L Oxygen Delivery Method 01/23/25 13:08 01/23/25 13:09 01/23/25 13:09 Temperature Pulse Rate 76 72 Respiratory Rate Blood Pressure 101/59 L Pulse Oximetry 97 98 Oxygen Delivery Method 01/23/25 13:10 01/23/25 13:12 01/23/25 13:14 Temperature Pulse Rate 72 71 71 Respiratory Rate Blood Pressure Pulse Oximetry 98 98 98 Oxygen Delivery Method 01/23/25 13:15 01/23/25 13:15 01/23/25 13:16 Temperature Pulse Rate 71 71 Respiratory Rate Blood Pressure 114/56 L Pulse Oximetry 98 98 Oxygen Delivery Method 01/23/25 13:18 01/23/25 13:20 01/23/25 13:22 Temperature Pulse Rate 71 69 77 Respiratory Rate Blood Pressure Pulse Oximetry 98 98 98 Oxygen Delivery Method 01/23/25 13:24 01/23/25 13:26 01/23/25 13:29 Temperature Pulse Rate 73 97 H 82 Respiratory Rate Blood Pressure Pulse Oximetry 99 97 90 L Oxygen Delivery Method 01/23/25 13:30 01/23/25 13:30 01/23/25 13:32 Temperature Pulse Rate 84 76 Respiratory Rate Blood Pressure 150/65 H Pulse Oximetry 96 98 Oxygen Delivery Method 01/23/25 13:34 01/23/25 13:36 01/23/25 13:38 Temperature Pulse Rate 74 73 71 Respiratory Rate Blood Pressure Pulse Oximetry 98 97 97 Oxygen Delivery Method 01/23/25 13:40 01/23/25 13:42 01/23/25 13:44 Temperature Pulse Rate 73 70 68 Respiratory Rate Blood Pressure Pulse Oximetry 98 98 98 Oxygen Delivery Method 01/23/25 13:46 01/23/25 13:46 Temperature Pulse Rate 69 Respiratory Rate Blood Pressure 84/48 L Pulse Oximetry 99 Oxygen Delivery Method Medical Decision Making Lab Data 01/23/25 08:55 01/23/25 08:55 Labs: Lab Results 01/23/25 01/23/25 Range/Units 08:55 10:40 WBC 5.5 (4.5-11.0) X10^3/uL RBC 4.50 (4.5-5.9) X10^6/uL Hgb 14.3 (13.5-17.5) g/dL Hct 42.8 (41-53) % MCV 95.1 (80-100) fL MCH 31.7 (26-34) PG MCHC 33.4 (30-36) % RDW 13.2 (11.6-14.8) % Plt Count 332 (150-400) X10^3/uL Neut % (Auto) 57.9 (50-75) % Lymph % (Auto) 17.0 L (25-40) % [place] % (Auto) 21.0 H (3-14) % Eos % (Auto) 3.3 (2-4) % Baso % (Auto) 0.8 (0-2) % Neut # (Auto) 3200 (5636-9682) /uL Lymph # (Auto) 900 L (8958-3748) /uL [place] # (Auto) 1200 H (0-900) /uL Eos # (Auto) 200 (0-450) /uL Baso # (Auto) 0 (0-100) /uL Sodium 135 L (137-145) mmol/L Potassium 3.2 L (3.4-5.1) mmol/L Chloride 105 (98-107) mmol/L Carbon Dioxide 18 L (22-32) mmol/L BUN 45 H (9-20) mg/dL Creatinine 1.75 H (0.66-1.25) mg/dL Estimated GFR 38 L (>60) mL/min BUN/Creatinine Ratio 25.7 H (6-22) Glucose 126 H (80-110) mg/dL Lactate 1.7 (0.7-2.1) mmol/L Calcium 8.9 (8.4-10.2) mg/dL Magnesium 2.1 (1.6-2.3) mg/dL Total Bilirubin 0.6 (0.2-1.3) mg/dL AST 23 (17-59) IU/L ALT 22 (<50) IU/L Alkaline Phosphatase 73 (38-126) U/L Troponin I 0.014 (0.01-0.034) ng/mL Total Protein 6.2 L (6.3-8.2) g/dL Albumin 3.0 L (3.5-5.0) g/dL Globulin 3.2 (1.7-4.1) g/dL Albumin/Globulin Ratio 0.9 L (1.0-2.8) Lipase 204 (23-300) U/L Procalcitonin 0.177 (<0.5) ng/mL Stl C. cayetanensis PCR Not detected (Not Detect) Stool Rotavirus (PCR) Not detected (Not Detect) Stool Adenovirus (PCR) Not detected (Not Detect) Stool Astrovirus (PCR) Not detected (Not Detect) Stool Cryptosporidium PCR Not detected (Not Detect) Stl E.coli Shiga Tox PCR Not detected (Not Detect) St Sh/Enteroin Ecoli PCR Not detected (Not Detect) Stl Enterotoxigenic E PCR Not detected (Not Detect) Stool EPEC (PCR) Not detected (Not Detect) Stl E. histolytica PCR Not detected (Not Detect) Stool Giardia Lamblia PCR Not detected (Not Detect) Stool Sapovirus (PCR) Not detected (Not Detect) Stl P. shigelloides PCR Not detected (Not Detect) St Y.enterocolitica PCR Not detected (Not Detect) Stool Vibrio (PCR) Not detected (Not Detect) Stl Vibrio cholerae PCR Not detected (Not Detect) Stl Enteroaggr Ecoli PCR Not detected (Not Detect) Stl Norovirus GI/GII PCR Not detected (Not Detect) Campylobacter (PCR) Not detected (Not Detect) C. difficile Tox (PCR) Not detected (Not Detect) Salmonella (PCR) Not detected (Not Detect) MDM Narrative Medical decision making narrative: CC: Diarrhea persisting for 2 weeks with increasing weakness Complicating co-morbidities: History of lymphocytic colitis, prior stroke, hyperlipidemia Data collected from: patient, son Medical records reviewed: Patient had 4 hospitalizations for acute diarrhea with dehydration in July and August of 2024. This led to colonoscopy August 27, 2024 and subsequent GI consult with a diagnosis of lymphocytic colitis which was then treated with budesonide, 6 mg b.i.d. for a total of 8 weeks with successful resolution of the diarrhea. His olmesartan was changed to amlodipine as there apparently is a slight correlation with lymphocytic colitis and olmesartan. Differential considered: C diff, given lack of blood lack of pain ischemic bowel is felt to be less likely. Recurrent colitis, other viral or bacterial diarrhea, acute kidney injury/renal failure, significant electrolyte abnormalities, right lower lobe pneumonia Exam documented above, pertinent findings include: Patient is globally weak, appears significantly fatigued. Aside from poor perfusion exam is otherwise fairly benign Lab Test results independently reviewed as above. Pertinent findings: CBC is unremarkable, no anemia Chemistries show mild acute kidney injury with a creatinine at 1.75 and GFR 38. Potassium is slightly low 3.2. Liver studies were unremarkable Stool studies do not show acute bacterial or viral etiology Independently reviewed EKG: Sinus rhythm at a rate of 77. Poor baseline overall do not suspect acute ischemic changes Imaging studies independently reviewed: Chest x-ray is unremarkable and does not show any pathology in the area with rhonchi appreciated in the right base Treatments: We will begin with 2 L of fluid, oral and IV potassium Re-evaluations: Shortly after initial evaluation patient's blood pressure drops. Patient is very sensitive to fluid resuscitation however continues to be orthostatic shortly after fluid bolus or if taken out of Trendelenburg. Patient still has not voided, has almost 500 cc in his bladder so Andrew catheter will be placed. Aside from bladder distention he has no abdominal pain on palpation. Discussion: 84-year-old gentleman with 2 weeks of significant watery diarrhea. Similar episode back in August that after for hospitalizations and colonoscopy and GI consult eventually led to a diagnosis of lymphocytic colitis that was treated with budesonide 6 mg b.i.d. orally for a total of 8 weeks. Hypertensive medications were changed from olmesartan to amlodipine currently on 10 mg of amlodipine daily losartan 100 mg daily. In the ER he continues to be hypotensive that is nicely responsive to fluids but does not indicate significant dehydration. Has acute kidney injury with creatinine changing from 1.26-1.75. BUN is elevated at 45. He is making urine, Andrew catheter will be placed for his BPH and relative urinary retention as well as for better evaluation of volumes in and out. There was no evidence of infection, sepsis, significant bowel injury based on a normal lactic acid and very benign physical exam. With all of the diarrhea is potassium is slightly low at 3.2. Would like to admit this gentleman for presumed lymphocytic colitis with severe diarrhea causing dehydration, acute kidney injury, hypokalemia and continued hypotension with no evidence of sepsis. Fluid resuscitation, potassium replacement, restarting budesonide and we will also see if Imodium can slow down the overall diarrhea. We will review care with the hospitalist service Discharge Plan Departure Patient Disposition: Admitted As Inpatient Clinical Impression: TISHA (acute kidney injury), Dehydration, Acute hypokalemia, Lymphocytic colitis, Acute on chronic urinary retention, Acute hypotension Diarrhea Qualifiers: Diarrhea type: unspecified type Qualified Code(s): R19.7 - Diarrhea, unspecified Admit Date/Time: 01/23/25 14:10 Admit Provider: Aydin Holland
--- NOTE | 2025-01-23 08:54 | EKG_ITS ---
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
--- NOTE | 2025-01-23 09:04 | DI.RAD.S_ITS ---
PROCEDURE: XR CHEST 1V INDICATIONS: cough TECHNIQUE: One view of the chest was acquired. COMPARISON: [facility], CR, XR CHEST 1V, 08/12/2024, 5:16. FINDINGS: Surgical changes and devices: None. Lungs and pleura: Lungs are clear. No pleural effusions or pneumothorax. Mediastinum: Mildly tortuous thoracic aorta. Heart size is enlarged. Bones and chest wall: No suspicious bony lesions. Overlying soft tissues appear unremarkable. IMPRESSION: No acute cardiopulmonary pathology. Dictated by: Bran Duran M.D. on 01/23/2025 at 9:20 Approved by: Bran Duran M.D. on 01/23/2025 at 9:21
[2025-01-23] MEDS: SODIUM CHLORIDE 0.9% 1,000 ML 1000 ML IV ×4 (09:10→13:55)
[2025-01-23 09:14] LABS: Hematocrit 42.8 % (41-53); Hemoglobin 14.3 g/dL (13.5-17.5); Mean Corpuscular HGB Conc 33.4 % (30-36); Mean Corpuscular Hemoglobin 31.7 PG (26-34); Mean Corpuscular Volume 95.1 fL (80-100); Platelet Count 332 X10^3/uL (150-400); Red Cell Distribution Width 13.2 % (11.6-14.8); White Blood Cell Count 5.5 X10^3/uL (4.5-11.0)
[2025-01-23 09:18] LABS: Alanine Aminotransferase 22 IU/L (<50); Albumin Globulin Ratio 0.9 (1.0-2.8); Alkaline Phosphatase 73 U/L (38-126); Aspartate Aminotransferase 23 IU/L (17-59); BUN Creatinine Ratio 25.7 (6-22); Bilirubin Total 0.6 mg/dL (0.2-1.3); Blood Urea Nitrogen 45 mg/dL (9-20); Calcium 8.9 mg/dL (8.4-10.2); Carbon Dioxide 18 mmol/L (22-32); Chloride 105 mmol/L (98-107); Estimated Glomerular Filt Rate 38 mL/min (>60); Globulin 3.2 g/dL (1.7-4.1); Glucose 126 mg/dL (80-110); HEMOLYSIS < 15 (0-50); Lactate (Lactic Acid) 1.7 mmol/L (0.7-2.1); Lipase 204 U/L (23-300); Magnesium 2.1 mg/dL (1.6-2.3); Potassium 3.2 mmol/L (3.4-5.1); Sodium 135 mmol/L (137-145); Total Protein 6.2 g/dL (6.3-8.2)
[2025-01-23 09:30] LABS: Troponin I 0.014 ng/mL (0.01-0.034)
[2025-01-23 09:34] LABS: Procalcitonin 0.177 ng/mL (<0.5)
--- NOTE | 2025-01-23 09:34 | PC.NURSE ---
Provider was immediately informed when patient blood pressure dropped. Provider ordered 2nd line and immediate normal saline bolus. business solutions architect scanned and hung fluids.
[2025-01-23] MEDS: POTASSIUM CHLORIDE IN WATER 10 MEQ/100 ML PIGGYBACK 100 MEQ IV ×3 (09:39→13:56)
[2025-01-23] MEDS: POTASSIUM CHLORIDE 20 MEQ TAB 40 MEQ PO (09:39)
--- NOTE | 2025-01-23 11:05 | PC.NURSE ---
This DISCHARGE PLANNER assisted pt to use urinal at bedside. Unable to urinate. pt requests to try using the commode. No urine while on commode. This DISCHARGE PLANNER returned pt to bed and provided warm blankets and call light. PETER Goss made aware.
--- NOTE | 2025-01-23 11:15 | PC.NURSE ---
This RN noted patient drop in blood pressure and immediately placed patient in trandelnberg position and alert Dr. Carnes. This RN also informed provider that patient has been unable to urinate thus far and we bladder scanned and found 350ml. Provider gave verbal order for additional 1L normal saline bolus and re-bladder scan afterwards if patient is still unable to void. This RN placed orders as directed. Informed new primary RN and trainee RN.
[2025-01-23] MEDS: POTASSIUM CHLORIDE IN WATER 10 MEQ/100 ML PIGGYBACK 50 MEQ IV (11:46)
[2025-01-23 12:17] LABS: Adenovirus F 40/41 Not Detected (Not Detect); Astrovirus Not Detected (Not Detect); Campylobacter Not Detected (Not Detect); Clostridium difficile toxin AB Not Detected (Not Detect); Cryptosporidium Not Detected (Not Detect); Cyclospora cayetanensis Not Detected (Not Detect); Entamoeba histolytica Not Detected (Not Detect); Enteroaggregative E.coli Not Detected (Not Detect); Enteropathogenic E.coli Not Detected (Not Detect); Enterotoxigenic E.coli It/st Not Detected (Not Detect); Giardia lamblia Not Detected (Not Detect); Norovirus GI/GII Not Detected (Not Detect); Plesiomonsa shigelloides Not Detected (Not Detect); Rotavirus A Not Detected (Not Detect); Salmonella Not Detected (Not Detect); Sapovirus Not Detected (Not Detect); Shiga-like toxin-prod E.coli Not Detected (Not Detect); Shigella/Enteroinvasive E.coli Not Detected (Not Detect); Vibrio Not Detected (Not Detect); Vibrio cholerae Not Detected (Not Detect); Yersinia enterocolitica Not Detected (Not Detect)
[2025-01-23] MEDS: SODIUM CHLORIDE 0.9% 500 ML 1000 ML IV (12:52)
--- NOTE | 2025-01-23 12:53 | PC.NURSE ---
pt having hard time tolerating K+ IV w NS on left arm, switched administration site to right arm and slowed rate of K+ to 50ml/hr
[2025-01-23] MEDS: LIDOCAINE 2% (GLYDO) 6 ML GEL TOP (13:56)
--- NOTE | 2025-01-23 14:16 | PM.HP.1 ---
History of Present Illness History of Present Illness Date Patient Seen: 01/23/25 Time Patient Seen: 13:27 Chief complaint: Diarrhea, dizzy, shortness of breath Narrative: This is an 84 year old male with PMH of CVA, HTN, recent episode of lymphocytic colitis who just finished steroid taper who presents with return of diarrhea. He finished budesonide taper about 4 weeks ago. He had on again off again diarrhea for two weeks but generally improved. Starting two weeks ago he noticed increasing frequency in diarrhea again. He saw his PCP a few days ago who thought he had a viral enteritis. In the emergency room he had TISHA and hypotension, improved with IV fluids. He was given oral budesonide 6 mg in the ER. He did have recent admission for nausea due to high doses of budesonide which improved with lowering dose to 3 mg BID from TID. Denies fever, abdominal pain. Has had chills the last few days. No dysuria or urinary frequency. He did have difficulty voiding in the ER and had 500 cc in his bladder, a kong was placed. Stool PCR was negative for infectious etiologies. He was admitted for further management. [facility] Medical History Hyperlipidemia Chronic kidney disease Stroke Social History household members: none Smoking Status: Never smoker alcohol intake: current Meds Home Medications and Allergies Home Medications Medication Instructions Recorded Confirmed Type aspirin 81 mg capsule 81 mg PO DAILY 08/12/24 01/23/25 History loperamide 2 mg capsule 2 mg PO Q6H PRN Diarrhea #1 cap 08/14/24 01/23/25 Rx budesonide 3 mg 3 mg PO BID #30 ea 09/05/24 01/23/25 Rx capsule,delayed,extended release levofloxacin 500 mg tablet 500 mg PO DAILY 01/23/25 01/23/25 History rosuvastatin 40 mg tablet 40 mg PO DAILY 01/23/25 01/23/25 History Allergies Allergy/AdvReac Type Severity Reaction Status Date / Time No Known Drug Allergies Allergy Verified 08/27/24 11:49 Review of Systems Review of Systems Narrative: All other systems reviewed with the patient and are negative unless otherwise stated. Exam Vital Signs (past 8 hours): - 01/23/25 08:53 01/23/25 08:57 01/23/25 08:58 Temperature 97.2 F L Pulse Rate 77 80 77 Respiratory Rate 22 Blood Pressure 103/51 L Pulse Oximetry 97 98 97 Oxygen Delivery Method Room Air 01/23/25 09:00 01/23/25 09:00 01/23/25 09:02 Temperature Pulse Rate 78 Respiratory Rate Blood Pressure 75/48 L 73/39 L Pulse Oximetry 97 Oxygen Delivery Method 01/23/25 09:02 01/23/25 09:04 01/23/25 09:04 Temperature Pulse Rate 75 72 Respiratory Rate Blood Pressure 82/49 L Pulse Oximetry 97 98 Oxygen Delivery Method 01/23/25 09:06 01/23/25 09:08 01/23/25 09:08 Temperature Pulse Rate 70 73 Respiratory Rate Blood Pressure 111/55 L Pulse Oximetry 98 98 Oxygen Delivery Method 01/23/25 09:10 01/23/25 09:10 01/23/25 09:12 Temperature Pulse Rate 72 Respiratory Rate Blood Pressure 102/55 L 106/59 L Pulse Oximetry 98 Oxygen Delivery Method 01/23/25 09:12 01/23/25 09:14 01/23/25 09:14 Temperature Pulse Rate 69 68 Respiratory Rate Blood Pressure 103/55 L Pulse Oximetry 98 99 Oxygen Delivery Method 01/23/25 09:16 01/23/25 09:16 01/23/25 09:18 Temperature Pulse Rate 67 67 Respiratory Rate Blood Pressure 105/53 L Pulse Oximetry 99 99 Oxygen Delivery Method 01/23/25 09:18 01/23/25 09:20 01/23/25 09:20 Temperature Pulse Rate 67 Respiratory Rate Blood Pressure 106/59 L 111/53 L Pulse Oximetry 99 Oxygen Delivery Method 01/23/25 09:22 01/23/25 09:22 01/23/25 09:24 Temperature Pulse Rate 70 Respiratory Rate Blood Pressure 116/54 L 104/48 L Pulse Oximetry 99 Oxygen Delivery Method 01/23/25 09:24 01/23/25 09:26 01/23/25 09:26 Temperature Pulse Rate 67 69 Respiratory Rate Blood Pressure 109/49 L Pulse Oximetry 99 99 Oxygen Delivery Method 01/23/25 09:28 01/23/25 09:28 01/23/25 09:30 Temperature Pulse Rate 68 69 Respiratory Rate Blood Pressure 109/56 L Pulse Oximetry 99 99 Oxygen Delivery Method 01/23/25 09:31 01/23/25 09:31 01/23/25 09:32 Temperature Pulse Rate 69 Respiratory Rate Blood Pressure 130/57 L 120/60 Pulse Oximetry 100 Oxygen Delivery Method 01/23/25 09:32 01/23/25 09:34 01/23/25 09:36 Temperature Pulse Rate 71 69 69 Respiratory Rate Blood Pressure Pulse Oximetry 100 99 100 Oxygen Delivery Method 01/23/25 09:38 01/23/25 09:40 01/23/25 09:40 Temperature Pulse Rate 70 69 Respiratory Rate 28 H 22 Blood Pressure 129/62 Pulse Oximetry 99 99 Oxygen Delivery Method 01/23/25 09:42 01/23/25 09:42 01/23/25 09:44 Temperature Pulse Rate 69 Respiratory Rate 28 H Blood Pressure 120/58 L 123/56 L Pulse Oximetry 100 Oxygen Delivery Method 01/23/25 09:44 01/23/25 09:46 01/23/25 09:46 Temperature Pulse Rate 73 80 Respiratory Rate 22 27 H Blood Pressure 130/58 L Pulse Oximetry 99 98 Oxygen Delivery Method 01/23/25 09:48 01/23/25 09:48 01/23/25 09:50 Temperature Pulse Rate 73 Respiratory Rate 26 H Blood Pressure 146/63 H 122/60 Pulse Oximetry 98 Oxygen Delivery Method 01/23/25 09:50 01/23/25 09:52 01/23/25 09:52 Temperature Pulse Rate 70 68 Respiratory Rate 27 H 24 Blood Pressure 120/57 L Pulse Oximetry 98 98 Oxygen Delivery Method 01/23/25 09:54 01/23/25 09:54 01/23/25 09:56 Temperature Pulse Rate 69 Respiratory Rate 22 Blood Pressure 120/58 L 118/56 L Pulse Oximetry 98 Oxygen Delivery Method 01/23/25 09:56 01/23/25 09:58 01/23/25 09:58 Temperature Pulse Rate 70 70 Respiratory Rate 18 22 Blood Pressure 113/56 L Pulse Oximetry 99 98 Oxygen Delivery Method 01/23/25 10:00 01/23/25 10:00 01/23/25 10:02 Temperature Pulse Rate 69 Respiratory Rate 22 Blood Pressure 119/58 L 112/56 L Pulse Oximetry 98 Oxygen Delivery Method 01/23/25 10:02 01/23/25 10:04 01/23/25 10:04 Temperature Pulse Rate 69 69 Respiratory Rate 21 25 H Blood Pressure 120/59 L Pulse Oximetry 98 98 Oxygen Delivery Method 01/23/25 10:06 01/23/25 10:06 01/23/25 10:08 Temperature Pulse Rate 69 69 Respiratory Rate 26 H 21 Blood Pressure 124/57 L Pulse Oximetry 98 98 Oxygen Delivery Method 01/23/25 10:10 01/23/25 10:10 01/23/25 10:12 Temperature Pulse Rate 68 69 Respiratory Rate 27 H 21 Blood Pressure 121/58 L Pulse Oximetry 99 97 Oxygen Delivery Method 01/23/25 10:14 01/23/25 10:15 01/23/25 10:15 Temperature Pulse Rate 69 69 Respiratory Rate 17 19 Blood Pressure 123/61 Pulse Oximetry 97 96 Oxygen Delivery Method 01/23/25 10:16 01/23/25 10:18 01/23/25 10:20 Temperature Pulse Rate 69 69 Respiratory Rate 17 26 H Blood Pressure 129/58 L Pulse Oximetry 96 98 Oxygen Delivery Method 01/23/25 10:20 01/23/25 10:22 01/23/25 10:24 Temperature Pulse Rate 70 74 76 Respiratory Rate 24 30 H 23 Blood Pressure Pulse Oximetry 98 98 98 Oxygen Delivery Method 01/23/25 10:25 01/23/25 10:25 01/23/25 10:26 Temperature Pulse Rate 75 76 Respiratory Rate 24 18 Blood Pressure 133/59 L Pulse Oximetry 98 96 Oxygen Delivery Method 01/23/25 10:28 01/23/25 10:40 01/23/25 10:40 Temperature Pulse Rate 75 78 Respiratory Rate 27 H Blood Pressure 136/62 Pulse Oximetry 98 93 Oxygen Delivery Method 01/23/25 10:42 01/23/25 10:44 01/23/25 10:46 Temperature Pulse Rate 75 73 Respiratory Rate 19 26 H Blood Pressure 115/57 L Pulse Oximetry 97 98 Oxygen Delivery Method 01/23/25 10:46 01/23/25 10:48 01/23/25 10:50 Temperature Pulse Rate 72 73 84 Respiratory Rate 30 H 31 H Blood Pressure Pulse Oximetry 97 99 99 Oxygen Delivery Method 01/23/25 10:52 01/23/25 10:54 01/23/25 11:00 Temperature Pulse Rate 117 H 87 83 Respiratory Rate 35 H 32 H Blood Pressure Pulse Oximetry 98 97 97 Oxygen Delivery Method 01/23/25 11:00 01/23/25 11:02 01/23/25 11:04 Temperature Pulse Rate 82 74 Respiratory Rate 19 20 Blood Pressure 119/58 L Pulse Oximetry 96 98 Oxygen Delivery Method 01/23/25 11:05 01/23/25 11:05 01/23/25 11:06 Temperature Pulse Rate 77 76 Respiratory Rate 29 H 24 Blood Pressure 115/54 L Pulse Oximetry 98 98 Oxygen Delivery Method 01/23/25 11:08 01/23/25 11:10 01/23/25 11:10 Temperature Pulse Rate 72 66 Respiratory Rate 29 H 29 H Blood Pressure 83/44 L Pulse Oximetry 98 98 Oxygen Delivery Method 01/23/25 11:11 01/23/25 11:11 01/23/25 11:12 Temperature Pulse Rate 72 72 Respiratory Rate 22 22 Blood Pressure 103/52 L Pulse Oximetry 98 98 Oxygen Delivery Method 01/23/25 11:25 01/23/25 11:26 01/23/25 11:28 Temperature Pulse Rate 68 67 66 Respiratory Rate Blood Pressure 109/85 Pulse Oximetry 99 99 98 Oxygen Delivery Method 01/23/25 11:30 01/23/25 11:30 01/23/25 11:32 Temperature Pulse Rate 66 65 Respiratory Rate 11 L 11 L Blood Pressure 107/54 L Pulse Oximetry 98 98 Oxygen Delivery Method 01/23/25 11:34 01/23/25 11:35 01/23/25 11:35 Temperature Pulse Rate 65 65 Respiratory Rate 22 19 Blood Pressure 113/56 L Pulse Oximetry 95 97 Oxygen Delivery Method 01/23/25 11:36 01/23/25 11:38 01/23/25 11:40 Temperature Pulse Rate 66 69 Respiratory Rate 20 Blood Pressure 114/56 L Pulse Oximetry 95 87 L Oxygen Delivery Method 01/23/25 11:40 01/23/25 11:42 01/23/25 11:44 Temperature Pulse Rate 65 67 72 Respiratory Rate 20 Blood Pressure Pulse Oximetry 96 93 98 Oxygen Delivery Method 01/23/25 11:45 01/23/25 11:45 01/23/25 11:46 Temperature Pulse Rate 72 72 Respiratory Rate 28 H Blood Pressure 119/59 L Pulse Oximetry 98 98 Oxygen Delivery Method 01/23/25 11:48 01/23/25 11:50 01/23/25 11:50 Temperature Pulse Rate 71 69 Respiratory Rate 20 22 Blood Pressure 115/57 L Pulse Oximetry 98 96 Oxygen Delivery Method 01/23/25 11:52 01/23/25 12:06 01/23/25 12:08 Temperature Pulse Rate 72 76 Respiratory Rate Blood Pressure 127/74 Pulse Oximetry 97 Oxygen Delivery Method 01/23/25 12:08 01/23/25 12:10 01/23/25 12:12 Temperature Pulse Rate 74 72 79 Respiratory Rate 9 L 11 L 16 Blood Pressure Pulse Oximetry 97 97 97 Oxygen Delivery Method 01/23/25 12:14 01/23/25 12:16 01/23/25 12:18 Temperature Pulse Rate 80 77 67 Respiratory Rate 17 25 H 19 Blood Pressure Pulse Oximetry 97 97 99 Oxygen Delivery Method 01/23/25 12:20 01/23/25 12:22 01/23/25 12:24 Temperature Pulse Rate 67 66 69 Respiratory Rate 21 15 23 Blood Pressure Pulse Oximetry 99 99 99 Oxygen Delivery Method 01/23/25 12:26 01/23/25 12:28 01/23/25 12:30 Temperature Pulse Rate 67 80 Respiratory Rate 18 23 23 Blood Pressure Pulse Oximetry 99 99 98 Oxygen Delivery Method 01/23/25 12:31 01/23/25 12:31 01/23/25 12:32 Temperature Pulse Rate 70 70 Respiratory Rate 19 Blood Pressure 109/55 L Pulse Oximetry 98 98 Oxygen Delivery Method 01/23/25 12:34 01/23/25 12:36 01/23/25 12:38 Temperature Pulse Rate 67 68 66 Respiratory Rate 17 19 22 Blood Pressure Pulse Oximetry 100 99 99 Oxygen Delivery Method 01/23/25 12:40 01/23/25 12:42 01/23/25 12:44 Temperature Pulse Rate 70 69 69 Respiratory Rate 19 Blood Pressure Pulse Oximetry 98 99 98 Oxygen Delivery Method 01/23/25 12:45 01/23/25 12:45 01/23/25 12:46 Temperature Pulse Rate 66 66 Respiratory Rate 22 19 Blood Pressure 114/55 L Pulse Oximetry 98 98 Oxygen Delivery Method 01/23/25 12:48 01/23/25 12:50 01/23/25 12:52 Temperature Pulse Rate 66 65 63 Respiratory Rate 20 30 H 20 Blood Pressure Pulse Oximetry 98 99 97 Oxygen Delivery Method 01/23/25 12:54 01/23/25 12:56 01/23/25 13:07 Temperature Pulse Rate 66 72 76 Respiratory Rate 20 34 H Blood Pressure Pulse Oximetry 93 89 L 90 L Oxygen Delivery Method 01/23/25 13:08 01/23/25 13:09 01/23/25 13:09 Temperature Pulse Rate 76 72 Respiratory Rate Blood Pressure 101/59 L Pulse Oximetry 97 98 Oxygen Delivery Method 01/23/25 13:10 01/23/25 13:12 01/23/25 13:14 Temperature Pulse Rate 72 71 71 Respiratory Rate Blood Pressure Pulse Oximetry 98 98 98 Oxygen Delivery Method 01/23/25 13:15 01/23/25 13:15 01/23/25 13:16 Temperature Pulse Rate 71 71 Respiratory Rate Blood Pressure 114/56 L Pulse Oximetry 98 98 Oxygen Delivery Method 01/23/25 13:18 01/23/25 13:20 01/23/25 13:22 Temperature Pulse Rate 71 69 77 Respiratory Rate Blood Pressure Pulse Oximetry 98 98 98 Oxygen Delivery Method 01/23/25 13:24 01/23/25 13:26 01/23/25 13:29 Temperature Pulse Rate 73 97 H 82 Respiratory Rate Blood Pressure Pulse Oximetry 99 97 90 L Oxygen Delivery Method 01/23/25 13:30 01/23/25 13:30 01/23/25 13:32 Temperature Pulse Rate 84 76 Respiratory Rate Blood Pressure 150/65 H Pulse Oximetry 96 98 Oxygen Delivery Method 01/23/25 13:34 01/23/25 13:36 01/23/25 13:38 Temperature Pulse Rate 74 73 71 Respiratory Rate Blood Pressure Pulse Oximetry 98 97 97 Oxygen Delivery Method 01/23/25 13:40 01/23/25 13:42 01/23/25 13:44 Temperature Pulse Rate 73 70 68 Respiratory Rate Blood Pressure Pulse Oximetry 98 98 98 Oxygen Delivery Method 01/23/25 13:46 01/23/25 13:46 01/23/25 13:47 Temperature Pulse Rate 69 Respiratory Rate Blood Pressure 84/48 L 86/50 L Pulse Oximetry 99 Oxygen Delivery Method 01/23/25 13:47 01/23/25 13:48 01/23/25 13:48 Temperature Pulse Rate 68 69 Respiratory Rate Blood Pressure 86/47 L Pulse Oximetry 98 98 Oxygen Delivery Method 01/23/25 13:50 01/23/25 13:52 01/23/25 13:54 Temperature Pulse Rate 70 69 69 Respiratory Rate Blood Pressure Pulse Oximetry 98 98 98 Oxygen Delivery Method 01/23/25 13:56 01/23/25 13:58 01/23/25 14:00 Temperature Pulse Rate 68 68 70 Respiratory Rate Blood Pressure Pulse Oximetry 98 98 97 Oxygen Delivery Method 01/23/25 14:01 01/23/25 14:01 01/23/25 14:02 Temperature Pulse Rate 71 74 Respiratory Rate Blood Pressure 116/56 L Pulse Oximetry 97 97 Oxygen Delivery Method 01/23/25 14:04 01/23/25 14:06 01/23/25 14:08 Temperature Pulse Rate 73 75 72 Respiratory Rate Blood Pressure Pulse Oximetry 96 97 97 Oxygen Delivery Method 01/23/25 14:10 01/23/25 14:12 Temperature Pulse Rate 72 75 Respiratory Rate Blood Pressure Pulse Oximetry 98 97 Oxygen Delivery Method Oxygen Delivery Method Room Air Narrative Exam Narrative: General:? Patient is thin appearing, shivering and cold, mildly pale and moderately ill appearing. Lungs:? CTA b/l no wheezing rhonchi or rales. Cardio:?RRR no m/r/g. Abdomen: S NT ND. Musculoskeletal:? Muscle strength and tone are equal within normal limits, no deformity. Extremities: No edema or joint effusions. No cyanosis or clubbing. Objective ECG Impression: Normal sinus rhythm, no evidence for acute ischemia as interpreted by me Labs 01/23/25 08:55 01/23/25 08:55 Labs: Laboratory Results - last 24 hr 01/23/25 01/23/25 08:55 10:40 WBC 5.5 RBC 4.50 Hgb 14.3 Hct 42.8 MCV 95.1 MCH 31.7 MCHC 33.4 RDW 13.2 Plt Count 332 Neut % (Auto) 57.9 Lymph % (Auto) 17.0 L [place] % (Auto) 21.0 H Eos % (Auto) 3.3 Baso % (Auto) 0.8 Neut # (Auto) 3200 Lymph # (Auto) 900 L [place] # (Auto) 1200 H Eos # (Auto) 200 Baso # (Auto) 0 Sodium 135 L Potassium 3.2 L Chloride 105 Carbon Dioxide 18 L BUN 45 H Creatinine 1.75 H Estimated GFR 38 L BUN/Creatinine Ratio 25.7 H Glucose 126 H Lactate 1.7 Calcium 8.9 Magnesium 2.1 Total Bilirubin 0.6 AST 23 ALT 22 Alkaline Phosphatase 73 Troponin I 0.014 Total Protein 6.2 L Albumin 3.0 L Globulin 3.2 Albumin/Globulin Ratio 0.9 L Lipase 204 Procalcitonin 0.177 Stl C. cayetanensis PCR Not detected Stool Rotavirus (PCR) Not detected Stool Adenovirus (PCR) Not detected Stool Astrovirus (PCR) Not detected Stool Cryptosporidium PCR Not detected Stl E.coli Shiga Tox PCR Not detected St Sh/Enteroin Ecoli PCR Not detected Stl Enterotoxigenic E PCR Not detected Stool EPEC (PCR) Not detected Stl E. histolytica PCR Not detected Stool Giardia Lamblia PCR Not detected Stool Sapovirus (PCR) Not detected Stl P. shigelloides PCR Not detected St Y.enterocolitica PCR Not detected Stool Vibrio (PCR) Not detected Stl Vibrio cholerae PCR Not detected Stl Enteroaggr Ecoli PCR Not detected Stl Norovirus GI/GII PCR Not detected Campylobacter (PCR) Not detected C. difficile Tox (PCR) Not detected Salmonella (PCR) Not detected Assessment & Plan Assessment & Plan narrative: 1. Lymphocytic colitis, recurrent, POA, active - resume budesonide, will restart at 3 mg TID, but note that patient previously admitted for nausea at this dose and may need to decrease prior to discharge. - loperamide prn - continue IV fluids - GI panel negative, including for C. diff 2. TISHA, POA, active - continue IV fluids, Cr 1.7 on admission with baseline 0.8 to 0.9 based on previous admissions here. 3. HTN, chronic - hold home antihypertensives for now. 4. Hypokalemia, acute, POA - repleted with 40 mg PO in the ER, continue to follow with BMP 5. Acute urinary retention, POA - patient with >500 cc in bladder per ER provider, kong was placed - consider Tamsulosin and trial of void once improvement in diarrhea and improvement in TISHA - UA negative for infection. Code: Full, surrogate is patient's son Eliud DVT: Lovenox daily I have utilized all available immediate resources to obtain, update, or review the patient's current medications. Dispo: patient admitted under inpatient status. Likely discharge home in 2-3 days. Additional history obtained via discussions with the ER provider and patient's son. These discussions contributed to the creation of the above assessment and plan. I have reviewed patient's presenting documentation, labs, and imaging personally. Time-Based Coding :: [TOTAL MINUTES] spent with patient and on the chart (including review of chart, obtaining history, exam, reviewing outside data, placing orders, documenting exam and treatment plan, and counseling patient) on [DATE].
[2025-01-23 14:38] LABS: Appearance Urine UA CLEAR; Bilirubin Urine UA NEGATIVE (NEGATIVE); Color Urine UA YELLOW; Glucose Urine UA NEGATIVE (Negative); Ketones Urine UA TRACE (NEGATIVE); Leukocyte Esterase Urine UA NEGATIVE (NEGATIVE); Nitrite Urine UA NEGATIVE (Negative); Occult Blood Urine UA 1+ (Negative); Protein Urine UA NEGATIVE (Negative); Urobilinogen Urine UA 0.2 E.U./dL (0.2); pH Urine UA 5.5 (4.5-8.0)
[2025-01-23 14:46] LABS: Bacteria Urine Few (2-10); Culture Indicated Urine Cult Not Indicated; RBC Urine 0-1/HPF (0-5/HPF); Squamous Epithelial Cell Urine None Seen (0-5/HPF); Urine Volume 10mL (spun); WBC Urine 0-1/HPF (0-5/HPF)
[2025-01-23] MEDS: BUDESONIDE 3 MG CAP PO ×3 (15:34→20:31)
[2025-01-23] MEDS: LOPERAMIDE 2 MG CAPSULE PO ×2 (15:34→21:47)
[2025-01-23] MEDS: SODIUM CHLORIDE 0.9% 1,000 ML 100 ML IV (15:35)
[2025-01-24] VITALS (11 sets, daily range): BP systolic 92–171; BP diastolic 56–72; PULSE 79–109; RESP 17–26; TEMP 36.4–37.2; O2SAT 93–97
[2025-01-24] MEDS: DEXTROSE 5%-0.45NS W/KCL 20MEQ 1,000 ML 100 MEQ IV ×3 (00:24→21:25)
[2025-01-24] MEDS: ACETAMINOPHEN 325 MG TABLET 650 MG PO ×3 (01:21→15:06)
[2025-01-24 06:12] LABS: BUN Creatinine Ratio 19.1 (6-22); Blood Urea Nitrogen 26 mg/dL (9-20); Calcium 8.4 mg/dL (8.4-10.2); Carbon Dioxide 14 mmol/L (22-32); Chloride 114 mmol/L (98-107); Estimated Glomerular Filt Rate 51 mL/min (>60); Glucose 129 mg/dL (80-110); HEMOLYSIS < 15 (0-50); Magnesium 1.9 mg/dL (1.6-2.3); Potassium 3.4 mmol/L (3.4-5.1); Sodium 137 mmol/L (137-145)
[2025-01-24 06:20] LABS: Hemoglobin 13.4 g/dL (13.5-17.5); Mean Corpuscular HGB Conc 34.3 % (30-36); Mean Corpuscular Hemoglobin 32.5 PG (26-34); Mean Corpuscular Volume 94.6 fL (80-100); Platelet Count 310 X10^3/uL (150-400); Red Blood Cell Count 4.12 X10^6/uL (4.5-5.9); Red Cell Distribution Width 13.1 % (11.6-14.8); White Blood Cell Count 4.4 X10^3/uL (4.5-11.0)
[2025-01-24] MEDS: LOPERAMIDE 2 MG CAPSULE PO ×4 (06:26→21:26)
[2025-01-24 07:02] LABS: Add Manual Diff / Slide Review YES
[2025-01-24 07:06] LABS: Neutrophils Absolute Manual 3564 /uL (3000-5900); RBC Morphology Normal Morphology; Total Cells Counted 100
[2025-01-24] MEDS: TAMSULOSIN 0.4 MG CAPSULE PO (08:30)
[2025-01-24] MEDS: BUDESONIDE 3 MG CAP PO ×3 (08:31→21:26)
[2025-01-24] MEDS: CLOPIDOGREL 75 MG TABLET PO (08:31)
[2025-01-24] MEDS: ENOXAPARIN 40 MG/0.4 ML SYRINGE SUBCUT (08:31)
[2025-01-24] MEDS: POTASSIUM CHLORIDE 20 MEQ TAB 40 MEQ PO (09:37)
--- NOTE | 2025-01-24 10:50 | P.PN_ITS ---
Subjective Subjective Interval history: Patient reports multiple episodes of voluminous liquid diarrhea overnight. Not much improvement in the 1st 24 hour treatments with oral budesonide. Abdominal cramping associated with it and seems to be worsening with taking p.o. liquids and solids. Patient feels weak feels too weak to stand up Review of systems: No fever or chills no vomiting no cough or shortness of breath No palpitations No paresthesia No paresis Exam Vital Signs (past 8 hours): - 01/24/25 04:00 01/24/25 07:00 01/24/25 08:00 Temperature 98.8 F 98.9 F Pulse Rate 89 93 H Respiratory Rate 20 17 Blood Pressure 138/72 92/56 L Pulse Oximetry 96 95 95 Oxygen Delivery Method Room Air Oxygen Flow Rate 0 0 0 Oxygen Delivery Method Room Air Oxygen Flow Rate 0 Narrative Exam Narrative: Alert cogent no acute distress HEENT unremarkable Neck no JVD Heart sounds distant no murmurs appreciated Lungs clear from apices to bases Abdomen is diffusely mildly tender bowel sounds slightly hyperactive Moves all extremities Oriented and affect appropriate Objective Labs 01/24/25 04:50 01/24/25 04:50 Labs: Laboratory Results - last 24 hr 01/23/25 01/23/25 01/23/25 08:55 10:40 14:25 WBC RBC Hgb Hct MCV MCH MCHC RDW Plt Count Neut % (Auto) Surgical Instrument Maker Lymph % (Auto) Surgical Instrument Maker Stark % (Auto) Surgical Instrument Maker Eos % (Auto) Surgical Instrument Maker Baso % (Auto) Surgical Instrument Maker Neut # (Auto) Surgical Instrument Maker Lymph # (Auto) Surgical Instrument Maker Stark # (Auto) Surgical Instrument Maker Eos # (Auto) Surgical Instrument Maker Baso # (Auto) Surgical Instrument Maker Total Counted Seg Neutrophils % Band Neutrophils % Lymphocytes % (Manual) Monocytes % (Manual) Neutrophils # (Manual) RBC Morphology Sodium Potassium Chloride Carbon Dioxide BUN Creatinine Estimated GFR BUN/Creatinine Ratio Glucose Calcium Magnesium TSH Urine Color Yellow Urine Appearance Clear Urine pH 5.5 Ur Specific [place] 1.020 Urine Protein Negative Urine Glucose (UA) Negative Urine Ketones Trace H Urine Occult Blood 1+ H Urine Nitrate Negative Urine Bilirubin Negative Urine Urobilinogen 0.2 Ur Leukocyte Esterase Negative Urine RBC 0-1/hpf Urine WBC 0-1/hpf Ur Squamous Epith Cells None seen Urine Bacteria Few (2-10) H Ur Culture Indicated? Cult not indicated Vol Urine Centrifuged 10ml (spun) Stl C. cayetanensis PCR Not detected Stool Rotavirus (PCR) Not detected Stool Adenovirus (PCR) Not detected Stool Astrovirus (PCR) Not detected Stool Cryptosporidium PCR Not detected Stl E.coli Shiga Tox PCR Not detected St Sh/Enteroin Ecoli PCR Not detected Stl Enterotoxigenic E PCR Not detected Stool EPEC (PCR) Not detected Stl E. histolytica PCR Not detected Stool Giardia Lamblia PCR Not detected Stool Sapovirus (PCR) Not detected Stl P. shigelloides PCR Not detected St Y.enterocolitica PCR Not detected Stool Vibrio (PCR) Not detected Stl Vibrio cholerae PCR Not detected Stl Enteroaggr Ecoli PCR Not detected Stl Norovirus GI/GII PCR Not detected Campylobacter (PCR) Not detected C. difficile Tox (PCR) Not detected Salmonella (PCR) Not detected 01/24/25 04:50 WBC 4.4 L RBC 4.12 L Hgb 13.4 L Hct 39.0 L MCV 94.6 MCH 32.5 MCHC 34.3 RDW 13.1 Plt Count 310 Neut % (Auto) Surgical Instrument Maker Lymph % (Auto) Surgical Instrument Maker Stark % (Auto) Surgical Instrument Maker Eos % (Auto) Surgical Instrument Maker Baso % (Auto) Surgical Instrument Maker Neut # (Auto) Surgical Instrument Maker Lymph # (Auto) Surgical Instrument Maker Stark # (Auto) Surgical Instrument Maker Eos # (Auto) Surgical Instrument Maker Baso # (Auto) Surgical Instrument Maker Total Counted 100 Seg Neutrophils % 64.0 Band Neutrophils % 17.0 H Lymphocytes % (Manual) 17.0 L Monocytes % (Manual) 2.0 Neutrophils # (Manual) 3564 RBC Morphology Normal morphology Sodium 137 Potassium 3.4 Chloride 114 H Carbon Dioxide 14 L BUN 26 H Creatinine 1.36 H Estimated GFR 51 L BUN/Creatinine Ratio 19.1 Glucose 129 H Calcium 8.4 Magnesium 1.9 TSH 0.60 Urine Color Urine Appearance Urine pH Ur Specific [place] Urine Protein Urine Glucose (UA) Urine Ketones Urine Occult Blood Urine Nitrate Urine Bilirubin Urine Urobilinogen Ur Leukocyte Esterase Urine RBC Urine WBC Ur Squamous Epith Cells Urine Bacteria Ur Culture Indicated? Vol Urine Centrifuged Stl C. cayetanensis PCR Stool Rotavirus (PCR) Stool Adenovirus (PCR) Stool Astrovirus (PCR) Stool Cryptosporidium PCR Stl E.coli Shiga Tox PCR St Sh/Enteroin Ecoli PCR Stl Enterotoxigenic E PCR Stool EPEC (PCR) Stl E. histolytica PCR Stool Giardia Lamblia PCR Stool Sapovirus (PCR) Stl P. shigelloides PCR St Y.enterocolitica PCR Stool Vibrio (PCR) Stl Vibrio cholerae PCR Stl Enteroaggr Ecoli PCR Stl Norovirus GI/GII PCR Campylobacter (PCR) C. difficile Tox (PCR) Salmonella (PCR) PFSH Medical History Hyperlipidemia Chronic kidney disease Stroke Social History household members: none Smoking Status: Never smoker alcohol intake: current Assessment & Plan Assessment & Plan narrative: Assessment & Plan 1. Lymphocytic colitis, recurrent, POA, active - Patient still having voluminous frequent liquid stool - still mild loss of K+ and HCO -we will add back oral potassium and oral bicarbonate 650 - resumed budesonide, at 3 mg TID, but note that patient previously admitted for nausea at this dose and may need to decrease prior to discharge. - loperamide prn - continue IV fluids, electrolyte replacement - GI panel negative, including for C. diff 2. TISHA, POA, active - continue IV fluids, Cr 1.7 on admission improved to 1.4 in 24 hours with baseline 0.8 to 0.9 based on previous admissions here. 3. HTN, chronic - hold home antihypertensives for now. 4. Hypokalemia, acute, POA - repleted with 40 mg PO in the ER, continue to follow with BMP - replet with 40mEq BID 5. Acute urinary retention, POA - patient with >500 cc in bladder per ER provider, kong was placed - consider Tamsulosin and trial of void once improvement in diarrhea and improvement in TISHA - UA negative for infection. Code: Full, surrogate is patient's son Eliud DVT: Lovenox daily I have utilized all available immediate resources to obtain, update, or review the patient's current medications. Dispo: patient admitted under inpatient status. Likely discharge home in 2-3 days. Time-Based Coding :: 45 spent with patient and on the chart (including review of chart, obtaining history, exam, reviewing outside data, placing orders, documenting exam and treatment plan, and counseling patient) on [DATE].
--- NOTE | 2025-01-24 12:45 | DIET.CONS ---
Dietary Consultation Note Admission Date: 01/23/2025 14:10 Assessment: 84 y M admitted for colitis/increasing frequency of diarrhea. Dietitian screened for low MNA. Met with pt at bedside. Reports throwing up his lunch. Has Ensure Max at bedside. Reports last 2 weeks he has had strong appetite and has been eating lots of food and keeping this food down. However, before these last 2 weeks, appetite had been on and off. Normal weight is 175 lb. Now 155 lb at doctors office per pt. Unable to complete assessment. Pt needing to use bathroom immediately, pressed call button for RN and got up. Informed RN of pt getting up. NFPE postponed. Pt presented in Aug 2024 with N/V/D and was dx with severe acute protein calorie malnutrition. Ht: 177.8 cm Wt: 70.307 kg BMI: 22.2 UBW: 80.286 kg on 08/12/24 (-12.5% weight loss within 6 months, severe) Last BM: 01/24/25 (01/24/25 12:00) MNA: 10 Maximilian Score: 19 Diet: 01/23/25 Dinner General (Regular) Diet Diet Modifications: Nutrition Percent Meal Consumed 0% 01/24/25 10:41 Labs: RBC 4.12 X10^6/uL (4.5-5.9) L 01/24/25 04:50 Hgb 13.4 g/dL (13.5-17.5) L 01/24/25 04:50 Hct 39.0 % (41-53) L 01/24/25 04:50 Creatinine 1.36 mg/dL (0.66-1.25) H 01/24/25 04:50 Lactate 1.7 mmol/L (0.7-2.1) 01/23/25 08:55 Nutrition Diagnosis: Unintentional weight loss r/t altercations in GI function/structure aeb -12.5% weight loss within 6 months, severe Interventions: -F/u for full assessment -Clear Ensure trial EER: 1800 kcals (25 kcal/kg per BMI) 85 g protein (1.2 g/kg per colitis) Monitoring/Evaluations: po intakes, ONS tolerance Electronically Signed by: Anahi Hinson 01/24/25 12:45 Clinical Dietitian [address] [address]
[2025-01-24 14:31] LABS: Add Manual Diff / Slide Review NO; Basophils Absolute Auto 0 /uL (0-100); Basophils Percent Auto 0.8 % (0-2); Eosinophils Absolute Auto 200 /uL (0-450); Eosinophils Percent Auto 3.3 % (2-4); Lymphocytes Absolute Auto 900 /uL (1100-4500); Monocytes Absolute Auto 1200 /uL (0-900); Neutrophils Absolute Auto 3200 /uL (1500-7000); Neutrophils Percent Auto 57.9 % (50-75)
--- NOTE | 2025-01-24 15:38 | CM.DANOTE ---
B DCP Assessment Note pt is an 84yo M admitted under INPT with persistent diarrhea, lymphocytic colitis. PCP Kenan Viera Payer Medicare [employer] reviewed EMR. pt lives alone indep in [place], local son Thierry lives nearby. Per PN, pt still having significant amounts of loose stool. on steroids currently. RADHA another 2-3 days. per provider PN,pt reports feeling too weak to stand. [employer] attempted to meet with [email or web address], either sleeping or on the bedside commode. per previous admission CM notes, pt dc'd home with no CM needs. consider need for PT if pt still feels weaker than baseline tomorrow. P: per chart review, anticipate return home with son Thierry support/to transport and OP f/u. r/o need for PT eval Friday. Will continue to follow closely for DCP coordination PRASANNA Lanza Discharge Planning/Care Management Advanced directive, confirm from FAMILY Start: 01/23/25 15:09 Freq: Q24H Status: Active Protocol: Document 01/23/25 15:31 LW (Rec: 01/23/25 15:40 LW [id number]) Advance Directive, confirm on record Time 15:40 Person contacted pt Copy received No CM Discharge Assessment Start: 01/24/25 15:37 Freq: Status: Active Protocol: Document 01/24/25 15:37 SL (Rec: 01/24/25 15:38 SL [id number]) Discharge Planning Assessment Assigned Cooker Chip PRASANNA Lord DPOA/Assigned Designee Name jasbir Guadarrama Contact Information [phone] Advance Directives? Yes Advance Directives on File No History Provided By Patient,Family Member,Medical Record Prior Living Arrangements House Household Members none Type of transporation used prior to Drives own vehicle admit Independent with ADL's Yes Is patient alert and oriented? Yes Caregiver for Another No Barriers to Discharge No Discharge Plan Home Referrals Initiated None needed Review Status In Process Please Provide Date Initial DC 01/24/25 Assessment Was Performed Next Review Type Continued Stay Review
[2025-01-25] VITALS (9 sets, daily range): BP systolic 123–147; BP diastolic 64–85; PULSE 73–111; RESP 17–18; TEMP 35.6–36.6; O2SAT 94–98
[2025-01-25 05:16] LABS: Hematocrit 35.9 % (41-53); Hemoglobin 12.3 g/dL (13.5-17.5); Mean Corpuscular HGB Conc 34.2 % (30-36); Mean Corpuscular Hemoglobin 31.9 PG (26-34); Mean Corpuscular Volume 93.1 fL (80-100); Platelet Count 284 X10^3/uL (150-400); Red Blood Cell Count 3.86 X10^6/uL (4.5-5.9); Red Cell Distribution Width 13.7 % (11.6-14.8); White Blood Cell Count 6.7 X10^3/uL (4.5-11.0)
[2025-01-25 05:18] LABS: Add Manual Diff / Slide Review YES
[2025-01-25 05:33] LABS: Total Cells Counted 100
[2025-01-25 05:34] LABS: Neutrophils Absolute Manual 4556 /uL (3000-5900)
[2025-01-25 05:35] LABS: RBC Morphology Normal Morphology
[2025-01-25 05:37] LABS: BUN Creatinine Ratio 20.5 (6-22); Blood Urea Nitrogen 24 mg/dL (9-20); Calcium 8.6 mg/dL (8.4-10.2); Carbon Dioxide 12 mmol/L (22-32); Chloride 119 mmol/L (98-107); Estimated Glomerular Filt Rate > 60 mL/min (>60); Glucose 158 mg/dL (80-110); HEMOLYSIS < 15 (0-50); Magnesium 1.9 mg/dL (1.6-2.3); Potassium 3.6 mmol/L (3.4-5.1); Sodium 138 mmol/L (137-145)
[2025-01-25] MEDS: DEXTROSE 5%-0.45NS W/KCL 20MEQ 1,000 ML 100 MEQ IV ×2 (07:47→18:26)
[2025-01-25] MEDS: ENOXAPARIN 40 MG/0.4 ML SYRINGE SUBCUT (09:49)
[2025-01-25] MEDS: ONDANSETRON 4 MG/2 ML INJ IV ×3 (10:17→19:31)
[2025-01-25] MEDS: BUDESONIDE 3 MG CAP PO (15:47)
[2025-01-25] MEDS: PROMETHAZINE 25 MG TABLET 12.5 MG PO (15:57)
--- NOTE | 2025-01-25 17:07 | PM.PN.1 ---
Subjective Subjective Interval history: Chief complaint: Nausea vomiting diarrhea with dehydration and acute kidney injury secondary to lymphocytic colitis exacerbation History of present illness: 84 year old male with PMH of CVA, HTN, recent episode of lymphocytic colitis who just finished steroid taper who presents with return of diarrhea. He finished budesonide taper about 4 weeks ago. He had on again off again diarrhea for two weeks but generally improved. Starting two weeks ago he noticed increasing frequency in diarrhea again. He saw his PCP a few days ago who thought he had a viral enteritis. In the emergency room he had TISHA and hypotension, improved with IV fluids. He was given oral budesonide 6 mg in the ER. He did have recent admission for nausea due to high doses of budesonide which improved with lowering dose to 3 mg BID from TID. Denies fever, abdominal pain. Has had chills the last few days. No dysuria or urinary frequency. He did have difficulty voiding in the ER and had 500 cc in his bladder, a kong was placed. Stool PCR was negative for infectious etiologies. He was admitted for further management. Hospital course: 01/24: Overnight patient had multiple episodes of diarrhea still having nausea and the eating very little currently on budesonide 3 mg t.i.d. 01/25: No further episodes of diarrhea stool is now being formed the patient is still having some nausea but not as bad attempted a full liquid diet today but having some nausea afterwards Review of systems: No chest pain palpitations No shortness of breath No paresthesia No paresis No urinary symptoms Physical exam: Frail elderly patient but alert cogent appearing somewhat uncomfortable and nauseated HEENT unremarkable new line neck no JVD Heart rate and rhythm regular Lungs clear Abdomen is nontender scant bowel sounds Extremities no edema Exam Vital Signs (past 8 hours): - 01/25/25 11:00 01/25/25 12:00 01/25/25 16:46 Temperature 97.4 F L Pulse Rate 111 H Respiratory Rate 18 Blood Pressure 147/85 H Pulse Oximetry 98 97 97 Oxygen Delivery Method Room Air Room Air Oxygen Flow Rate 0 Oxygen Delivery Method Room Air Oxygen Flow Rate 0 Objective Labs 01/25/25 04:20 01/25/25 04:20 Labs: Laboratory Results - last 24 hr 01/25/25 04:20 WBC 6.7 D RBC 3.86 L Hgb 12.3 L Hct 35.9 L MCV 93.1 MCH 31.9 MCHC 34.2 RDW 13.7 Plt Count 284 Neut % (Auto) Not Reportable Lymph % (Auto) Not Reportable [place] % (Auto) Not Reportable Eos % (Auto) Not Reportable Baso % (Auto) Not Reportable Lymph # (Auto) Not Reportable [place] # (Auto) Not Reportable Baso # (Auto) Not Reportable Total Counted 100 Seg Neutrophils % 31.0 L D Band Neutrophils % 37.0 H Lymphocytes % (Manual) 19.0 L Monocytes % (Manual) 11.0 Metamyelocytes % 2.0 H Neutrophils # (Manual) 4556 RBC Morphology Normal morphology Sodium 138 Potassium 3.6 Chloride 119 H Carbon Dioxide 12 L BUN 24 H Creatinine 1.17 Estimated GFR > 60 BUN/Creatinine Ratio 20.5 Glucose 158 H Calcium 8.6 Magnesium 1.9 PFSH Medical History Hyperlipidemia Chronic kidney disease Stroke Social History household members: none Smoking Status: Never smoker alcohol intake: current Assessment & Plan Assessment & Plan narrative: 1. Lymphocytic colitis, recurrent, POA, active - Patient still having voluminous frequent liquid stool - still mild loss of K+ and HCO -we will add back oral potassium and oral bicarbonate 650 - resumed budesonide, at 3 mg TID, but note that patient previously admitted for nausea at this dose and may need to decrease prior to discharge. - loperamide prn - continue IV fluids, electrolyte replacement - GI panel negative, including for C. diff 2. TISHA, POA, active - continue IV fluids, Cr 1.7 on admission improved to 1.4 in 24 hours with baseline 0.8 to 0.9 based on previous admissions here. 3. HTN, chronic - hold home antihypertensives for now. 4. Hypokalemia, acute, POA - repleted with 40 mg PO in the ER, continue to follow with BMP - replet with 40mEq BID 5. Acute urinary retention, POA - patient with >500 cc in bladder per ER provider, kong was placed - consider Tamsulosin and trial of void once improvement in diarrhea and improvement in TISHA - UA negative for infection. Code: Full, surrogate is patient's son Eliud DVT: Lovenox daily Time-Based Coding :: 35 minutes spent today with patient and on the chart (including review of chart, obtaining history, exam, reviewing outside data, placing orders, documenting exam and treatment plan, and counseling patient) Time-Based Coding :: [TOTAL MINUTES] spent with patient and on the chart (including review of chart, obtaining history, exam, reviewing outside data, placing orders, documenting exam and treatment plan, and counseling patient) on [DATE].
[2025-01-25] MEDS: METOCLOPRAMIDE 10 MG/2 ML INJ 5 MG IV (22:33)
[2025-01-26] VITALS: BP 140/80; PULSE 111; RESP 18; TEMP 37.2; O2SAT 97
[2025-01-26 04:00] VITALS: BP 112/75; PULSE 96; RESP 17; TEMP 36.2; O2SAT 94
[2025-01-26] MEDS: DEXTROSE 5%-0.45NS W/KCL 20MEQ 1,000 ML 100 MEQ IV ×2 (04:12→16:14)
[2025-01-26] MEDS: METOCLOPRAMIDE 10 MG/2 ML INJ 5 MG IV ×3 (05:01→23:59)
[2025-01-26 05:29] LABS: Hematocrit 39.3 % (41-53); Hemoglobin 13.6 g/dL (13.5-17.5); Mean Corpuscular HGB Conc 34.7 % (30-36); Mean Corpuscular Hemoglobin 32.1 PG (26-34); Mean Corpuscular Volume 92.4 fL (80-100); Platelet Count 311 X10^3/uL (150-400); Red Blood Cell Count 4.25 X10^6/uL (4.5-5.9); Red Cell Distribution Width 13.6 % (11.6-14.8); White Blood Cell Count 8.8 X10^3/uL (4.5-11.0)
[2025-01-26 05:33] LABS: BUN Creatinine Ratio 17.9 (6-22); Blood Urea Nitrogen 26 mg/dL (9-20); Calcium 8.8 mg/dL (8.4-10.2); Carbon Dioxide 12 mmol/L (22-32); Chloride 117 mmol/L (98-107); Estimated Glomerular Filt Rate 48 mL/min (>60); Glucose 134 mg/dL (80-110); HEMOLYSIS < 15 (0-50); Magnesium 1.7 mg/dL (1.6-2.3); Potassium 3.5 mmol/L (3.4-5.1); Sodium 137 mmol/L (137-145)
[2025-01-26 05:49] LABS: Add Manual Diff / Slide Review YES
[2025-01-26 06:19] LABS: Neutrophils Absolute Manual 5896 /uL (3000-5900); RBC Morphology Normal Morphology; Total Cells Counted 100
[2025-01-26 06:20] LABS: Smudge Cells 1+; Toxic Granulation Present
[2025-01-26] MEDS: ENOXAPARIN 40 MG/0.4 ML SYRINGE SUBCUT (08:37)
[2025-01-26] MEDS: ONDANSETRON 4 MG/2 ML INJ IV ×3 (08:37→20:14)
[2025-01-26] MEDS: MAGNESIUM SULFATE 2 GM/50 ML PIGGYBACK IV (09:11)
[2025-01-26 10:00] VITALS: BP 131/77; PULSE 84; RESP 17; TEMP 36.3; O2SAT 96
--- NOTE | 2025-01-26 10:56 | DIET.PN1 ---
Dietary Progress Note Assessment: Dietitian f/u. Met with pt in room this morning, pt had almost finished protein smoothie and was eating orange slices. Was tolerating smoothie so far and ordered again for lunch. Will continued preference ONS or smoothie at each meal as PO tolerance improves. Ht: 177.8 cm Wt: 70.307 kg BMI: 22.2 Last BM: 01/26/25 (01/26/25 06:47) MNA: 10 Maximilian Score: 20 Diet: 01/23/25 Dinner General (Regular) Diet Diet Modifications: Nutrition Percent Meal Consumed refused dinner 01/25/25 18:00 Percent Meal Consumed refused lunch 01/25/25 12:10 Percent Meal Consumed 0% 01/24/25 18:00 Labs: RBC 4.25 X10^6/uL (4.5-5.9) L 01/26/25 04:50 Hgb 13.6 g/dL (13.5-17.5) 01/26/25 04:50 Hct 39.3 % (41-53) L 01/26/25 04:50 Creatinine 1.45 mg/dL (0.66-1.25) H 01/26/25 04:50 Lactate 1.7 mmol/L (0.7-2.1) 01/23/25 08:55 Electronically Signed by: Anahi Hinson 01/26/25 10:56 Clinical Dietitian [address] [address]
[2025-01-26] MEDS: POTASSIUM CHLORIDE IN WATER 10 MEQ/100 ML PIGGYBACK 100 MEQ IV ×2 (11:47→12:57)
[2025-01-26 13:00] VITALS: BP 129/72; PULSE 90; RESP 16; TEMP 36.7; O2SAT 96
--- NOTE | 2025-01-26 14:12 | PC.NURSE ---
Shift Note Assumed care on patient at 1300, report received from Shayan GREEN. Patient check, bed in low position, call light within reach.
--- NOTE | 2025-01-26 19:17 | P.PN_ITS ---
Subjective Subjective Date Patient Seen: 01/26/25 Time Patient Seen: 10:20 Interval history: Subjective Interval history: Chief complaint: Nausea vomiting diarrhea with dehydration and acute kidney injury secondary to lymphocytic colitis exacerbation History of present illness: 84 year old male with PMH of CVA, HTN, recent episode of lymphocytic colitis who just finished steroid taper who presents with return of diarrhea. He finished budesonide taper about 4 weeks ago. He had on again off again diarrhea for two weeks but generally improved. Starting two weeks ago he noticed increasing frequency in diarrhea again. He saw his PCP a few days ago who thought he had a viral enteritis. In the emergency room he had TISHA and hypotension, improved with IV fluids. He was given oral budesonide 6 mg in the ER. He did have recent admission for nausea due to high doses of budesonide which improved with lowering dose to 3 mg BID from TID. Denies fever, abdominal pain. Has had chills the last few days. No dysuria or urinary frequency. He did have difficulty voiding in the ER and had 500 cc in his bladder, a kong was placed. Stool PCR was negative for infectious etiologies. He was admitted for further management. Hospital course: 01/24: Overnight patient had multiple episodes of diarrhea still having nausea and the eating very little currently on budesonide 3 mg t.i.d. 01/25: No further episodes of diarrhea stool is now being formed the patient is still having some nausea but not as bad attempted a full liquid diet today but having some nausea afterwards 01/26: Patient is still having cramping and diarrhea poor appetite. Started some intravenous methylprednisolone to increasing intensity treatment of his colitis Review of systems: No chest pain palpitations No shortness of breath No paresthesia No paresis No urinary symptoms Physical exam: Frail elderly patient but alert cogent appearing somewhat uncomfortable and nauseated HEENT unremarkable new line neck no JVD Heart rate and rhythm regular Lungs clear Abdomen is nontender scant bowel sounds Extremities no edema Exam Vital Signs (past 8 hours): - 01/26/25 13:00 Temperature 98.0 F Pulse Rate 90 Respiratory Rate 16 Blood Pressure 129/72 Pulse Oximetry 96 Oxygen Flow Rate 0 Oxygen Delivery Method Room Air Oxygen Flow Rate 0 Objective Labs 01/26/25 04:50 01/26/25 04:50 Labs: Laboratory Results - last 24 hr 01/26/25 04:50 WBC 8.8 RBC 4.25 L Hgb 13.6 Hct 39.3 L MCV 92.4 MCH 32.1 MCHC 34.7 RDW 13.6 Plt Count 311 Neut % (Auto) Not Reportable Lymph % (Auto) Not Reportable Craig % (Auto) Not Reportable Eos % (Auto) Not Reportable Baso % (Auto) Not Reportable Lymph # (Auto) Not Reportable Craig # (Auto) Not Reportable Baso # (Auto) Not Reportable Total Counted 100 Seg Neutrophils % 38.0 Band Neutrophils % 29.0 H Lymphocytes % (Manual) 18.0 L Monocytes % (Manual) 13.0 H Eosinophils % (Manual) 1.0 L Metamyelocytes % 1.0 H Neutrophils # (Manual) 5896 Smudge Cells 1+ H Toxic Granulation Present H RBC Morphology Normal morphology Sodium 137 Potassium 3.5 Chloride 117 H Carbon Dioxide 12 L BUN 26 H Creatinine 1.45 H Estimated GFR 48 L BUN/Creatinine Ratio 17.9 Glucose 134 H Calcium 8.8 Magnesium 1.7 PFSH Medical History Hyperlipidemia Chronic kidney disease Stroke Social History household members: none Smoking Status: Never smoker alcohol intake: current Assessment & Plan Assessment & Plan narrative: 1. Lymphocytic colitis, recurrent, POA, active - Patient still having cramping and poor appetite - still mild loss of K+ and HCO -we will add back oral potassium and oral bicarbonate 650 - resumed budesonide, at 3 mg TID, but needed to escalate to IV methylprednisolone - loperamide prn - continue IV fluids, electrolyte replacement - GI panel negative, including for C. diff 2. TISHA, POA, active - continue IV fluids, Cr 1.7 on admission improved to 1.4 in 24 hours with baseline 0.8 to 0.9 based on previous admissions here. 3. HTN, chronic - hold home antihypertensives for now. 4. Hypokalemia, acute, POA - repleted with 40 mg PO in the ER, continue to follow with BMP - replet with 40mEq BID 5. Acute urinary retention, POA - patient with >500 cc in bladder per ER provider, kong was placed - consider Tamsulosin and trial of void once improvement in diarrhea and improvement in TISHA - UA negative for infection. Code: Full, surrogate is patient's son Eliud DVT: Lovenox daily Time-Based Coding :: 35 minutes spent today with patient and on the chart (including review of chart, obtaining history, exam, reviewing outside data, placing orders, documenting exam and treatment plan, and counseling patient) Time-Based Coding :: [TOTAL MINUTES] spent with patient and on the chart (including review of chart, obtaining history, exam, reviewing outside data, placing orders, documenting exam and treatment plan, and counseling patient) on [DATE].
[2025-01-26 20:00] VITALS: BP 126/76; PULSE 118; RESP 20; TEMP 36.3; O2SAT 95
[2025-01-26] MEDS: SCOPOLAMINE 1 PATCH TOP (21:00)
[2025-01-27] VITALS (7 sets, daily range): BP systolic 107–138; BP diastolic 63–98; PULSE 95–110; RESP 16–22; TEMP 35.8–36.6; O2SAT 91–98
[2025-01-27] MEDS: ONDANSETRON 4 MG/2 ML INJ IV ×3 (00:34→12:05)
[2025-01-27] MEDS: PROCHLORPERAZINE 10 MG/2 ML VIAL 5 MG IV (02:19)
[2025-01-27] MEDS: DEXTROSE 5%-0.45NS W/KCL 20MEQ 1,000 ML 100 MEQ IV ×2 (02:46→12:59)
--- NOTE | 2025-01-27 04:33 | PC.NURSE ---
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 RN requested a scopolamine patch and applied it (review EMAR) without any relief. Night time Dr Nails replaced Reglan with compazine; still no relief for patient from the N/V. Pt denies pain, but is getting 10-20 minute naps between episodes of BM/N/V.
[2025-01-27 06:31] LABS: Hematocrit 40.6 % (41-53); Hemoglobin 13.9 g/dL (13.5-17.5); Mean Corpuscular HGB Conc 34.2 % (30-36); Mean Corpuscular Hemoglobin 31.8 PG (26-34); Mean Corpuscular Volume 92.9 fL (80-100); Platelet Count 297 X10^3/uL (150-400); Red Blood Cell Count 4.37 X10^6/uL (4.5-5.9); Red Cell Distribution Width 13.9 % (11.6-14.8)
[2025-01-27 06:32] LABS: Add Manual Diff / Slide Review YES
[2025-01-27 06:35] LABS: BUN Creatinine Ratio 28.7 (6-22); Blood Urea Nitrogen 41 mg/dL (9-20); Calcium 8.4 mg/dL (8.4-10.2); Chloride 116 mmol/L (98-107); Estimated Glomerular Filt Rate 48 mL/min (>60); Glucose 180 mg/dL (80-110); HEMOLYSIS < 15 (0-50); Magnesium 2.2 mg/dL (1.6-2.3); Potassium 3.6 mmol/L (3.4-5.1); Sodium 136 mmol/L (137-145)
[2025-01-27 06:39] LABS: Carbon Dioxide 9 mmol/L (22-32)
[2025-01-27 07:08] LABS: Neutrophils Absolute Manual 7600 /uL (3000-5900); RBC Morphology Normal Morphology; Total Cells Counted 100
[2025-01-27 08:03] LABS: Base Excess VBG -7.5 mmol/L (0-4); HCO3 VBG 15 mmol/L (24-28); Oxygen Saturation VBG 73 % (70-75); PCO2 VBG 22.8 mmHg (45-50); PO2 VBG 37 mmHg (35-45); Total CO2 VBG 14 mmol/L (24-29); pH VBG 7.42 (7.33-7.43)
[2025-01-27] MEDS: TAMSULOSIN 0.4 MG CAPSULE PO (08:35)
[2025-01-27] MEDS: ENOXAPARIN 40 MG/0.4 ML SYRINGE SUBCUT (08:35)
[2025-01-27] MEDS: SUCRALFATE 1 GM/10 ML ORAL SUSP PO (12:02)
--- NOTE | 2025-01-27 16:40 | PM.PN.1 ---
Subjective Subjective Date Patient Seen: 01/27/25 Time Patient Seen: 16:40 Interval history: Chief complaint: Nausea vomiting diarrhea with dehydration and acute kidney injury secondary to lymphocytic colitis exacerbation History of present illness: 84 year old male with PMH of CVA, HTN, recent episode of lymphocytic colitis who just finished steroid taper who presents with return of diarrhea. He finished budesonide taper about 4 weeks ago. He had on again off again diarrhea for two weeks but generally improved. Starting two weeks ago he noticed increasing frequency in diarrhea again. He saw his PCP a few days ago who thought he had a viral enteritis. In the emergency room he had TISHA and hypotension, improved with IV fluids. He was given oral budesonide 6 mg in the ER. He did have recent admission for nausea due to high doses of budesonide which improved with lowering dose to 3 mg BID from TID. Denies fever, abdominal pain. Has had chills the last few days. No dysuria or urinary frequency. He did have difficulty voiding in the ER and had 500 cc in his bladder, a kong was placed. Stool PCR was negative for infectious etiologies. He was admitted for further management. Hospital course: 01/24: Overnight patient had multiple episodes of diarrhea still having nausea and the eating very little currently on budesonide 3 mg t.i.d. 01/25: No further episodes of diarrhea stool is now being formed the patient is still having some nausea but not as bad attempted a full liquid diet today but having some nausea afterwards 01/26: Patient is still having cramping and diarrhea poor appetite. Started some intravenous methylprednisolone to increasing intensity treatment of his colitis 01/27: Appetite is about the same having somewhat less abdominal cramping and diarrhea with IV methylprednisolone Review of systems: No chest pain palpitations No shortness of breath No paresthesia No paresis No urinary symptoms Physical exam: Frail elderly patient but alert cogent appearing somewhat uncomfortable and nauseated HEENT unremarkable new line neck no JVD Heart rate and rhythm regular Lungs clear Abdomen is nontender scant bowel sounds Extremities no edema Assessment and plan: 1. Lymphocytic colitis, recurrent, POA, active - Patient still having cramping and poor appetite - still mild loss of K+ and HCO -we will add back oral potassium and oral bicarbonate 650 - resumed budesonide, at 3 mg TID, but needed to escalate to IV methylprednisolone - loperamide prn - continue IV fluids, electrolyte replacement - GI panel negative, including for C. diff 2. TISHA, POA, active - continue IV fluids, Cr 1.7 on admission improved to 1.4 in 24 hours with baseline 0.8 to 0.9 based on previous admissions here. 3. HTN, chronic - hold home antihypertensives for now. 4. Hypokalemia, acute, POA - repleted with 40 mg PO in the ER, continue to follow with BMP - replet with 40mEq BID 5. Acute urinary retention, POA - patient with >500 cc in bladder per ER provider, kong was placed - consider Tamsulosin and trial of void once improvement in diarrhea and improvement in TISHA - UA negative for infection. Code: Full, surrogate is patient's son Eliud DVT: Lovenox daily Time-Based Coding :: 35 minutes spent today with patient and on the chart (including review of chart, obtaining history, exam, reviewing outside data, placing orders, documenting exam and treatment plan, and counseling patient) Exam Vital Signs (past 8 hours): - 01/27/25 12:00 01/27/25 16:00 Temperature 97.9 F 97.7 F Pulse Rate 95 H 108 H Respiratory Rate 16 22 Blood Pressure 133/86 132/98 H Pulse Oximetry 96 96 Oxygen Flow Rate 0 0 Oxygen Delivery Method Room Air Oxygen Flow Rate 0 Objective Labs 01/27/25 06:00 01/27/25 06:00 Labs: Laboratory Results - last 24 hr 01/27/25 01/27/25 06:00 07:58 WBC 10.0 RBC 4.37 L Hgb 13.9 Hct 40.6 L MCV 92.9 MCH 31.8 MCHC 34.2 RDW 13.9 Plt Count 297 Neut % (Auto) Not Reportable Lymph % (Auto) Not Reportable [place] % (Auto) Not Reportable Eos % (Auto) Not Reportable Baso % (Auto) Not Reportable Lymph # (Auto) Not Reportable [place] # (Auto) Not Reportable Baso # (Auto) Not Reportable Total Counted 100 Seg Neutrophils % 53.0 Band Neutrophils % 23.0 H Lymphocytes % (Manual) 14.0 L Atypical Lymphs % 1.0 H Monocytes % (Manual) 9.0 Neutrophils # (Manual) 7600 H RBC Morphology Normal morphology VBG pH 7.42 VBG pCO2 22.8 L VBG pO2 37 VBG HCO3 15 L VBG Total CO2 14 L VBG O2 Saturation 73 VBG Base Excess -7.5 L FiO2 % 21.0 % Sodium 136 L Potassium 3.6 Chloride 116 H Carbon Dioxide 9 L* BUN 41 H Creatinine 1.43 H Estimated GFR 48 L BUN/Creatinine Ratio 28.7 H Glucose 180 H Calcium 8.4 Magnesium 2.2 PFSH Medical History Hyperlipidemia Chronic kidney disease Stroke Social History household members: none Smoking Status: Never smoker alcohol intake: current Assessment & Plan Time-Based Coding :: [TOTAL MINUTES] spent with patient and on the chart (including review of chart, obtaining history, exam, reviewing outside data, placing orders, documenting exam and treatment plan, and counseling patient) on [DATE].
--- NOTE | 2025-01-27 17:23 | DI.RAD.S_ITS ---
PROCEDURE: XR CHEST 1V INDICATIONS: Chest pain TECHNIQUE: One view of the chest was acquired. COMPARISON: [facility], CR, XR CHEST 1V, 01/23/2025, 9:03. [facility], CR, XR CHEST 1V, 08/12/2024, 5:16. FINDINGS: Surgical changes and devices: None. Lungs and pleura: Lungs are clear. No pleural effusions or pneumothorax. Mediastinum: Mediastinal contours appear normal. Heart size is normal. Bones and chest wall: No suspicious bony lesions. Overlying soft tissues appear unremarkable. IMPRESSION: No acute cardiopulmonary abnormality is seen. Approved by: Michael Lentz M.D. on 01/27/2025 at 18:03
--- NOTE | 2025-01-27 17:34 | EKG_ITS ---
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
[2025-01-27] MEDS: MAG HYDROX/ALUMINUM/SIMETH SUS 20 ML, LIDOCAINE VISCOUS 2% 15 ML PO (17:38)
[2025-01-27] MEDS: MORPHINE 2 MG/ML INJ IV (17:38)
--- NOTE | 2025-01-27 17:42 | PC.NURSE ---
@1727 Pt reported chest pain in center of chest not radiating anywhere 05/19. I took BP 138/82 and HR 108. I alerted Dr. Auguste he gave orders for STAT EKG, chest x-ray, troponin, 2mg IV morphine. orders were executed (see MAR). Waiting for results Pt is stable and VSS.
[2025-01-27 17:57] LABS: Creatine Kinase 78 U/L (55-170)
[2025-01-27 18:10] LABS: Troponin I < 0.012 ng/mL (0.01-0.034)
[2025-01-28] VITALS: BP 113/80; PULSE 132; RESP 38; O2SAT 92
[2025-01-28 00:50] VITALS: PULSE 112; RESP 44; O2SAT 69
--- NOTE | 2025-01-28 00:57 | DI.RAD.S_ITS ---
PROCEDURE: XR CHEST 1V INDICATIONS: shortness of breath/poor oxygenation TECHNIQUE: One view of the chest was acquired. COMPARISON: [facility], CR, XR CHEST 1V, 01/27/2025, 17:23. FINDINGS: Surgical changes and devices: None. Lungs and pleura: Lungs are clear. No pleural effusions or pneumothorax. Mediastinum: Mediastinal contours appear normal. Heart size is normal. Bones and chest wall: No suspicious bony lesions. Overlying soft tissues appear unremarkable. IMPRESSION: No acute cardiopulmonary abnormality is seen. Approved by: Jaclyn Kaufman M.D.,Ph.D. on 01/28/2025 at 1:22
[2025-01-28 01:04] LABS: Allen Test for ABG Passed? Positive; Base Excess ABG -14.8 mmol/L (-2-3); Blood Gas Collection Site Left Radial; HCO3 ABG 7 mmol/L (23-27); Oxygen Saturation ABG 94 % (95-100); PCO2 ABG 11.6 mmHg (35-45); PO2 ABG 69 mmHg (80-100); TCO2 ABG 6 mmol/L (23-27); pH ABG 7.38 (7.35-7.45)
[2025-01-28 01:32] LABS: D Dimer 2738 ng/ml (<500)
[2025-01-28 01:46] LABS: NT-proBNP (BNP-Adult 18+) 1810 pg/mL (<450); Troponin I 0.018 ng/mL (0.01-0.034)
[2025-01-28 02:06] LABS: Base Excess ABG -23.5 mmol/L (-2-3); Blood Gas Collection Site Arterial Line; HCO3 ABG 9 mmol/L (23-27); Oxygen Saturation ABG 93 % (95-100); PO2 ABG 111 mmHg (80-100); TCO2 ABG 9 mmol/L (23-27); pH ABG 6.91 (7.35-7.45)
[2025-01-28 02:30] LABS: Add Manual Diff / Slide Review NO; Basophils Absolute Auto 0 /uL (0-100); Basophils Percent Auto 0.1 % (0-2); Eosinophils Absolute Auto 100 /uL (0-450); Eosinophils Percent Auto 0.4 % (2-4); Hematocrit 38.7 % (41-53); Hemoglobin 12.8 g/dL (13.5-17.5); Lymphocytes Absolute Auto 1100 /uL (1100-4500); Lymphocytes Percent Auto 9.4 % (25-40); Mean Corpuscular Hemoglobin 31.8 PG (26-34); Mean Corpuscular Volume 96.4 fL (80-100); Monocytes Absolute Auto 100 /uL (0-900); Monocytes Percent Auto 0.6 % (3-14); Neutrophils Absolute Auto 11000 /uL (1500-7000); Neutrophils Percent Auto 89.5 % (50-75); Platelet Count 225 X10^3/uL (150-400); Red Blood Cell Count 4.01 X10^6/uL (4.5-5.9); Red Cell Distribution Width 14.3 % (11.6-14.8); White Blood Cell Count 12.2 X10^3/uL (4.5-11.0)
[2025-01-28 02:39] LABS: Blood Urea Nitrogen 61 mg/dL (9-20); Calcium 8.1 mg/dL (8.4-10.2); Chloride 112 mmol/L (98-107); Estimated Glomerular Filt Rate 23 mL/min (>60); Glucose 252 mg/dL (80-110); Magnesium 3.3 mg/dL (1.6-2.3); NT-proBNP (BNP-Adult 18+) 1840 pg/mL (<450); Potassium 4.5 mmol/L (3.4-5.1); Sodium 135 mmol/L (137-145); Troponin I 0.023 ng/mL (0.01-0.034)
[2025-01-28 02:41] LABS: HEMOLYSIS 51 (0-50)
[2025-01-28 02:43] LABS: Carbon Dioxide 6 mmol/L (22-32)
[2025-01-28] MEDS: VANCOMYCIN 2,000 MG/400 ML PIGGYBACK 200 MG IV (03:07)
[2025-01-28] MEDS: PIPERACILLIN/TAZO 4.5 GM in SODIUM CHLORIDE 0.9% 100 ML IV (03:07)
[2025-01-28] MEDS: SODIUM CHLORIDE 0.9% 1,000 ML 150 ML IV (03:09)
[2025-01-28] MEDS: VASOPRESSIN 40 UNIT in SODIUM CHLORIDE 0.9% 100 ML 4.5 UNIT IV (03:22)
[2025-01-28 03:45] LABS: Base Excess ABG -19.3 mmol/L (-2-3); Blood Gas Collection Site Arterial Line; HCO3 ABG 13 mmol/L (23-27); Oxygen Saturation ABG 74 % (95-100); PCO2 ABG 63.4 mmHg (35-45); PO2 ABG 64 mmHg (80-100); TCO2 ABG 14 mmol/L (23-27); pH ABG 6.93 (7.35-7.45)
[2025-01-28 03:47] LABS: Reflexed Lactate in 2 Hours Y
[2025-01-28 05:33] VITALS: PULSE 39; RESP 6; O2SAT 70
--- NOTE | 2025-01-28 05:34 | RT ---
Called to rm 220 pt was desating he went from two liters sating 92 to 5L sating 90 to 10L sating low 80's Called a rapid at 0110 pt was tachapenic and leg mottling 0114 getting ready to intubate pt began throwing up coffee ground like substance out of mouth and nose a mass amount pt hypoxic for at least 20 minutes during episode of vomiting assisted ER Doc intubated with a 7.5 ETT 25@teeth on first attempt verified via glide scope ETT passed vocal cords bilateral breathe sounds notice and good chest rise continue to bag pt after intubation 0128 CPR initiated pt became bradycardiac 0219 moved pt to ICU rm 231 placed pt on vent VT 500/RR16/PEEP5/ FIO2 100% 0338 called code blue pt became bradycardiac at 39, oxygen started dropping took pt off vent started bagging at 15+Oxygen and CPR started 0416 ED doc consult with ICU continuity director agrees any further resusitation efforts futile 416 Time of pulled pt off the ventilator
[2025-01-28 06:18] LABS: Appearance Urine UA CLEAR; Bilirubin Urine UA NEGATIVE (NEGATIVE); Color Urine UA YELLOW; Glucose Urine UA NEGATIVE (Negative); Ketones Urine UA NEGATIVE (NEGATIVE); Leukocyte Esterase Urine UA NEGATIVE (NEGATIVE); Nitrite Urine UA NEGATIVE (Negative); Occult Blood Urine UA TRACE-INTACT (Negative); Protein Urine UA 1+ (Negative); Specific Gravity Urine UA 1.025 (1.000-1.035); Urobilinogen Urine UA 0.2 E.U./dL (0.2)
[2025-01-28 06:26] LABS: Bacteria Urine None Seen; Hyaline Casts Urine 0-1/LPF; RBC Urine None Seen (0-5/HPF); Squamous Epithelial Cell Urine 1-5 /HPF (0-5/HPF); Urine Volume 10mL (spun); WBC Urine None Seen (0-5/HPF)
[2025-01-28 06:27] LABS: Amorphous Sediment Urine 1+; Culture Indicated Urine Cult Not Indicated
--- NOTE | 2025-01-28 07:01 | PC.NURSE ---
~0015 this RN noticed increased SOB as pt was transferring from commode to bed. Pulse Ox 88%, 2 L NC applied, O2 improved to 94%, physical re-assessment, and repeated review of labs and reports conducted, RT Maria L Garcia consulted, and provider Rosey made aware. ~0040 Pt attempted to get up to commode, but was unable to stand, tachypnea increased to RR of 44, HR 120-130, unrelieved by rest & increased O2 to 6 L NC Rapid response called at 0050, O2 sats dropping mid 80's-high 70's as this RN and Maria L Garcia RT titrated O2 from oxymask at 10 L/min to maxed out on non-rebreather in a matter of min. In communication with Dr Currie. Orders for Labs, CXR, ABG, and telemetry placed, fluids stopped. Hr in the 130-140's and pt continuing to desaturate. nJ Kim called at 0110 (See code blue flowsheet documentation) Pt intubated and transferred to ICU on pressors @ 0226 w/Ray Thompson RN Titrated drips per JAN. ~0310 pt began to desat at 100% FiO2 on vent. RT at bedside, and becoming bradycardic (HR in 30's) Second jn Kim called at 0338 (see flowsheet) ED skip Gonzalez consulted with Dr Currie and ICU colorer @ 0410, and they are in agreement that all possible efforts had been made, and poor . Time of 416.
--- NOTE | 2025-01-28 07:02 | P.DN_ITS ---
Discharge Summary History of Illness Narrative: From the progress note on 01/27: 84 year old male with PMH of CVA, HTN, recent episode of lymphocytic colitis who just finished steroid taper who presents with return of diarrhea. He finished budesonide taper about 4 weeks ago. He had on again off again diarrhea for two weeks but generally improved. Starting two weeks ago he noticed increasing frequency in diarrhea again. He saw his PCP a few days ago who thought he had a viral enteritis. In the emergency room he had TISHA and hypotension, improved with IV fluids. He was given oral budesonide 6 mg in the ER. He did have recent admission for nausea due to high doses of budesonide which improved with lowering dose to 3 mg BID from TID. Denies fever, abdominal pain. Has had chills the last few days. No dysuria or urinary frequency. He did have difficulty voiding in the ER and had 500 cc in his bladder, a kong was placed. Stool PCR was negative for infectious etiologies. He was admitted for further management. Last night he suddenly became short of breath, tachypneic. Initial workup was unremarkable, with clear CXR. He then became hypotensive and hypoxemic. Moved to ICU. At 1 AM rapid response was called and ED attending subsequently intubated. From around 1:30 on IVFs, previously increased rate, 2 pressors. ICU consultation was called. He developed PEA and underwent resuscitation but unfortunately passed on 01/28/2025 at 04:17. Principal cause of - suspected PE, suspected septic shock Hospital Course Date of Admission: 01/23/25 14:10 Date of : 01/28/25 Primary care provider: Kenan Viera DO Objective Labs 01/28/25 02:05 01/28/25 02:05 Labs: Laboratory Results - last 24 hr 01/27/25 01/27/25 01/27/25 06:00 07:58 17:40 WBC RBC Hgb Hct MCV MCH MCHC RDW Plt Count Neut % (Auto) Lymph % (Auto) [place] % (Auto) Eos % (Auto) Baso % (Auto) Neut # (Auto) Lymph # (Auto) [place] # (Auto) Eos # (Auto) Baso # (Auto) Total Counted 100 Seg Neutrophils % 53.0 Band Neutrophils % 23.0 H Lymphocytes % (Manual) 14.0 L Atypical Lymphs % 1.0 H Monocytes % (Manual) 9.0 Neutrophils # (Manual) 7600 H RBC Morphology Normal morphology D-Dimer ABG Sample Site ABG pH ABG pCO2 ABG pO2 ABG HCO3 ABG Total CO2 ABG O2 Saturation ABG Base Excess Dillon Test VBG pH 7.42 VBG pCO2 22.8 L VBG pO2 37 VBG HCO3 15 L VBG Total CO2 14 L VBG O2 Saturation 73 VBG Base Excess -7.5 L FiO2 % 21.0 % Sodium Potassium Chloride Carbon Dioxide BUN Creatinine Estimated GFR BUN/Creatinine Ratio Glucose Lactate Calcium Magnesium Total Creatine Kinase 78 Troponin I < 0.012 NT-Pro-B Natriuret Pep Urine Color Urine Appearance Urine pH Ur Specific [place] Urine Protein Urine Glucose (UA) Urine Ketones Urine Occult Blood Urine Nitrate Urine Bilirubin Urine Urobilinogen Ur Leukocyte Esterase Urine RBC Urine WBC Ur Squamous Epith Cells Amorphous Sediment Urine Bacteria Hyaline Casts Ur Culture Indicated? Vol Urine Centrifuged 01/28/25 01/28/25 01/28/25 00:59 01:01 02:02 WBC RBC Hgb Hct MCV MCH MCHC RDW Plt Count Neut % (Auto) Lymph % (Auto) [place] % (Auto) Eos % (Auto) Baso % (Auto) Neut # (Auto) Lymph # (Auto) [place] # (Auto) Eos # (Auto) Baso # (Auto) Total Counted Seg Neutrophils % Band Neutrophils % Lymphocytes % (Manual) Atypical Lymphs % Monocytes % (Manual) Neutrophils # (Manual) RBC Morphology D-Dimer 2738 H ABG Sample Site Left radial Arterial line ABG pH 7.38 6.91 L* ABG pCO2 11.6 L* 43.0 ABG pO2 69 L 111 H ABG HCO3 7 L 9 L ABG Total CO2 6 L 9 L ABG O2 Saturation 94 L 93 L ABG Base Excess -14.8 L -23.5 L Dillon Test Positive N/a VBG pH VBG pCO2 VBG pO2 VBG HCO3 VBG Total CO2 VBG O2 Saturation VBG Base Excess FiO2 % Sodium Potassium Chloride Carbon Dioxide BUN Creatinine Estimated GFR BUN/Creatinine Ratio Glucose Lactate Calcium Magnesium Total Creatine Kinase Troponin I 0.018 NT-Pro-B Natriuret Pep 1810 H Urine Color Urine Appearance Urine pH Ur Specific [place] Urine Protein Urine Glucose (UA) Urine Ketones Urine Occult Blood Urine Nitrate Urine Bilirubin Urine Urobilinogen Ur Leukocyte Esterase Urine RBC Urine WBC Ur Squamous Epith Cells Amorphous Sediment Urine Bacteria Hyaline Casts Ur Culture Indicated? Vol Urine Centrifuged 01/28/25 01/28/25 01/28/25 02:05 02:11 03:41 WBC 12.2 H RBC 4.01 L Hgb 12.8 L Hct 38.7 L MCV 96.4 D MCH 31.8 MCHC 33.0 RDW 14.3 Plt Count 225 Neut % (Auto) 89.5 H Lymph % (Auto) 9.4 L [place] % (Auto) 0.6 L Eos % (Auto) 0.4 L Baso % (Auto) 0.1 Neut # (Auto) 49803 H Lymph # (Auto) 1100 [place] # (Auto) 100 Eos # (Auto) 100 Baso # (Auto) 0 Total Counted Seg Neutrophils % Band Neutrophils % Lymphocytes % (Manual) Atypical Lymphs % Monocytes % (Manual) Neutrophils # (Manual) RBC Morphology D-Dimer ABG Sample Site Arterial line ABG pH 6.93 L* ABG pCO2 63.4 H* ABG pO2 64 L ABG HCO3 13 L ABG Total CO2 14 L ABG O2 Saturation 74 L* ABG Base Excess -19.3 L Dillon Test N/a VBG pH VBG pCO2 VBG pO2 VBG HCO3 VBG Total CO2 VBG O2 Saturation VBG Base Excess FiO2 % Sodium 135 L Potassium 4.5 Chloride 112 H Carbon Dioxide 6 L* BUN 61 H Creatinine 2.65 H Estimated GFR 23 L BUN/Creatinine Ratio 23.0 H Glucose 252 H Lactate 7.0 H* Calcium 8.1 L Magnesium 3.3 H Total Creatine Kinase Troponin I 0.023 NT-Pro-B Natriuret Pep 1840 H Urine Color Yellow Urine Appearance Clear Urine pH 6.0 Ur Specific [place] 1.025 Urine Protein 1+ H Urine Glucose (UA) Negative Urine Ketones Negative Urine Occult Blood Trace-intact Urine Nitrate Negative Urine Bilirubin Negative Urine Urobilinogen 0.2 Ur Leukocyte Esterase Negative Urine RBC None seen Urine WBC None seen Ur Squamous Epith Cells 1-5 /hpf Amorphous Sediment 1+ Urine Bacteria None seen Hyaline Casts 0-1/lpf Ur Culture Indicated? Cult not indicated Vol Urine Centrifuged 10ml (spun)
== END 2025-01-28 04:17 | disposition expired | DRG 391 ==
LOC: ED 14:02 → AC 14:10 → ICU 01-28 02:24
PROVIDERS: Hospitalist; Internal Medicine; Student in an Organized Health Care Education/Training Program; Admitting Provider Internal Medicine; Emergency Provider Emergency Medicine; PCP Internal Medicine; Referring Provider Emergency Medicine; Visit Provider Internal Medicine
DX: K52.832 Lymphocytic colitis (principal); A41.9 Sepsis, unspecified organism; I26.99 Other pulmonary embolism without acute cor pulmonale; R65.21 Severe sepsis with septic shock; N17.9 Acute kidney failure, unspecified; I10 Essential (primary) hypertension; E87.6 Hypokalemia; R33.9 Retention of urine, unspecified; E86.0 Dehydration; I95.9 Hypotension, unspecified; Z86.73 Personal history of transient ischemic attack (TIA), and cerebral infarction without residual deficits
CPT/HCPCS: 36415; 36600; 51798; 71045; 80048; 80053; 81001; 82550; 82805; 83605; 83690; 83735; 83880; 84145; 84443; 84484; 85007; 85025; 85379; 87040; 87507; 93005; 94799; 96365; 96366; 99284; J0780; J1650; J2270; J2405; J2543; J2765; J2919; J3475